=== PATIENT | female | born 1950 | race Caucasian/White ===

== ENCOUNTER → 2016-12-07 | Outpatient (CLI) | payer MEDICARE, OTHER ==
[2016-12-07 15:02] LABS: BLOOD UREA NITROGEN 14 mg/dL (7-20); CREATININE RESULT 0.87 mg/dL (0.52-1.25)
== END ==
LOC: OD 12:32
PROVIDERS: ATTEND Psychiatry & Neurology Addiction Medicine
DX: F32.9 Major depressive disorder, single episode, unspecified (principal)
CPT/HCPCS: 36415; 80178; 82565; 84443; 84520

== ENCOUNTER → 2017-11-27 | Outpatient (CLI) | payer MEDICARE, OTHER ==
[2017-11-27 13:19] LABS: LITHIUM 0.7 mEq/L (0.6-1.2)
[2017-11-30 09:21] LABS: BLOOD UREA NITROGEN 11 mg/dL (7-20)
== END ==
LOC: OD 08:12
PROVIDERS: ATTEND Psychiatry & Neurology Addiction Medicine
DX: F31.9 Bipolar disorder, unspecified (principal)
CPT/HCPCS: 36415; 80048; 80178; 82565; 84443; 84520

== ENCOUNTER 2018-01-04 09:48 | Day surgery (SDC) | payer MEDICARE, OTHER ==
[~2018-01-04 09:48] MED LIST: KETOROLAC TROMETHAMINE 0.45% 4 DROP/0.4 ML DROPERETTE OD PRN
[2018-01-04] MEDS ORDERED: LIDOCAINE 1% INJ-PF (10 MG/ML) 30 ML SDV ONE (10:05)
[2018-01-04] MEDS: TETRACAINE HCL 0.5% OPH SOLN 2 ML OD PRN ×4 (10:29→11:10)
[2018-01-04] MEDS: CYCLOPENTOLATE 0.2%/PHENYLEPHRINE 1% OPH SOLN 2 ML OD PRN ×3 (10:30→10:56)
[2018-01-04] MEDS: BESIFLOXACIN HCL 0.6% OPH SUSP 5 ML BOTTLE OD PRN ×4 (10:30→11:30)
[2018-01-04] MEDS: TROPICAMIDE 1% OPH SOLN 3 ML OD PRN ×2 (10:30→10:43)
[2018-01-04] MEDS ORDERED: MIDAZOLAM 2 MG/2 ML INJ ONE (11:06)
[2018-01-04] MEDS ORDERED: FENTANYL CITRATE INJ/PF 100 MCG/2 ML AMPUL ONE (11:06)
[2018-01-04] MEDS: EPINEPHRINE INJ/PF 1 MG/1 ML AMPULE ONE ×2 (11:18→11:20)
[2018-01-04] MEDS: CHONDR SU A NA/HYALUR INTRAOC KIT (SURGICARE) ONE ×2 (11:20)
--- NOTE | 2018-01-04 17:31 | [facility] OPERATIVE REPORT E ---
[facility] Operative Report NAME: JAYSON CARY AGE: 67Y DATE OF SURGERY: 01/04/2018 ROOM: PREOPERATIVE DIAGNOSIS: Cataract, right eye. POSTOPERATIVE DIAGNOSIS: Cataract, right eye. OPERATION: Cataract extraction with insertion of an IOL of the right eye. SURGEON: ALEXANDRA WU M.D. ANESTHESIA: Topical. PROCEDURE: After obtaining appropriate consent, the patient's right eye was prepped and draped in sterile fashion as well as the surgeon in a sterile manner and cataract surgery was started. First a paracentesis blade was used to make a side-port incision. Viscoelastic was used to inflate the anterior chamber. Next a 2.4 mm incision was made with a 2.4 mm blade, clear corneal temporally. A continuous capsulorrhexis was made using a cystotome and Utrata forceps. Following this hydrodissection was carried out to make the lens fully loose and mobile and it was rotated 90 degrees. Following this, a buifpu-giw-wqatuwv technique was used to phacoemulsify the lens with a CDE of 5.47. The remaining cortex was removed with irrigation/aspiration. Provisc was instilled into the capsular bag to inflate the bag. A SN60WF, 20.5 diopter lens was placed. The remaining viscoelastic material was removed with irrigation/aspiration. Following this, the incision was found to be watertight. Besivance was instilled into the eye and a protective shield was placed over the eye. The patient returned to the postoperative recovery in stable condition. DICTATING PHYSICIAN: ALEXANDRA WU M.D. [id number] PHY#: [id number] ID: [id number] JOB#: [id number] ACCT: [id number] cc:ALEXANDRA WU M.D. >
--- NOTE | 2018-01-04 17:32 | DISCHARGE SUMMARY E ---
Discharge Summary NAME: JAYSON CARY : 1950 AGE: 67Y ADMITTED: 01/04/2018 DISCHARGED: 01/04/2018 REASON FOR ADMISSION: This is a 67-year-old female who underwent cataract extraction of the right eye. DIAGNOSIS: Cataract, right eye. DISCHARGE INSTRUCTIONS: She underwent surgery because she has trouble driving at night. She should be on a regular diet. No bending at her waist. No heavy lifting. She should use her Besivance, Ilevro, and Durezol at 3:00 p.m. and 8:00 p.m. and sleep with a rigid shield, and I will see her for a 1-day postoperative tomorrow. DICTATING PHYSICIAN: ALEXANDRA WU M.D. [id number] PHY#: [id number] ID: [id number] JOB#: [id number] ACCT: [id number] cc:ALEXANDRA WU M.D. >
== END 2018-01-04 12:18 | disposition home or self-care (01) ==
LOC: SC 09:48
PROVIDERS: ATTEND Internal Medicine
DX: H25.811 Combined forms of age-related cataract, right eye (principal); B00.52 Herpesviral keratitis; K21.9 Gastro-esophageal reflux disease without esophagitis; E07.9 Disorder of thyroid, unspecified; Z79.899 Other long term (current) drug therapy; Z88.3 Allergy status to other anti-infective agents; Z88.5 Allergy status to narcotic agent
CPT/HCPCS: 66984; V2632; J2250; J3490 ×2; A9270; J0171; J3010; 142

== ENCOUNTER → 2018-05-16 | Outpatient (CLI) | payer MEDICARE, OTHER ==
--- NOTE | 2018-05-16 14:26 | RADIOLOGY REPORT (SQ) ---
EXAM DESCRIPTION: CT HEAD WITHOUT COMPLETED DATE/TIME: 05/16/2018 1:09 pm REASON FOR STUDY: G45.9 TRANSIENT CEREBRAL ISCHEMIC ATTACK, UNSPECIFIED G45.9 TRANSIENT CEREBRAL IS CHEMIC ATTACK, UNSPECIFIED COMPARISON: None. TECHNIQUE: Axial images acquired through the brain without intravenous contrast. Images reviewed wi th bone, brain and subdural windows. Additional sagittal and coronal reconstructions were generated. Images stored on PACS. All CT scanners at this facility use dose modulation, iterative reconstruction, and/or weight based d osing when appropriate to reduce radiation dose to as low as reasonably achievable (ALARA). [facility]: Dose Right [facility]: CareDose [facility]: Dose Right [facility]: Teradose 4D [facility]: [employer] RADIATION DOSE: CT Rad equipment meets quality standard of care and radiation dose reduction techniq ues were employed. CTDIvol: 48.5 mGy. DLP: 854 mGy-cm. mGy. LIMITATIONS: None. FINDINGS: VENTRICLES: Normal size and contour. CEREBRUM: No masses. No hemorrhage. No midline shift. No evidence for acute infarction. Normal gra y/white matter differentiation. No areas of low density in the white matter. CEREBELLUM: No masses. No hemorrhage. No alteration of density. No evidence for acute infarction. EXTRAAXIAL SPACES: No fluid collections. No masses. ORBITS AND GLOBE: No intra- or extraconal masses. Normal contour of globe without masses. CALVARIUM: No fracture. PARANASAL SINUSES: Large mucosal nodule/mucous retention cyst in the right maxillary sinus. No fluid or mucosal thickening. SOFT TISSUES: No mass or hematoma. OTHER: No other significant finding. IMPRESSION: NORMAL BRAIN CT WITHOUT CONTRAST. LARGE MUCOSAL NODULE/MUCOUS RETENTION CYST IN THE RIGHT MAXILLARY SINUS. EVIDENCE OF ACUTE STROKE: NO. COMMENT: Quality ID # [id number]: Final reports with documentation of one or more dose reduction techniques (e.g., Automated exposure control, adjustment of the mA and/or kV according to patient size, use of iterative reconstruction technique) TECHNICAL DOCUMENTATION: JOB ID: [id number] [employer]- All Rights Reserved Reading location - IP/workstation name: [email or web address]
== END ==
LOC: RAD 14:12
PROVIDERS: ATTEND Physician Assistant
DX: G45.9 Transient cerebral ischemic attack, unspecified (principal)
CPT/HCPCS: 70450

== ENCOUNTER 2018-06-02 19:18 | Inpatient (IN) | payer MEDICARE, OTHER ==
[2018-06-02] MEDS ORDERED: NORMAL SALINE 500 ML IV ONE (19:35)
--- NOTE | 2018-06-02 19:40 | ER Document Report ---
ED General - General Chief Complaint: Altered Mental Status Stated Complaint: ALTERED MENTAL STATUS Time Seen by Provider: 06/02/18 19:23 Notes: Patient is a 67 year old female that comes to the Emergency Department by EMS for chief complaint of weakness, being unstable on her feet and unable to walk, and the sensation of sluggishness and dizziness. Brother states they were eating when she suddenly started staring off in space and then started having trouble with movement since sitting up. She also seemed like she was slurring some of her words. Patient states she felt initially like she was seeing double but this has improved. She did not have a facial droop, weakness on one side of her body, she denies any headache, chest pain, shortness of breath, fever. She states she feels slightly better, brother states she is already slightly improved, however patient still has the same feeling of sluggishness, dizziness, weakness, unsteadiness. Past medical history of hypertension, bipolar disorder, on lithium, Geodon, Neurontin, amlodipine, and liothyronine (for hypothyroid assumed to be from the lithium). She denies alcohol or recreational drugs. Only new medication is the lithium. TRAVEL OUTSIDE OF THE [place] IN LAST 30 DAYS: No - Related Data Allergies/Adverse Reactions: latex [Latex] Allergy (Severe, Verified 03/05/14 10:19) SWELLING codeine [Codeine] Adverse Reaction (Intermediate, Verified 03/05/14 10:17) FEELING OF GOING FAST diphenhydramine HCl [From Benadryl] Adverse Reaction (Intermediate, Verified 03/05/14 10:19) "CANNOT SLEEP" metronidazole [Metronidazole] Adverse Reaction (Intermediate, Verified 03/05/14 10:17) SEVERE JOINT PAIN milk Adverse Reaction (Verified 01/02/18 13:23) Diarrhea pseudoephedrine HCl [From Sudafed] Adverse Reaction (Verified 03/05/14 10:19) "TROUBLE SLEEPING" STEROIDS Adverse Reaction (Uncoded 03/05/14 10:19) MANIC EPISODES Past Medical History - General Information source: Patient, Relative - brother - Social History Smoking Status: Never Smoker Chew tobacco use (# tins/day): No Frequency of alcohol use: Occasional Drug Abuse: None Lives with: Family Family History: Reviewed & Not Pertinent Patient has suicidal ideation: No Patient has homicidal ideation: No - Past Medical History Cardiac Medical History: Reports: Hx Hypertension Denies: Hx Coronary Artery Disease, Hx Heart Attack - DENIES Pulmonary Medical History: Reports: Hx Pneumonia Denies: Hx Asthma, Hx Bronchitis Neurological Medical History: Reports: 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 Denies: Hx Cerebrovascular Accident Renal/ Medical History: Denies: Hx Peritoneal Dialysis GI Medical History: Denies: Hx Hepatitis, Hx Hiatal Hernia, Hx Ulcer Musculoskeletal Medical History: Reports Hx Arthritis Infectious Medical History: Denies: Hx Hepatitis Past Surgical History: Reports: Hx Hysterectomy. Denies: Hx Mastectomy, Hx Open Heart Surgery, Hx Pacemaker - Immunizations Hx Diphtheria, Pertussis, Tetanus Vaccination: Yes Hx Pneumococcal Vaccination: 05/08/03 Review of Systems - Review of Systems Constitutional: See HPI EENT: No symptoms reported Cardiovascular: No symptoms reported Respiratory: No symptoms reported Gastrointestinal: No symptoms reported Genitourinary: No symptoms reported Female Genitourinary: No symptoms reported Musculoskeletal: See HPI Skin: No symptoms reported Hematologic/Lymphatic: No symptoms reported Neurological/Psychological: See HPI Physical Exam - Vital signs Vitals: Resp Pulse Ox 19 100 06/02/18 19:23 06/02/18 19:23 - Notes Notes: GENERAL: Alert, interacts well. No acute distress. HEAD: Normocephalic, atraumatic. EYES: Pupils equal, round, and reactive to light. Extraocular movements intact. ENT: Oral mucosa moist, tongue midline. Oropharynx unremarkable. Airway patent. Nares patent, no nasal septal hematoma, TM's intact. NECK: Full range of motion. Supple. Trachea midline. LUNGS: Clear to auscultation bilaterally, no wheezes, rales, or rhonchi. No respiratory distress. HEART: Regular rate and rhythm. No murmur ABDOMEN: Soft, non-tender. Non-distended. Bowel sounds present in all 4 quadrants. GENITOURINARY: Deferred EXTREMITIES: Moves all 4 extremities spontaneously. No edema, normal radial and dorsalis pedis pulses bilaterally. No cyanosis. BACK: no cervical, thoracic, lumbar midline tenderness. No saddle anesthesia, normal distal neurovascular exam. NEUROLOGICAL: Alert and oriented x3. Normal speech. Patient is sluggish and has some coordination and difficulty with finger-nose testing bilaterally. She also can perform heel down opposite pulido but is very shaking and sluggish in doing so [cranial nerves II through XII grossly intact]. PSYCH: Normal affect, normal mood. SKIN: Warm, dry, normal turgor. No rashes or lesions noted. Course - Re-evaluation Re-evalutation: On evaluation patient has difficulty with limb coordination, mild nystagmus, and she is unable to ambulate. Visual changes have resolved per patient. No focal deficits on neurological evaluation. Patient is alert, oriented, conv ersational, cooperative, calm. CT of the head unremarkable, chest x-ray unremarkable. CBC, chemistry generally unremarkable. [place] is normal. Alcohol and drug screen are negative. Urinalysis unremarkable. Thyroid functions pending. On reevaluation patient still has the ataxia and is unable to stand. I did discuss because patient is within the timeframe for management of acute CVA with TPA use, however this was initially declined, after additional discussion this was definitely declined by patient and by brother at bedside. This was declined both because the clinical picture is not certain if the patient is having a stroke and because of discussed short and long-term risks and benefits. Discussed with patient and brother recommendation of admission and further evaluation of ataxia initial labs and with MRI. Discussed with Dr. Clark. Discussed with Dr. Duckworth, hospitalist, patient will be admitted to [facility] full admission. - Vital Signs Vital signs: Temp Pulse Resp BP Pulse Ox 97.7 F 80 14 183/84 H 99 06/02/18 19:24 06/02/18 19:28 06/03/18 01:01 06/03/18 01:01 06/03/18 01:01 - Laboratory Result Diagrams: 06/02/18 20:05 06/02/18 20:05 Laboratory results interpreted by me: 06/02/18 06/02/18 06/02/18 20:05 20:05 20:05 RBC 3.47 L Hct 35.8 L MCV 103 H MCH 35.2 H Sodium 134.4 L Glucose 142 H Calcium 10.3 H TSH 0.08 L Free T4 0.25 L Discharge - Discharge Clinical Impression: Ataxia Condition: Stable Disposition: ADMITTED INPATIENT Admitting Provider: Hospitalist Unit Admitted: [facility]
--- NOTE | 2018-06-02 20:00 | RADIOLOGY REPORT (SQ) ---
EXAM DESCRIPTION: CT HEAD WITHOUT COMPLETED DATE/TIME: 06/02/2018 7:48 pm REASON FOR STUDY: gait disturbance COMPARISON: CT brain 05/16/2018. TECHNIQUE: Axial images acquired through the brain without intravenous contrast. Images reviewed wi th bone, brain and subdural windows. Images stored on PACS. All CT scanners at this facility use dose modulation, iterative reconstruction, and/or weight based d osing when appropriate to reduce radiation dose to as low as reasonably achievable (ALARA). [facility]: Dose Right [facility]: CareDose [facility]: Dose Right [facility]: Teradose 4D [facility]: [employer] RADIATION DOSE: CT Rad equipment meets quality standard of care and radiation dose reduction techniq ues were employed. CTDIvol: 53.2 mGy. DLP: 937 mGy-cm. mGy. LIMITATIONS: None. FINDINGS: VENTRICLES: Normal size and contour. CEREBRUM: No mass effect. No hemorrhage. No midline shift. Normal guerra/white matter differentiatio n. No evidence for acute territorial infarction. CEREBELLUM: No mass effect. No hemorrhage. No alteration of density. No evidence for acute infarct ion. EXTRAAXIAL SPACES: No fluid collections. ORBITS AND GLOBE: Symmetrical contour of the globes. CALVARIUM: No depressed skull fracture. PARANASAL SINUSES: No air-fluid level. Large mucous retention cyst/polyp at the right maxillary sinu s. SOFT TISSUES: No hematoma. IMPRESSION: 1. No acute intracranial hemorrhage or acute territorial infarct. 2. Large mucous retention cyst/ polyp at the right maxillary sinus. EVIDENCE OF ACUTE STROKE: NO. COMMENT: Quality ID # [id number]: Final reports with documentation of one or more dose reduction techniques (e.g., Automated exposure control, adjustment of the mA and/or kV according to patient size, use of iterative reconstruction technique) TECHNICAL DOCUMENTATION: JOB ID: [id number] [employer]- All Rights Reserved Reading location - IP/workstation name: [email or web address]
--- NOTE | 2018-06-02 20:07 | RADIOLOGY REPORT (SQ) ---
EXAM DESCRIPTION: XR CHEST 1 VIEW COMPLETED DATE/TME: 06/02/2018 19:34 CLINICAL HISTORY: 67 years, Female, AMS Findings: Heart is not enlarged. Lungs are clear. No consolidation or pleural effusion. No pulmonary edema or pneumothorax. IMPRESSION: No acute disease.
[2018-06-02 20:32] LABS: ABSOLUTE BASOPHILS # (AUTO) 0.1 10^3/uL (0.0-0.2); ABSOLUTE EOSINOPHILS # (AUTO) 0.2 10^3/uL (0.0-0.6); ABSOLUTE LYMPHOCYTES (AUTO) 1.6 10^3/uL (0.5-4.7); ABSOLUTE MONOCYTES (AUTO) 0.4 10^3/uL (0.1-1.4); ABSOLUTE NEUT (AUTO) 3.7 10^3/uL (1.7-8.2); BASOPHILS % (AUTO) 0.9 % (0-2); EOSINOPHILS % (AUTO) 3.1 % (0-6); HEMATOCRIT 35.8 % (36.0-47.0); HEMOGLOBIN 12.2 g/dL (12.0-15.5); LYMPHOCYTES % (AUTO) 27.4 % (13-45); MEAN CORPUSCULAR HEMOGLOBIN 35.2 pg (27.0-33.4); MEAN CORPUSCULAR HGB CONC 34.2 g/dL (32.0-36.0); MEAN CORPUSCULAR VOLUME 103 fl (80-97); MONOCYTES % (AUTO) 6.7 % (3-13); PLATELET COUNT 206 10^3/uL (150-450); RED BLOOD COUNT 3.47 10^6/uL (3.72-5.28); RED CELL DISTRIBUTION WIDTH 12.4 % (11.5-14.0); SEGMENTED NEUTROPHILS % (AUTO) 61.9 % (42-78); TOTAL CELLS COUNTED % (AUTO) 100 %; WHITE BLOOD COUNT 5.9 10^3/uL (4.0-10.5)
[2018-06-02] MEDS ORDERED: ONDANSETRON HCL INJ/PF 4 MG/2 ML SDV IV ONE (20:45)
[2018-06-02 20:53] LABS: ALANINE AMINOTRANSFERASE 29 U/L (9-52); ALBUMIN 4.5 g/dL (3.5-5.0); ALCOHOL < 10 mg/dL (NONE DETECTED); ALKALINE PHOSPHATASE 69 U/L (38-126); ANION GAP 7 (5-19); ASPARTATE AMINO TRANSFERASE 32 U/L (14-36); BILIRUBIN,DIRECT 0.1 mg/dL (0.0-0.4); BILIRUBIN,TOTAL 0.2 mg/dL (0.2-1.3); BLOOD UREA NITROGEN 13 mg/dL (7-20); CALCIUM 10.3 mg/dL (8.4-10.2); CARBON DIOXIDE 29 mmol/L (22-30); CHLORIDE 98 mmol/L (98-107); GLUCOSE 142 mg/dL (75-110); POTASSIUM 3.7 mmol/L (3.6-5.0); SODIUM 134.4 mmol/L (137-145); TOTAL PROTEIN 7.2 g/dL (6.3-8.2)
--- NOTE | 2018-06-02 21:41 | EKG REPORT ---
SEVERITY:- ABNORMAL ECG - SINUS RHYTHM FIRST DEGREE AV BLOCK NONSPECIFIC INTRAVENTRICULAR CONDUCTION DELAY MINIMAL ST DEPRESSION, INFERIOR LEADS : Confirmed by: Cydney Dickens MD 02-Jun-2018 21:39:50
[2018-06-02 22:08] LABS: APPEARANCE,URINE CLEAR; BILIRUBIN,URINE NEGATIVE (NEGATIVE); COLOR,URINE YELLOW; GLUCOSE, URINE NEGATIVE (NEGATIVE); KETONES,URINE NEGATIVE (NEGATIVE); LEUKOCYTE ESTERASE,URINE NEGATIVE (NEGATIVE); NITRITE,URINE NEGATIVE (NEGATIVE); PROTEIN,URINE NEGATIVE (NEGATIVE); URINE SPECIFIC GRAVITY 1.005; UROBILINOGEN,URINE NEGATIVE mg/dL (<2.0)
[2018-06-02 22:27] LABS: URINE AMPHETAMINES SCREEN NEGATIVE; URINE BARBITURATES SCREEN NEGATIVE; URINE BENZODIAZEPINES SCREEN NEGATIVE; URINE COCAINE SCREEN NEGATIVE; URINE MARIJUANA (THC) SCREEN NEGATIVE; URINE METHADONE SCREEN NEGATIVE; URINE PHENCYCLIDINE SCREEN NEGATIVE
[2018-06-02 22:28] LABS: FREE T4 (FREE THYROXINE) 0.25 ng/dL (0.78-2.19)
[2018-06-02 23:30] LABS: THYROID STIMULATING HORMONE 0.08 uIU/mL (0.47-4.68)
[2018-06-02] MEDS ORDERED: ONDANSETRON HCL INJ/PF 4 MG/2 ML SDV IV PRN (23:31)
[2018-06-02] MEDS ORDERED: ACETAMINOPHEN 325 MG TABLET PO PRN (23:31)
[2018-06-02] MEDS ORDERED: MAGNESIUM HYDROXIDE SUSP 30 ML UDCUP PO PRN (23:31)
[2018-06-02] MEDS ORDERED: DOCUSATE SODIUM 100 MG CAPSULE PO PRN (23:31)
[2018-06-02] MEDS ORDERED: ONDANSETRON 4 MG TAB.RAPDIS PO PRN (23:31)
[2018-06-02] MEDS ORDERED: ACETAMINOPHEN 650 MG SUPP.RECT PR PRN (23:31)
[2018-06-02] MEDS ORDERED: HYDRALAZINE HCL INJ/PF 20 MG/1 ML SDV IV PRN (23:48)
[2018-06-02] MEDS ORDERED: LABETALOL HCL INJ 20 MG/4 ML DISP.SYRIN IV PRN (23:48)
--- NOTE | 2018-06-03 02:39 | PDOC H&P ---
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 She admits that she developed a sudden onset of ataxia at approximately 6 PM while eating supper with her brother on the evening of admission. She describes the episode as a feeling of generalized weakness accompanied by double vision, mild difficulty with her vocal articulation and slowness of her thinking as well as a sensation of vertigo and dizziness with severe ataxia on efforts at trying to stand up or even remain seated without support on both sides. Her symptoms have remained present but have improved to some degree since the time of onset. The symptoms have been noted to wax and wane in intensity with no obvious cause for the change in level of intensity being identified. She admits a similar episode on Monday of this week in which she had a sudden onset of visual changes with a left eye visual field defect that was present 1-2 days but resolved spontaneously in the entirety. She also had some dizziness, weakness and slowness of her thinking with that episode, however those symptoms were quite transient and had resolved within a few minutes to a few hours of the initial event. She had a CT scan of her head and a Doppler study of her carotid arteries performed along with an echocardiogram in the evaluation of that event. All studies were negative by her report. In the emergency room she was found to have a negative CT scan of her head and an essentially unremarkable workup otherwise. Because of her neurologic changes she is admitted to the [facility] stroke protocol. 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 Hematology: Reports: Anemia - BORDERLINE,GOOD FOR NOW Denies: Bleeding Tendencies Infectious Medical History: Reports: None Past Surgical History Past Surgical History: Reports: Hysterectomy Social History Lives with: Family Smoking Status: Never Smoker - Advance Directive Resuscitation Status: Full Code Surrogate healthcare decision maker:: Brother Family History Family History: CAD, Malignancy Parental Family History Reviewed: Yes Children Family History Reviewed: No Sibling(s) Family History Reviewed.: Yes Medication/Allergy Home Medications: Aspirin 81 mg PO QHS 03/05/14 Calcium Carbonate [Caltrate 600] 1 tab PO BID 03/05/14 Multivit,Iron,Minerals/Lutein [Theratrum Complete Tablet] 1 each PO BID 03/05/14 Acyclovir [Acyclovir 400 mg Tablet] 400 mg PO BID 01/02/18 Besifloxacin HCl [Besivance 0.6% Oph Susp 5 ml] 1 drop OP .3PM AND 8PM TODAY 01/02/18 Carboxymethylcellulos/Glycerin [Refresh Optive Eye Drops] 1 ml OP ASDIR PRN 01/02/18 Difluprednate [Durezol] 1 drop OP .3PM AND 8PM TODAY 01/02/18 Gabapentin [Neurontin 300 mg Capsule] 300 mg PO Q12 01/02/18 Liothyronine Sodium 37.5 mcg PO DAILY 01/02/18 [place] Carbonate 300 mg PO .QOD 01/02/18 [place] Carbonate 600 mg PO .QOD 01/02/18 Nepafenac [Ilevro] 1 drop OP .3PM AND 8PM TODAY 01/02/18 Oxcarbazepine [Trileptal] 300 mg PO TID 01/02/18 Quetiapine Fumarate [Seroquel] 50 mg PO QHS 01/02/18 Ziprasidone HCl [Geodon] 10 mg PO QID 01/02/18 Allergies/Adverse Reactions: latex [Latex] Allergy (Severe, Verified 03/05/14 10:19) SWELLING codeine [Codeine] Adverse Reaction (Intermediate, Verified 03/05/14 10:17) FEELING OF GOING FAST diphenhydramine HCl [From Benadryl] Adverse Reaction (Intermediate, Verified 03/05/14 10:19) "CANNOT SLEEP" metronidazole [Metronidazole] Adverse Reaction (Intermediate, Verified 03/05/14 10:17) SEVERE JOINT PAIN milk Adverse Reaction (Verified 01/02/18 13:23) Diarrhea pseudoephedrine HCl [From Sudafed] Adverse Reaction (Verified 03/05/14 10:19) "TROUBLE SLEEPING" STEROIDS Adverse Reaction (Uncoded 03/05/14 10:19) MANIC EPISODES Review of Systems Constitutional: PRESENT: as per HPI, weakness. ABSENT: chills, fever(s) Eyes: PRESENT: as per HPI, visual disturbances - Double vision. ABSENT: other - Ocular pain Ears: ABSENT: hearing changes, other - Ear pain Nose, Mouth, and Throat: ABSENT: mouth pain, sore throat Cardiovascular: ABSENT: chest pain, dyspnea on exertion, edema, orthropnea, palpitations Respiratory: ABSENT: cough, dyspnea Gastrointestinal: ABSENT: abdominal pain, constipation, diarrhea, dysphagia, nausea, vomiting Genitourinary: ABSENT: dysuria, hematuria - [id number] Musculoskeletal: ABSENT: deformity, joint swelling Integumentary: ABSENT: pruritus, rash Neurological: PRESENT: dizziness, lack of coordination, tremor(s) - Increased tremors since onset of current illness, vertigo, weakness - Generalized weakness greatest in the lower extremities. ABSENT: confusion, convulsions Psychiatric: ABSENT: anxiety, depression Endocrine: ABSENT: cold intolerance, heat intolerance Hematologic/Lymphatic: ABSENT: easy bleeding, easy bruising Physical Exam Vital Signs: Temp Pulse Resp BP Pulse Ox 97.7 F 80 17 174/87 H 100 06/02/18 19:24 06/02/18 19:28 06/02/18 19:28 06/02/18 19:28 06/02/18 19:28 Intake & Output 05/31/18 06/01/18 06/02/18 23:59 23:59 23:59 Weight 52.163 kg General appearance: PRESENT: no acute distress, cooperative, well-developed Head exam: PRESENT: atraumatic, normocephalic Eye exam: PRESENT: conjunctiva pink, nystagmus - Horizontal and vertical nystagmus components noted, PERRLA. ABSENT: periorbital swelling, scleral icterus Ear exam: PRESENT: normal external ear exam. ABSENT: bleeding, drainage Mouth exam: PRESENT: dry mucosa, neck supple Neck exam: ABSENT: JVD, thyromegaly, tracheal deviation Respiratory exam: PRESENT: clear to auscultation manuela, symmetrical, unlabored Cardiovascular exam: PRESENT: RRR. ABSENT: clicks, diastolic murmur, gallop, rubs, systolic murmur Pulses: PRESENT: normal radial pulses, normal dorsalis pedis pul Vascular exam: PRESENT: normal capillary refill. ABSENT: pallor GI/Abdominal exam: PRESENT: normal bowel sounds, soft Rectal exam: PRESENT: deferred Extremities exam: ABSENT: joint swelling, pedal edema Musculoskeletal exam: PRESENT: other - Marked ataxia and tremor present in the bilateral upper and lower extremities more pronounced in the lower extremities however.. ABSENT: deformity, dislocation Neurological exam: PRESENT: alert, oriented to person, oriented to place, oriented to time, oriented to situation, abnormal gait - Unable to stand due to weakness and severe ataxia, ataxia. ABSENT: CN II-XII grossly intact - Severe nystagmus with fast component to the left, motor sensory deficit Psychiatric exam: PRESENT: appropriate affect, normal mood Skin exam: PRESENT: dry, intact, warm. ABSENT: jaundice, rash, urticaria Results Laboratory Results: 06/02/18 20:05 06/02/18 20:05 06/02/18 06/02/18 06/02/18 20:05 20:05 20:05 WBC 5.9 RBC 3.47 L Hgb 12.2 Hct 35.8 L MCV 103 H MCH 35.2 H MCHC 34.2 RDW 12.4 Plt Count 206 Seg Neutrophils % 61.9 Lymphocytes % 27.4 Monocytes % 6.7 Eosinophils % 3.1 Basophils % 0.9 Absolute Neutrophils 3.7 Absolute Lymphocytes 1.6 Absolute Monocytes 0.4 Absolute Eosinophils 0.2 Absolute Basophils 0.1 Sodium 134.4 L Potassium 3.7 Chloride 98 Carbon Dioxide 29 Anion Gap 7 BUN 13 Creatinine 0.85 Est GFR ( Amer) > 60 Est GFR (Non-Af Amer) > 60 Glucose 142 H Calcium 10.3 H Total Bilirubin 0.2 AST 32 ALT 29 Alkaline Phosphatase 69 Total Protein 7.2 Albumin 4.5 TSH 0.08 L Free T4 0.25 L Urine Color Urine Appearance Urine pH Ur Specific [place] Urine Protein Urine Glucose (UA) Urine Ketones Urine Blood Urine Nitrite Ur Leukocyte Esterase Urine WBC (Auto) 06/02/18 21:53 WBC RBC Hgb Hct MCV MCH MCHC RDW Plt Count Seg Neutrophils % Lymphocytes % Monocytes % Eosinophils % Basophils % Absolute Neutrophils Absolute Lymphocytes Absolute Monocytes Absolute Eosinophils Absolute Basophils Sodium Potassium Chloride Carbon Dioxide Anion Gap BUN Creatinine Est GFR ( Amer) Est GFR (Non-Af Amer) Glucose Calcium Total Bilirubin AST ALT Alkaline Phosphatase Total Protein Albumin TSH Free T4 Urine Color YELLOW Urine Appearance CLEAR Urine pH 7.0 Ur Specific [place] 1.005 Urine Protein NEGATIVE Urine Glucose (UA) NEGATIVE Urine Ketones NEGATIVE Urine Blood NEGATIVE Urine Nitrite NEGATIVE Ur Leukocyte Esterase NEGATIVE Urine WBC (Auto) 1 06/02/18 20:05 Troponin I < 0.012 Impressions: Chest X-Ray 06/02/18 19:34 IMPRESSION: No acute disease. Head CT 06/02/18 19:34 IMPRESSION: 1. No acute intracranial hemorrhage or acute territorial infarct. 2. Large mucous retention cyst/ polyp at the right maxillary sinus. EVIDENCE OF ACUTE STROKE: NO. Assessment & Plan - Diagnosis (1) Ataxia Is this a current diagnosis for this admission?: Yes Plan: The most likely cause the patient's sudden onset ataxia would be a brainstem or cerebellar ischemic cerebrovascular accident. This will be investigated with a MRI of the brain as soon as possible. Patient has already undergone carotid Doppler studies and an echocardiogram as well as 2 CT scans of the head without contrast all of which have been negative for significant disease. She will be treated per the stroke protocol and as such has been started on aspirin 81 mg p.o. daily pending the results of further testing which will dictate additional therapies. Her estrogen replacement therapy will be discontinued immediately. (2) Generalized weakness Is this a current diagnosis for this admission?: Yes Plan: The most likely cause the patient's sudden onset generalized weakness would be an ischemic cerebrovascular accident. This will be investigated with a MRI of the brain as soon as possible. Patient has already undergone carotid Doppler studies and an echocardiogram as well as 2 CT scans of the head without contrast all of which have been negative for significant disease. She will be treated per the stroke protocol and as such has been started on aspirin 81 mg p.o. daily pending the results of further testing which will dictate additional therapies. Her estrogen replacement therapy will be discontinued immediately. (3) Hypothyroidism Qualifiers: Hypothyroidism type: unspecified Qualified Code(s): E03.9 - Hypothyroidism, unspecified Is this a current diagnosis for this admission?: Yes Plan: Patient will be continued on her current thyroid replacement therapy a thyroid profile will be obtained to evaluate efficacy of her current treatment. (4) Bipolar disorder in full remission Qualifiers: Most recent bipolar episode type: most recent episode unspecified type Qualified Code(s): F31.70 - Bipolar disorder, currently in remission, most recent episode unspecified Is this a current diagnosis for this admission?: Yes Plan: Patient will be continued on her current medications at prescribed dosages. Drug levels will be a gained were appropriate. - Time Time Spent: 50 to 70 Minutes Critical Time spent with patient: Less than 15 minutes Medications reviewed and adjusted accordingly: Yes Anticipated discharge: Home with Homehealth, Acute Rehab - Inpatient Certification Based on my medical assessment, after consideration of the patient's comorbidities, presenting symptoms, or acuity I expect that the services needed warrant INPATIENT care.: Yes I certify that my determination is in accordance with my understanding of Medicare's requirements for reasonable and necessary INPATIENT services [42 CFR 412.3e].: Yes Medical Necessity: Need Close Monitoring Due to Risk of Patient Decompensation, Need For Continuous Telemetry Monitoring, Need for Neurological Checks, Risk of Complication if Not Cared For in Hospital
[2018-06-03 03:04] LABS: CREATINE KINASE MB 0.74 ng/mL (<4.55)
[2018-06-03 03:20] LABS: TROPONIN I < 0.012 ng/mL
[2018-06-03 07:48] LABS: CHOLESTEROL 180.84 mg/dL (0-200); TRIGLYCERIDES 34 mg/dL (<150)
--- NOTE | 2018-06-03 07:53 | EKG REPORT ---
SEVERITY:- ABNORMAL ECG - ATRIAL FIBRILLATION NONSPECIFIC REPOL ABNORMALITY, DIFFUSE LEADS : Confirmed by: Cydney Dickens MD 03-Jun-2018 07:52:59
[2018-06-03 07:55] LABS: ABSOLUTE LYMPHOCYTES (AUTO) 1.2 10^3/uL (0.5-4.7); ABSOLUTE MONOCYTES (AUTO) 0.6 10^3/uL (0.1-1.4); ABSOLUTE NEUT (AUTO) 4.5 10^3/uL (1.7-8.2); BASOPHILS % (AUTO) 0.6 % (0-2); EOSINOPHILS % (AUTO) 0.2 % (0-6); HEMATOCRIT 30.3 % (36.0-47.0); HEMOGLOBIN 10.6 g/dL (12.0-15.5); LYMPHOCYTES % (AUTO) 18.9 % (13-45); MEAN CORPUSCULAR HEMOGLOBIN 35.7 pg (27.0-33.4); MEAN CORPUSCULAR VOLUME 102 fl (80-97); MONOCYTES % (AUTO) 9.4 % (3-13); PLATELET COUNT 194 10^3/uL (150-450); RED BLOOD COUNT 2.97 10^6/uL (3.72-5.28); RED CELL DISTRIBUTION WIDTH 12.6 % (11.5-14.0); SEGMENTED NEUTROPHILS % (AUTO) 70.9 % (42-78); TOTAL CELLS COUNTED % (AUTO) 100 %; WHITE BLOOD COUNT 6.3 10^3/uL (4.0-10.5)
[2018-06-03 08:00] LABS: DIRECT LDL < 30 mg/dL (<100)
[2018-06-03 08:14] LABS: BLOOD UREA NITROGEN 12 mg/dL (7-20); CALCIUM 9.6 mg/dL (8.4-10.2); GLUCOSE 95 mg/dL (75-110); POTASSIUM 4.6 mmol/L (3.6-5.0); SODIUM 136.3 mmol/L (137-145)
[2018-06-03 08:19] LABS: ANION GAP 1 (5-19); CARBON DIOXIDE 30 mmol/L (22-30); CHLORIDE 105 mmol/L (98-107)
[2018-06-03 08:25] LABS: CREATINE KINASE MB 0.34 ng/mL (<4.55)
[2018-06-03 08:30] LABS: TROPONIN I < 0.012 ng/mL
[2018-06-03] MEDS ORDERED: NORMAL SALINE 1000 ML 1,000 ML IV ONE (09:00)
[2018-06-03] MEDS ORDERED: LITHIUM CARBONATE 300 MG CAPSULE PO SCH (10:00)
[2018-06-03] MEDS ORDERED: ZIPRASIDONE HCL 20 MG CAPSULE PO SCH (10:00)
[2018-06-03] MEDS ORDERED: LIOTHYRONINE SODIUM 25 MCG TABLET PO SCH (10:00)
--- NOTE | 2018-06-03 11:08 | PDOC CONSULTATION ---
Consultation Consult Date: 06/03/18 Consult reason:: Acute CVA with cardiac arrhythmia History of Present Illness Admission Date/PCP: 06/02/18 23:33 SAYRA WALLIS MD Patient complains of: inability to walk due to imbalance and h/o slurred speech History of Present Illness: JAYSON CARY is a 67 year old female with PMH of bipolar disorder, new diagnosis of HTN, h/o hypothyrodism comes in with c/o slurred speech and dizziness with gait imbalance while she was eating dinner with her brother last night and then suddenly became symptomatic. According to her brother she kept looking at him in a weird way and did not appear very alert. She says she feels better but still feels dizzy when she tries to stand up but her speech is back to normal now. According to the patient she had an episode of black spots in her left eye vision 3 weeks ago for which she was seen by her PCP and had an echo w hich was normal per pt and carotid doppler that showed mild left and moderate right carotid disease. She was also recently diagnosed with HTN and started on amlodipine 2.5 gm daily and dose increased to 10 mg over the last 10 days- she was taking it as 2.5 4 times a day per her choice. She denies cigarette smoking and drinks alcohol occasionally. She denies h/o CAD in her family. She denies any chest pain/ shortness of breath/ palpitations/diarrhoea/pain abdomen but had chest pain 1 year ago for which she was seen by Dr Vasquez and had a negative stress test per pt. Last night in the hospital she had nausea and one episode of vomiting. She was also noted to have arrhythmias on her telemetry last night. her BP was high in the Er and she got hydralazine but she was hypotensive earlier today and received IV fluid bolus. 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, Other - Recent TIA as described in history of present illness Denies: Hemorrhagic CVA, Ischemic CVA Endocrine Medical History: Reports: Hypothyroidism, Other - On chronic estrogen therapy with Premarin 0.625 mg daily Denies: Diabetes Mellitus Type 1, Diabetes Mellitus Type 2, Hyperthyroidism, Obesity Renal/ Medical History: Denies: Chronic Kidney Disease, Nephrolithiasis Malignancy Medical History: Reports: None GI Medical History: Denies: Cirrhosis, Hepatitis, Hiatal Hernia Musculoskeltal Medical History: Reports: Arthritis Denies: Fibromyalgia, Gout Skin Medical History: Denies: Eczema, Psoriasis Psychiatric Medical History: Reports: Bipolar Disorder, Depression Denies: Alcohol Dependency, Substance Abuse, Tobacco Dependency Traumatic Medical History: Reports: 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 Hematology: Reports: Anemia - BORDERLINE,GOOD FOR NOW Denies: Sickle Cell Disease, Bleeding Tendencies Infectious Medical History: Reports: None Past Surgical History Past Surgical History: Reports: Hysterectomy Denies: Amputation, Mastectomy, Pacemaker Social History Lives with: Family Smoking Status: Never Smoker Frequency of Alcohol Use: Occasional - Advance Directive Resuscitation Status: Full Code Family History Family History: CAD, Malignancy Parental Family History Reviewed: Yes Children Family History Reviewed: No Sibling(s) Family History Reviewed.: Unknown Medication/Allergy Home Medications: Aspirin 81 mg PO QHS 03/05/14 Acyclovir [Acyclovir 400 mg Tablet] 400 mg PO Q12 01/02/18 Liothyronine Sodium 25 mcg PO Q48H 01/02/18 [place] Carbonate 300 mg PO Q48H 01/02/18 [place] Carbonate 600 mg PO Q48H 01/02/18 Oxcarbazepine [Trileptal] 150 mg PO Q8 01/02/18 Quetiapine Fumarate [Seroquel] 100 mg PO QHS 01/02/18 Amlodipine Besylate [Norvasc 2.5 mg Tablet] 10 mg PO DAILY MDD started 05/3006/03/18 Biotin 5,000 mcg SL DAILY 06/03/18 Calcium Carbonate/Vitamin D3 [Calcium 600 + Vit D3 Caplet] 1 each PO Q12 06/03/18 Cyanocobalamin (Vitamin B-12) [Vitamin B-12] 2,000 mcg PO DAILY 06/03/18 Estrogens,Conjugated [Premarin 0.625 Mg Tablet] 0.625 mg PO DAILY 06/03/18 Gabapentin [Neurontin 300 mg Capsule] 300 mg PO Q8HP PRN 06/03/18 Liothyronine Sodium [Cytomel 25 Mcg Tablet] 50 mcg PO Q48H 06/03/18 Lysine [L-Lysine] 500 mg PO DAILY 06/03/18 Multivit/Folic Acid/Vit K1 [One-A-Day Women's 50 Plus Tab] 1 each PO Q12A 06/03/18 Ziprasidone HCl [Geodon 40 Mg Capsule] 40 mg PO Q6 06/03/18 Allergies/Adverse Reactions: latex [Latex] Allergy (Severe, Verified 03/05/14 10:19) SWELLING codeine [Codeine] Adverse Reaction (Intermediate, Verified 03/05/14 10:17) FEELING OF GOING FAST diphenhydramine HCl [From Benadryl] Adverse Reaction (Intermediate, Verified 03/05/14 10:19) "CANNOT SLEEP" metronidazole [Metronidazole] Adverse Reaction (Intermediate, Verified 03/05/14 10:17) SEVERE JOINT PAIN milk Adverse Reaction (Verified 01/02/18 13:23) Diarrhea pseudoephedrine HCl [From Sudafed] Adverse Reaction (Verified 03/05/14 10:19) "TROUBLE SLEEPING" STEROIDS Adverse Reaction (Uncoded 03/05/14 10:19) MANIC EPISODES Review of Systems Eyes: PRESENT: visual disturbances Neurological: PRESENT: abnormal gait, abnormal speech, weakness Physical Exam Vital Signs: Temp Pulse Resp BP Pulse Ox 98.7 F 70 16 84/35 L 99 06/03/18 07:42 06/03/18 07:42 06/03/18 07:42 06/03/18 07:42 06/03/18 07:42 Intake & Output 06/02/18 06/03/18 06/04/18 06:59 06:59 06:59 Intake Total 500 Balance 500 Weight 46.8 kg General appearance: PRESENT: no acute distress, thin Head exam: PRESENT: atraumatic, normocephalic Mouth exam: PRESENT: moist, tongue midline Neck exam: PRESENT: full ROM Respiratory exam: PRESENT: clear to auscultation manuela, symmetrical Pulses: PRESENT: normal radial pulses, normal femoral pulses, +2 pedal pulses bilateral Musculoskeletal exam: PRESENT: full ROM Neurological exam: PRESENT: alert, awake, oriented to person, oriented to place, oriented to time, oriented to situation, CN II-XII grossly intact Results Laboratory Results: 06/03/18 07:30 06/03/18 07:30 06/02/18 06/02/18 06/02/18 20:05 20:05 20:05 WBC 5.9 RBC 3.47 L Hgb 12.2 Hct 35.8 L MCV 103 H MCH 35.2 H MCHC 34.2 RDW 12.4 Plt Count 206 Seg Neutrophils % 61.9 Lymphocytes % 27.4 Monocytes % 6.7 Eosinophils % 3.1 Basophils % 0.9 Absolute Neutrophils 3.7 Absolute Lymphocytes 1.6 Absolute Monocytes 0.4 Absolute Eosinophils 0.2 Absolute Basophils 0.1 Sodium 134.4 L Potassium 3.7 Chloride 98 Carbon Dioxide 29 Anion Gap 7 BUN 13 Creatinine 0.85 Est GFR ( Amer) > 60 Est GFR (Non-Af Amer) > 60 Glucose 142 H Calcium 10.3 H Total Bilirubin 0.2 AST 32 ALT 29 Alkaline Phosphatase 69 Total Protein 7.2 Albumin 4.5 Triglycerides Cholesterol LDL Cholesterol Direct VLDL Cholesterol HDL Cholesterol TSH 0.08 L Free T4 0.25 L Free T3 pg/mL Urine Color Urine Appearance Urine pH Ur Specific [place] Urine Protein Urine Glucose (UA) Urine Ketones Urine Blood Urine Nitrite Ur Leukocyte Esterase Urine WBC (Auto) 06/02/18 06/02/18 06/03/18 20:05 21:53 02:00 WBC RBC Hgb Hct MCV MCH MCHC RDW Plt Count Seg Neutrophils % Lymphocytes % Monocytes % Eosinophils % Basophils % Absolute Neutrophils Absolute Lymphocytes Absolute Monocytes Absolute Eosinophils Absolute Basophils Sodium Potassium Chloride Carbon Dioxide Anion Gap BUN Creatinine Est GFR ( Amer) Est GFR (Non-Af Amer) Glucose Calcium Total Bilirubin AST ALT Alkaline Phosphatase Total Protein Albumin Triglycerides 34 Cholesterol 180.84 LDL Cholesterol Direct < 30 VLDL Cholesterol 7.0 L HDL Cholesterol 160 TSH Free T4 Free T3 pg/mL 4.62 Urine Color YELLOW Urine Appearance CLEAR Urine pH 7.0 Ur Specific [place] 1.005 Urine Protein NEGATIVE Urine Glucose (UA) NEGATIVE Urine Ketones NEGATIVE Urine Blood NEGATIVE Urine Nitrite NEGATIVE Ur Leukocyte Esterase NEGATIVE Urine WBC (Auto) 1 06/03/18 06/03/18 07:30 07:30 WBC 6.3 RBC 2.97 L Hgb 10.6 L Hct 30.3 L MCV 102 H MCH 35.7 H MCHC 35.0 RDW 12.6 Plt Count 194 Seg Neutrophils % 70.9 Lymphocytes % 18.9 Monocytes % 9.4 Eosinophils % 0.2 Basophils % 0.6 Absolute Neutrophils 4.5 Absolute Lymphocytes 1.2 Absolute Monocytes 0.6 Absolute Eosinophils 0.0 Absolute Basophils 0.0 Sodium 136.3 L Potassium 4.6 Chloride 105 Carbon Dioxide 30 Anion Gap 1 L BUN 12 Creatinine 1.30 H Est GFR ( Amer) 50 L Est GFR (Non-Af Amer) 41 L Glucose 95 Calcium 9.6 Total Bilirubin AST ALT Alkaline Phosphatase Total Protein Albumin Triglycerides Cholesterol LDL Cholesterol Direct VLDL Cholesterol HDL Cholesterol TSH Free T4 Free T3 pg/mL Urine Color Urine Appearance Urine pH Ur Specific [place] Urine Protein Urine Glucose (UA) Urine Ketones Urine Blood Urine Nitrite Ur Leukocyte Esterase Urine WBC (Auto) 06/02/18 06/03/18 06/03/18 20:05 02:00 02:00 Creatine Kinase 32 CK-MB (CK-2) 0.74 Troponin I < 0.012 < 0.012 06/03/18 06/03/18 07:30 07:30 Creatine Kinase 22 L CK-MB (CK-2) 0.34 Troponin I < 0.012 Impressions: Chest X-Ray 06/02/18 19:34 IMPRESSION: No acute disease. Head CT 06/02/18 19:34 IMPRESSION: 1. No acute intracranial hemorrhage or acute territorial infarct. 2. Large mucous retention cyst/ polyp at the right maxillary sinus. EVIDENCE OF ACUTE STROKE: NO. Status: Image reviewed by me Assessment & Plan - Diagnosis (1) Possible TIA/CVA Is this a current diagnosis for this admission?: Yes (2) Ataxia Is this a current diagnosis for this admission?: Yes (3) Paroxysmal atrial fibrillation Is this a current diagnosis for this admission?: Yes (4) Bipolar disorder in full remission Qualifiers: Most recent bipolar episode type: most recent episode unspecified type Qualified Code(s): F31.70 - Bipolar disorder, currently in remission, most recent episode unspecified Is this a current diagnosis for this admission?: Yes (5) Hypothyroidism Qualifiers: Hypothyroidism type: unspecified Qualified Code(s): E03.9 - Hypothyroidism, unspecified Is this a current diagnosis for this admission?: Yes - Notes Notes: 67 yr old female with h/o Bipolar disorder admitted with acute neurological symptoms with initial CT head negative for CVA with telemetry showing paroxysmal atrial fibrillation and one run of SVT this morning. Her CHADS2 VASC score at this time is at least 3 (if we count HTN), pending echo assessment of EF and Brain MRI, which puts her annual stroke risk at 3.2% and 2.2% without and in both cases guidelines recommend systemic anticoagulation for prophylaxis of embolic events. WE agree with Brain MRI for which she is going now. Recommend to avoid antihypertensive therapy at this time. Recommend to consider statin therapy for risk factor reduction and trasnthoracic echo. Also recommend to check orthostatic Bps to rule out orthostatic hypotension. TSH is abnormal which could be related to her lithium therapy. We also need to keep in mind drug interactions and adverse effects that could amount to some of her symptoms. Further recommendations after reviewing echo and brain MRI results. Dr Vasquez will assume cardiology care for pt tomorrow morning. - Time Time Spent: 50 to 70 Minutes
[2018-06-03] MEDS: NORMAL SALINE 1000 ML 1,000 ML IV PRN ×2 (11:39→21:34)
--- NOTE | 2018-06-03 12:06 | RADIOLOGY REPORT (SQ) ---
EXAM DESCRIPTION: MRI HEAD WITHOUT; MRA HEAD WITHOUT COMPLETED DATE/TIME: 06/03/2018 11:23 am REASON FOR STUDY: Acute ataxia COMPARISON: CT brain 06/02/2018, CT brain 05/16/2018 TECHNIQUE: Multiplanar imaging includes non-contrasted T1, T2, FLAIR, and diffusion with ADC map seq uences. Images stored on PACS. [place] MRA exam was performed with 3D [id number] acquisition. Multiplanar maximum inte nsity re- projected reconstructed images through the [place]. Source data and multiplanar m aximum intensity re- projected images saved to PACS LIMITATIONS: None. FINDINGS: ANATOMY: No anomalies. Normal vascular flow voids. Pituitary fossa normal. CSF SPACES: Normal in size and contour. No hemorrhage. CEREBRUM: Sulci and gyri normal in size and contour. Normal white matter signal on FLAIR imaging. No evidence of hemorrhage, mass, or extraaxial fluid collection. POSTERIOR FOSSA: No signal alteration. No hemorrhage. No edema, masses or mass effect. Internal sami tory canals, cerebello-pontine angles, mastoids normal. DIFFUSION IMAGING: Negative for acute or sub-acute infarction. ORBITS: No masses. Globes normal. PARANASAL SINUSES: Right maxillary sinus mucus or serous retention cyst. [place] MRA: No [place] stenosis, vascular malformation, or aneurysm. Mild bilater al parasellar carotid artery atherosclerotic irregularity IMPRESSION: NORMAL MRI OF THE BRAIN WITHOUT INTRAVENOUS GADOLINIUM CONTRAST. UNREMARKABLE [place] MRA EXAM EVIDENCE OF ACUTE STROKE: NO. TECHNICAL DOCUMENTATION: JOB ID: [id number] [employer]- All Rights Reserved Reading location - IP/workstation name: [email or web address]
--- NOTE | 2018-06-03 12:06 | RADIOLOGY REPORT (SQ) ---
EXAM DESCRIPTION: MRI HEAD WITHOUT; MRA HEAD WITHOUT COMPLETED DATE/TIME: 06/03/2018 11:23 am REASON FOR STUDY: Acute ataxia COMPARISON: CT brain 06/02/2018, CT brain 05/16/2018 TECHNIQUE: Multiplanar imaging includes non-contrasted T1, T2, FLAIR, and diffusion with ADC map seq uences. Images stored on PACS. [place] MRA exam was performed with 3D [id number] acquisition. Multiplanar maximum inte nsity re- projected reconstructed images through the [place]. Source data and multiplanar m aximum intensity re- projected images saved to PACS LIMITATIONS: None. FINDINGS: ANATOMY: No anomalies. Normal vascular flow voids. Pituitary fossa normal. CSF SPACES: Normal in size and contour. No hemorrhage. CEREBRUM: Sulci and gyri normal in size and contour. Normal white matter signal on FLAIR imaging. No evidence of hemorrhage, mass, or extraaxial fluid collection. POSTERIOR FOSSA: No signal alteration. No hemorrhage. No edema, masses or mass effect. Internal sami tory canals, cerebello-pontine angles, mastoids normal. DIFFUSION IMAGING: Negative for acute or sub-acute infarction. ORBITS: No masses. Globes normal. PARANASAL SINUSES: Right maxillary sinus mucus or serous retention cyst. [place] MRA: No [place] stenosis, vascular malformation, or aneurysm. Mild bilater al parasellar carotid artery atherosclerotic irregularity IMPRESSION: NORMAL MRI OF THE BRAIN WITHOUT INTRAVENOUS GADOLINIUM CONTRAST. UNREMARKABLE [place] MRA EXAM EVIDENCE OF ACUTE STROKE: NO. TECHNICAL DOCUMENTATION: JOB ID: [id number] [employer]- All Rights Reserved Reading location - IP/workstation name: [email or web address]
--- NOTE | 2018-06-03 12:07 | RADIOLOGY REPORT (SQ) ---
EXAM DESCRIPTION: MRA NECK WITHOUT COMPLETED DATE/TIME: 06/03/2018 11:23 am REASON FOR STUDY: Acute ataxia COMPARISON: MRI brain, MRA exam [place] same date CT brain 06/02/2018 TECHNIQUE: Axial 2-D volume acquisition imaging through the extracranial carotid and vertebral arter ies with reformatting using 3-D MIPS. LIMITATIONS: None. FINDINGS: RIGHT CAROTID ARTERY: No stenosis or occlusive changes. Limited visualization of the orig in. LEFT CAROTID ARTERY: No stenosis or occlusive changes. Limited visualization of the origin. VERTEBRAL ARTERY: The extracranial portions of the vertebral basilar system are preserved without tracy nosis. No aneurysmal dilatation or dissection is seen. OTHER: No other significant finding. IMPRESSION: NO SIGNIFICANT STENOSIS. COMMENT: Quality ID #[id number]: Measurements of distal internal carotid diameter were used as the denomin ator for stenosis measurement. TECHNICAL DOCUMENTATION: JOB ID: [id number] [email or web address]- All Rights Reserved Reading location - IP/workstation name: [email or web address]
[2018-06-03] MEDS: FAMOTIDINE 20 MG TABLET PO SCH ×2 (12:13→21:35)
[2018-06-03] MEDS: OXCARBAZEPINE 150 MG TABLET PO SCH ×2 (12:13→21:35)
[2018-06-03] MEDS: ASPIRIN 81 MG TABLET, ENT COATED PO SCH (12:13)
[2018-06-03] MEDS: GABAPENTIN 300 MG CAPSULE PO SCH (12:13)
[2018-06-03] MEDS: FONDAPARINUX SODIUM INJ 2.5 MG/0.5 ML DISP.SYRIN SUBCUT SCH (12:14)
[2018-06-03] MEDS ORDERED: (PENDING PHARMACY ID) (Lithium Carbonate [Lithium Carbonate] 600 MG) PO SCH (12:15)
[2018-06-03] MEDS ORDERED: (PENDING PHARMACY ID) (Lithium Carbonate [Lithium Carbonate] 300 MG) PO SCH (12:15)
[2018-06-03 14:13] LABS: CREATINE KINASE MB 0.29 ng/mL (<4.55)
[2018-06-03 14:15] LABS: TROPONIN I < 0.012 ng/mL
[2018-06-03] MEDS: LIOTHYRONINE SODIUM 25 MCG TABLET PO SCH (14:16)
[2018-06-03] MEDS: LITHIUM CARBONATE 300 MG CAPSULE PO SCH (14:16)
--- NOTE | 2018-06-03 15:08 | PDOC PROGRESS REPORT ---
Subjective Progress Note for:: 06/03/18 Subjective:: No adverse events overnight. Her blood pressure was a little bit low this morning but she was asymptomatic and her pressure responded to IV fluids. At some point overnight her rhythm converted to atrial fibrillation, but her rate has been in the 60s and 70s. She does not describe any palpitations or shortness of breath. Apparently she been taken double her prescribed dose, accidentally, for the past 9 days. Reason For Visit: ACUTE CVA Physical Exam Vital Signs: Temp Pulse Resp BP Pulse Ox 100.0 F 53 L 16 113/58 L 100 06/03/18 11:34 06/03/18 11:34 06/03/18 11:34 06/03/18 11:34 06/03/18 11:34 Intake & Output 06/02/18 06/03/18 06/04/18 06:59 06:59 06:59 Intake Total 500 999 Balance 500 999 Weight 46.8 kg General appearance: PRESENT: no acute distress, cooperative, thin Eye exam: PRESENT: EOMI, PERRLA Neck exam: PRESENT: full ROM. ABSENT: carotid bruit, JVD, lymphadenopathy, meningismus, tenderness, thyromegaly Respiratory exam: PRESENT: clear to auscultation manuela, symmetrical, unlabored. ABSENT: accessory muscle use, crackles, prolonged expiratory phas, rhonchi, tachypnea, wheezes Cardiovascular exam: PRESENT: irregular rhythm. ABSENT: tachycardia Pulses: PRESENT: normal carotid pulses Vascular exam: PRESENT: normal capillary refill GI/Abdominal exam: PRESENT: normal bowel sounds, soft. ABSENT: distended, guarding, rebound, tenderness Extremities exam: ABSENT: clubbing, pedal edema Musculoskeletal exam: PRESENT: normal inspection. ABSENT: deformity Neurological exam: PRESENT: alert, awake, oriented to person, oriented to place, oriented to time, oriented to situation Psychiatric exam: PRESENT: normal mood, unusual affect Focused psych exam: ABSENT: delusional, paranoid, pressured speech, psychomotor agitation, restlessness Skin exam: PRESENT: dry, warm Results Laboratory Results: 06/03/18 07:30 06/03/18 07:30 06/02/18 06/02/18 06/02/18 20:05 20:05 20:05 WBC 5.9 RBC 3.47 L Hgb 12.2 Hct 35.8 L MCV 103 H MCH 35.2 H MCHC 34.2 RDW 12.4 Plt Count 206 Seg Neutrophils % 61.9 Lymphocytes % 27.4 Monocytes % 6.7 Eosinophils % 3.1 Basophils % 0.9 Absolute Neutrophils 3.7 Absolute Lymphocytes 1.6 Absolute Monocytes 0.4 Absolute Eosinophils 0.2 Absolute Basophils 0.1 Sodium 134.4 L Potassium 3.7 Chloride 98 Carbon Dioxide 29 Anion Gap 7 BUN 13 Creatinine 0.85 Est GFR ( Amer) > 60 Est GFR (Non-Af Amer) > 60 Glucose 142 H Calcium 10.3 H Total Bilirubin 0.2 AST 32 ALT 29 Alkaline Phosphatase 69 Total Protein 7.2 Albumin 4.5 Triglycerides Cholesterol LDL Cholesterol Direct VLDL Cholesterol HDL Cholesterol TSH 0.08 L Free T4 0.25 L Free T3 pg/mL Urine Color Urine Appearance Urine pH Ur Specific [place] Urine Protein Urine Glucose (UA) Urine Ketones Urine Blood Urine Nitrite Ur Leukocyte Esterase Urine WBC (Auto) 06/02/18 06/02/18 06/03/18 20:05 21:53 02:00 WBC RBC Hgb Hct MCV MCH MCHC RDW Plt Count Seg Neutrophils % Lymphocytes % Monocytes % Eosinophils % Basophils % Absolute Neutrophils Absolute Lymphocytes Absolute Monocytes Absolute Eosinophils Absolute Basophils Sodium Potassium Chloride Carbon Dioxide Anion Gap BUN Creatinine Est GFR ( Amer) Est GFR (Non-Af Amer) Glucose Calcium Total Bilirubin AST ALT Alkaline Phosphatase Total Protein Albumin Triglycerides 34 Cholesterol 180.84 LDL Cholesterol Direct < 30 VLDL Cholesterol 7.0 L HDL Cholesterol 160 TSH Free T4 Free T3 pg/mL 4.62 Urine Color YELLOW Urine Appearance CLEAR Urine pH 7.0 Ur Specific [place] 1.005 Urine Protein NEGATIVE Urine Glucose (UA) NEGATIVE Urine Ketones NEGATIVE Urine Blood NEGATIVE Urine Nitrite NEGATIVE Ur Leukocyte Esterase NEGATIVE Urine WBC (Auto) 1 06/03/18 06/03/18 07:30 07:30 WBC 6.3 RBC 2.97 L Hgb 10.6 L Hct 30.3 L MCV 102 H MCH 35.7 H MCHC 35.0 RDW 12.6 Plt Count 194 Seg Neutrophils % 70.9 Lymphocytes % 18.9 Monocytes % 9.4 Eosinophils % 0.2 Basophils % 0.6 Absolute Neutrophils 4.5 Absolute Lymphocytes 1.2 Absolute Monocytes 0.6 Absolute Eosinophils 0.0 Absolute Basophils 0.0 Sodium 136.3 L Potassium 4.6 Chloride 105 Carbon Dioxide 30 Anion Gap 1 L BUN 12 Creatinine 1.30 H Est GFR ( Amer) 50 L Est GFR (Non-Af Amer) 41 L Glucose 95 Calcium 9.6 Total Bilirubin AST ALT Alkaline Phosphatase Total Protein Albumin Triglycerides Cholesterol LDL Cholesterol Direct VLDL Cholesterol HDL Cholesterol TSH Free T4 Free T3 pg/mL Urine Color Urine Appearance Urine pH Ur Specific [place] Urine Protein Urine Glucose (UA) Urine Ketones Urine Blood Urine Nitrite Ur Leukocyte Esterase Urine WBC (Auto) 06/02/18 06/03/18 06/03/18 20:05 02:00 02:00 Creatine Kinase 32 CK-MB (CK-2) 0.74 Troponin I < 0.012 < 0.012 06/03/18 06/03/18 06/03/18 07:30 07:30 13:35 Creatine Kinase 22 L 24 L CK-MB (CK-2) 0.34 Troponin I < 0.012 06/03/18 13:35 Creatine Kinase CK-MB (CK-2) 0.29 Troponin I < 0.012 Impressions: Chest X-Ray 06/02/18 19:34 IMPRESSION: No acute disease. Head CT 06/02/18 19:34 IMPRESSION: 1. No acute intracranial hemorrhage or acute territorial infarct. 2. Large mucous retention cyst/ polyp at the right maxillary sinus. EVIDENCE OF ACUTE STROKE: NO. Brain MRI with MRA 06/03/18 00:00 IMPRESSION: NORMAL MRI OF THE BRAIN WITHOUT INTRAVENOUS GADOLINIUM CONTRAST. UNREMARKABLE [place] MRA EXAM EVIDENCE OF ACUTE STROKE: NO. Head MRI 06/03/18 00:00 IMPRESSION: NORMAL MRI OF THE BRAIN WITHOUT INTRAVENOUS GADOLINIUM CONTRAST. UNREMARKABLE [place] MRA EXAM EVIDENCE OF ACUTE STROKE: NO. Neck MRA 06/03/18 00:00 IMPRESSION: NO SIGNIFICANT STENOSIS. Assessment & Plan - Diagnosis (1) Ataxia Is this a current diagnosis for this admission?: Yes Plan: All of her symptoms can be explained by the high dose of Trileptal that she was taking the past 9 days. She did so unintentionally; apparently she was supposed to take half a tablet and she took a full tablet instead, 3 times a day. We held her Trileptal for a day and we are starting her back in half of the dose she is supposed to be on, and she should be able to resume her usual dose whenever she goes home. (2) Paroxysmal atrial fibrillation Is this a current diagnosis for this admission?: Yes Plan: Rate control and anticoagulation, Cardiology consulting. MRI negative for stroke. Echo pending. - Time Time Spent with patient: 25-34 minutes
[2018-06-03] MEDS ORDERED: OXCARBAZEPINE 150 MG TABLET ONE ×2 (18:13→18:14)
[2018-06-03] MEDS ORDERED: ZIPRASIDONE HCL 20 MG CAPSULE PO ONE (18:13)
[2018-06-03] MEDS: ZIPRASIDONE HCL 20 MG CAPSULE PO SCH (18:36)
[2018-06-04] MEDS: ZIPRASIDONE HCL 20 MG CAPSULE PO SCH ×5 (00:37→23:25)
[2018-06-04 04:42] LABS: ABSOLUTE BASOPHILS # (AUTO) 0.1 10^3/uL (0.0-0.2); ABSOLUTE EOSINOPHILS # (AUTO) 0.1 10^3/uL (0.0-0.6); ABSOLUTE LYMPHOCYTES (AUTO) 1.8 10^3/uL (0.5-4.7); ABSOLUTE MONOCYTES (AUTO) 0.5 10^3/uL (0.1-1.4); ABSOLUTE NEUT (AUTO) 2.9 10^3/uL (1.7-8.2); BASOPHILS % (AUTO) 1.1 % (0-2); EOSINOPHILS % (AUTO) 1.9 % (0-6); HEMATOCRIT 29.5 % (36.0-47.0); LYMPHOCYTES % (AUTO) 33.2 % (13-45); MEAN CORPUSCULAR HEMOGLOBIN 35.1 pg (27.0-33.4); MEAN CORPUSCULAR VOLUME 103 fl (80-97); MONOCYTES % (AUTO) 10.3 % (3-13); PLATELET COUNT 137 10^3/uL (150-450); RED BLOOD COUNT 2.85 10^6/uL (3.72-5.28); RED CELL DISTRIBUTION WIDTH 12.8 % (11.5-14.0); SEGMENTED NEUTROPHILS % (AUTO) 53.5 % (42-78); TOTAL CELLS COUNTED % (AUTO) 100 %; WHITE BLOOD COUNT 5.3 10^3/uL (4.0-10.5)
[2018-06-04 05:12] LABS: BLOOD UREA NITROGEN 19 mg/dL (7-20); CALCIUM 9.1 mg/dL (8.4-10.2); GLUCOSE 97 mg/dL (75-110)
[2018-06-04 05:18] LABS: CARBON DIOXIDE 25 mmol/L (22-30); CHLORIDE 113 mmol/L (98-107); SODIUM 138.6 mmol/L (137-145)
[2018-06-04 05:24] LABS: POTASSIUM 4.4 mmol/L (3.6-5.0)
[2018-06-04 05:25] LABS: ANION GAP 1 (5-19)
[2018-06-04] MEDS: OXCARBAZEPINE 150 MG TABLET PO SCH ×2 (09:37→21:13)
[2018-06-04] MEDS: ASPIRIN 81 MG TABLET, ENT COATED PO SCH (09:37)
[2018-06-04] MEDS: NORMAL SALINE 1000 ML 1,000 ML IV PRN ×2 (09:37→20:38)
[2018-06-04] MEDS: GABAPENTIN 300 MG CAPSULE PO SCH (09:37)
[2018-06-04] MEDS: FONDAPARINUX SODIUM INJ 2.5 MG/0.5 ML DISP.SYRIN SUBCUT SCH (09:37)
[2018-06-04] MEDS: FAMOTIDINE 20 MG TABLET PO SCH ×2 (09:37→21:13)
--- NOTE | 2018-06-04 09:49 | PDOC PROGRESS REPORT ---
Subjective Progress Note for:: 06/04/18 Subjective:: No adverse events overnight. No new complaints. At some point overnight she converted to a sinus rhythm. She said she still feels like she is having a hard time using her hands that her gait is still awkward, and that she still has a little bit of blurred vision. She says it has improved overall, however. Reason For Visit: ACUTE CVA Physical Exam Vital Signs: Temp Pulse Resp BP Pulse Ox 97.8 F 75 12 153/62 H 98 06/04/18 07:17 06/04/18 07:17 06/04/18 07:17 06/04/18 07:17 06/04/18 07:17 Intake & Output 06/03/18 06/04/18 06/05/18 06:59 06:59 06:59 Intake Total 500 3052 1000 Balance 500 3052 1000 Weight 46.8 kg 55 kg General appearance: PRESENT: no acute distress, cooperative, thin Eye exam: PRESENT: EOMI, PERRLA Neck exam: PRESENT: full ROM. ABSENT: carotid bruit, JVD, lymphadenopathy, meningismus, tenderness, thyromegaly Respiratory exam: PRESENT: clear to auscultation manuela, symmetrical, unlabored. ABSENT: accessory muscle use, crackles, prolonged expiratory phas, rhonchi, tachypnea, wheezes Cardiovascular exam: PRESENT: Regular rate and rhythm. ABSENT: tachycardia Pulses: PRESENT: normal carotid pulses Vascular exam: PRESENT: normal capillary refill GI/Abdominal exam: PRESENT: normal bowel sounds, soft. ABSENT: distended, guarding, rebound, tenderness Extremities exam: ABSENT: clubbing, pedal edema Musculoskeletal exam: PRESENT: normal inspection. ABSENT: deformity Neurological exam: PRESENT: alert, awake, oriented to person, oriented to place, oriented to time, oriented to situation Psychiatric exam: PRESENT: normal mood, unusual affect Focused psych exam: ABSENT: delusional, paranoid, pressured speech, psychomotor agitation, restlessness Skin exam: PRESENT: dry, warm Results Laboratory Results: 06/04/18 04:33 06/04/18 04:33 06/04/18 06/04/18 04:33 04:33 WBC 5.3 RBC 2.85 L Hgb 10.0 L Hct 29.5 L MCV 103 H MCH 35.1 H MCHC 34.0 RDW 12.8 Plt Count 137 L Seg Neutrophils % 53.5 Lymphocytes % 33.2 Monocytes % 10.3 Eosinophils % 1.9 Basophils % 1.1 Absolute Neutrophils 2.9 Absolute Lymphocytes 1.8 Absolute Monocytes 0.5 Absolute Eosinophils 0.1 Absolute Basophils 0.1 Sodium 138.6 Potassium 4.4 Chloride 113 H Carbon Dioxide 25 Anion Gap 1 L BUN 19 Creatinine 1.27 H Est GFR ( Amer) 51 L Est GFR (Non-Af Amer) 42 L Glucose 97 Calcium 9.1 06/02/18 06/03/18 06/03/18 20:05 02:00 02:00 Creatine Kinase 32 CK-MB (CK-2) 0.74 Troponin I < 0.012 < 0.012 06/03/18 06/03/18 06/03/18 07:30 07:30 13:35 Creatine Kinase 22 L 24 L CK-MB (CK-2) 0.34 Troponin I < 0.012 06/03/18 13:35 Creatine Kinase CK-MB (CK-2) 0.29 Troponin I < 0.012 Impressions: Chest X-Ray 06/02/18 19:34 IMPRESSION: No acute disease. Head CT 06/02/18 19:34 IMPRESSION: 1. No acute intracranial hemorrhage or acute territorial infarct. 2. Large mucous retention cyst/ polyp at the right maxillary sinus. EVIDENCE OF ACUTE STROKE: NO. Brain MRI with MRA 06/03/18 00:00 IMPRESSION: NORMAL MRI OF THE BRAIN WITHOUT INTRAVENOUS GADOLINIUM CONTRAST. UNREMARKABLE [place] MRA EXAM EVIDENCE OF ACUTE STROKE: NO. Head MRI 06/03/18 00:00 IMPRESSION: NORMAL MRI OF THE BRAIN WITHOUT INTRAVENOUS GADOLINIUM CONTRAST. UNREMARKABLE [place] MRA EXAM EVIDENCE OF ACUTE STROKE: NO. Neck MRA 06/03/18 00:00 IMPRESSION: NO SIGNIFICANT STENOSIS. Assessment & Plan - Diagnosis (1) Ataxia Is this a current diagnosis for this admission?: Yes Plan: All of her symptoms can be explained by the high dose of Trileptal that she was taking the past 9 days prior to admission. She did so unintentionally; apparently she was supposed to take half a tablet and she took a full tablet instead, 3 times a day. Her Trileptal was held for a day and we currently have her on half of the dose she is supposed to be on, and she should be able to resume her usual dose whenever she goes home. Her symptoms are improving as the high doses of the drug clear her system. Her MRI and MRA were negative for evidence of stroke or obstruction. (2) Paroxysmal atrial fibrillation Is this a current diagnosis for this admission?: Yes Plan: She is back in a sinus rhythm now, there is no healing in the manufactures drug insert to suggest that the Trileptal would have been a cause of this, but there could be some interplay between her numerous psychoactive medications. Echocardiogram is pending. Not currently anticoagulated, waiting for cardiology recommendations before initiating anticoagulation, but her CHADS-VASC score is 3. - Time Time Spent with patient: 25-34 minutes
[2018-06-04] MEDS: LITHIUM CARBONATE 300 MG CAPSULE PO SCH (10:48)
[2018-06-04] MEDS: LIOTHYRONINE SODIUM 25 MCG TABLET PO SCH (10:48)
--- NOTE | 2018-06-04 13:23 | EKG REPORT ---
SEVERITY:- BORDERLINE ECG - SINUS RHYTHM ATRIAL PREMATURE COMPLEX BORDERLINE T ABNORMALITIES, INFERIOR LEADS : Confirmed by: Fran Concepcion MD 04-Jun-2018 13:22:26
[2018-06-04] MEDS: QUETIAPINE FUMARATE 25 MG TABLET PO SCH (21:13)
--- NOTE | 2018-06-04 22:37 | Progress Note ---
Provider Note Provider Note: CARDIOLOGY PROGRESS NOTE by Dr. Cydney Dickens on 06/04/2018. SUBJECTIVE: The patient still has tremors and still complains of ataxia. Note that the patient's hemoglobin is 10.1, with a high MCV. The patient's thyroid function tests suggest sick euthyroid state most likely secondary to the patient's Trileptal. There is high suspicion that the patient's symptoms are secondary to Trileptal overdose, and the CT scan and other workup and MRI do not show any evidence of a CVA. There is no recurrence of atrial fibrillation, the patient remains in sinus rhythm. She denies any chest pain or discomfort. There is no shortness of breath. There is no PND orthopnea or leg edema. The patient has bipolar disorder is in remission PHYSICAL EXAMINATION: Patient appears to be of frail build, she is well-groomed. She is in no acute distress. Selected Entries 06/04/18 07:17 Temperature 97.8 F Temperature Oral Source Pulse Rate 75 Respiratory 12 Rate Blood Pressure 153/62 H Blood Pressure 92 Mean BP Location Left Arm BP Position Supine O2 Sat by Pulse 98 Oximetry Oxygen Delivery Room Air Method HEAD: Is atraumatic normocephalic. EYES:.: Pupils are equal round regular reactive to light accommodation. Extraocular movements are normal. There is no conjunctival pallor. ENT is negative. NECK: Supple. There is no JVD. Carotids are equal there is no bruit. There is no lymphadenopathy. There is no goiter. There is no accessory muscles of respiration in use. Trachea central. LUNGS: Lungs are clear to auscultation percussion, without any rhonchi rales or wheezing. There is no chest wall tenderness on palpation. HEART: S1-S2 is heard. S1 is of normal intensity. There is no S3 gallop. There is no S4 gallop. There is systolic murmur left sternal border and the apex there is no rub. ABDOMEN: Is soft. Nontender. Bowel sounds are well heard. There is no hepatosplenomegaly. EXTREMITIES: Femorals are well felt. There is no femoral bruits. Leg pulses are well felt. There is no pedal edema. There is no DVT or cellulitis. REHEATER: The patient has tremors in both extremities. Gait is unsteady. There is no focal neurological deficit. PSYCHIATRIC: The patient judgment and insight are intact her affect is normal. She is not agitated or pa ranoid or anxious. 06/02/18 06/02/18 06/03/18 20:05 20:05 13:35 WBC RBC Hgb Hct MCV MCH MCHC RDW Plt Count Sodium Potassium Chloride Carbon Dioxide BUN Creatinine Est GFR (Non-Af Amer) Glucose Calcium CK-MB (CK-2) 0.29 Troponin I < 0.012 TSH 0.08 L Free T4 0.25 L Free T3 pg/mL 4.62 06/04/18 06/04/18 04:33 04:33 WBC 5.3 RBC 2.85 L Hgb 10.0 L Hct 29.5 L MCV 103 H MCH 35.1 H MCHC 34.0 RDW 12.8 Plt Count 137 L Sodium 138.6 Potassium 4.4 Chloride 113 H Carbon Dioxide 25 BUN 19 Creatinine 1.27 H Est GFR (Non-Af Amer) 42 L Glucose 97 Calcium 9.1 CK-MB (CK-2) Troponin I TSH Free T4 Free T3 pg/mL IMPRESSION/RECOMMENDATION: 1. Slurred speech, with the ataxia, and tremors: No definite evidence of CVA. Most likely effects of Trileptal. The dose has been decreased. 2. Paroxysmal atrial fibrillation: The patient's corrected Mario vas 2 score is 3. Hence patient will benefit from chronic anti-coagulation therapy. I discussed starting Eliquis with the patient, since she does not want Coumadin. The patient wants to think about it. We will re-discuss this tomorrow morning. 3. Hypertension: Would recommend starting the patient on another antihypertensive, if her blood pressure remains being not optimally controlled. 4. Hypothyroidism: Continue replacement. 5. Bipolar disorder: Seems to be in remission. 6. Anemia with high MCV: Although this may be a manifestation of hypothyroidism, need to rule out B12 deficiency. We will get an anemia workup. Medications reviewed. Management plan discussed with attending physician on the case. 40 minutes spent on this patient with more than 50% of time spent in direct patient care. Medical decision making is of high complexity. The patient is a full code. Mr. Justin Moore, is her surrogate healthcare de cision maker.
[2018-06-05] MEDS: ZIPRASIDONE HCL 20 MG CAPSULE PO SCH ×4 (05:05→23:08)
[2018-06-05 06:30] LABS: ABSOLUTE BASOPHILS # (AUTO) 0.1 10^3/uL (0.0-0.2); ABSOLUTE EOSINOPHILS # (AUTO) 0.3 10^3/uL (0.0-0.6); ABSOLUTE LYMPHOCYTES (AUTO) 1.4 10^3/uL (0.5-4.7); ABSOLUTE MONOCYTES (AUTO) 0.4 10^3/uL (0.1-1.4); ABSOLUTE NEUT (AUTO) 3.2 10^3/uL (1.7-8.2); ABSOLUTE RETICS # 0.031 10^6/uL (0.028-0.122); BASOPHILS % (AUTO) 1.1 % (0-2); EOSINOPHILS % (AUTO) 6.1 % (0-6); HEMATOCRIT 29.6 % (36.0-47.0); HEMOGLOBIN 10.1 g/dL (12.0-15.5); MEAN CORPUSCULAR HEMOGLOBIN 35.4 pg (27.0-33.4); MEAN CORPUSCULAR HGB CONC 34.2 g/dL (32.0-36.0); MEAN CORPUSCULAR VOLUME 104 fl (80-97); MONOCYTES % (AUTO) 7.9 % (3-13); PLATELET COUNT 147 10^3/uL (150-450); RED BLOOD COUNT 2.85 10^6/uL (3.72-5.28); RED CELL DISTRIBUTION WIDTH 12.5 % (11.5-14.0); RETICULOCYTE COUNT (AUTO) 1.08 % (0.66-2.85); SEGMENTED NEUTROPHILS % (AUTO) 58.9 % (42-78); TOTAL CELLS COUNTED % (AUTO) 100 %; WHITE BLOOD COUNT 5.5 10^3/uL (4.0-10.5)
[2018-06-05] MEDS: NORMAL SALINE 1000 ML 1,000 ML IV PRN (06:40)
[2018-06-05 06:46] LABS: BLOOD UREA NITROGEN 9 mg/dL (7-20); GLUCOSE 89 mg/dL (75-110)
[2018-06-05 06:52] LABS: CARBON DIOXIDE 25 mmol/L (22-30); CHLORIDE 117 mmol/L (98-107); SODIUM 143.9 mmol/L (137-145)
[2018-06-05 07:57] LABS: ANION GAP 2 (5-19); FOLATE > 20.00 ng/mL (>2.76)
[2018-06-05] MEDS: FONDAPARINUX SODIUM INJ 2.5 MG/0.5 ML DISP.SYRIN SUBCUT SCH (09:42)
[2018-06-05] MEDS: ASPIRIN 81 MG TABLET, ENT COATED PO SCH (09:42)
[2018-06-05] MEDS: OXCARBAZEPINE 150 MG TABLET PO SCH ×2 (09:42→21:49)
[2018-06-05] MEDS: FAMOTIDINE 20 MG TABLET PO SCH ×2 (09:43→21:49)
[2018-06-05] MEDS: LITHIUM CARBONATE 300 MG CAPSULE PO SCH (09:43)
[2018-06-05] MEDS: GABAPENTIN 300 MG CAPSULE PO SCH (09:43)
[2018-06-05] MEDS: LIOTHYRONINE SODIUM 25 MCG TABLET PO SCH (09:43)
[2018-06-05] MEDS: APIXABAN 5 MG TABLET PO SCH ×2 (12:56→17:18)
--- NOTE | 2018-06-05 13:25 | PDOC PROGRESS REPORT ---
Subjective Progress Note for:: 06/05/18 Subjective:: This is a 67 yr old female with a PMH of HTN, seizure disorder, bipolar disorder and history of TBI who presented with ataxia and dizziness. She was initially admitted for a possible acute CVA. She had multiple work-up including MRI and MRAs of the head and neck and they were negative for CVA. Her symptoms were deemed to be likely from her Trileptal as she was taking double the dose she was suppoed to be on. This was adjusted and she did have improvement of her symptoms. She did have a run of SVT and Afib on 06/02. No acute event overnight. She denies dizziness at the moment. Denies chest pain or SOB. Discussed the benefits and risks of anticoagulation for her paroxysmal Afib. Patient verbalized understanding and prefers a NOAC over coumadin. Reason For Visit: ACUTE CVA Physical Exam Vital Signs: Temp Pulse Resp BP Pulse Ox 97.9 F 81 14 158/74 H 100 06/05/18 13:05 06/05/18 13:05 06/05/18 13:05 06/05/18 13:05 06/05/18 13:05 Intake & Output 06/04/18 06/05/18 06/06/18 06:59 06:59 06:59 Intake Total 3052 4192 1118 Balance 3052 4192 1118 Weight 121 lb 4.068 oz 116 lb 2.938 oz General appearance: PRESENT: no acute distress, well-developed, well-nourished Head exam: PRESENT: atraumatic, normocephalic Eye exam: PRESENT: conjunctiva pink, EOMI, PERRLA. ABSENT: scleral icterus Ear exam: PRESENT: normal external ear exam Mouth exam: PRESENT: moist, tongue midline Neck exam: ABSENT: carotid bruit, JVD, lymphadenopathy, thyromegaly Respiratory exam: PRESENT: clear to auscultation manuela. ABSENT: rales, rhonchi, wheezes Cardiovascular exam: PRESENT: RRR. ABSENT: diastolic murmur, rubs, systolic murmur Pulses: PRESENT: normal dorsalis pedis pul GI/Abdominal exam: PRESENT: normal bowel sounds, soft. ABSENT: distended, guarding, mass, organolmegaly, rebound, tenderness Rectal exam: PRESENT: deferred Extremities exam: PRESENT: full ROM. ABSENT: calf tenderness, clubbing, pedal edema Neurological exam: PRESENT: alert, awake, oriented to person, oriented to place, oriented to time, oriented to situation, CN II-XII grossly intact. ABSENT: motor sensory deficit Results Laboratory Results: 06/05/18 06:06 06/05/18 06:06 06/05/18 06/05/18 06:06 06:06 WBC 5.5 RBC 2.85 L Hgb 10.1 L Hct 29.6 L MCV 104 H MCH 35.4 H MCHC 34.2 RDW 12.5 Plt Count 147 L Seg Neutrophils % 58.9 Lymphocytes % 26.0 Monocytes % 7.9 Eosinophils % 6.1 H Basophils % 1.1 Absolute Neutrophils 3.2 Absolute Lymphocytes 1.4 Absolute Monocytes 0.4 Absolute Eosinophils 0.3 Absolute Basophils 0.1 Retic Count (auto) 1.08 Absolute Retic 0.031 Sodium 143.9 Potassium 4.0 Chloride 117 H Carbon Dioxide 25 Anion Gap 2 L BUN 9 Creatinine 0.78 Est GFR ( Amer) > 60 Est GFR (Non-Af Amer) > 60 Glucose 89 Calcium 9.0 Iron 59.0 TIBC 246 L % Saturation 24 Ferritin 48.80 Vitamin B12 > 1000.0 H Folate > 20.00 06/02/18 06/03/18 06/03/18 20:05 02:00 02:00 Creatine Kinase 32 CK-MB (CK-2) 0.74 Troponin I < 0.012 < 0.012 06/03/18 06/03/18 06/03/18 07:30 07:30 13:35 Creatine Kinase 22 L 24 L CK-MB (CK-2) 0.34 Troponin I < 0.012 06/03/18 13:35 Creatine Kinase CK-MB (CK-2) 0.29 Troponin I < 0.012 Impressions: Chest X-Ray 06/02/18 19:34 IMPRESSION: No acute disease. Head CT 06/02/18 19:34 IMPRESSION: 1. No acute intracranial hemorrhage or acute territorial infarct. 2. Large mucous retention cyst/ polyp at the right maxillary sinus. EVIDENCE OF ACUTE STROKE: NO. Brain MRI with MRA 06/03/18 00:00 IMPRESSION: NORMAL MRI OF THE BRAIN WITHOUT INTRAVENOUS GADOLINIUM CONTRAST. UNREMARKABLE [place] MRA EXAM EVIDENCE OF ACUTE STROKE: NO. Head MRI 06/03/18 00:00 IMPRESSION: NORMAL MRI OF THE BRAIN WITHOUT INTRAVENOUS GADOLINIUM CONTRAST. UNREMARKABLE [place] MRA EXAM EVIDENCE OF ACUTE STROKE: NO. Neck MRA 06/03/18 00:00 IMPRESSION: NO SIGNIFICANT STENOSIS. Assessment & Plan - Diagnosis (1) Ataxia Is this a current diagnosis for this admission?: Yes Plan: Likely secondary to Trileptal as patient was taking twice the dose she was supposed to be on. Work-up for CVA was negative. (2) Paroxysmal atrial fibrillation Is this a current diagnosis for this admission?: Yes Plan: Currently in sinus rhythm. As mentioned, patient will be started on Eliquis. - Time Time Spent with patient: 25-34 minutes
[2018-06-05] MEDS: QUETIAPINE FUMARATE 25 MG TABLET PO SCH (21:49)
--- NOTE | 2018-06-05 23:04 | Progress Note ---
Provider Note Provider Note: CARDIOLOGY PROGRESS NOTE by Dr. Cydney Dickens on 06/05/2017. SUBJECTIVE:. The patient remains in sinus rhythm. Her slurred speech is resolved. Has tremors of resolved. The patient is back to her usual self. She denies any chest pain or discomfort. There is no PND orthopnea. There is no shortness of breath. There is no atrial or ventricular arrhythmia seen on the monitor. There is no symptoms suggestive of TIA or CVA at present. There is no leg edema. The patient denies any palpitations. There is no dizziness, near- syncope or syncope. Note that the patient's blood pressure has been been elevated. She is off amlodipine. PHYSICAL EXAMINATION: The patient is a frail build. She is well groomed. She is in no acute distress. Selected Entries 06/05/18 19:32 Temperature 98.9 F Temperature Oral Source Pulse Rate 82 Respiratory 20 Rate Blood Pressure 176/67 H Blood Pressure 103 Mean BP Location Left Arm BP Position Sitting HEAD: Is atraumatic normocephalic. EYES:.: Pupils are equal round regular reactive to light accommodation. Extraocular movements are normal. There is no conjunctival pallor. ENT is negative. NECK: Supple. There is no JVD. Carotids are equal there is no bruit. There is no lymphadenopathy. There is no goiter. There is no accessory muscles of respiration in use. Trachea central. LUNGS: Lungs are clear to auscultation percussion, without any rhonchi rales or wheezing. There is no chest wall tenderness on palpation. HEART: S1-S2 is heard. S1 is of normal intensity. There is no S3 gallop. There is no S4 gallop. There is systolic murmur left sternal border and the apex there is no rub. ABDOMEN: Is soft. Nontender. Bowel sounds are well heard. There is no hepatosplenomegaly. EXTREMITIES: Femorals are well felt. There is no femoral bruits. Leg pulses are well felt. There is no pedal edema. There is no DVT or cellulitis. 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 Gait is unsteady. There is no focal neurological deficit. PSYCHIATRIC: The patient judgment and insight are intact her affect is normal. She is not agitated or paranoid or anxious. 06/03/18 06/05/18 06/05/18 13:35 06:06 06:06 WBC 5.5 RBC 2.85 L Hgb 10.1 L Hct 29.6 L MCV 104 H MCH 35.4 H MCHC 34.2 RDW 12.5 Plt Count 147 L Seg Neutrophils % 58.9 Lymphocytes % 26.0 Monocytes % 7.9 Eosinophils % 6.1 H Basophils % 1.1 Absolute Neutrophils 3.2 Absolute Lymphocytes 1.4 Absolute Monocytes 0.4 Absolute Eosinophils 0.3 Absolute Basophils 0.1 Retic Count (auto) 1.08 Absolute Retic 0.031 Sodium 143.9 Potassium 4.0 Chloride 117 H Carbon Dioxide 25 Anion Gap 2 L BUN 9 Creatinine 0.78 Est GFR (Non-Af Amer) > 60 Glucose 89 Calcium 9.0 Iron 59.0 TIBC 246 L % Saturation 24 Ferritin 48.80 CK-MB (CK-2) 0.29 Troponin I < 0.012 Vitamin B12 > 1000.0 H Folate > 20.00 IMPRESSION/RECOMMENDATION: 1. Slurred speech, with the ataxia, and tremors: No definite evidence of CVA. Most likely effects of Trileptal. The dose has been decreased. 2. Paroxysmal atrial fibrillation: The patient's corrected Mario vasc 2 score is 3. Hence patient will benefit from chronic anti-coagulation therapy. I discussed starting Eliquis with the patient, since she does not want Coumadin. With the consent of the patient, she is on Eliquis. We will stop the patient's aspirin. 3. Hypertension: Would recommend starting the patient on another antihypertensive, if her blood pressure remains being not optimally controlled. We will start the patient on a beta-truong, and also amlodipine in the morning. 4. Hypothyroidism: Continue replacement. 5. Bipolar disorder: Seems to be in remission. 6. Anemia with high MCV: The patient is iron, and B12 and folate levels are within normal limits. Most likely this is secondary to the patient's hypothyroidism Medications reviewed. Management plan discussed with attending physician on the case. 40 minutes spent on this patient with more than 50% of time spent in direct patient care. Medical decision making is of moderate complexity. The patient is a full code. Mr. Justin Moore, is her surrogate healthcare decision maker.
[2018-06-05] MEDS ORDERED: AMLODIPINE BESYLATE 2.5 MG TABLET PO ONE (23:15)
[2018-06-06] MEDS: ZIPRASIDONE HCL 20 MG CAPSULE PO SCH (05:49)
[2018-06-06] MEDS: LIOTHYRONINE SODIUM 25 MCG TABLET PO SCH (09:17)
[2018-06-06] MEDS: APIXABAN 5 MG TABLET PO SCH (09:18)
[2018-06-06] MEDS: FAMOTIDINE 20 MG TABLET PO SCH (09:21)
[2018-06-06] MEDS: GABAPENTIN 300 MG CAPSULE PO SCH (09:21)
[2018-06-06] MEDS: OXCARBAZEPINE 150 MG TABLET PO SCH (09:21)
[2018-06-06] MEDS: LITHIUM CARBONATE 300 MG CAPSULE PO SCH (09:23)
[2018-06-06] MEDS ORDERED: METOPROLOL SUCCINATE 25 MG TAB.SR.24H PO SCH (10:00)
[2018-06-06] MEDS ORDERED: AMLODIPINE BESYLATE 2.5 MG TABLET PO SCH (10:00)
[2018-06-06 10:46] VITALS: BP 153/63
--- NOTE | 2018-06-06 17:28 | PDOC DISCHARGE SUMMARY ---
General - Admit/Disc Date/PCP Admission Date/Primary Care Provider: 06/02/18 23:33 SAYRA WALLIS MD Discharge Date: 06/06/18 - Discharge Diagnosis (1) Ataxia Is this a current diagnosis for this admission?: Yes (2) Paroxysmal atrial fibrillation Is this a current diagnosis for this admission?: Yes - Additional Information Resuscitation Status: Full Code Discharge Diet: Cardiac Discharge Activity: Activity As Tolerated Prescriptions: Amlodipine Besylate [Norvasc 2.5 mg Tablet] 2.5 mg PO Q12 #60 tablet Apixaban [Eliquis 5 mg Tablet] 5 mg PO BID #60 tablet Metoprolol Succinate [Toprol Xl 25 mg Tab.sr] 25 mg PO DAILY #30 tab.sr.24h Oxcarbazepine [Trileptal 150 mg Tablet] 150 mg PO Q12 #60 tablet Home Medications: Aspirin 81 mg PO QHS 03/05/14 Acyclovir [Acyclovir 400 mg Tablet] 400 mg PO Q12 01/02/18 Liothyronine Sodium 25 mcg PO Q48H 01/02/18 Truchas Carbonate 300 mg PO Q48H 01/02/18 Truchas Carbonate 600 mg PO Q48H 01/02/18 Quetiapine Fumarate [Seroquel] 50 mg PO QHS 01/02/18 Biotin 5,000 mcg SL DAILY 06/03/18 Calcium Carbonate/Vitamin D3 [Calcium 600-Vit D3 800 Caplet] 1 each PO Q12 06/03/18 Cyanocobalamin (Vitamin B-12) [Vitamin B-12] 2,000 mcg PO DAILY 06/03/18 Estrogens,Conjugated [Premarin 0.625 mg Tablet] 0.625 mg PO DAILY 06/03/18 Gabapentin [Neurontin 300 mg Capsule] 300 mg PO DAILY 06/03/18 Liothyronine Sodium [Cytomel 25 Mcg Tablet] 50 mcg PO Q48H 06/03/18 Lysine [l-Lysine] 500 mg PO DAILY 06/03/18 Multivit/Folic Acid/Vit K1 [One-A-Day Women's 50 Plus Tab] 1 each PO Q12A 06/03/18 Ziprasidone HCl [Geodon 40 mg Capsule] 40 mg PO Q6 06/03/18 Amlodipine Besylate [Norvasc 2.5 mg Tablet] 2.5 mg PO Q12 #60 tablet 06/06/18 Apixaban [Eliquis 5 mg Tablet] 5 mg PO BID #60 tablet 06/06/18 Gabapentin [Neurontin 300 mg Capsule] 300 mg PO DAILY capsule 06/06/18 Metoprolol Succinate [Toprol Xl 25 mg Tab.sr] 25 mg PO DAILY #30 tab.sr.24h 06/06/18 Oxcarbazepine [Trileptal 150 mg Tablet] 150 mg PO Q12 #60 tablet 06/06/18 History of Present Illness History of Present Illness: Admitting hospitalist's H&P: 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 She admits that she developed a sudden onset of ataxia at approximately 6 PM while eating supper with her brother on the evening of admission. She describes the episode as a feeling of generalized weakness accompanied by double vision, mild difficulty with her vocal articulation and slowness of her thinking as well as a sensation of vertigo and dizziness with severe ataxia on efforts at trying to stand up or even remain seated without support on both sides. Her symptoms have remained present but have improved to some degree since the time of onset. The symptoms have been noted to wax and wane in intensity with no obvious cause for the change in level of intensity being identified. She admits a similar episode on Monday of this week in which she had a sudden onset of visual changes with a l eft eye visual field defect that was present 1-2 days but resolved spontaneously in the entirety. She also had some dizziness, weakness and slowness of her thinking with that episode, however those symptoms were quite transient and had resolved within a few minutes to a few hours of the initial event. She had a CT scan of her head and a Doppler study of her carotid arteries performed along with an echocardiogram in the evaluation of that event. All studies were negative by her report. In the emergency room she was found to have a negative CT scan of her head and an essentially unremarkable workup otherwise. Because of her neurologic changes she is admitted to the [facility] stroke protocol. Hospital Course Hospital Course: This is a 67 yr old female with a PMH of HTN, seizure disorder, bipolar disorder and history of TBI who presented with ataxia and dizziness. She was initially admitted for a possible acute CVA. She had multiple work-up including MRI and MRAs of the head and neck and they were negative for CVA. Her symptoms were deemed to be likely from her Trileptal as she was taking double the dose she was supposed to be on. This was adjusted and she did have improvement of her symptoms. Her symptoms did resolve. She was seen by Pt and was able to ambulate well. She did have a short run of SVT and Afib on 06/02 and she was evaluated by cardiology. Discussed the benefits and risks of anticoagulation for her paroxysmal Afib. Patient verbalized understanding and prefers a NOAC over coumadin. She was stared on Eliquis. Physical Exam Vital Signs: Temp Pulse Resp BP Pulse Ox 98.2 F 69 16 153/63 H 99 06/06/18 10:40 06/06/18 10:40 06/06/18 10:40 06/06/18 10:40 06/06/18 10:40 Intake & Output 06/05/18 06/06/18 06/07/18 06:59 06:59 06:59 Intake Total 4192 2435 Balance 4192 2435 Weight 116 lb 2.938 oz 119 lb 14.903 oz General appearance: PRESENT: no acute distress, well-developed, well-nourished Head exam: PRESENT: atraumatic, normocephalic Eye exam: PRESENT: conjunctiva pink, EOMI, PERRLA. ABSENT: scleral icterus Ear exam: PRESENT: normal external ear exam Mouth exam: PRESENT: moist, tongue midline Neck exam: ABSENT: carotid bruit, JVD, lymphadenopathy, thyromegaly Respiratory exam: PRESENT: clear to auscultation manuela. ABSENT: rales, rhonchi, wheezes Cardiovascular exam: PRESENT: RRR. ABSENT: diastolic murmur, rubs, systolic murmur Pulses: PRESENT: normal dorsalis pedis pul GI/Abdominal exam: PRESENT: normal bowel sounds, soft. ABSENT: distended, guarding, mass, organolmegaly, rebound, tenderness Rectal exam: PRESENT: deferred Neurological exam: PRESENT: alert, awake, oriented to person, oriented to place, oriented to time, oriented to situation, CN II-XII grossly intact. ABSENT: motor sensory deficit Results Laboratory Results: 06/05/18 06:06 06/05/18 06:06 06/02/18 06/03/18 06/03/18 20:05 02:00 02:00 Creatine Kinase 32 CK-MB (CK-2) 0.74 Troponin I < 0.012 < 0.012 06/03/18 06/03/18 06/03/18 07:30 07:30 13:35 Creatine Kinase 22 L 24 L CK-MB (CK-2) 0.34 Troponin I < 0.012 06/03/18 13:35 Creatine Kinase CK-MB (CK-2) 0.29 Troponin I < 0.012 Impressions: Chest X-Ray 06/02/18 19:34 IMPRESSION: No acute disease. Head CT 06/02/18 19:34 IMPRESSION: 1. No acute intracranial hemorrhage or acute territorial infarct. 2. Large mucous retention cyst/ polyp at the right maxillary sinus. EVIDENCE OF ACUTE STROKE: NO. Brain MRI with MRA 06/03/18 00:00 IMPRESSION: NORMAL MRI OF THE BRAIN WITHOUT INTRAVENOUS GADOLINIUM CONTRAST. UNREMARKABLE [place] MRA EXAM EVIDENCE OF ACUTE STROKE: NO. Head MRI 06/03/18 00:00 IMPRESSION: NORMAL MRI OF THE BRAIN WITHOUT INTRAVENOUS GADOLINIUM CONTRAST. UNREMARKABLE [place] MRA EXAM EVIDENCE OF ACUTE STROKE: NO. Neck MRA 06/03/18 00:00 IMPRESSION: NO SIGNIFICANT STENOSIS. Qualifiers - * PATIENT BEING DISCHARGED WITH ANY OF THE FOLLOWING DIAGNOSIS: No
== END 2018-06-06 11:10 | disposition home health service (06) | DRG 918 ==
LOC: ER 19:18 → EH 23:33 → 3W 06-03 03:04
PROVIDERS: ADMIT Emergency Medicine; ATTEND Emergency Medicine
DX: T42.1X1A Poisoning by iminostilbenes, accidental (unintentional), initial encounter (principal); I48.0 Paroxysmal atrial fibrillation; R26.0 Ataxic gait; R53.1 Weakness; D64.9 Anemia, unspecified; I10 Essential (primary) hypertension; E03.9 Hypothyroidism, unspecified; R41.82 Altered mental status, unspecified; F31.9 Bipolar disorder, unspecified; Y92.098 Other place in other non-institutional residence as the place of occurrence of the external cause; Z87.820 Personal history of traumatic brain injury; Z79.82 Long term (current) use of aspirin; Z79.891 Long term (current) use of opiate analgesic; Z79.899 Other long term (current) drug therapy
CPT/HCPCS: 36415; 70450; 70544; 70547; 70551; 71045; 80048; 80053; 80061; 80178; 80307; 81001; 82550; 82553; 82607; 82728; 82746; 83036; 83540; 83550; 84425; 84439; 84443; 84481; 84484; 85025; 85045; 93005; 93010; 99285; J0360; J1652; J2405; J3490; J7030; J7040

== ENCOUNTER → 2018-07-25 | Outpatient (CLI) | payer MEDICARE, OTHER | LOC: OD 08:24 | PROVIDERS: ATTEND Psychiatry & Neurology Addiction Medicine | DX: F31.9 Bipolar disorder, unspecified (principal) | CPT/HCPCS: 36415; 80183 ==

== ENCOUNTER 2018-09-23 18:13 | Inpatient (IN) | payer MEDICARE, OTHER ==
[2018-09-23 18:45] LABS: ABSOLUTE EOSINOPHILS # (AUTO) 0.2 10^3/uL (0.0-0.6); ABSOLUTE MONOCYTES (AUTO) 0.3 10^3/uL (0.1-1.4); BASOPHILS % (AUTO) 0.7 % (0-2); HEMATOCRIT 36.1 % (36.0-47.0); HEMOGLOBIN 12.2 g/dL (12.0-15.5); LYMPHOCYTES % (AUTO) 22.2 % (13-45); MEAN CORPUSCULAR HEMOGLOBIN 33.8 pg (27.0-33.4); MEAN CORPUSCULAR HGB CONC 33.7 g/dL (32.0-36.0); MEAN CORPUSCULAR VOLUME 100 fl (80-97); MONOCYTES % (AUTO) 6.9 % (3-13); PLATELET COUNT 184 10^3/uL (150-450); RED BLOOD COUNT 3.61 10^6/uL (3.72-5.28); RED CELL DISTRIBUTION WIDTH 12.1 % (11.5-14.0); SEGMENTED NEUTROPHILS % (AUTO) 65.2 % (42-78); TOTAL CELLS COUNTED % (AUTO) 100 %; WHITE BLOOD COUNT 4.6 10^3/uL (4.0-10.5)
[2018-09-23 19:06] LABS: ALANINE AMINOTRANSFERASE 30 U/L (9-52); ALBUMIN 3.9 g/dL (3.5-5.0); ALKALINE PHOSPHATASE 74 U/L (38-126); ANION GAP 8 (5-19); ASPARTATE AMINO TRANSFERASE 29 U/L (14-36); BILIRUBIN,DIRECT 0.2 mg/dL (0.0-0.4); BILIRUBIN,TOTAL 0.3 mg/dL (0.2-1.3); BLOOD UREA NITROGEN 8 mg/dL (7-20); CALCIUM 9.8 mg/dL (8.4-10.2); CARBON DIOXIDE 27 mmol/L (22-30); CHLORIDE 94 mmol/L (98-107); GLUCOSE 103 mg/dL (75-110); POTASSIUM 4.5 mmol/L (3.6-5.0); SODIUM 128.5 mmol/L (137-145); TOTAL PROTEIN 6.7 g/dL (6.3-8.2)
[2018-09-23 19:07] LABS: ALCOHOL < 10 mg/dL (NONE DETECTED)
[2018-09-23 19:20] LABS: APPEARANCE,URINE CLEAR; BILIRUBIN,URINE NEGATIVE (NEGATIVE); COLOR,URINE COLORLESS; GLUCOSE, URINE NEGATIVE (NEGATIVE); KETONES,URINE NEGATIVE (NEGATIVE); LEUKOCYTE ESTERASE,URINE LARGE (NEGATIVE); NITRITE,URINE NEGATIVE (NEGATIVE); PROTEIN,URINE NEGATIVE (NEGATIVE); URINE SPECIFIC GRAVITY 1.004; UROBILINOGEN,URINE NEGATIVE mg/dL (<2.0)
[2018-09-23 19:38] LABS: URINE AMPHETAMINES SCREEN NEGATIVE; URINE BARBITURATES SCREEN NEGATIVE; URINE BENZODIAZEPINES SCREEN NEGATIVE; URINE COCAINE SCREEN NEGATIVE; URINE MARIJUANA (THC) SCREEN NEGATIVE; URINE METHADONE SCREEN NEGATIVE; URINE PHENCYCLIDINE SCREEN NEGATIVE
[2018-09-23] MEDS ORDERED: CEFTRIAXONE 1 GM/D5W RTU 1 GM/50 ML RTUPB IV ONE (20:45)
--- NOTE | 2018-09-23 21:03 | ER Document Report ---
Entered by JERONIMO ARELLANO SCRIBE 09/23/182019 Acting as scribe for:LIZY SALAS DO ED General - General Stated Complaint: POSSIBLE OVERDOSE Time Seen by Provider: 09/23/18 18:56 Information source: Patient, Relative Notes: 68-year-old female who presents today with complaints of "having the shakes" all day. Patient states she has had symptoms like this in the past and it was associated at that time with "taking too much Trileptal/Geodon". Patient states she is supposed to take 300 mg of Trileptal 3 times a day but her Trileptal pills are 600 mg and she has to break them in half. Patient states she believes that yesterday she took a full pill x3 times yesterday. Patient states that this afternoon at around 1500 she was going to the door to let her brother in and she fell because of the severe shaking and jerking in her legs. Patient states she did not hit her head during that fall but she did hit her head when going to stand back up. Patient states she has some double vision today which she describes as vertical double vision, she has had this before but she states her double vision today is worse than previous double vision and her difficulty with ambulation is worse today than it has been when she has had episodes like this in the past. Patient mentions some urinary frequency. Patient denies any numbness, tingling, shortness of breath, chest pain, syncope, headache, dizziness, or focal neurological weakness. TRAVEL OUTSIDE OF THE [place] IN LAST 30 DAYS: No - Related Data Allergies/Adverse Reactions: latex [Latex] Allergy (Severe, Verified 03/05/14 10:19) SWELLING codeine [Codeine] Adverse Reaction (Intermediate, Verified 03/05/14 10:17) FEELING OF GOING FAST diphenhydramine HCl [From Benadryl] Adverse Reaction (Intermediate, Verified 03/05/14 10:19) "CANNOT SLEEP" metronidazole [Metronidazole] Adverse Reaction (Intermediate, Verified 03/05/14 10:17) SEVERE JOINT PAIN milk Adverse Reaction (Verified 01/02/18 13:23) Diarrhea pseudoephedrine HCl [From Sudafed] Adverse Reaction (Verified 03/05/14 10:19) "TROUBLE SLEEPING" STEROIDS Adverse Reaction (Uncoded 10/29/14 10:19) MANIC EPISODES Past Medical History - General Information source: Patient - Social History Smoking Status: Never Smoker Cigarette use (# per day): No Chew tobacco use (# tins/day): No Frequency of alcohol use: Social - daily, up to 2 glasses of wine Drug Abuse: None 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 Family History: Reviewed & Not Pertinent, CAD, Malignancy - Past Medical History Cardiac Medical History: Reports: Hx Hypertension Pulmonary Medical History: Reports: Hx Pneumonia Neurological Medical History: Reports: Hx Seizures - 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4,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 Endocrine Medical History: Reports: Hx Hypothyroidism Musculoskeletal Medical History: Reports Hx Arthritis Psychiatric Medical History: Reports: Hx Bipolar Disorder, Hx Depression Traumatic Medical History: Reports: Hx 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 denies: Short of breath Gastrointestinal: No symptoms reported Genitourinary: See HPI, Frequency Female Genitourinary: No symptoms reported Musculoskeletal: See HPI - Shaking and muscle spasms. Skin: No symptoms reported Hematologic/Lymphatic: No symptoms reported Neurological/Psychological: Confusion, Tremor. denies: Weakness - Denies focal weakness, admits generalized weakness, Headaches, Numbness, Tingling -: Yes All other systems reviewed and negative Physical Exam - Vital signs Vitals: Resp Pulse Ox 15 100 09/23/18 18:17 09/23/18 18:17 - Notes Notes: PHYSICAL EXAM GENERAL: Alert, interacts well. No acute distress. Speech is slow and deliberate without any slurring, family notes it is slower than usual. HEAD: Normocephalic, atraumatic. EYES: Pupils equal, round, and reactive to light. Extraocular movements intact. ENT: Oral mucosa moist, tongue midline. NECK: Full range of motion. Supple. Trachea midline. LUNGS: Clear to auscultation bilaterally, no wheezes, rales, or rhonchi. No respiratory distress. HEART: Regular rate and rhythm. No murmurs, gallops, or rubs. EXTREMITIES: Moves all 4 extremities spontaneously. No edema, radial and dorsalis pedis pulses 2/4 bilaterally. No cyanosis. NEUROLOGICAL: Alert and oriented x3. Speech is not slurred. Cranial nerves II through XII grossly intact. Biceps and patellar DTRs 2+ bilaterally. Slight tremor at baseline. [id number] test intact bilaterally, tremor becomes worse with RUE [id number] test. No ataxia with heel-pulido test, there is jerking of the legs with heel-pulido. PSYCH: Normal affect, normal mood. SKIN: Warm, dry, normal turgor. Ecchymosis over bilateral knees, left > right without effusion. No ligamentous laxity in the knees. Course - Re-evaluation Re-evalutation: 09/23/18 21:01 CBC grossly unremarkable, CMP shows new hyponatremia with sodium 128.5, normal renal function, calcium and magnesium are normal, albumin is normal, urinalysis shows large leukocyte esterase, 52 WBCs, no blood, no dehydration. Urine drug screen is negative, alcohol level is undetectable. No evidence of stroke at this standpoint. CT scan of the head has been ordered although without any focal neurologic deficits expected to be negative. I did discuss with Dr. Keyur ayala that I am concerned by this patient's hyponatremia as well as the jerking and tremoring movements that are preventing her from being able to walk, he agrees to admit the patient to his service, will continue to work her up for neurologic changes caused by hyponatremia versus extraparametal side effects being caused by her psych medications. I will call him the results of the CT scan of the head when it is done. 09/23/18 23:24 CT scan of the head is negative for bleed. - Vital Signs Vital signs: Temp Pulse Resp BP Pulse Ox 98.1 F 11 L 180/86 H 99 09/23/18 21:28 09/23/18 21:28 09/23/18 21:28 09/23/18 21:28 - Laboratory Result Diagrams: 09/23/18 18:23 09/23/18 18:23 Laboratory results interpreted by me: 09/23/18 09/23/18 09/23/18 18:23 18:23 19:00 RBC 3.61 L MCV 100 H MCH 33.8 H Sodium 128.5 L Chloride 94 L Ur Leukocyte Esterase LARGE H - EKG Interpretation by Me Additional EKG results interpreted by me: 09/23/18 21:02 EKG shows sinus rhythm at a rate of 75, first-degree AV block, normal axis, normal R wave progression, no ST segment elevations or depressions per my interpretation. Discharge - Discharge Clinical Impression: Hyponatremia, Extrapyramidal symptom, Unable to ambulate Condition: Fair Disposition: ADMITTED INPATIENT Admitting Provider: Donita (Hospitalist) Unit Admitted: Telemetry I personally performed the services described in the documentation, reviewed and edited the documentation which was dictated to the scribe in my presence, and it accurately records my words and actions.
[2018-09-23] MEDS ORDERED: CEFTRIAXONE INJ 1000 MG VIAL ONE (21:22)
[2018-09-23] MEDS ORDERED: ONDANSETRON HCL INJ/PF 4 MG/2 ML SDV IV PRN (21:55)
[2018-09-23] MEDS ORDERED: TEMAZEPAM 15 MG CAPSULE PO PRN (21:55)
[2018-09-23] MEDS ORDERED: MAGNESIUM HYDROXIDE SUSP 30 ML UDCUP PO PRN (21:55)
[2018-09-23] MEDS ORDERED: MAG HYDROX/AL HYDROX/SIMETH SUSP 30 ML UDCUP PO PRN (21:55)
--- NOTE | 2018-09-23 21:55 | RADIOLOGY REPORT (SQ) ---
CT HEAD WITHOUT IV CONTRAST HISTORY: Ataxia. COMPARISON: 06/03/2018 TECHNIQUE: CT scan of the brain without IV contrast. This exam was performed according to our departmental dose-optimization program, which includes automated exposure control, adjustment of the mA and/or kV according to patient size and/or use of iterative reconstruction technique. FINDINGS: Diffuse involutional changes are present. No evidence of acute infarction, intracranial hemorrhage, extra-axial fluid collection, or midline shift. There is a large right maxillary sinus mucous cyst/polyp. No air-fluid levels are seen. The mastoid air cells are clear. No depressed skull fracture. IMPRESSION: No acute intracranial findings.
[2018-09-23] MEDS ORDERED: ACETAMINOPHEN 325 MG TABLET PO PRN (22:00)
[2018-09-23] MEDS ORDERED: NALBUPHINE HCL INJ 10 MG/1 ML AMPULE IV PRN (22:00)
[2018-09-23] MEDS ORDERED: ASPIRIN 81 MG TABLET, CHEWABLE PO ONE (22:30)
[2018-09-23] MEDS ORDERED: FAMOTIDINE 20 MG TABLET PO ONE (22:30)
[2018-09-23] MEDS ORDERED: BENZTROPINE MESYLATE 1 MG TABLET PO ONE (22:30)
[2018-09-23] MEDS ORDERED: AMLODIPINE BESYLATE 2.5 MG TABLET PO ONE (22:30)
[2018-09-23] MEDS ORDERED: LIOTHYRONINE SODIUM 25 MCG TABLET PO ONE ×2 (23:00)
--- NOTE | 2018-09-23 23:48 | EKG REPORT ---
SEVERITY:- ABNORMAL ECG - SINUS RHYTHM FIRST DEGREE AV BLOCK NONSPECIFIC INTRAVENTRICULAR CONDUCTION DELAY : Confirmed by: Fran Concepcion MD 23-Sep-2018 23:48:03
[2018-09-23] MEDS ORDERED: AMLODIPINE BESYLATE 2.5 MG TABLET ONE (23:55)
[2018-09-23] MEDS ORDERED: LIOTHYRONINE SODIUM 25 MCG TABLET ONE (23:55)
[2018-09-23] MEDS: RINGERS SOLUTION,LACTATED 1,000 ML IV PRN (23:59)
--- NOTE | 2018-09-24 02:15 | PDOC H&P ---
History of Present Illness Admission Date/PCP: 09/23/18 21:19 RHONDA ABARCA MD Patient complains of: Muscle spasms History of Present Illness: JAYSON MOORE is a 68 year old female who presents to the emergency room with an acute history of uncontrollable muscle spasms. She admits "having the shakes" since waking today. She acknowledges that she has been having uncontrollable shaking and muscle spasms in her extremities all day. Her "shakes" have been accompanied by double vision and severe difficulty (weakness/unsteadiness) with ambulation. She admits prior similar episodes when she has inadvertently taken too much of her Trileptal along with her Geodon. She further acknowledges that she did take 600 mg of Trileptal for each of 3 doses yesterday instead of the prescribed 300 mg dosage because she sometimes has difficulty breaking her pills in half. She has not identified any other aggravating or ameliorating factors for her "shakes". In the emergency room she was found to have significant muscle weakness and uncontrollable muscle movements of her extremities. Her CT scan was negative and the remainder of her evaluation was unremarkable with the exception of pyuria. Patient was subsequently admitted to the hospital for further evaluation and treatment. Past Medical History Cardiac Medical History: Reports: Atrial Fibrillation - Chronic paroxysmal atrial fibrillation, Hypertension Denies: Coronary Artery Disease, Myocardial Infarction Pulmonary Medical History: Reports: Pneumonia Denies: Asthma, Bronchitis, Chronic Obstructive Pulmonary Disease (COPD) EENT Medical History: Reports: Eyes - History of diplopia secondary to medications Denies: Cataracts, Ears - Hearing aids Neurological Medical History: Reports: Seizures - Since head injury at age 4, Other - Chronic tardive dyskinesia with a baseline chronic tremor Denies: Hemorrhagic CVA, Ischemic CVA Endocrine Medical History: Reports: Hypothyroidism Denies: Diabetes Mellitus Type 1, Diabetes Mellitus Type 2, Hyperthyroidism Renal/ Medical History: Denies: Chronic Kidney Disease, Nephrolithiasis Malignancy Medical History: Reports: None GI Medical History: Denies: Cirrhosis, Hepatitis, Hiatal Hernia Musculoskeltal Medical History: Reports: Arthritis, Other - 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 Denies: Fibromyalgia, Gout Skin Medical History: Denies: Eczema, Psoriasis Psychiatric Medical History: Reports: Bipolar Disorder - With extremely severe depression and extremely severe floyd, Depression Denies: Alcohol Dependency, Substance Abuse, Tobacco Dependency Traumatic Medical History: Reports: 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 Hematology: Reports: Anemia - History of borderline anemia, Other - Chronic anticoagulation Denies: Bleeding Tendencies Infectious Medical History: Reports: None Past Surgical History Past Surgical History: Reports: Hysterectomy Social History Information Source: Patient Lives with: Alone Smoking Status: Never Smoker Frequency of Alcohol Use: Occasional Hx Recreational Drug Use: No Drugs: None Hx Prescription Drug Abuse: No - Advance Directive Resuscitation Status: Full Code Surrogate healthcare decision maker:: Justin Moore Family History Family History: CAD, Malignancy Parental Family History Reviewed: Yes Children Family History Reviewed: No Sibling(s) Family History Reviewed.: Yes Medication/Allergy Home Medications: Aspirin 81 mg PO QHS 03/05/14 Acyclovir [Acyclovir 400 mg Tablet] 400 mg PO Q12 01/02/18 Liothyronine Sodium 25 mcg PO Q48H 01/02/18 [place] Carbonate 300 mg PO Q48H 01/02/18 [place] Carbonate 600 mg PO Q48H 01/02/18 Quetiapine Fumarate [Seroquel] 50 mg PO QHS 01/02/18 Biotin 5,000 mcg SL DAILY 06/03/18 Calcium Carbonate/Vitamin D3 [Calcium 600-Vit D3 800 Caplet] 1 each PO Q12 06/03/18 Cyanocobalamin (Vitamin B-12) [Vitamin B-12] 2,000 mcg PO DAILY 06/03/18 Estrogens,Conjugated [Premarin 0.625 mg Tablet] 0.625 mg PO DAILY 06/03/18 Gabapentin [Neurontin 300 mg Capsule] 300 mg PO DAILY 06/03/18 Liothyronine Sodium [Cytomel 25 Mcg Tablet] 50 mcg PO Q48H 06/03/18 Lysine [l-Lysine] 500 mg PO DAILY 06/03/18 Multivit/Folic Acid/Vit K1 [One-A-Day Women's 50 Plus Tab] 1 each PO Q12A 06/03/18 Ziprasidone HCl [Geodon 40 mg Capsule] 40 mg PO Q6 06/03/18 Amlodipine Besylate [Norvasc 2.5 mg Tablet] 2.5 mg PO Q12 #60 tablet 06/06/18 Apixaban [Eliquis 5 mg Tablet] 5 mg PO BID #60 tablet 06/06/18 Gabapentin [Neurontin 300 mg Capsule] 300 mg PO DAILY capsule 06/06/18 Metoprolol Succinate [Toprol Xl 25 mg Tab.sr] 25 mg PO DAILY #30 tab.sr.24h 06/06/18 Oxcarbazepine [Trileptal 150 mg Tablet] 150 mg PO Q12 #60 tablet 06/06/18 Allergies/Adverse Reactions: latex [Latex] Allergy (Severe, Verified 03/05/14 10:19) SWELLING codeine [Codeine] Adverse Reaction (Intermediate, Verified 03/05/14 10:17) FEELING OF GOING FAST diphenhydramine HCl [From Benadryl] Adverse Reaction (Intermediate, Verified 03/05/14 10:19) "CANNOT SLEEP" metronidazole [Metronidazole] Adverse Reaction (Intermediate, Verified 03/05/14 10:17) SEVERE JOINT PAIN milk Adverse Reaction (Verified 01/02/18 13:23) Diarrhea pseudoephedrine HCl [From Sudafed] Adverse Reaction (Verified 03/05/14 10:19) "TROUBLE SLEEPING" STEROIDS Adverse Reaction (Uncoded 03/05/14 10:19) MANIC EPISODES Review of Systems Constitutional: PRESENT: as per HPI, other - "Shakes" (weakness and unsteadiness with uncontrolled muscle spasm). ABSENT: chills, fever(s) Eyes: PRESENT: visual disturbances - Diplopia. ABSENT: other - Ocular pain Ears: ABSENT: hearing changes, other - Ear pain Nose, Mouth, and Throat: ABSENT: mouth pain, sore throat Cardiovascular: ABSENT: chest pain, palpitations Respiratory: ABSENT: cough, dyspnea Gastrointestinal: ABSENT: abdominal pain, constipation, diarrhea, nausea, vomiting Genitourinary: PRESENT: other - Urinary frequency. ABSENT: dysuria, hematuria Musculoskeletal: ABSENT: back pain, joint swelling, muscle weakness Integumentary: ABSENT: pruritus, rash Neurological: PRESENT: as per HPI, abnormal gait - Difficulty walking (off balance/weak), abnormal movements - Uncontrollable muscle spasms in all extremities, lack of coordination - Difficulty walking (off-balance/weak), tremor(s) - Chronic tremors at baseline, weakness, other - Chronic tardive dyskinesia at baseline. ABSENT: confusion, convulsions, focal weakness, memory loss, syncope Psychiatric: ABSENT: anxiety, depression, hallucinations Endocrine: ABSENT: cold intolerance, heat intolerance Hematologic/Lymphatic: ABSENT: easy bleeding, easy bruising Physical Exam Vital Signs: Temp Pulse Resp BP Pulse Ox 97.4 F 9 L 182/68 H 98 09/23/18 18:26 09/23/18 21:00 09/23/18 20:00 09/23/18 21:00 Intake & Output 09/21/18 09/22/18 09/23/18 23:59 23:59 23:59 Weight 59.1 kg General appearance: PRESENT: no acute distress, cooperative Head exam: PRESENT: atraumatic, normocephalic Eye exam: ABSENT: conjunctival injection, scleral icterus Ear exam: PRESENT: normal external ear exam. ABSENT: bleeding, drainage Mouth exam: PRESENT: dry mucosa, neck supple Neck exam: ABSENT: JVD, thyromegaly, tracheal deviation Respiratory exam: PRESENT: clear to auscultation manuela, symmetrical, unlabored Cardiovascular exam: PRESENT: RRR. ABSENT: clicks, gallop, rubs Pulses: PRESENT: normal radial pulses, normal dorsalis pedis pul Vascular exam: PRESENT: normal capillary refill. ABSENT: pallor GI/Abdominal exam: PRESENT: normal bowel sounds, soft Rectal exam: PRESENT: deferred Extremities exam: ABSENT: joint swelling, pedal edema Musculoskeletal exam: PRESENT: other - Mild to moderate involuntary muscle contractions noted in all extremities. ABSENT: deformity, dislocation Neurological exam: PRESENT: alert, oriented to person, oriented to place, oriented to time, oriented to situation, CN II-XII grossly intact, motor sensory deficit - Baseline tremor involving facial musculature and fine motor function of the hands is noted in addition to the more gross dystonic muscular movements of the extremities which is uncharacteristic for her usual state., other - Dystonic contractions noted in all extremities Psychiatric exam: PRESENT: anxious, normal mood Focused psych exam: PRESENT: restlessness. ABSENT: catatonic, delusional, euphoric, flight of ideas, paranoid, pressured speech, psychomotor agitation Skin exam: PRESENT: dry, intact, warm. ABSENT: jaundice, rash, urticaria Results Laboratory Results: 09/23/18 18:23 09/23/18 18:23 09/23/18 09/23/18 09/23/18 18:23 18:23 19:00 WBC 4.6 RBC 3.61 L Hgb 12.2 Hct 36.1 MCV 100 H MCH 33.8 H MCHC 33.7 RDW 12.1 Plt Count 184 Seg Neutrophils % 65.2 Lymphocytes % 22.2 Monocytes % 6.9 Eosinophils % 5.0 Basophils % 0.7 Absolute Neutrophils 3.0 Absolute Lymphocytes 1.0 Absolute Monocytes 0.3 Absolute Eosinophils 0.2 Absolute Basophils 0.0 Sodium 128.5 L Potassium 4.5 Chloride 94 L Carbon Dioxide 27 Anion Gap 8 BUN 8 Creatinine 0.67 Est GFR ( Amer) > 60 Est GFR (Non-Af Amer) > 60 Glucose 103 Calcium 9.8 Magnesium 2.0 Total Bilirubin 0.3 AST 29 ALT 30 Alkaline Phosphatase 74 Total Protein 6.7 Albumin 3.9 Urine Color COLORLESS Urine Appearance CLEAR Urine pH 8.0 Ur Specific [place] 1.004 Urine Protein NEGATIVE Urine Glucose (UA) NEGATIVE Urine Ketones NEGATIVE Urine Blood NEGATIVE Urine Nitrite NEGATIVE Ur Leukocyte Esterase LARGE H Urine WBC (Auto) 52 Urine RBC (Auto) 1 Assessment and Plan - Diagnosis (1) Dystonic drug reaction Is this a current diagnosis for this admission?: Yes Plan: Patient be treated with Cogentin 2 mg p.o. x1 immediately and we will hold her psychotropic medications until she can be reevaluated in the morning. She will use Nubain 10 mg IV every 3 hours as needed for pain associated with her dystonic movements. (2) Hyponatremia Is this a current diagnosis for this admission?: Yes Plan: Patient's metabolic profile will be followed on a regular basis during her hospital course to observe her hyponatremia. (3) Bipolar disorder in full remission Qualifiers: Most recent bipolar episode type: most recent episode unspecified type Qualified Code(s): F31.70 - Bipolar disorder, currently in remission, most recent episode unspecified Is this a current diagnosis for this admission?: Yes Plan: Patient's usual bipolar medications will be restarted once her dystonic reaction has resolved. (4) Hypothyroidism Qualifiers: Hypothyroidism type: unspecified Qualified Code(s): E03.9 - Hypothyroidism, unspecified Is this a current diagnosis for this admission?: Yes Plan: Patient will be continued on her usual thyroid replacement therapy and a thyroid profile will be obtained to assess the efficacy of that therapy. (5) Paroxysmal atrial fibrillation Is this a current diagnosis for this admission?: Yes Plan: Patient will be continued on her usual anticoagulation and rate control agents for her paroxysmal atrial fibrillation. She will be monitored on the telemetry floor during her hospital course. - Time Time Spent with patient: 25-34 minutes Medications reviewed and adjusted accordingly: Yes Anticipated discharge: Home - Inpatient Certification Based on my medical assessment, after consideration of the patient's comorbidities, presenting symptoms, or acuity I expect that the services needed warrant INPATIENT care.: Yes I certify that my determination is in accordance with my understanding of Medicare's requirements for reasonable and necessary INPATIENT services [42 CFR 412.3e].: Yes Medical Necessity: Significant Comorbidiites Make Outpatient Treatment Too Risky, Need Close Monitoring Due to Risk of Patient Decompensation, Need For Con tinuous Telemetry Monitoring, Need for Neurological Checks, Risk of Complication if Not Cared For in Hospital
[2018-09-24 06:47] LABS: HEMATOCRIT 34.6 % (36.0-47.0); HEMOGLOBIN 11.7 g/dL (12.0-15.5); MEAN CORPUSCULAR HEMOGLOBIN 33.9 pg (27.0-33.4); MEAN CORPUSCULAR HGB CONC 33.9 g/dL (32.0-36.0); MEAN CORPUSCULAR VOLUME 100 fl (80-97); PLATELET COUNT 180 10^3/uL (150-450); RED BLOOD COUNT 3.46 10^6/uL (3.72-5.28); RED CELL DISTRIBUTION WIDTH 12.4 % (11.5-14.0); WHITE BLOOD COUNT 4.9 10^3/uL (4.0-10.5)
[2018-09-24 07:19] LABS: ANION GAP 6 (5-19); BLOOD UREA NITROGEN 6 mg/dL (7-20); CALCIUM 10.2 mg/dL (8.4-10.2); CARBON DIOXIDE 27 mmol/L (22-30); CHLORIDE 102 mmol/L (98-107); GLUCOSE 85 mg/dL (75-110); POTASSIUM 4.6 mmol/L (3.6-5.0); SODIUM 134.5 mmol/L (137-145)
[2018-09-24 08:27] LABS: FREE T3 5.05 pg/mL (2.77-5.27); FREE T4 (FREE THYROXINE) 0.11 ng/dL (0.78-2.19)
[2018-09-24] MEDS: RINGERS SOLUTION,LACTATED 1,000 ML IV PRN ×3 (08:47→21:14)
[2018-09-24] MEDS: APIXABAN 5 MG TABLET PO SCH ×2 (09:43→17:27)
[2018-09-24] MEDS: ACYCLOVIR 200 MG CAPSULE PO SCH ×2 (09:43→17:27)
[2018-09-24] MEDS: DOCUSATE SODIUM 100 MG CAPSULE PO SCH ×2 (09:44→17:27)
[2018-09-24] MEDS: CYANOCOBALAMIN (VITAMIN B-12) 1,000 MCG TABLET PO SCH (09:44)
[2018-09-24] MEDS: AMLODIPINE BESYLATE 2.5 MG TABLET PO SCH ×2 (09:44→21:15)
[2018-09-24] MEDS: FAMOTIDINE 20 MG TABLET PO SCH ×2 (09:44→21:15)
[2018-09-24] MEDS: CHOLECALCIFEROL (D3) 1,000 UNIT TABLET PO SCH (09:45)
[2018-09-24] MEDS: PRENATAL VITAMIN W DHA CAPSULE PO SCH (09:45)
[2018-09-24] MEDS: METOPROLOL SUCCINATE 25 MG TAB.SR.24H PO SCH (09:54)
[2018-09-24] MEDS ORDERED: LITHIUM CARBONATE 300 MG CAPSULE PO SCH ×2 (10:00→22:00)
[2018-09-24] MEDS: LIOTHYRONINE SODIUM 25 MCG TABLET PO SCH (12:27)
[2018-09-24] MEDS: LITHIUM CARBONATE 300 MG CAPSULE PO SCH (12:27)
[2018-09-24] MEDS: GABAPENTIN 300 MG CAPSULE PO SCH ×2 (14:21→21:16)
--- NOTE | 2018-09-24 16:32 | PDOC PROGRESS REPORT ---
Subjective Progress Note for:: 09/24/18 Subjective:: No adverse events overnight. No new complaints. Vital signs been stable. He said this is the same thing that happened to her not too long ago, where she got confused about her Trileptal where she was supposed to break the tablet in half that she accidentally took a whole tablet and she is very sensitive to the effect of the medication. She still little bit tremulous today. Reason For Visit: GENERALIZED WEAKNESS Physical Exam Vital Signs: Temp Pulse Resp BP Pulse Ox 97.7 F 65 19 120/72 99 09/24/18 12:26 09/24/18 12:26 09/24/18 12:26 09/24/18 12:26 09/24/18 12:26 Intake & Output 09/23/18 09/24/18 09/25/18 06:59 06:59 06:59 Intake Total 50 2272 Balance 50 2272 Weight 59.1 kg General appearance: PRESENT: no acute distress, cooperative, disheveled Respiratory exam: PRESENT: clear to auscultation manuela, symmetrical, unlabored. ABSENT: accessory muscle use, crackles, prolonged expiratory phas, rhonchi, tachypnea, wheezes Cardiovascular exam: PRESENT: RRR, +S1, +S2 Pulses: PRESENT: normal carotid pulses Vascular exam: PRESENT: normal capillary refill GI/Abdominal exam: PRESENT: normal bowel sounds, soft. ABSENT: distended, guarding, rebound, tenderness Extremities exam: ABSENT: clubbing, pedal edema Musculoskeletal exam: PRESENT: normal inspection. ABSENT: deformity Neurological exam: PRESENT: alert, awake, oriented to person, oriented to place, oriented to situation Psychiatric exam: PRESENT: unusual affect Skin exam: PRESENT: dry, warm Results Laboratory Results: 09/24/18 06:00 09/24/18 06:00 09/23/18 09/23/18 09/23/18 18:23 18:23 19:00 WBC 4.6 RBC 3.61 L Hgb 12.2 Hct 36.1 MCV 100 H MCH 33.8 H MCHC 33.7 RDW 12.1 Plt Count 184 Seg Neutrophils % 65.2 Lymphocytes % 22.2 Monocytes % 6.9 Eosinophils % 5.0 Basophils % 0.7 Absolute Neutrophils 3.0 Absolute Lymphocytes 1.0 Absolute Monocytes 0.3 Absolute Eosinophils 0.2 Absolute Basophils 0.0 Sodium 128.5 L Potassium 4.5 Chloride 94 L Carbon Dioxide 27 Anion Gap 8 BUN 8 Creatinine 0.67 Est GFR ( Amer) > 60 Est GFR (Non-Af Amer) > 60 Glucose 103 Calcium 9.8 Magnesium 2.0 Total Bilirubin 0.3 AST 29 ALT 30 Alkaline Phosphatase 74 Total Protein 6.7 Albumin 3.9 TSH Free T4 Free T3 pg/mL Urine Color COLORLESS Urine Appearance CLEAR Urine pH 8.0 Ur Specific [place] 1.004 Urine Protein NEGATIVE Urine Glucose (UA) NEGATIVE Urine Ketones NEGATIVE Urine Blood NEGATIVE Urine Nitrite NEGATIVE Ur Leukocyte Esterase LARGE H Urine WBC (Auto) 52 Urine RBC (Auto) 1 09/24/18 09/24/18 09/24/18 06:00 06:00 06:00 WBC 4.9 RBC 3.46 L Hgb 11.7 L Hct 34.6 L MCV 100 H MCH 33.9 H MCHC 33.9 RDW 12.4 Plt Count 180 Seg Neutrophils % Lymphocytes % Monocytes % Eosinophils % Basophils % Absolute Neutrophils Absolute Lymphocytes Absolute Monocytes Absolute Eosinophils Absolute Basophils Sodium 134.5 L Potassium 4.6 Chloride 102 Carbon Dioxide 27 Anion Gap 6 BUN 6 L Creatinine 0.80 Est GFR ( Amer) > 60 Est GFR (Non-Af Amer) > 60 Glucose 85 Calcium 10.2 Magnesium 2.0 Total Bilirubin AST ALT Alkaline Phosphatase Total Protein Albumin TSH 1.00 Free T4 0.11 L Free T3 pg/mL 5.05 Urine Color Urine Appearance Urine pH Ur Specific [place] Urine Protein Urine Glucose (UA) Urine Ketones Urine Blood Urine Nitrite Ur Leukocyte Esterase Urine WBC (Auto) Urine RBC (Auto) Impressions: Head CT 09/23/18 20:51 IMPRESSION: No acute intracranial findings. Assessment and Plan - Diagnosis (1) Dystonic drug reaction Is this a current diagnosis for this admission?: Yes Plan: We are letting the Trileptal wash out of her system. She seems to be doing well. Still tremulous but not as bad as it was. (2) Bipolar disorder in full remission Qualifiers: Most recent bipolar episode type: most recent episode unspecified type Qualified Code(s): F31.70 - Bipolar disorder, currently in remission, most recent episode unspecified Is this a current diagnosis for this admission?: Yes Plan: We will resume her usual dose of Trileptal once is appropriate to do so. - Time Time Spent with patient: 15-24 minutes
[2018-09-24] MEDS ORDERED: ASPIRIN 81 MG TABLET, CHEWABLE PO SCH (22:00)
[2018-09-24] MEDS ORDERED: LIOTHYRONINE SODIUM 25 MCG TABLET PO SCH ×2 (22:00)
[2018-09-25] MEDS: GABAPENTIN 300 MG CAPSULE PO SCH ×2 (05:31→15:00)
[2018-09-25 06:04] LABS: HEMATOCRIT 33.2 % (36.0-47.0); HEMOGLOBIN 11.3 g/dL (12.0-15.5); MEAN CORPUSCULAR HEMOGLOBIN 34.3 pg (27.0-33.4); MEAN CORPUSCULAR VOLUME 101 fl (80-97); PLATELET COUNT 175 10^3/uL (150-450); RED BLOOD COUNT 3.29 10^6/uL (3.72-5.28); RED CELL DISTRIBUTION WIDTH 12.6 % (11.5-14.0); WHITE BLOOD COUNT 5.1 10^3/uL (4.0-10.5)
[2018-09-25 06:22] LABS: BLOOD UREA NITROGEN 8 mg/dL (7-20); GLUCOSE 94 mg/dL (75-110); POTASSIUM 4.7 mmol/L (3.6-5.0)
[2018-09-25 06:28] LABS: ANION GAP 6 (5-19); CARBON DIOXIDE 27 mmol/L (22-30); CHLORIDE 106 mmol/L (98-107); SODIUM 138.8 mmol/L (137-145)
[2018-09-25] MEDS ORDERED: LITHIUM CARBONATE 300 MG CAPSULE PO SCH (10:00)
[2018-09-25] MEDS: PRENATAL VITAMIN W DHA CAPSULE PO SCH (10:30)
[2018-09-25] MEDS: DOCUSATE SODIUM 100 MG CAPSULE PO SCH ×2 (10:30→18:29)
[2018-09-25] MEDS: METOPROLOL SUCCINATE 25 MG TAB.SR.24H PO SCH (10:31)
[2018-09-25] MEDS: LIOTHYRONINE SODIUM 25 MCG TABLET PO SCH (10:32)
[2018-09-25] MEDS: CHOLECALCIFEROL (D3) 1,000 UNIT TABLET PO SCH (10:32)
[2018-09-25] MEDS: CYANOCOBALAMIN (VITAMIN B-12) 1,000 MCG TABLET PO SCH (10:32)
[2018-09-25] MEDS: FAMOTIDINE 20 MG TABLET PO SCH (10:32)
[2018-09-25] MEDS: APIXABAN 5 MG TABLET PO SCH ×2 (10:32→18:34)
[2018-09-25] MEDS: LITHIUM CARBONATE 300 MG CAPSULE PO SCH (10:32)
[2018-09-25] MEDS: ACYCLOVIR 200 MG CAPSULE PO SCH ×2 (10:33→18:34)
[2018-09-25] MEDS: AMLODIPINE BESYLATE 2.5 MG TABLET PO SCH (10:33)
[2018-09-25] MEDS: RINGERS SOLUTION,LACTATED 1,000 ML IV PRN (10:37)
[2018-09-25 16:24] VITALS: BP 126/56
[2018-09-25] MEDS ORDERED: LIOTHYRONINE SODIUM 25 MCG TABLET PO SCH (22:00)
--- NOTE | 2018-09-26 18:39 | PDOC DISCHARGE SUMMARY ---
General - Admit/Disc Date/PCP Admission Date/Primary Care Provider: 09/23/18 21:19 RHONDA ABARCA MD Discharge Date: 09/25/18 - Discharge Diagnosis (1) Dystonic drug reaction Is this a current diagnosis for this admission?: Yes (2) Extrapyramidal symptom Is this a current diagnosis for this admission?: Yes (3) Hyponatremia Is this a current diagnosis for this admission?: Yes (4) Paroxysmal atrial fibrillation Is this a current diagnosis for this admission?: Yes - Additional Information Resuscitation Status: Full Code Discharge Diet: As Tolerated, Regular Discharge Activity: Activity As Tolerated, Balance Activity w/Rest Prescriptions: Oxcarbazepine [Trileptal] 300 mg PO MEALS #90 tablet Home Medications: Acyclovir [Acyclovir 400 mg Tablet] 400 mg PO Q12 01/02/18 Liothyronine Sodium 25 mcg PO Q48H 01/02/18 [place] Carbonate 300 mg PO Q12 MDD Q48H 01/02/18 [place] Carbonate 300 mg PO Q48H 01/02/18 Quetiapine Fumarate [Seroquel] 100 mg PO QHS 01/02/18 Biotin 5,000 mcg SL DAILY 06/03/18 Calcium Carbonate/Vitamin D3 [Calcium 600-Vit D3 800 Caplet] 1 each PO Q12 06/03/18 Gabapentin [Neurontin 300 mg Capsule] 300 mg PO Q8 06/03/18 Liothyronine Sodium [Cytomel 25 Mcg Tablet] 25 mcg PO Q12 MDD Q48H 06/03/18 Multivit/Folic Acid/Vit K1 [One-A-Day Women's 50 Plus Tab] 1 each PO Q12A 06/03/18 Amlodipine Besylate [Norvasc 2.5 mg Tablet] 2.5 mg PO Q12 #60 tablet 06/06/18 Apixaban [Eliquis 5 mg Tablet] 5 mg PO BID #60 tablet 06/06/18 Metoprolol Succinate [Toprol Xl 25 mg Tab.sr] 25 mg PO DAILY #30 tab.sr.24h 06/06/18 Oxcarbazepine [Trileptal] 300 mg PO MEALS #90 tablet 09/25/18 History of Present Illness History of Present Illness: Admitting hospitalist's H&P: JAYSON CARY is a 68 year old female who presents to the emergency room with an acute history of uncontrollable muscle spasms. She admits "having the shakes" since waking today. She acknowledges that she has been having uncontrollable shaking and muscle spasms in her extremities all day. Her "sha kes" have been accompanied by double vision and severe difficulty (weakness/unsteadiness) with ambulation. She admits prior similar episodes when she has inadvertently taken too much of her Trileptal along with her Geodon. She further acknowledges that she did take 600 mg of Trileptal for each of 3 doses yesterday instead of the prescribed 300 mg dosage because she sometimes has difficulty breaking her pills in half. She has not identified any other aggravating or ameliorating factors for her "shakes". In the emergency room she was found to have significant muscle weakness and uncontrollable muscle movements of her extremities. Her CT scan was negative and the remainder of her evaluation was unremarkable with the exception of pyuria. Patient was subsequently admitted to the hospital for further evaluation and treatment. Hospital Course Hospital Course: In summary, this is a 68-year-old female who was admitted due to being very tremulous after she inadvertently take extra pills of her Trileptal at home. This discharging provider is further this patient as she was admitted earlier this year for the same complaints. That time she also inadvertently took a number of extra pills of Trileptal and developed spasms and tremulousness from from it. She was managed supportively and she did return to her baseline and her tremors resolved. She denies any suicidal or homicidal ideations. Brother also denies the same and both admit that was more of accidental as she occasionally gets confused. Discussed in length with patient about home health so someone could check on her medications at home. She refuses home health for now and prefers that his brother will be checking on her medications. Discussed with patient's brother who said she will be with patient every day to make sure that she does not take extra pills of Trileptal again. Physical Exam Vital Signs: Temp Pulse Resp BP Pulse Ox 98.5 F 59 L 16 126/56 H 100 09/25/18 18:02 09/25/18 18:02 09/25/18 18:02 09/25/18 18:02 09/25/18 18:02 Intake & Output 09/25/18 09/26/18 09/27/18 06:59 06:59 06:59 Intake Total 4509 2780 Output Total 2200 Balance 4509 580 Weight 119 lb 14.903 oz General appearance: PRESENT: no acute distress, well-developed, well-nourished Head exam: PRESENT: atraumatic, normocephalic Eye exam: PRESENT: conjunctiva pink, EOMI, PERRLA. ABSENT: scleral icterus Ear exam: PRESENT: normal external ear exam Neck exam: ABSENT: carotid bruit, JVD, lymphadenopathy, thyromegaly Respiratory exam: PRESENT: clear to auscultation manuela. ABSENT: rales, rhonchi, wheezes Cardiovascular exam: PRESENT: RRR. ABSENT: diastolic murmur, rubs, systolic murmur Pulses: PRESENT: normal dorsalis pedis pul GI/Abdominal exam: PRESENT: normal bowel sounds, soft. ABSENT: distended, guarding, mass, organolmegaly, rebound, tenderness Rectal exam: PRESENT: deferred Extremities exam: PRESENT: full ROM. ABSENT: calf tenderness, clubbing, pedal edema Neurological exam: PRESENT: alert, awake, oriented to person, oriented to place, oriented to time, oriented to situation, CN II-XII grossly intact. ABSENT: motor sensory deficit Results Laboratory Results: 09/25/18 05:25 09/25/18 05:25 Impressions: Head CT 09/23/18 20:51 IMPRESSION: No acute intracranial findings. Qualifiers - * PATIENT BEING DISCHARGED WITH ANY OF THE FOLLOWING DIAGNOSIS: No Acute Heart Failure Is this a Heart Failure Patient?: No
== END 2018-09-25 19:15 | disposition home or self-care (01) | DRG 918 ==
LOC: ER 18:13 → EH 21:19 → 4S 23:12
PROVIDERS: ADMIT Emergency Medicine; ATTEND Emergency Medicine
DX: T42.1X1A Poisoning by iminostilbenes, accidental (unintentional), initial encounter (principal); E87.1 Hypo-osmolality and hyponatremia; I10 Essential (primary) hypertension; I48.0 Paroxysmal atrial fibrillation; E03.9 Hypothyroidism, unspecified; R25.2 Cramp and spasm; R25.1 Tremor, unspecified; F31.9 Bipolar disorder, unspecified; Y92.098 Other place in other non-institutional residence as the place of occurrence of the external cause; Z87.820 Personal history of traumatic brain injury; Z79.01 Long term (current) use of anticoagulants; Z79.82 Long term (current) use of aspirin; Z79.891 Long term (current) use of opiate analgesic; Z79.51 Long term (current) use of inhaled steroids; Z79.899 Other long term (current) drug therapy
CPT/HCPCS: 36415; 70450; 80048; 80053; 80178; 80307; 81001; 82962; 83735; 84439; 84443; 84481; 85025; 85027; 87040; 87086; 93005; 93010; 99285; J0696; J3490; J7120

== ENCOUNTER 2019-02-05 05:46 | Day surgery (SDC) | payer MEDICARE, OTHER ==
[2019-01-23 12:11] LABS: HEMATOCRIT 36.7 % (36.0-47.0); HEMOGLOBIN 12.5 g/dL (12.0-15.5); MEAN CORPUSCULAR HEMOGLOBIN 34.6 pg (27.0-33.4); MEAN CORPUSCULAR HGB CONC 34.1 g/dL (32.0-36.0); MEAN CORPUSCULAR VOLUME 102 fl (80-97); PLATELET COUNT 219 10^3/uL (150-450); RED BLOOD COUNT 3.62 10^6/uL (3.72-5.28); RED CELL DISTRIBUTION WIDTH 12.9 % (11.5-14.0); WHITE BLOOD COUNT 3.9 10^3/uL (4.0-10.5)
[2019-01-23 12:18] LABS: PROTHROMBIN TIME 16.3 SEC (11.4-15.4)
[2019-01-23 12:19] LABS: PARTIAL THROMBOPLASTIN TIME 31.6 SEC (23.5-35.8)
--- NOTE | 2019-01-23 12:22 | EKG REPORT ---
SEVERITY:- ABNORMAL ECG - SINUS RHYTHM NONSPECIFIC INTRAVENTRICULAR CONDUCTION DELAY BORDERLINE INFERIOR Q WAVES : Confirmed by: Fran Concepcion MD 23-Jan-2019 12:22:27
[2019-01-23 12:35] LABS: ANION GAP 8 (5-19); BLOOD UREA NITROGEN 21 mg/dL (7-20); CALCIUM 11.1 mg/dL (8.4-10.2); CARBON DIOXIDE 28 mmol/L (22-30); CHLORIDE 101 mmol/L (98-107); GLUCOSE 85 mg/dL (75-110)
[~2019-02-05 05:46] MED LIST changes: +CEFAZOLIN 1 GM/D5W RTU 1 GM/50 ML RTUPB IV PRN; -KETOROLAC TROMETHAMINE 0.45% 4 DROP/0.4 ML DROPERETTE OD PRN; +LACTATED RINGERS 1000 ML IV PRN; +LIDOCAINE 0.5% INJ-PF (5 MG/ML) 50 ML SDV SUBCUT PRN
[2019-02-05] MEDS ORDERED: CEFAZOLIN 1 GM/D5W RTU 1 GM/50 ML RTUPB IV ONE (05:47)
[2019-02-05 07:20] LABS: INTERNATIONAL RATION (INR) 1.06; PROTHROMBIN TIME 13.8 SEC (11.4-15.4)
[2019-02-05 07:21] LABS: PARTIAL THROMBOPLASTIN TIME 27.8 SEC (23.5-35.8)
[2019-02-05] MEDS ORDERED: SODIUM BICARBONATE 4.2% INJ (2.5 MEQ/5 ML) VIAL ONE (07:41)
[2019-02-05] MEDS ORDERED: ONDANSETRON HCL INJ/PF 4 MG/2 ML SDV ONE (07:41)
[2019-02-05] MEDS ORDERED: LIDOCAINE 1% INJ-PF (10 MG/ML) 30 ML SDV ONE (07:41)
[2019-02-05] MEDS ORDERED: MIDAZOLAM 2 MG/2 ML INJ ONE (07:41)
[2019-02-05] MEDS ORDERED: FENTANYL CITRATE INJ/PF 100 MCG/2 ML AMPUL ONE (07:41)
[2019-02-05] MEDS ORDERED: PROPOFOL INJ 200 MG/20 ML VIAL IV ONE (07:42)
[2019-02-05] MEDS ORDERED: LIDOCAINE 1%/EPINEPHRINE INJ 20 ML VIAL ONE (07:43)
[2019-02-05] MEDS ORDERED: POVIDONE-IODINE 5% OPH PREP SOLN 30 ML ONE (07:52)
[2019-02-05] MEDS ORDERED: FENTANYL CITRATE INJ/PF 100 MCG/2 ML AMPUL IV PRN ×3 (09:09)
--- NOTE | 2019-02-05 09:57 | Operative Report ---
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 Patient was brought into the operating room and placed on the operating room table in a supine position. Patient was then prepped with a Betadine scrub and Betadine solution and draped in a sterile and aseptic manner. The area was then marked. 12 O'clock was marked towards the nose 3 O'clock was marked towards the eyelid 6:00 was marked towards the ear 9:00 was marked towards the mandibular margin The area was then anesthetized with 1% lidocaine with epinephrine and bicarbonate for its anesthetic and hemostatic effects. The area was then excised and marked at 12:00. The specimen was sent for frozen section. The results came back that the deep and lateral margins were free. We had considered a primary closure but this would go against the natural relaxed skin tension lines. A primary closure would be too tight and would have increased chance of dehiscence. This will leave more of a scar so we decided to use a boomerang sliding advancement flap reconstruction which would camouflage the scar better and take tension off of the closure so that would be less chances of complications. It was felt that by using this flap this would allow us to use the facelift plane and be able to harvest skin for the reconstruction. This was a rather large defect and the skin it was very frail and thin. This mobilization of skin flaps using the facelift plane will give us the best chance of getting the best cosmesis and the least amount of healing problems. Then we went ahead and outlined the flap and anesthetized it. We then incised the flap and developed a flap maintaining the subdermal plexus. Then we undermined 360 to allow for plate like scarring and minimize trap door deformity. Throughout the case hemostasis was achieved with the bipolar. We then sutured the flap into its new position using 5-0 Vicryl for the subcutaneous and deep dermis. Skin was closed with a running subcuticular suture stitch using 4-0 PDS with knots being tied on the outside. And 4-0 PDS suture was used for support and placed in the central area of the incision. We then applied tincture benzoin and Steri-Strips followed by a light pressure dressing. Patient was then reversed from anesthesia and taken to the [facility] for recovery. The patient tolerated well. There were no complications. Lesion size was approximately 1/2 cm please see pathology for actual size. Portions of this note may be dictated using [employer] voice recognition software. Occasional variations and spelling and vocabulary could be possible and are un intentional. Additionally, there is a chance that some errors may not be caught or corrected. Please notify the author of any discrepancies noted or if any statements are unclear.
--- NOTE | 2019-02-05 09:58 | Discharge Summary ---
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 Leave the steri-strip tapes on for 5 days, then removal. Then cleaning wound with peroxide and apply Neosporin/bacitracin 3 times per day. Antibiotics for 1 day, then discontinue. Elevate operative area to decrease swelling. Do not strain, or lift heavy objects. Call for excessive bleeding, increased temperature of 101, uncontrolled pain, or excessive nausea or vomiting. You may reach Dr. Tovar through his office at [phone]. In the event of an emergency after hours, then contact Dr. Tovar through [facility]. Return to the office for a postop check on . The time will be scheduled by the nursing staff of [facility] prior to discharge. Please give the patient a copy of their labs and EKG so they can bring this to their PMD. Thank you Portions of this note may be dictated using [employer] voice recognition software. Occasional variations and spelling and vocabulary could be possible and are unintentional. Additionally, there is a chance that some errors may not be caught or corrected. Please notify the offer of any discrepancies noted or if any statements are unclear. Referrals: ASYRA WALLIS MD [Primary Care Provider] - Discharge Diet: As Tolerated Discharge Activity: No Lifting/Push/Pulling Report the Following to Your Physician Immediately: Unusual Bleeding - Keep head elevated. No excessive chewing. No bending or straining.
[2019-02-05 11:56] VITALS: BP 152/60
== END 2019-02-05 11:35 | disposition home or self-care (01) ==
LOC: OROUT 05:46
PROVIDERS: ATTEND Plastic Surgery
DX: C44.319 Basal cell carcinoma of skin of other parts of face (principal); C44.329 Squamous cell carcinoma of skin of other parts of face; I10 Essential (primary) hypertension; Z91.040 Latex allergy status; G40.909 Epilepsy, unspecified, not intractable, without status epilepticus; R01.1 Cardiac murmur, unspecified; I48.91 Unspecified atrial fibrillation; Z85.828 Personal history of other malignant neoplasm of skin; Z79.899 Other long term (current) drug therapy; Z79.01 Long term (current) use of anticoagulants; Z86.73 Personal history of transient ischemic attack (TIA), and cerebral infarction without residual deficits; Z88.2 Allergy status to sulfonamides; E07.9 Disorder of thyroid, unspecified
CPT/HCPCS: 93005; 36415 ×2; 85027; 85610 ×2; 85730 ×2; 80048; 88305 ×2; 88331 ×2; 93010; 14040; J2250; J0690; J3490 ×4; J2405; J2704; J3010

== ENCOUNTER 2019-03-14 00:54 | Emergency (ER) | payer MEDICARE, OTHER ==
[2019-03-14 01:33] LABS: ABSOLUTE BASOPHILS # (AUTO) 0.1 10^3/uL (0.0-0.2); ABSOLUTE EOSINOPHILS # (AUTO) 0.5 10^3/uL (0.0-0.6); ABSOLUTE LYMPHOCYTES (AUTO) 2.1 10^3/uL (0.5-4.7); ABSOLUTE MONOCYTES (AUTO) 0.5 10^3/uL (0.1-1.4); BASOPHILS % (AUTO) 1.4 % (0-2); EOSINOPHILS % (AUTO) 9.6 % (0-6); HEMATOCRIT 37.6 % (36.0-47.0); HEMOGLOBIN 12.7 g/dL (12.0-15.5); LYMPHOCYTES % (AUTO) 40.5 % (13-45); MEAN CORPUSCULAR HEMOGLOBIN 34.7 pg (27.0-33.4); MEAN CORPUSCULAR HGB CONC 33.8 g/dL (32.0-36.0); MEAN CORPUSCULAR VOLUME 103 fl (80-97); MONOCYTES % (AUTO) 10.3 % (3-13); PLATELET COUNT 235 10^3/uL (150-450); RED BLOOD COUNT 3.65 10^6/uL (3.72-5.28); RED CELL DISTRIBUTION WIDTH 12.8 % (11.5-14.0); SEGMENTED NEUTROPHILS % (AUTO) 38.2 % (42-78); TOTAL CELLS COUNTED % (AUTO) 100 %; WHITE BLOOD COUNT 5.1 10^3/uL (4.0-10.5)
[2019-03-14 02:01] LABS: ALKALINE PHOSPHATASE 95 U/L (38-126); ANION GAP 5 (5-19); ASPARTATE AMINO TRANSFERASE 27 U/L (14-36); BILIRUBIN,TOTAL 0.2 mg/dL (0.2-1.3); BLOOD UREA NITROGEN 19 mg/dL (7-20); CALCIUM 10.4 mg/dL (8.4-10.2); CARBON DIOXIDE 27 mmol/L (22-30); CHLORIDE 107 mmol/L (98-107); CREATINE KINASE 35 U/L (30-135); GLUCOSE 103 mg/dL (75-110); POTASSIUM 4.7 mmol/L (3.6-5.0); TOTAL PROTEIN 7.1 g/dL (6.3-8.2)
--- NOTE | 2019-03-14 02:02 | RADIOLOGY REPORT (SQ) ---
EXAM DESCRIPTION: XR CHEST 2 VIEWS COMPLETED DATE/TME: 03/14/2019 00:00 CLINICAL HISTORY: 68 years, Female, chest pain COMPARISON: None. NUMBER OF VIEWS: Two TECHNIQUE: Two views of the chest LIMITATIONS: None. FINDINGS: The lungs are clear. The heart is normal in size. There is no pneumothorax or pleural effusion. IMPRESSION: No acute cardiopulmonary abnormality copyright 2010 [employer]- All Rights Reserved
[2019-03-14 02:10] LABS: CREATINE KINASE MB 0.62 ng/mL (<4.55)
[2019-03-14 02:13] LABS: TROPONIN I < 0.012 ng/mL
[2019-03-14] MEDS ORDERED: ASPIRIN 81 MG TABLET, CHEWABLE PO ONE (02:56)
--- NOTE | 2019-03-14 06:08 | ER Document Report ---
ED General - General Chief Complaint: Chest Pain Stated Complaint: CHEST PAIN Time Seen by Provider: 03/14/19 02:33 Primary Care Provider: SAYRA WALLIS MD [Primary Care Provider] - Follow up as needed TRAVEL OUTSIDE OF THE [place] IN LAST 30 DAYS: No - Related Data Allergies/Adverse Reactions: latex [Latex] Allergy (Severe, Verified 02/05/19 05:59) SWELLING codeine [Codeine] Adverse Reaction (Intermediate, Verified 02/05/19 05:59) FEELING OF GOING FAST diphenhydramine HCl [From Benadryl] Adverse Reaction (Intermediate, Verified 02/05/19 05:59) "CANNOT SLEEP" metronidazole [Metronidazole] Adverse Reaction (Intermediate, Verified 02/05/19 05:59) SEVERE JOINT PAIN milk Adverse Reaction (Verified 02/05/19 05:59) Diarrhea pseudoephedrine HCl [From Sudafed] Adverse Reaction (Verified 02/05/19 05:59) "TROUBLE SLEEPING" Sulfa (Sulfonamide Antibiotics) Adverse Reaction (Verified 02/05/19 05:59) STEROIDS Adverse Reaction (Uncoded 02/05/19 05:59) MANIC EPISODES Past Medical History - Social History Smoking Status: Unknown if Ever Smoked Family History: CAD, Malignancy Patient has suicidal ideation: No Patient has homicidal ideation: No - Past Medical History Cardiac Medical History: Reports: Hx Atrial Fibrillation - Chronic paroxysmal atrial fibrillation, Hx Hypertension Denies: Hx Coronary Artery Disease, Hx Heart Attack Pulmonary Medical History: Reports: Hx Pneumonia Denies: Hx Asthma, Hx Bronchitis, Hx COPD Neurological Medical History: Reports: Hx Seizures - Since head injury at age 4. Denies: Hx Cerebrovascular Accident Endocrine Medical History: Reports: Hx Hypothyroidism. 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 Denies: Hx Open Heart Surgery, Hx Pacemaker - Immunizations Hx Diphtheria, Pertussis, Tetanus Vaccination: Yes Hx Pneumococcal Vaccination: 05/08/03 Physical Exam - Vital signs Vitals: Resp Pulse Ox 11 L 100 03/14/19 01:13 03/14/19 01:13 - Notes Notes: Patient was brought in by paramedics with a complaint of chest pain. Substernal and nonradiating. He was awake at the time when the pain developed. She has some nausea but no vomiting diaphoresis or shortness of breath. Describes as a pressure sensation. She says [facility] that she did move all the medics. She was given 1 nitroglycerin in route with no relief of the pain but by the time she got here she had a pain had resolved previous history of cardiac pain. She does have a history of atrial fib in the past but she was asymptomatic from this. And she denies any palpitations with this. She denies recent fevers cough trauma or falls Past medical history significant for paroxysmal atrial fibrillation previous CVA with with some decreased vision in one eye. Has history of hypertension denies any diabetes or elevated cholesterol. History she does not smoke but does drink. History is vomited at both of cardiac disease in her 60s PHYSICAL EXAMINATION: Vital signs noted GENERAL: Well-appearing, well-nourished and in no acute distress. HEAD: Atraumatic, normocephalic. EYES: Pupils equal round and reactive to light, extraocular movements intact, sclera anicteric, conjunctiva are normal. ENT: nares patent, oropharynx clear without exudates. Moist mucous membranes. NECK: Normal range of motion, supple without lymphadenopathy LUNGS: Breath sounds clear to auscultation bilaterally and equal. No wheezes ra les or rhonchi. HEART: Regular rate and rhythm without murmurs ABDOMEN: Soft, nontender, normoactive bowel sounds. No guarding, no rebound. No masses appreciated. EXTREMITIES: There is no calf or thigh tenderness, no pitting or edema. No cyanosis. NEUROLOGICAL: No focal neurological deficits. Moves all extremities spontaneously and on command. PSYCH: Normal mood, normal affect. SKIN: Warm, Dry, normal turgor, no rashes or lesions noted.\\ Back is nontender Course - Vital Signs Vital signs: Temp Pulse Resp BP Pulse Ox 12 168/83 H 96 03/14/19 05:00 03/14/19 01:16 03/14/19 05:00 - Laboratory Result Diagrams: 03/14/19 01:15 03/14/19 01:15 Laboratory results interpreted by me: 03/14/19 03/14/19 01:15 01:15 RBC 3.65 L MCV 103 H MCH 34.7 H Eos % (Auto) 9.6 H Seg Neutrophils % 38.2 L Est GFR (MDRD) Non-Af 53 L Calcium 10.4 H Discharge - Discharge Clinical Impression: Chest pain due to myocardial ischemia Disposition: ADMITTED INPATIENT Admitting Provider: Real (Hospitalist) Referrals: SAYRA WALLIS MD [Primary Care Provider] - Follow up as needed
--- NOTE | 2019-03-14 08:41 | ER Document Report ---
Doctor's Note Notes: 03/14/19 08:36 I received signout from Dr. Blanco end of shift, pending discussion for admission with the hospitalist. Patient's care discussed with Dr. Ames. He reviewed pt's records and discussed pt';s care with her linux admin engineer, Dr. langston,. He called me back and advises that Dr. Langston knows pt well and recommends discharge home with follow-up in his office at noon tomorrow since Troponins are negative x 2. Pt re-evaluated. She remains pain-free. I have discussed follow-up with her. Counseled her to return if she starts having chest pain again. Discharge - Discharge Clinical Impression: Chest pain Qualifiers: Chest pain type: precordial pain Qualified Code(s): R07.2 - Precordial pain Condition: Good Disposition: HOME, SELF-CARE Admitting Provider: Pt is being discharged per linux admin engineer recommendation Unit Admitted: Telemetry Instructions: Chest Pain of Unclear Cause ([facility]) Additional Instructions: Return if worsening chest pain or concerns. Referrals: SAYRA WALLIS MD [Primary Care Provider] - Follow up as needed MARIBEL GILL MD [ACTIVE STAFF] - 03/15/19 12:00 pm (Follow-up with Dr. Langston at noon tomorrow. He will be expecting you.)
[2019-03-14 08:58] VITALS: BP 114/65
--- NOTE | 2019-03-14 22:47 | EKG REPORT ---
SEVERITY:- BORDERLINE ECG - SINUS RHYTHM PROBABLE LEFT ATRIAL ABNORMALITY BORDERLINE INFERIOR Q WAVES : Confirmed by: Adela Bates 14-Mar-2019 22:47:29
--- NOTE | 2019-03-14 22:48 | EKG REPORT ---
SEVERITY:- BORDERLINE ECG - SINUS RHYTHM PROBABLE LEFT ATRIAL ABNORMALITY [facility] : Confirmed by: Adela Bates 14-Mar-2019 22:47:55
== END 2019-03-14 08:58 | disposition home or self-care (01) ==
LOC: ER 00:54
DX: I25.9 Chronic ischemic heart disease, unspecified (principal); R07.2 Precordial pain; I10 Essential (primary) hypertension; R11.0 Nausea; Z91.040 Latex allergy status; Z82.49 Family history of ischemic heart disease and other diseases of the circulatory system
CPT/HCPCS: 36415; 71046; 80053; 82550; 82553; 84484; 85025; 93005; 93010; 99285

== ENCOUNTER → 2019-07-03 | Outpatient (CLI) | payer MEDICARE, OTHER ==
[2019-07-03 10:58] LABS: BLOOD UREA NITROGEN 19 mg/dL (7-20); LITHIUM 0.6 mEq/L (0.6-1.2)
== END ==
LOC: OD 09:45
PROVIDERS: ATTEND Psychiatry & Neurology Addiction Medicine
DX: F31.9 Bipolar disorder, unspecified (principal)
CPT/HCPCS: 36415; 80178; 80183; 82565; 84443; 84520

== ENCOUNTER 2020-04-27 14:29 | Inpatient (IN) | payer MEDICARE, OTHER ==
[2020-04-27] MEDS ORDERED: LORAZEPAM INJ 2 MG/1 ML VIAL IV ONE (14:57)
[2020-04-27] MEDS ORDERED: CEFTRIAXONE 2 GM/D5W RTU 2 GM/50 ML RTUPB IV ONE (14:58)
--- NOTE | 2020-04-27 15:03 | ER Document Report ---
ED Medical Screen (RME) - General Chief Complaint: Weakness Stated Complaint: WEAKNESS,SHAKING Time Seen by Provider: 04/27/20 14:40 Primary Care Provider: JACKY JJ PA-C [Primary Care Provider] - Follow up as needed Mode of Arrival: Wheelchair Information source: Relative Notes: Patient is a 69-year-old female is brought in by EMS and accompanied by her brother. According to report Dr. Mondragon contacted ER informed us that she was coming. He is evidently been treating her for a urinary tract infection since last week and patient is progressively getting worse. Is also been mention the patient's O2 saturations have all been dropping as well. Patient only has a past medical history pertinent for bipolar disease. 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 He states she has stopped eating and drinking. She is currently on Macrobid for the urinary tract infection patient is never smoked. Physical examination: Patient is a very frail-appearing 69-year-old female who on exam is very difficult to control she is agitated and altered at this time. Patient is unable to answer questions. Nursing is unable to get a set of vital signs in triage. Auscultation of patient's heart sounded tachycardic. Lungs: Bilateral breath sounds were decreased throughout faint rhonchi heard on the right side. Abdomen: Bowel sounds are present all 4 quads patient has no tenderness at this time. Further evaluation after patient has gotten some fluids and will be reevaluated back by a additional provider. I have greeted and performed a rapid initial assessment of this patient. A comprehensive ED assessment and evaluation of the patient, analysis of test results and completion of the medical decision making process will be conducted by additional ED providers. Dictation of this chart was performed using voice recognition software; therefore, there may be some unintended grammatical errors. TRAVEL OUTSIDE OF THE [place] IN LAST 30 DAYS: No - Related Data Allergies/Adverse Reactions: latex [Latex] Allergy (Severe, Verified 02/05/19 05:59) SWELLING codeine [Codeine] Adverse Reaction (Intermediate, Verified 02/05/19 05:59) FEELING OF GOING FAST diphenhydramine HCl [From Benadryl] Adverse Reaction (Intermediate, Verified 02/05/19 05:59) "CANNOT SLEEP" metronidazole [Metronidazole] Adverse Reaction (Intermediate, Verified 02/05/19 05:59) SEVERE JOINT PAIN milk Adverse Reaction (Verified 02/05/19 05:59) Diarrhea pseudoephedrine HCl [From Sudafed] Adverse Reaction (Verified 02/05/19 05:59) "TROUBLE SLEEPING" Sulfa (Sulfonamide Antibiotics) Adverse Reaction (Verified 02/05/19 05:59) STEROIDS Adverse Reaction (Uncoded 02/05/19 05:59) MANIC EPISODES Past Medical History - Past Medical History Cardiac Medical History: Reports: Hx Atrial Fibrillation - Chronic paroxysmal atrial fibrillation, Hx Hypertension Denies: Hx Coronary Artery Disease, Hx Heart Attack Pulmonary Medical History: Reports: Hx Pneumonia Denies: Hx Asthma, Hx Bronchitis, Hx COPD Neurological Medical History: Reports: Hx Seizures - Since head injury at age 4. Denies: Hx Cerebrovascular Accident Endocrine Medical History: Reports: Hx Hypothyroidism. 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 Denies: Hx Open Heart Surgery, Hx Pacemaker - Immunizations Hx Diphtheria, Pertussis, Tetanus Vaccination: Yes Doctor's Discharge - Discharge Referrals: AJCKY JJ PA-C [Primary Care Provider] - Follow up as needed
[2020-04-27 15:25] LABS: HEMATOCRIT 23.5 % (36.0-47.0); MEAN CORPUSCULAR HEMOGLOBIN 31.9 pg (27.0-33.4); MEAN CORPUSCULAR HGB CONC 33.5 g/dL (32.0-36.0); MEAN CORPUSCULAR VOLUME 95 fl (80-97); PLATELET COUNT 605 10^3/uL (150-450); RED BLOOD COUNT 2.46 10^6/uL (3.72-5.28); RED CELL DISTRIBUTION WIDTH 13.5 % (11.5-14.0); WHITE BLOOD COUNT 17.8 10^3/uL (4.0-10.5)
--- NOTE | 2020-04-27 15:26 | ER Document Report ---
ED General - General Chief Complaint: Weakness Stated Complaint: WEAKNESS,SHAKING Time Seen by Provider: 04/27/20 14:40 Mode of Arrival: Wheelchair TRAVEL OUTSIDE OF THE [place] IN LAST 30 DAYS: No - HPI Notes: Patient is a 69-year-old female with a past medical history of bipolar disorder who presents with altered mental status and fever. Her brother provides the history. Patient has been treated by Dr. Jaramillo, her PCP, for a UTI since last week. She has been doing well on Macrobid. Patient's brother states that she worsened yesterday and this morning. She is confused. He also mentions that she has fallen. Patient has not been eating or drinking. She is febrile. She is unable to provide a history but does know her name and is alert. Her brother states that she has been very well controlled on her bipolar medications. He mentions recent alterations to her gabapentin but denies any other new medication changes. - Related Data Allergies/Adverse Reactions: latex [Latex] Allergy (Severe, Verified 02/05/19 05:59) SWELLING codeine [Codeine] Adverse Reaction (Intermediate, Verified 02/05/19 05:59) FEELING OF GOING FAST diphenhydramine HCl [From Benadryl] Adverse Reaction (Intermediate, Verified 02/05/19 05:59) "CANNOT SLEEP" metronidazole [Metronidazole] Adverse Reaction (Intermediate, Verified 02/05/19 05:59) SEVERE JOINT PAIN milk Adverse Reaction (Verified 02/05/19 05:59) Diarrhea pseudoephedrine HCl [From Sudafed] Adverse Reaction (Verified 02/05/19 05:59) "TROUBLE SLEEPING" Sulfa (Sulfonamide Antibiotics) Adverse Reaction (Verified 02/05/19 05:59) STEROIDS Adverse Reaction (Uncoded 02/05/19 05:59) MANIC EPISODES Past Medical History - General Information source: Relative - Social History Smoking Status: Unknown if Ever Smoked Family History: CAD, Malignancy - Past Medical History Cardiac Medical History: Reports: Hx Atrial Fibrillation - Chronic paroxysmal atrial fibrillation, Hx Hypertension Denies: Hx Coronary Artery Disease, Hx Heart Attack Pulmonary Medical History: Reports: Hx Pneumonia Denies: Hx Asthma, Hx Bronchitis, Hx COPD Neurological Medical History: Reports: Hx Seizures - Since head injury at age 4. Denies: Hx Cerebrovascular Accident Endocrine Medical History: Reports: Hx Hypothyroidism. 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 Denies: Hx Open Heart Surgery, Hx Pacemaker - Immunizations Hx Diphtheria, Pertussis, Tetanus Vaccination: Yes Hx Pneumococcal Vaccination: 05/08/03 Review of Systems - Review of Systems Notes: CONSTITUTIONAL: Positive for fever. RESPIRATORY: No cough GENITOURINARY: Being treated for UTI. NEUROLOGIC: Positive for altered mental status. -: Yes ROS unobtainable due to patient's medical condition Physical Exam - Vital signs Vitals: Pulse Ox 100 04/27/20 14:52 - General General appearance: Anxious In distress: Moderate Notes: VITAL SIGNS: Febrile. GENERAL: Acute distress. HEAD: Normal with no signs of head trauma. EYES: Conjunctiva normal, no discharge. EARS: Hearing grossly intact. NOSE: Normal. NECK: Normal range of motion, no tenderness, supple. No posterior cervical tenderness. Moving around the bed, trying to get out of bed, no signs of meningismus. CHEST: Clear breath sounds bilaterally. CARDIAC: Regular rate and rhythm. VASCULAR: No Edema. ABDOMEN: Normal and soft with no tenderness MUSCULOSKELETAL: Good range of motion of all major joints. Extremities without clubbing, cyanosis or edema. Abrasion to right pulido. NEUROLOGICAL: Alert, not oriented. AMS. Course - Re-evaluation Re-evalutation: 04/27/20 17:36 Patient was started on sepsis fluids and antibiotics immediately. Nursing staff told me that patient's brother said they recently stopped her gabapentin from 900 mg. Brother denies any other medication changes. She is on Eliquis for afib. He states he has been taking care of her medications for her. She does have an erythemic rash on her back, I am unsure of the etiology of this. It does not appear to be pruritic and she is not scratching it. She does have latex allergies according to the brother. Patient's lab work was notable for lactic acidosis, leukocytosis, and a low hemoglobin. This is a change from her previous hemoglobin. I did have nursing staff do a Hemoccult test and it was positive for occult blood. I discussed this with the hospitalist as she is on Eliquis. Patient was denying any abdominal pain on my exam. Patient will need to be admitted for sepsis, altered mental status, GI bleed. On reassessment, she is alert but continues to still be confused. Her vitals are within normal limits. Discussed with hospitalist who recommended an LP. As she is on eliquis, I am unable to do this and it will have to be done by IR in the morning. Antibiotics were broadened. Unsure if her mental status change could be from her medication changes versus urosepsis or other pathology. 04/27/20 17:38 04/27/20 21:42 On reassessment, patient appears improved, but is still altered. Vitals remain stable. 04/27/20 21:46 04/27/20 21:48 - Vital Signs Vital signs: Temp Pulse Resp BP Pulse Ox 26 H 152/85 H 100 04/27/20 21:20 04/27/20 21:20 04/27/20 21:20 - Laboratory Results Result Diagrams: 04/27/20 15:01 04/27/20 15:01 Laboratory Results Interpreted: 04/27/20 04/27/20 04/27/20 15:01 15:01 15:01 WBC 17.8 H RBC 2.46 L Hgb 7.9 L Hct 23.5 L Plt Count 605 H Seg Neuts % (Manual) 83 H Band Neutrophils % 2 L Lymphocytes % (Manual) 8 L Metamyelocytes % 2 H Abs Neuts (Manual) 15.5 H PT 28.2 H VBG pH VBG pCO2 VBG HCO3 Sodium 136.9 L Carbon Dioxide 17 L Creatinine 1.27 H Est GFR ( Amer) 51 L Est GFR (MDRD) Non-Af 42 L Lactic Acid Calcium 10.8 H AST 154 H ALT 132 H Creatine Kinase Albumin 3.0 L Free T4 Free T3 pg/mL Urine Protein Urine Blood Leukocyte Esterase Rfl 04/27/20 04/27/20 04/27/20 15:01 15:01 15:01 WBC RBC Hgb Hct Plt Count Seg Neuts % (Manual) Band Neutrophils % Lymphocytes % (Manual) Metamyelocytes % Abs Neuts (Manual) PT VBG pH VBG pCO2 VBG HCO3 Sodium Carbon Dioxide Creatinine Est GFR ( Amer) Est GFR (MDRD) Non-Af Lactic Acid 6.4 H Calcium AST ALT Creatine Kinase 155 H Albumin Free T4 Free T3 pg/mL Urine Protein 30 H Urine Blood SMALL H Leukocyte Esterase Rfl LARGE H 04/27/20 04/27/20 15:01 15:42 WBC RBC Hgb Hct Plt Count Seg Neuts % (Manual) Band Neutrophils % Lymphocytes % (Manual) Metamyelocytes % Abs Neuts (Manual) PT VBG pH 7.43 H VBG pCO2 30.3 L VBG HCO3 19.5 L Sodium Carbon Dioxide Creatinine Est GFR ( Amer) Est GFR (MDRD) Non-Af Lactic Acid Calcium AST ALT Creatine Kinase Albumin Free T4 0.23 L Free T3 pg/mL 1.71 L Urine Protein Urine Blood Leukocyte Esterase Rfl Critical Laboratory Results Reviewed: Yes Attending or Supervising Physician who Reviewed Labs: RON JAMES - Radiology Results Critical Radiology Results Reviewed: No Critical Results - EKG Interpretation by Me Additional EKG results interpreted by me: 04/27/20 17:41 Sinus rhythm at a rate of 94. QTc 491. Significant artifact present. No acute ST changes. Critical Care Note - Critical Care Note Total time excluding time spent on procedures (mins): 45 Comments: Upon my evaluation, this patient had a high probability of imminent or life- threatening deterioration due to sepsis, which required my direct attention, intervention, and personal management. I have personally provided 45 minutes of critical care time. Time includes review of laboratory data, radiology data, discussion with consultants, and monitoring for potential decompensation. Interventions were performed as documented above. Discharge - Discharge Clinical Impression: Sepsis Qualifiers: Sepsis type: sepsis due to unspecified organism Sepsis acute organ dysfunction status: without acute organ dysfunction Qualified Code(s): A41.9 - Sepsis, unspecified organism Urinary tract infection Qualifiers: Urinary tract infection type: acute cystitis Hematuria presence: with hematuria Qualified Code(s): N30.01 - Acute cystitis with hematuria Altered mental status Qualifiers: Altered mental status type: unspecified Qualified Code(s): R41.82 - Altered mental status, unspecified GI bleed Qualifiers: GI bleed type/associated pathology: unspecified gastrointestinal hemorrhage type Qualified Code(s): K92.2 - Gastrointestinal hemorrhage, unspecified Condition: Serious Disposition: ADMITTED INPATIENT Admitting Provider: Brittany (Hospitalist) Unit Admitted: [facility] ED Sepsis - Sepsis Documentation Sepsis Patient: Yes - Vital Signs Interpretation: Febrile - Cardiovascular Peripheral Pulse Strength: Normal Capillary refill: < 3 seconds Rhythm: Regular Heart Sounds: Normal auscultation - Respiratory Breath sounds: Clear Respiratory Status: No respiratory distress - Skin Skin Color: Normal
[2020-04-27] MEDS: NORMAL SALINE 1000 ML 1,000 ML IV PRN ×3 (15:27→23:30)
[2020-04-27 15:33] LABS: INTERNATIONAL RATION (INR) 2.65; PROTHROMBIN TIME 28.2 SEC (11.4-15.4)
[2020-04-27] MEDS ORDERED: ACETAMINOPHEN 650 MG SUPP.RECT PR ONE (15:35)
[2020-04-27 15:38] LABS: ALKALINE PHOSPHATASE 118 U/L (38-126); ANION GAP 15 (5-19); ASPARTATE AMINO TRANSFERASE 154 U/L (14-36); BILIRUBIN,DIRECT 0.3 mg/dL (0.0-0.4); BILIRUBIN,TOTAL 0.8 mg/dL (0.2-1.3); BLOOD UREA NITROGEN 13 mg/dL (7-20); CALCIUM 10.8 mg/dL (8.4-10.2); CARBON DIOXIDE 17 mmol/L (22-30); CHLORIDE 105 mmol/L (98-107); GLUCOSE 100 mg/dL (75-110); POTASSIUM 4.6 mmol/L (3.6-5.0); TOTAL PROTEIN 6.3 g/dL (6.3-8.2)
[2020-04-27 15:46] LABS: APPEARANCE,URINE CLOUDY; BILIRUBIN,URINE NEGATIVE (NEGATIVE); COLOR,URINE AMBER; GLUCOSE, URINE NEGATIVE (NEGATIVE); KETONES,URINE NEGATIVE (NEGATIVE); PROTEIN,URINE 30 mg/dL (NEGATIVE); URINE SPECIFIC GRAVITY 1.017; UROBILINOGEN,URINE NEGATIVE mg/dL (<2.0)
--- NOTE | 2020-04-27 15:46 | RADIOLOGY REPORT (SQ) ---
EXAM DESCRIPTION: CHEST SINGLE VIEW IMAGES COMPLETED DATE/TIME: 04/27/2020 3:34 pm REASON FOR STUDY: Altered mental COMPARISON: PA and lateral views of the chest from 03/14/2019. EXAM PARAMETERS: NUMBER OF VIEWS: One view. TECHNIQUE: An AP view of the chest was obtained. RADIATION DOSE: NA LIMITATIONS: None. FINDINGS: LUNGS AND PLEURA: No consolidation, pleural effusion or pneumothorax. MEDIASTINUM AND HILAR STRUCTURES: No mediastinal or hilar contour abnormality. HEART AND VASCULAR STRUCTURES: The cardiac silhouette and pulmonary vasculature are within normal iyer its. BONES: No acute findings. HARDWARE: None in the chest. OTHER: No other finding. IMPRESSION: No acute cardiopulmonary process. TECHNICAL DOCUMENTATION: JOB ID: [id number] 2010 [employer]- All Rights Reserved Reading location - IP/workstation name: [email or web address]
[2020-04-27 16:06] LABS: HEMOGLOBIN 7.9 g/dL (12.0-15.5)
[2020-04-27 16:07] LABS: VENOUS BLOOD BASE EXCESS -3.5 mmol/L; VENOUS BLOOD HCO3 19.5 mmol/L (20-32); VENOUS BLOOD PCO2 30.3 mmHg (35-63); VENOUS BLOOD PH 7.43 (7.30-7.42)
[2020-04-27 16:10] LABS: ABSOLUTE LYMPHOCYTES# (MANUAL) 1.4 10^3/uL (0.5-4.7); ABSOLUTE MONOCYTES # (MANUAL) 0.9 10^3/uL (0.1-1.4); BAND NEUTROPHILS % (MANUAL) 2 % (3-5); BASOPHILS % (MANUAL) 0 % (0-2); EOSINOPHILS % (MANUAL) 0 % (0-6); LYMPHOCYTES % (MANUAL) 8 % (13-45); METAMYELOCYTES % (MANUAL) 2 % (0-1); MONOCYTES % (MANUAL) 5 % (3-13); PLATELET COMMENT INCREASED; SEGMENTED NEUTROPHILS % (MAN) 83 % (42-78); TOTAL CELLS COUNTED 100
[2020-04-27 16:11] LABS: RBC MORPHOLOGY COMMENT NORMO-CYTIC/CHROMIC
--- NOTE | 2020-04-27 16:39 | RADIOLOGY REPORT (SQ) ---
EXAM DESCRIPTION: CT HEAD WITHOUT IMAGES COMPLETED DATE/TIME: 04/27/2020 4:25 pm REASON FOR STUDY: fall, AMS COMPARISON: CT of the head without contrast from 09/24/2019 TECHNIQUE: Axial images acquired through the brain without intravenous contrast. Images reviewed wi th bone, brain and subdural windows. Additional sagittal and coronal reconstructions were generated. Images stored on PACS. All CT scanners at this facility use dose modulation, iterative reconstruction, and/or weight based d osing when appropriate to reduce radiation dose to as low as reasonably achievable (ALARA). [facility]: Dose Right [facility]: CareDose [facility]: Dose Right [facility]: Teradose 4D [facility]: Smart Technologies RADIATION DOSE: CT Rad equipment meets quality standard of care and radiation dose reduction techniq ues were employed. CTDIvol: 50.1 mGy. DLP: 1033 mGy-cm. LIMITATIONS: None. FINDINGS: There is mild diffuse age-appropriate cerebral and cerebellar volume loss. The caliber of the ventricles is concordant with the degree of sulcation. There is no acute intracranial hemorrhag e, vascular territorial infarct, extra-axial fluid collection, mass effect or midline shift. The gra y-white matter differentiation is preserved. There is no effacement of the cerebral sulci or basal s ubarachnoid cisterns. The polypoid low-attenuation lesion within the right maxillary sinus likely represents a mucous reten tion cyst. The other paranasal sinuses are clear. The globes are aphakic. The orbits are intact. There is no fracture of the calvarium. IMPRESSION: No acute intracranial abnormality. EVIDENCE OF ACUTE STROKE: NO. COMMENT: Quality ID # [id number]: Final reports with documentation of one or more dose reduction techniques (e.g., Automated exposure control, adjustment of the mA and/or kV according to patient size, use of iterative reconstruction technique) TECHNICAL DOCUMENTATION: JOB ID: [id number] 2010 [employer]- All Rights Reserved Reading location - IP/workstation name: [email or web address]
[2020-04-27 16:41] LABS: A TYPE INFLUENZA AG NEGATIVE (NEGATIVE); B INFLUENZA AG NEGATIVE (NEGATIVE)
--- NOTE | 2020-04-27 17:44 | EKG REPORT ---
SEVERITY:- ABNORMAL ECG - SINUS RHYTHM BORDERLINE PROLONGED QT INTERVAL : Confirmed by: Fran Concepcion MD 27-Apr-2020 17:43:22
[2020-04-27] MEDS ORDERED: VANCOMYCIN HCL INJ 1000 MG VIAL IV ONE (18:28)
[2020-04-27] MEDS ORDERED: DEXTROSE 50%-WATER 25 GM/50 ML DISP.SYRIN IV PRN ×2 (18:36)
[2020-04-27] MEDS ORDERED: DEXTROSE 40% GEL 15 GM TUBE PO PRN ×2 (18:36)
[2020-04-27] MEDS ORDERED: GLUCAGON,HUMAN RECOMB 1 MG INJ SUBCUT PRN (18:36)
[2020-04-27] MEDS ORDERED: ONDANSETRON HCL INJ/PF 4 MG/2 ML SDV IV PRN (18:51)
[2020-04-27] MEDS ORDERED: MAG HYDROX/AL HYDROX/SIMETH SUSP 30 ML UDCUP PO PRN (18:51)
[2020-04-27] MEDS ORDERED: ACETAMINOPHEN 650 MG SUPP.RECT PR PRN (18:51)
[2020-04-27] MEDS ORDERED: ACETAMINOPHEN 325 MG TABLET PO PRN (18:51)
[2020-04-27] MEDS ORDERED: AMPICILLIN SOD INJ 1 GM VIAL IV SCH (19:00)
[2020-04-27] MEDS ORDERED: PROMETHAZINE HCL INJ 25 MG/1 ML VIAL IV PRN (19:07)
[2020-04-27] MEDS ORDERED: NORMAL SALINE 1000 ML 1,000 ML IV ONE (19:45)
--- NOTE | 2020-04-27 19:48 | PDOC H&P ---
History of Present Illness Admission Date/PCP: 04/27/20 17:47 JAKCY JJ PA-C Patient complains of: Altered mental status History of Present Illness: JAYSON CARY is a 69 year old female with history of bipolar disorder, sciatica, lumbar degenerative disease, chronic anticoagulation on Eliquis, shingles, who was brought into the hospital by her brother for evaluation of progressive worsening of mental status. 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 2 months ago, 02/25 patient's issues began. She had complained of neck pain accompanied with shoulder pain and headaches after pulling her seatbelt. Her neurologist Dr. Adams increased her gabapentin from 300 mg 3 times daily to 600 mg 3 times daily. He also ordered an MRI HHead and neck which they were told was okay. She then began to feel tired with difficulty ambulating, ataxia, slurred speech and had multiple falls. She was dentist told to stop taking her gabapentin. Her tizanidine and trazodone were also discontinued. Her gabapentin was later resumed on 03/16/2020 at 600 mg 3 times daily. Patient continued to experience significant motor issues slurred speech and dizziness. Was later stopped again. Later on he was restarted at a smaller dose of 300 mg twice a day on 03/25. Patient has continued to experience cognitive decline. She recently started spiking fever and started on treatment with nitrofurantoin for UTI as outpatient. However her condition has taken a turn for the worse and now she is completely noncommunicative and tremulous. In the ER, head CT was unremarkable, urinalysis positive, patient is febrile and hospitalist service called for admission for UTI with sepsis. Past Medical History Cardiac Medical History: Reports: Atrial Fibrillation - Chronic paroxysmal atrial fibrillation, Hypertension Denies: Coronary Artery Disease, Myocardial Infarction Pulmonary Medical History: Reports: Pneumonia Denies: Asthma, Bronchitis, Chronic Obstructive Pulmonary Disease (COPD) Neurological Medical History: Reports: Seizures - Since head injury at age 4 Endocrine Medical History: Reports: Hypothyroidism Denies: Diabetes Mellitus Type 1, Diabetes Mellitus Type 2, Hyperthyroidism GI Medical History: Denies: Cirrhosis, Hepatitis, Hiatal Hernia Musculoskeltal Medical History: Reports: Arthritis Denies: Fibromyalgia, Gout Skin Medical History: Denies: Eczema, Psoriasis Psychiatric Medical History: Reports: Bipolar Disorder - With extremely severe depression and extremely severe floyd, Depression Traumatic Medical History: Reports: 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 Hematology: Reports: Anemia - History of borderline anemia Denies: Sickle Cell Disease, Bleeding Tendencies Past Surgical History Past Surgical History: Reports: Hysterectomy Denies: Pacemaker Social History Smoking Status: Unknown if Ever Smoked Frequency of Alcohol Use: Occasional Hx Recreational Drug Use: No Drugs: None Hx Prescription Drug Abuse: No - Advance Directive Resuscitation Status: Full Code Family History Family History: CAD, Malignancy Parental Family History Reviewed: Yes Children Family History Reviewed: Yes Sibling(s) Family History Reviewed.: Yes Medication/Allergy Home Medications: Acyclovir [Acyclovir 400 mg Tablet] 400 mg PO Q12 01/02/18 [place] Carbonate 300 mg PO Q48H 01/02/18 Quetiapine Fumarate [Seroquel] 100 mg PO QHS 01/02/18 Biotin 5,000 mcg SL DAILY 06/03/18 Calcium Carbonate/Vitamin D3 [Calcium 600-Vit D3 800 Caplet] 1 each PO Q12 06/03/18 Gabapentin [Neurontin 300 mg Capsule] 300 mg PO Q8 06/03/18 Liothyronine Sodium [Cytomel 25 Mcg Tablet] 25 mcg PO Q12 MDD Q48H 06/03/18 Multivit/Folic Acid/Vit K1 [One-A-Day Women's 50 Plus Tab] 1 each PO Q12A 06/03/18 Amlodipine Besylate [Norvasc 2.5 mg Tablet] 2.5 mg PO Q12 #60 tablet 06/06/18 Apixaban [Eliquis 5 mg Tablet] 5 mg PO BID #60 tablet 06/06/18 Metoprolol Succinate [Toprol Xl 25 mg Tab.sr] 25 mg PO DAILY #30 tab.sr.24h 06/06/18 Oxcarbazepine [Trileptal] 300 mg PO MEALS #90 tablet 09/25/18 Cyanocobalamin (Vitamin B-12) [Vitamin B12] 2,500 mcg PO DAILY 01/23/19 Vitamin B Complex [B Complex] 1 each PO DAILY 01/23/19 Allergies/Adverse Reactions: latex [Latex] Allergy (Severe, Verified 02/05/19 05:59) SWELLING codeine [Codeine] Adverse Reaction (Intermediate, Verified 02/05/19 05:59) FEELING OF GOING FAST diphenhydramine HCl [From Benadryl] Adverse Reaction (Intermediate, Verified 02/05/19 05:59) "CANNOT SLEEP" metronidazole [Metronidazole] Adverse Reaction (Intermediate, Verified 02/05/19 05:59) SEVERE JOINT PAIN milk Adverse Reaction (Verified 02/05/19 05:59) Diarrhea pseudoephedrine HCl [From Sudafed] Adverse Reaction (Verified 02/05/19 05:59) "TROUBLE SLEEPING" Sulfa (Sulfonamide Antibiotics) Adverse Reaction (Verified 02/05/19 05:59) STEROIDS Adverse Reaction (Uncoded 02/05/19 05:59) MANIC EPISODES Review of Systems ROS unobtainable: Due to mental status Physical Exam Vital Signs: Temp Pulse Resp BP Pulse Ox 21 H 129/64 H 97 04/27/20 15:05 04/27/20 15:05 04/27/20 15:05 Intake & Output 04/26/20 04/27/20 04/28/20 06:59 06:59 06:59 Intake Total 1433 Balance 1433 Weight 54.5 kg General appearance: PRESENT: severe distress, thin. ABSENT: cooperative Head exam: PRESENT: normocephalic Eye exam: PRESENT: PERRLA Mouth exam: PRESENT: dry mucosa Neck exam: ABSENT: JVD Respiratory exam: PRESENT: clear to auscultation manuela, symmetrical, unlabored. A BSENT: tachypnea, wheezes Cardiovascular exam: PRESENT: RRR, +S1, +S2. ABSENT: tachycardia GI/Abdominal exam: PRESENT: firm, soft, tenderness. ABSENT: ascites, distended, guarding, rebound, rigid Extremities exam: ABSENT: calf tenderness, pedal edema Neurological exam: PRESENT: alert, awake, other - not talking. very tremulous and keeps moving all over the place but not saying anything. ABSENT: oriented to person, oriented to place, oriented to time, oriented to situation Psychiatric exam: PRESENT: agitated, anxious Focused psych exam: PRESENT: restlessness. ABSENT: pressured speech Skin exam: PRESENT: rash - reticular erythematous rash. ABSENT: jaundice Results Laboratory Results: 04/27/20 15:01 04/27/20 15:01 04/27/20 04/27/20 04/27/20 15:01 15:01 15:01 WBC 17.8 H RBC 2.46 L Hgb 7.9 L Hct 23.5 L MCV 95 MCH 31.9 MCHC 33.5 RDW 13.5 Plt Count 605 H Seg Neutrophils % Not Reportable VBG pH VBG pCO2 VBG HCO3 VBG Base Excess Sodium 136.9 L Potassium 4.6 Chloride 105 Carbon Dioxide 17 L Anion Gap 15 BUN 13 Creatinine 1.27 H Est GFR ( Amer) 51 L Glucose 100 Lactic Acid 6.4 H Calcium 10.8 H Total Bilirubin 0.8 AST 154 H Alkaline Phosphatase 118 Total Protein 6.3 Albumin 3.0 L Urine Color Urine Appearance Urine pH Ur Specific Marlin Urine Protein Urine Glucose (UA) Urine Ketones Urine Blood Urine RBC (Auto) 04/27/20 04/27/20 15:01 15:42 WBC RBC Hgb Hct MCV MCH MCHC RDW Plt Count Seg Neutrophils % VBG pH 7.43 H VBG pCO2 30.3 L VBG HCO3 19.5 L VBG Base Excess -3.5 Sodium Potassium Chloride Carbon Dioxide Anion Gap BUN Creatinine Est GFR ( Amer) Glucose Lactic Acid Calcium Total Bilirubin AST Alkaline Phosphatase Total Protein Albumin Urine Color AMAIRANI Urine Appearance CLOUDY Urine pH 5.0 Ur Specific [place] 1.017 Urine Protein 30 H Urine Glucose (UA) NEGATIVE Urine Ketones NEGATIVE Urine Blood SMALL H Urine RBC (Auto) 19 04/27/20 04/27/20 15:01 15:01 Creatine Kinase 155 H Troponin I < 0.012 Impressions: Chest X-Ray 04/27/20 14:52 IMPRESSION: No acute cardiopulmonary process. Head CT 04/27/20 15:26 IMPRESSION: No acute intracranial abnormality. EVIDENCE OF ACUTE STROKE: NO. Assessment and Plan - Diagnosis (1) Acute metabolic encephalopathy Is this a current diagnosis for this admission?: Yes Plan: Patient is extremely altered. I am not convinced that her UTI is what is causing this. Understandably she is septic. Only recent medication increase was Gabapentin. However it seems that her gabapentin has been reduced back to a lower dose than what she was previously quite sometime ago so I do not believe gabapentin toxicity is what is causing this either. Head CT is unremarkable I will admit to IMCU Her constellation of symptoms certainly warrants an LP. She is notably on Eliquis at home which I have held and INR is elevated. Repeat INR in AM. Please discuss with Radiology in the morning to see if they are ok with doing the LP. Hopefully the INR shouldn't prevent this. Vanco ceftriaxone and ampicillin. Will hold off any steroids until LP is done. QTC is borderline prolonged so we will use some Ativan as needed for restlessness/agitation. Check TSH, B12, Ammonia, viral panel (2) Severe sepsis Is this a current diagnosis for this admission?: Yes Plan: IV fluid resuscitation. Currently hemodynamically stable. (3) Normocytic anemia Is this a current diagnosis for this admission?: Yes Plan: Check iron studies. Monitor CBC. Transfuse if less than 7. (4) Lactic acidosis Is this a current diagnosis for this admission?: Yes Plan: Significantly elevated at 6.4. We will check a repeat now. She has received 2 L so far. Continue aggressive IV fluid hydration. Abdomen is tender though not rigid so I will check a stat CT abdomen/pelvis. (5) Bipolar disorder Is this a current diagnosis for this admission?: Yes Plan: According to family, her bipolar disorder has been in remission for over 15 years. I do not believe her bipolar explain her over here. At home, she is on Geodon and lithium as well as Trileptal. I will keep her Seroquel on hold. I will continue her lithium and her Geodon for now. (6) Urinary tract infection Qualifiers: Urinary tract infection type: acute cystitis Hematuria presence: with hematuria Qualified Code(s): N30.01 - Acute cystitis with hematuria Is this a current diagnosis for this admission?: Yes Plan: Started on nitrofurantoin as outpatient. On broad-spectrum antibiotics. Follow-up cultures. (7) RENETTA (acute kidney injury) Is this a current diagnosis for this admission?: Yes Plan: Mucosa appears very dry. Will place on hydration. Monitor renal function. (8) Rash Is this a current diagnosis for this admission?: Yes Plan: Has reticular rash mostly on exposed surfaces. Likely just contact dermatitis. Monitor. Avoid exposure of skin to linens. (9) Hypothyroidism Qualifiers: Hypothyroidism type: unspecified Qualified Code(s): E03.9 - Hypothyroidism, unspecified Is this a current diagnosis for this admission?: Yes Plan: On Liothyronine at home. (10) Transaminitis Is this a current diagnosis for this admission?: Yes Plan: Monitor metabolic panel. (11) Paroxysmal atrial fibrillation Is this a current diagnosis for this admission?: Yes Plan: On Lopressor and Eliquis. Eliquis currently on hold in anticipation of LP tomorrow. - Time Time Spent with patient: 35 or more minutes Anticipated Discharge Disposition: Home, Self Care Anticipated Discharge Timeframe: unknown
[2020-04-27] MEDS: LORAZEPAM INJ 2 MG/1 ML VIAL IV PRN (19:59)
[2020-04-27 20:00] LABS: FREE T3 1.71 pg/mL (2.77-5.27); FREE T4 (FREE THYROXINE) 0.23 ng/dL (0.78-2.19)
[2020-04-27 20:14] LABS: THYROID STIMULATING HORMONE 0.82 uIU/mL (0.47-4.68)
[2020-04-27] MEDS: ACYCLOVIR 200 MG CAPSULE PO SCH (21:07)
[2020-04-27] MEDS: ZIPRASIDONE HCL 40 MG CAPSULE PO SCH (21:07)
--- NOTE | 2020-04-27 21:46 | RADIOLOGY REPORT (SQ) ---
EXAM DESCRIPTION: CT ABD/PELVIS WITH IV ONLY CLINICAL HISTORY: 69 years Female; abdominal pain, lactic acidosis TECHNIQUE: CT of the abdomen and pelvis with intravenous contrast.. Oral contrastWas not used. All CT scans at this facility use dose modulation, iterative reconstruction, and/or weight based dosing when appropriate to reduce radiation dose to as low as reasonably achievable. This exam was performed according to our department optimization program which includes automated exposure control, adjustment of the mA and/or kv according to patient size and/or use of iterative reconstruction technique. COMPARISON: None. FINDINGS: Exam is difficult secondary to patient motion. Lower chest: Minimal volume loss is present in the lung bases. No pneumothorax or pleural effusion. Small sliding hiatal hernia. Heart size is within normal limits. Abdomen: Liver and biliary tree: Gallbladder is distended and contains hyperdense material as well as stones. Common bile duct is prominent. No obvious liver abnormality. There is homogeneous enhancement. Pancreas: Normal Spleen:Within normal limits Kidneys: Kidneys are normal in size, shape and position. No stones. No mass or hydronephrosis. Symmetric renal enhancement. Adrenal glands:Within normal limits Vascular structures: Scattered vascular plaque in the aorta. No aneurysm. Retroperitoneum: No mass or lymphadenopathy Abdominal wall: normal GI: The bowel is not well seen. There is motion artifact throughout the exam is predominantly in the mid and lower portion of the exam. This obscures the bowel. No obvious obstruction. Appendix: Not seen General: No free air. No free fluid Pelvis: Lymph nodes: No mass or lymphadenopathy Bladder: Not identified and there appears to be a catheter in the bladder. Pelvis: No pelvic mass or adenopathy. Bones: No acute bone findings. IMPRESSION: 1. Limited examination secondary to motion artifact. 2. Cholelithiasis. 3. Poor visualization of the GI tract especially in the mid and lower abdomen. No obvious bowel obstruction.
[2020-04-27] MEDS ORDERED: ACYCLOVIR 200 MG/5 ML SUSP 60 ML PO SCH (22:00)
[2020-04-27] MEDS: AMPICILLIN SODIUM 1 GM in NORMAL SALINE 50 ML IV SCH (22:26)
[2020-04-28] MEDS: LORAZEPAM INJ 2 MG/1 ML VIAL IV PRN ×4 (02:08→21:55)
[2020-04-28] MEDS: AMPICILLIN SODIUM 1 GM in NORMAL SALINE 50 ML IV SCH ×5 (02:08→21:40)
[2020-04-28] MEDS ORDERED: VANCOMYCIN HCL INJ 1000 MG VIAL IV SCH (06:00)
[2020-04-28 06:48] LABS: ABSOLUTE BASOPHILS # (AUTO) 0.1 10^3/uL (0.0-0.2); ABSOLUTE EOSINOPHILS # (AUTO) 0.1 10^3/uL (0.0-0.6); ABSOLUTE LYMPHOCYTES (AUTO) 1.2 10^3/uL (0.5-4.7); ABSOLUTE MONOCYTES (AUTO) 1.4 10^3/uL (0.1-1.4); ABSOLUTE NEUT (AUTO) 16.5 10^3/uL (1.7-8.2); ABSOLUTE RETICS # 0.043 10^6/uL (0.028-0.122); BASOPHILS % (AUTO) 0.4 % (0-2); EOSINOPHILS % (AUTO) 0.6 % (0-6); HEMATOCRIT 22.5 % (36.0-47.0); MEAN CORPUSCULAR HEMOGLOBIN 30.8 pg (27.0-33.4); MEAN CORPUSCULAR HGB CONC 32.1 g/dL (32.0-36.0); MEAN CORPUSCULAR VOLUME 96 fl (80-97); MONOCYTES % (AUTO) 7.3 % (3-13); PLATELET COUNT 484 10^3/uL (150-450); RED BLOOD COUNT 2.34 10^6/uL (3.72-5.28); RED CELL DISTRIBUTION WIDTH 13.5 % (11.5-14.0); RETICULOCYTE COUNT (AUTO) 1.82 % (0.66-2.85); SEGMENTED NEUTROPHILS % (AUTO) 85.7 % (42-78); TOTAL CELLS COUNTED % (AUTO) 100 %; WHITE BLOOD COUNT 19.2 10^3/uL (4.0-10.5)
[2020-04-28 06:52] LABS: HEMOGLOBIN 7.2 g/dL (12.0-15.5)
[2020-04-28 06:53] LABS: INTERNATIONAL RATION (INR) 2.27; PROTHROMBIN TIME 25.1 SEC (11.4-15.4)
[2020-04-28 06:55] LABS: PARTIAL THROMBOPLASTIN TIME 58.8 SEC (23.5-35.8)
[2020-04-28 07:10] LABS: ALBUMIN 2.6 g/dL (3.5-5.0); ALKALINE PHOSPHATASE 113 U/L (38-126); ANION GAP 11 (5-19); ASPARTATE AMINO TRANSFERASE 84 U/L (14-36); BILIRUBIN,DIRECT 0.3 mg/dL (0.0-0.4); BILIRUBIN,TOTAL 0.5 mg/dL (0.2-1.3); BLOOD UREA NITROGEN 12 mg/dL (7-20); CALCIUM 9.9 mg/dL (8.4-10.2); CARBON DIOXIDE 18 mmol/L (22-30); CHLORIDE 114 mmol/L (98-107); GLUCOSE 85 mg/dL (75-110); PHOSPHORUS 2.5 mg/dL (2.5-4.5); POTASSIUM 4.1 mmol/L (3.6-5.0); TOTAL PROTEIN 5.6 g/dL (6.3-8.2)
--- NOTE | 2020-04-28 07:27 | EKG REPORT ---
SEVERITY:- ABNORMAL ECG - SINUS TACHYCARDIA NONSPECIFIC ST-T CHANGES- INFERIOR LEADS : Confirmed by: Fran Concepcion MD 28-Apr-2020 07:26:17
[2020-04-28] MEDS ORDERED: METOPROLOL SUCCINATE 25 MG TAB.SR.24H PO SCH (10:00)
[2020-04-28] MEDS: NORMAL SALINE 1000 ML 1,000 ML IV PRN (10:42)
[2020-04-28] MEDS ORDERED: NORMAL SALINE 250 ML IV PRN ×2 (13:38)
--- NOTE | 2020-04-28 13:42 | PDOC PROGRESS REPORT ---
Subjective Date:: 04/28/20 Subjective:: Spoke with the brother at the bedside. Severe shaking of the arms especially th e right arm. Evidently she does have a baseline tremor of the side possibly a tardive dyskinesia secondary to antipsychotic medications. She recently underwent dramatic changes in her medication regimen. Still nonverbal. Reason For Visit: ACUTE ENCEPHALOPATHY, POSSIBLE ENCEPHALITIS, UTI Physical Exam Vital Signs: Temp Pulse Resp BP Pulse Ox 98.1 F 100 20 92/56 L 94 04/28/20 08:34 04/28/20 08:34 04/28/20 08:34 04/28/20 08:34 04/28/20 08:34 Intake & Output 04/27/20 04/28/20 04/29/20 06:59 06:59 06:59 Intake Total 2533 1000 Balance 2533 1000 Weight 62.5 kg General appearance: PRESENT: other - Moderate to severe distress with dysk inesia. Difficult to assess as she is constantly moving. Head exam: PRESENT: atraumatic, normocephalic Eye exam: PRESENT: conjunctiva pale Ear exam: PRESENT: normal external ear exam. ABSENT: bleeding, drainage Respiratory exam: PRESENT: clear to auscultation manuela, symmetrical, unlabored. ABSENT: rales, rhonchi, tachypnea, wheezes Cardiovascular exam: PRESENT: RRR, +S1, +S2. ABSENT: bradycardia, diastolic murmur, irregular rhythm, systolic murmur, tachycardia GI/Abdominal exam: PRESENT: diminished bowel sounds, soft. ABSENT: distended Rectal exam: PRESENT: deferred Extremities exam: ABSENT: pedal edema Musculoskeletal exam: PRESENT: normal inspection. ABSENT: deformity, dislocation Neurological exam: PRESENT: alert, altered, awake. ABSENT: oriented to person - Nonverbal. Does not respond to verbal communication., oriented to place, oriented to time, oriented to situation Psychiatric exam: PRESENT: agitated Focused psych exam: PRESENT: psychomotor agitation Results Laboratory Results: 04/28/20 05:38 04/28/20 05:38 04/27/20 04/27/20 04/27/20 15:01 15:01 15:01 WBC 17.8 H RBC 2.46 L Hgb 7.9 L Hct 23.5 L MCV 95 MCH 31.9 MCHC 33.5 RDW 13.5 Plt Count 605 H Seg Neutrophils % Not Reportable Retic Count (auto) VBG pH VBG pCO2 VBG HCO3 VBG Base Excess Sodium 136.9 L Potassium 4.6 Chloride 105 Carbon Dioxide 17 L Anion Gap 15 BUN 13 Creatinine 1.27 H Est GFR ( Amer) 51 L Glucose 100 Lactic Acid 6.4 H Calcium 10.8 H Phosphorus Magnesium Iron TIBC % Saturation Ferritin Total Bilirubin 0.8 AST 154 H Alkaline Phosphatase 118 Ammonia Total Protein 6.3 Albumin 3.0 L Vitamin B12 Folate TSH Free T4 Free T3 pg/mL Urine Color Urine Appearance Urine pH Ur Specific [place] Urine Protein Urine Glucose (UA) Urine Ketones Urine Blood Urine RBC (Auto) 04/27/20 04/27/20 04/27/20 15:01 15:01 15:42 WBC RBC Hgb Hct MCV MCH MCHC RDW Plt Count Seg Neutrophils % Retic Count (auto) VBG pH 7.43 H VBG pCO2 30.3 L VBG HCO3 19.5 L VBG Base Excess -3.5 Sodium Potassium Chloride Carbon Dioxide Anion Gap BUN Creatinine Est GFR ( Amer) Glucose Lactic Acid Calcium Phosphorus Magnesium Iron TIBC % Saturation Ferritin Total Bilirubin AST Alkaline Phosphatase Ammonia Total Protein Albumin Vitamin B12 Folate TSH 0.82 Free T4 0.23 L Free T3 pg/mL 1.71 L Urine Color AMAIRANI Urine Appearance CLOUDY Urine pH 5.0 Ur Specific [place] 1.017 Urine Protein 30 H Urine Glucose (UA) NEGATIVE Urine Ketones NEGATIVE Urine Blood SMALL H Urine RBC (Auto) 04/27/20 04/27/20 04/27/20 18:54 21:40 21:40 WBC RBC Hgb Hct MCV MCH MCHC RDW Plt Count Seg Neutrophils % Retic Count (auto) VBG pH VBG pCO2 VBG HCO3 VBG Base Excess Sodium Potassium Chloride Carbon Dioxide Anion Gap BUN Creatinine Est GFR ( Amer) Glucose Lactic Acid 1.6 1.2 Calcium Phosphorus Magnesium Iron TIBC % Saturation Ferritin Total Bilirubin AST Alkaline Phosphatase Ammonia < 8.7 L Total Protein Albumin Vitamin B12 Folate TSH Free T4 Free T3 pg/mL Urine Color Urine Appearance Urine pH Ur Specific [place] Urine Protein Urine Glucose (UA) Urine Ketones Urine Blood Urine RBC (Auto) 04/28/20 04/28/20 05:38 05:38 WBC 19.2 H RBC 2.34 L Hgb 7.2 L Hct 22.5 L MCV 96 MCH 30.8 MCHC 32.1 RDW 13.5 Plt Count 484 H Seg Neutrophils % 85.7 H Retic Count (auto) 1.82 VBG pH VBG pCO2 VBG HCO3 VBG Base Excess Sodium 142.5 Potassium 4.1 Chloride 114 H Carbon Dioxide 18 L Anion Gap 11 BUN 12 Creatinine 0.94 Est GFR ( Amer) > 60 Glucose 85 Lactic Acid Calcium 9.9 Phosphorus 2.5 Magnesium 1.9 Iron 29.0 L TIBC 153 L % Saturation 19 Ferritin 303.00 H Total Bilirubin 0.5 AST 84 H Alkaline Phosphatase 113 Ammonia Total Protein 5.6 L Albumin 2.6 L Vitamin B12 > 1000.0 H Folate 13.10 TSH Free T4 Free T3 pg/mL Urine Color Urine Appearance Urine pH Ur Specific [place] Urine Protein Urine Glucose (UA) Urine Ketones Urine Blood Urine RBC (Auto) 04/27/20 04/27/20 15:01 15:01 Creatine Kinase 155 H Troponin I < 0.012 Impressions: Abdomen/Pelvis CT 04/27/20 00:00 IMPRESSION: 1. Limited examination secondary to motion artifact. 2. Cholelithiasis. 3. Poor visualization of the GI tract especially in the mid and lower abdomen. No obvious bowel obstruction. Chest X-Ray 04/27/20 14:52 IMPRESSION: No acute cardiopulmonary process. Head CT 04/27/20 15:26 IMPRESSION: No acute intracranial abnormality. EVIDENCE OF ACUTE STROKE: NO. Assessment and Plan - Diagnosis (1) Acute metabolic encephalopathy Is this a current diagnosis for this admission?: Yes (2) Severe sepsis Is this a current diagnosis for this admission?: Yes (3) Lactic acidosis Is this a current diagnosis for this admission?: Yes (4) Normocytic anemia Is this a current diagnosis for this admission?: Yes (5) Bipolar disorder Is this a current diagnosis for this admission?: Yes (6) Urinary tract infection Qualifiers: Urinary tract infection type: acute cystitis Hematuria presence: with hematuria Qualified Code(s): N30.01 - Acute cystitis with hematuria Is this a current diagnosis for this admission?: Yes (7) RENETTA (acute kidney injury) Is this a current diagnosis for this admission?: Yes (8) Rash Is this a current diagnosis for this admission?: Yes (9) Hypothyroidism Qualifiers: Hypothyroidism type: unspecified Qualified Code(s): E03.9 - Hypothyroidism, unspecified Is this a current diagnosis for this admission?: Yes (10) Transaminitis Is this a current diagnosis for this admission?: Yes (11) Paroxysmal atrial fibrillation Is this a current diagnosis for this admission?: Yes (12) GI bleed Qualifiers: GI bleed type/associated pathology: unspecified gastrointestinal hemorrhage type Qualified Code(s): K92.2 - Gastrointestinal hemorrhage, unspecified Is this a current diagnosis for this admission?: Yes - Plan Summary Summary: (1) Acute metabolic encephalopathy Is this a current diagnosis for this admission?: Yes Plan: Patient is extremely altered. I am not convinced that her UTI is what is causing this. Understandably she is septic. Only recent medication increase was Gabapentin. However it seems that her gabapentin has been reduced back to a lower dose than what she was previously quite sometime ago so I do not believe gabapentin toxicity is what is causing this either. Head CT is unremarkable I will admit to IMCU Her constellation of symptoms certainly warrants an LP. She is notably on Eliqu is at home which I have held and INR is elevated. Repeat INR in AM. Please discuss with Radiology in the morning to see if they are ok with doing the LP. Hopefully the INR shouldn't prevent this. Vanco ceftriaxone and ampicillin. Will hold off any steroids until LP is done. QTC is borderline prolonged so we will use some Ativan as needed for restlessness/agitation. Check TSH, B12, Ammonia, viral panel (2) Severe sepsis Is this a current diagnosis for this admission?: Yes Plan: IV fluid resuscitation. Currently hemodynamically stable. (3) Normocytic anemia Is this a current diagnosis for this admission?: Yes Plan: Check iron studies. Monitor CBC. Transfuse if less than 7. (4) Lactic acidosis Is this a current diagnosis for this admission?: Yes Plan: Significantly elevated at 6.4. We will check a repeat now. She has received 2 L so far. Continue aggressive IV fluid hydration. Abdomen is tender though not rigid so I will check a stat CT abdomen/pelvis. (5) Bipolar disorder Is this a current diagnosis for this admission?: Yes Plan: According to family, her bipolar disorder has been in remission for over 15 years. I do not believe her bipolar explain her over here. At home, she is on Geodon and lithium as well as Trileptal. I will keep her Seroquel on hold. I will continue her lithium and her Geodon for now. (6) Urinary tract infection Qualifiers: Urinary tract infection type: acute cystitis Hematuria presence: with hematuria Qualified Code(s): N30.01 - Acute cystitis with hematuria Is this a current diagnosis for this admission?: Yes Plan: Started on nitrofurantoin as outpatient. On broad-spectrum antibiotics. Follow-up cultures. (7) RENETTA (acute kidney injury) Is this a current diagnosis for this admission?: Yes Plan: Mucosa appears very dry. Will place on hydration. Monitor renal function. (8) Rash Is this a current diagnosis for this admission?: Yes Plan: Has reticular rash mostly on exposed surfaces. Likely just contact dermatitis. Monitor. Avoid exposure of skin to linens. (9) Hypothyroidism Qualifiers: Hypothyroidism type: unspecified Qualified Code(s): E03.9 - Hypothyroidism, unspecified Is this a current diagnosis for this admission?: Yes Plan: On Liothyronine at home. (10) Transaminitis Is this a current diagnosis for this admission?: Yes Plan: Monitor metabolic panel. (11) Paroxysmal atrial fibrillation Is this a current diagnosis for this admission?: Yes Plan: On Lopressor and Eliquis. Eliquis currently on hold in anticipation of LP tomorrow. (12) GI Bleed (13) Anemia 04/28/2020 Still with altered mental status. Marked tremor especially right arm. Almost seizure-like in appearance. There was abrupt cessation of gabapentin as well as other medications as she is unable to take oral meds at this time. The altered mental status is a combination of metabolic issues, infection and medication. Unable to take p.o. meds today. If does not improve we will utilize scheduled IV metoprolol for heart rate control. Continue holding anticoagulation for possible lumbar puncture. Continue current antibiotic regimen. I will change the acyclovir to IV dosing as the patient is not able to take p.o. meds at this time. Gram-negative bacilli growing in the urine. Await final results. On multiple antibiotics that should adequately cover her urine. Hypothyroidism-when the patient is more awake and alert and able to take oral medications will resume Cytomel. She may also need levothyroxine. Bipolar disorder-has been stable on lithium and Geodon. I have ordered a lithium level. As she does not seem to be able to take oral medications I will use Risperdal oral disintegrating tablets for the time being. We will need to hold her lithium. Can supplement with IV or IM medications as well. Sepsis resolved Transaminases improving. Initial elevation possibly due to her infection. GI bleed-fecal occult blood is positive. She also has low iron. B12 and folic acid are normal. We will start pantoprazole 40 mg IV daily. Anemia-combination of of possible GI bleeding. Currently holding a nticoagulation. Also likely iron deficient. We will transfuse 2 units of packed red blood cells and monitor closely. No plans for endoscopy at this time. - Time Time Spent with patient: 15-24 minutes Medications reviewed and adjusted accordingly: Yes Anticipated Discharge Disposition: Unknown Anticipated Discharge Timeframe: Unknown
[2020-04-28] MEDS: CEFTRIAXONE 2 GM/D5W RTU 2 GM/50 ML RTUPB IV SCH (14:22)
[2020-04-28] MEDS: LITHIUM CARBONATE 300 MG CAPSULE PO SCH ×2 (14:22→14:31)
[2020-04-28] MEDS: LIOTHYRONINE SODIUM 25 MCG TABLET PO SCH (14:30)
[2020-04-28] MEDS: ZIPRASIDONE HCL 40 MG CAPSULE PO SCH ×2 (14:30→21:35)
[2020-04-28] MEDS: ACYCLOVIR 200 MG CAPSULE PO SCH ×2 (14:31→21:35)
[2020-04-28] MEDS ORDERED: VANCOMYCIN HCL 750 MG in DEXTROSE 5%-WATER 250 ML IV SCH (18:00)
[2020-04-28] MEDS: VANCOMYCIN HCL 750 MG in DEXTROSE 5%-WATER 250 ML IV SCH (21:38)
[2020-04-29] MEDS: AMPICILLIN SODIUM 1 GM in NORMAL SALINE 50 ML IV SCH ×4 (02:32→21:34)
[2020-04-29] MEDS: LORAZEPAM INJ 2 MG/1 ML VIAL IV PRN (04:19)
[2020-04-29] MEDS ORDERED: ACYCLOVIR SODIUM 500 MG in NORMAL SALINE 100 ML IV SCH (06:00)
[2020-04-29] MEDS: METOPROLOL TARTRATE PF/INJ 5 MG/5 ML SDV IV SCH ×3 (06:36→17:05)
[2020-04-29 08:59] LABS: ALBUMIN 2.7 g/dL (3.5-5.0); ALKALINE PHOSPHATASE 132 U/L (38-126); ANION GAP 13 (5-19); ASPARTATE AMINO TRANSFERASE 53 U/L (14-36); BILIRUBIN,DIRECT 0.3 mg/dL (0.0-0.4); BILIRUBIN,TOTAL 0.6 mg/dL (0.2-1.3); BLOOD UREA NITROGEN 6 mg/dL (7-20); CALCIUM 10.4 mg/dL (8.4-10.2); CARBON DIOXIDE 14 mmol/L (22-30); CHLORIDE 121 mmol/L (98-107); GLUCOSE 163 mg/dL (75-110); TOTAL PROTEIN 6.1 g/dL (6.3-8.2)
[2020-04-29 09:11] LABS: HEMATOCRIT 33.6 % (36.0-47.0); MEAN CORPUSCULAR HEMOGLOBIN 29.5 pg (27.0-33.4); MEAN CORPUSCULAR HGB CONC 32.7 g/dL (32.0-36.0); PLATELET COUNT 532 10^3/uL (150-450); RED BLOOD COUNT 3.73 10^6/uL (3.72-5.28); WHITE BLOOD COUNT 22.4 10^3/uL (4.0-10.5)
[2020-04-29 09:16] LABS: MEAN CORPUSCULAR VOLUME 90 fl (80-97)
[2020-04-29 09:32] LABS: ABSOLUTE LYMPHOCYTES# (MANUAL) 1.8 10^3/uL (0.5-4.7); ABSOLUTE MONOCYTES # (MANUAL) 0.7 10^3/uL (0.1-1.4); BASOPHILS % (MANUAL) 0 % (0-2); EOSINOPHILS % (MANUAL) 0 % (0-6); LYMPHOCYTES % (MANUAL) 7 % (13-45); MONOCYTES % (MANUAL) 3 % (3-13); SEGMENTED NEUTROPHILS % (MAN) 89 % (42-78); TOTAL CELLS COUNTED 100
[2020-04-29 09:33] LABS: ANISOCYTOSIS 2+; PLATELET COMMENT INCREASED
[2020-04-29 09:35] LABS: PLATELET CLUMPS PRESENT; POLYCHROMASIA SLIGHT
[2020-04-29 09:36] LABS: OVALOCYTES 1+; POIKILOCYTOSIS 1+
[2020-04-29] MEDS ORDERED: DEXTROSE 5%-WATER 1000 ML 1,000 ML with SODIUM BICARBONATE 100 MEQ IV PRN ×2 (09:48)
[2020-04-29] MEDS ORDERED: FUROSEMIDE INJ/PF 20 MG/2 ML SDV IV ONE (09:51)
--- NOTE | 2020-04-29 09:58 | PDOC PROGRESS REPORT ---
Subjective Date:: 04/29/20 Subjective:: Patient is tachypneic and looks quite ill. Gurgling breath sounds. Has had a net positive fluid balance of 2 L. Reason For Visit: ACUTE ENCEPHALOPATHY, POSSIBLE ENCEPHALITIS, UTI Physical Exam Vital Signs: Temp Pulse Resp BP Pulse Ox 98.4 F 117 H 32 H 158/86 H 80 L 04/29/20 08:23 04/29/20 08:23 04/29/20 08:23 04/29/20 08:23 04/29/20 08:23 Intake & Output 04/28/20 04/29/20 04/30/20 06:59 06:59 06:59 Intake Total 2533 2050 Output Total 1125 Balance 2533 925 Weight 62.5 kg 60.1 kg General appearance: PRESENT: other - Moderate to severe distress Head exam: PRESENT: atraumatic, normocephalic Eye exam: PRESENT: conjunctiva pale. ABSENT: scleral icterus Ear exam: PRESENT: normal external ear exam. ABSENT: bleeding, drainage Mouth exam: PRESENT: dry mucosa, tongue midline Respiratory exam: PRESENT: symmetrical, tachypnea, unlabored, other - Gurgly breath sounds. ABSENT: prolonged expiratory phas, rales, rhonchi, wheezes Cardiovascular exam: PRESENT: +S1, +S2, tachycardia GI/Abdominal exam: PRESENT: diminished bowel sounds, soft. ABSENT: tenderness Rectal exam: PRESENT: deferred Extremities exam: ABSENT: pedal edema Neurological exam: PRESENT: other - Lethargic. ABSENT: awake Psychiatric exam: ABSENT: agitated, anxious Focused psych exam: PRESENT: other - Lethargic Skin exam: PRESENT: dry, pallor, warm Results Laboratory Results: 04/29/20 08:24 04/29/20 08:24 04/28/20 04/28/20 04/29/20 05:38 14:52 08:24 WBC 22.4 H RBC 3.73 Hgb 11.0 L D Hct 33.6 L MCV 90 D MCH 29.5 MCHC 32.7 RDW 18.0 H Plt Count 532 H Seg Neutrophils % Not Reportable Sodium Potassium Chloride Carbon Dioxide Anion Gap BUN Creatinine Est GFR ( Amer) Glucose Calcium Total Bilirubin AST Alkaline Phosphatase Total Protein Albumin Folate 13.10 Blood Type O POSITIVE Antibody Screen NEGATIVE 04/29/20 08:24 WBC RBC Hgb Hct MCV MCH MCHC RDW Plt Count Seg Neutrophils % Sodium 148.0 H Potassium 4.0 Chloride 121 H Carbon Dioxide 14 L Anion Gap 13 BUN 6 L Creatinine 0.75 Est GFR ( Amer) > 60 Glucose 163 H Calcium 10.4 H Total Bilirubin 0.6 AST 53 H Alkaline Phosphatase 132 H Total Protein 6.1 L Albumin 2.7 L Folate Blood Type Antibody Screen 04/27/20 15:01 Catheterized Urine Urine Culture - Final Escherichia Coli 04/27/20 04/27/20 15:01 15:01 Creatine Kinase 155 H Troponin I < 0.012 Impressions: Abdomen/Pelvis CT 04/27/20 00:00 IMPRESSION: 1. Limited examination secondary to motion artifact. 2. Cholelithiasis. 3. Poor visualization of the GI tract especially in the mid and lower abdomen. No obvious bowel obstruction. Chest X-Ray 04/27/20 14:52 IMPRESSION: No acute cardiopulmonary process. Head CT 04/27/20 15:26 IMPRESSION: No acute intracranial abnormality. EVIDENCE OF ACUTE STROKE: NO. Assessment and Plan - Diagnosis (1) Acute metabolic encephalopathy Is this a current diagnosis for this admission?: Yes (2) Severe sepsis Is this a current diagnosis for this admission?: Yes (3) Lactic acidosis Is this a current diagnosis for this admission?: Yes (4) Normocytic anemia Is this a current diagnosis for this admission?: Yes (5) Bipolar disorder Is this a current diagnosis for this admission?: Yes (6) Urinary tract infection Qualifiers: Urinary tract infection type: acute cystitis Hematuria presence: with hematuria Qualified Code(s): N30.01 - Acute cystitis with hematuria Is this a current diagnosis for this admission?: Yes (7) RENETTA (acute kidney injury) Is this a current diagnosis for this admission?: Yes (8) Rash Is this a current diagnosis for this admission?: Yes (9) Hypothyroidism Qualifiers: Hypothyroidism type: unspecified Qualified Code(s): E03.9 - Hypothyroidism, unspecified Is this a current diagnosis for this admission?: Yes (10) Transaminitis Is this a current diagnosis for this admission?: Yes (11) Paroxysmal atrial fibrillation Is this a current diagnosis for this admission?: Yes (12) GI bleed Qualifiers: GI bleed type/associated pathology: unspecified gastrointestinal hemorrhage type Qualified Code(s): K92.2 - Gastrointestinal hemorrhage, unspecified Is this a current diagnosis for this admission?: Yes - Plan Summary Summary: (1) Acute metabolic encephalopathy Is this a current diagnosis for this admission?: Yes Plan: Patient is extremely altered. I am not convinced that her UTI is what is causing this. Understandably she is septic. Only recent medication increase was Gabapentin. However it seems that her gabapentin has been reduced back to a lower dose than what she was previously quite sometime ago so I do not believe gabapentin toxicity is what is causing this either. Head CT is unremarkable I will admit to IM Her constellation of symptoms certainly warrants an LP. She is notably on Eliquis at home which I have held and INR is elevated. Repeat INR in AM. Please discuss with Radiology in the morning to see if they are ok with doing the LP. Hopefully the INR shouldn't prevent this. Vanco ceftriaxone and ampicillin. Will hold off any steroids until LP is done. QTC is borderline prolonged so we will use some Ativan as needed for restlessness/agitation. Check TSH, B12, Ammonia, viral panel (2) Severe sepsis Is this a current diagnosis for this admission?: Yes Plan: IV fluid resuscitation. Currently hemodynamically stable. (3) Normocytic anemia Is this a current diagnosis for this admission?: Yes Plan: Check iron studies. Monitor CBC. Transfuse if less than 7. (4) Lactic acidosis Is this a current diagnosis for this admission?: Yes Plan: Significantly elevated at 6.4. We will check a repeat now. She has received 2 L so far. Continue aggressive IV fluid hydration. Abdomen is tender though not rigid so I will check a stat CT abdomen/pelvis. (5) Bipolar disorder Is this a current diagnosis for this admission?: Yes Plan: According to family, her bipolar disorder has been in remission for over 15 years. I do not believe her bipolar explain her over here. At home, she is on Geodon and lithium as well as Trileptal. I will keep her Seroquel on hold. I will continue her lithium and her Geodon for now. (6) Urinary tract infection Qualifiers: Urinary tract infection type: acute cystitis Hematuria presence: with hematuria Qualified Code(s): N30.01 - Acute cystitis with hematuria Is this a current diagnosis for this admission?: Yes Plan: Started on nitrofurantoin as outpatient. On broad-spectrum antibiotics. Follow-up cultures. (7) RENETTA (acute kidney injury) Is this a current diagnosis for this admission?: Yes Plan: Mucosa appears very dry. Will place on hydration. Monitor renal function. (8) Rash Is this a current diagnosis for this admission?: Yes Plan: Has reticular rash mostly on exposed surfaces. Likely just contact dermatitis. Monitor. Avoid exposure of skin to linens. (9) Hypothyroidism Qualifiers: Hypothyroidism type: unspecified Qualified Code(s): E03.9 - Hypothyroidism, unspecified Is this a current diagnosis for this admission?: Yes Plan: On Liothyronine at home. (10) Transaminitis Is this a current diagnosis for this admission?: Yes Plan: Monitor metabolic panel. (11) Paroxysmal atrial fibrillation Is this a current diagnosis for this admission?: Yes Plan: On Lopressor and Eliquis. Eliquis currently on hold in anticipation of LP tomorrow. (12) GI Bleed (13) Anemia 04/28/2020 Still with altered mental status. Marked tremor especially right arm. Almost seizure-like in appearance. There was abrupt cessation of gabapentin as well as other medications as she is unable to take oral meds at this time. The altered mental status is a combination of metabolic issues, infection and medication. Unable to take p.o. meds today. If does not improve we will utilize scheduled IV metoprolol for heart rate control. Continue holding anticoagulation for possible lumbar puncture. Continue current antibiotic regimen. I will change the acyclovir to IV dosing as the patient is not able to take p.o. meds at this time. Gram-negative bacilli growing in the urine. Await final results. On multiple antibiotics that should adequately cover her urine. Hypothyroidism-when the patient is more awake and alert and able to take oral m edications will resume Cytomel. She may also need levothyroxine. Bipolar disorder-has been stable on lithium and Geodon. I have ordered a lithium level. As she does not seem to be able to take oral medications I will use Risperdal oral disintegrating tablets for the time being. We will need to h old her lithium. Can supplement with IV or IM medications as well. Sepsis resolved Transaminases improving. Initial elevation possibly due to her infection. GI bleed-fecal occult blood is positive. She also has low iron. B12 and folic acid are normal. We will start pantoprazole 40 mg IV daily. Anemia-combination of of possible GI bleeding. Currently holding anticoagulation. Also likely iron deficient. We will transfuse 2 units of packed red blood cells and monitor closely. No plans for endoscopy at this time. 04/29/2020 Doing very poorly today. We will add Lasix for possible pulmonary edema Serum bicarb was only 14 and serum sodium was 148. Will change fluids to D5 W and with the first liter I have added 100 mEq of sodium bicarb. Will reassess after that. I have ordered a blood gas to check her acid-base status. I have also ordered a stat chest x-ray. She is supposed to be on Trileptal and I will utilize Keppra IV temporarily. We will see how she does with the oral disintegrating Risperdal. Awaiting final urine culture results. Patient on multiple antibiotics not only to cover urine but also potentially pulmonary and [employer] infection. We will need to monitor closely. Patient's sister was at the bedside. We did have a chance to review care up to this point. - Time Time Spent with patient: 15-24 minutes Medications reviewed and adjusted accordingly: Yes Anticipated Discharge Disposition: Unknown Anticipated Discharge Timeframe: Unknown
[2020-04-29 10:20] LABS: ARTERIAL BLOOD BASE EXCESS -13.6 mmol/L; ARTERIAL BLOOD H2CO3 1.23 mmol/L (1.05-1.35); ARTERIAL BLOOD HCO3 14.4 mmol/L (20-24); ARTERIAL BLOOD O2 SATURATION 69.1 % (94-98); ARTERIAL BLOOD PCO2 40.9 mmHg (35-45); ARTERIAL BLOOD PO2 44.9 mmHg (80-100); ARTERIAL BLOOD TOTAL CO2 15.7 mmol/L (21-25)
[2020-04-29 10:21] LABS: ARTERIAL BLOOD FIO2 3L
[2020-04-29 10:22] LABS: ARTERIAL BLOOD PH 7.17 (7.35-7.45)
--- NOTE | 2020-04-29 10:41 | RADIOLOGY REPORT (SQ) ---
EXAM DESCRIPTION: CHEST SINGLE VIEW IMAGES COMPLETED DATE/TIME: 04/29/2020 10:25 am REASON FOR STUDY: Worsening respiratory failure COMPARISON: 04/27/2020 EXAM PARAMETERS: NUMBER OF VIEWS: One view. TECHNIQUE: Single frontal radiographic view of the chest acquired. RADIATION DOSE: NA LIMITATIONS: None. FINDINGS: LUNGS AND PLEURA: Extensive bilateral airspace disease most marked on the right. Most lik britney pulmonary edema less likely a combination of edema and pneumonia. MEDIASTINUM AND HILAR STRUCTURES: No masses. Contour normal. HEART AND VASCULAR STRUCTURES: Heart normal in size. Normal vasculature. BONES: No acute findings. HARDWARE: None in the chest. OTHER: No other significant finding. IMPRESSION: Extensive bilateral airspace disease right greater than left. This is new from 04/27/20 20. Most likely pulmonary edema. TECHNICAL DOCUMENTATION: JOB ID: [id number] 2010 [employer]- All Rights Reserved Reading location - IP/workstation name: [email or web address]
--- NOTE | 2020-04-29 11:01 | PDOC PROGRESS REPORT ---
Subjective Date:: 04/29/20 Subjective:: Called urgently to the bedside for acute deterioration in patient's condition. Rapid response was called but we change that to a CODE BLUE as the patient lost a pulse. Reason For Visit: ACUTE ENCEPHALOPATHY, POSSIBLE ENCEPHALITIS, UTI Physical Exam Vital Signs: Temp Pulse Resp BP Pulse Ox 98.4 F 117 H 32 H 158/86 H 80 L 04/29/20 08:23 04/29/20 08:23 04/29/20 08:23 04/29/20 08:23 04/29/20 08:23 Intake & Output 04/28/20 04/29/20 04/30/20 06:59 06:59 06:59 Intake Total 2533 2050 Output Total 1125 Balance 2533 925 Weight 62.5 kg 60.1 kg Respiratory exam: PRESENT: other - No spontaneous respirations. The driver/sales workers proceeded to intubate the patient. Cardiovascular exam: PRESENT: other - Initially pulseless electrical activity. CPR was instituted. Neurological exam: ABSENT: awake - Unresponsive Results Laboratory Results: 04/29/20 08:24 04/29/20 08:24 04/28/20 04/29/20 04/29/20 14:52 08:24 08:24 WBC 22.4 H RBC 3.73 Hgb 11.0 L D Hct 33.6 L MCV 90 D MCH 29.5 MCHC 32.7 RDW 18.0 H Plt Count 532 H Seg Neutrophils % Not Reportable Carbonic Acid HCO3/H2CO3 Ratio ABG pH ABG pCO2 ABG pO2 ABG HCO3 ABG O2 Saturation ABG Base Excess FiO2 Sodium 148.0 H Potassium 4.0 Chloride 121 H Carbon Dioxide 14 L Anion Gap 13 BUN 6 L Creatinine 0.75 Est GFR ( Amer) > 60 Glucose 163 H Calcium 10.4 H Total Bilirubin 0.6 AST 53 H Alkaline Phosphatase 132 H Total Protein 6.1 L Albumin 2.7 L Blood Type O POSITIVE Antibody Screen NEGATIVE 04/29/20 09:55 WBC RBC Hgb Hct MCV MCH MCHC RDW Plt Count Seg Neutrophils % Carbonic Acid 1.23 HCO3/H2CO3 Ratio 11:1 ABG pH 7.17 L* ABG pCO2 40.9 ABG pO2 44.9 L ABG HCO3 14.4 L ABG O2 Saturation 69.1 L ABG Base Excess -13.6 FiO2 3L Sodium Potassium Chloride Carbon Dioxide Anion Gap BUN Creatinine Est GFR ( Amer) Glucose Calcium Total Bilirubin AST Alkaline Phosphatase Total Protein Albumin Blood Type Antibody Screen 04/27/20 15:01 Catheterized Urine Urine Culture - Final Escherichia Coli 04/27/20 04/27/20 15:01 15:01 Creatine Kinase 155 H Troponin I < 0.012 Impressions: Abdomen/Pelvis CT 04/27/20 00:00 IMPRESSION: 1. Limited examination secondary to motion artifact. 2. Cholelithiasis. 3. Poor visualization of the GI tract especially in the mid and lower abdomen. No obvious bowel obstruction. Head CT 04/27/20 15:26 IMPRESSION: No acute intracranial abnormality. EVIDENCE OF ACUTE STROKE: NO. Chest X-Ray 04/29/20 00:00 IMPRESSION: Extensive bilateral airspace disease right greater than left. This is new from 04/27/2020. Most likely pulmonary edema. Assessment and Plan - Diagnosis (1) Acute metabolic encephalopathy Is this a current diagnosis for this admission?: Yes (2) Severe sepsis Is this a current diagnosis for this admission?: Yes (3) Lactic acidosis Is this a current diagnosis for this admission?: Yes (4) Normocytic anemia Is this a current diagnosis for this admission?: Yes (5) Bipolar disorder Is this a current diagnosis for this admission?: Yes (6) Urinary tract infection Qualifiers: Urinary tract infection type: acute cystitis Hematuria presence: with hematuria Qualified Code(s): N30.01 - Acute cystitis with hematuria Is this a current diagnosis for this admission?: Yes (7) RENETTA (acute kidney injury) Is this a current diagnosis for this admission?: Yes (8) Rash Is this a current diagnosis for this admission?: Yes (9) Hypothyroidism Qualifiers: Hypothyroidism type: unspecified Qualified Code(s): E03.9 - Hypothyroidism, unspecified Is this a current diagnosis for this admission?: Yes (10) Transaminitis Is this a current diagnosis for this admission?: Yes (11) Paroxysmal atrial fibrillation Is this a current diagnosis for this admission?: Yes (12) GI bleed Qualifiers: GI bleed type/associated pathology: unspecified gastrointestinal hemorrhage type Qualified Code(s): K92.2 - Gastrointestinal hemorrhage, unspecified Is this a current diagnosis for this admission?: Yes - Plan Summary Summary: (1) Acute metabolic encephalopathy Is this a current diagnosis for this admission?: Yes Plan: Patient is extremely altered. I am not convinced that her UTI is what is causing this. Understandably she is septic. Only recent medication increase was Gabapentin. However it seems that her gabapentin has been reduced back to a lower dose than what she was previously quite sometime ago so I do not believe gabapentin toxicity is what is causing this either. Head CT is unremarkable I will admit to IMCU Her constellation of symptoms certainly warrants an LP. She is notably on Eliquis at home which I have held and INR is elevated. Repeat INR in AM. Please discuss with Radiology in the morning to see if they are ok with doing the LP. Hopefully the INR shouldn't prevent this. Vanco ceftriaxone and ampicillin. Will hold off any steroids until LP is done. QTC is borderline prolonged so we will use some Ativan as needed for restlessness/agitation. Check TSH, B12, Ammonia, viral panel (2) Severe sepsis Is this a current diagnosis for this admission?: Yes Plan: IV fluid resuscitation. Currently hemodynamically stable. (3) Normocytic anemia Is this a current diagnosis for this admission?: Yes Plan: Check iron studies. Monitor CBC. Transfuse if less than 7. (4) Lactic acidosis Is this a current diagnosis for this admission?: Yes Plan: Significantly elevated at 6.4. We will check a repeat now. She has received 2 L so far. Continue aggressive IV fluid hydration. Abdomen is tender though not rigid so I will check a stat CT abdomen/pelvis. (5) Bipolar disorder Is this a current diagnosis for this admission?: Yes Plan: According to family, her bipolar disorder has been in remission for over 15 years. I do not believe her bipolar explain her over here. At home, she is on Geodon and lithium as well as Trileptal. I will keep her Seroquel on hold. I will continue her lithium and her Geodon for now. (6) Urinary tract infection Qualifiers: Urinary tract infection type: acute cystitis Hematuria presence: with hematuria Qualified Code(s): N30.01 - Acute cystitis with hematuria Is this a current diagnosis for this admission?: Yes Plan: Started on nitrofurantoin as outpatient. On broad-spectrum antibiotics. Follow-up cultures. (7) RENETTA (acute kidney injury) Is this a current diagnosis for this admission?: Yes Plan: Mucosa appears very dry. Will place on hydration. Monitor renal function. (8) Rash Is this a current diagnosis for this admission?: Yes Plan: Has reticular rash mostly on exposed surfaces. Likely just contact dermatitis. Monitor. Avoid exposure of skin to linens. (9) Hypothyroidism Qualifiers: Hypothyroidism type: unspecified Qualified Code(s): E03.9 - Hypothyroidism, unspecified Is this a current diagnosis for this admission?: Yes Plan: On Liothyronine at home. (10) Transaminitis Is this a current diagnosis for this admission?: Yes Plan: Monitor metabolic panel. (11) Paroxysmal atrial fibrillation Is this a current diagnosis for this admission?: Yes Plan: On Lopressor and Eliquis. Eliquis currently on hold in anticipation of LP tomorrow. (12) GI Bleed (13) Anemia 04/28/2020 Still with altered mental status. Marked tremor especially right arm. Almost seizure-like in appearance. There was abrupt cessation of gabapentin as well as other medications as she is unable to take oral meds at this time. The altered mental status is a combination of metabolic issues, infection and medication. Unable to take p.o. meds today. If does not improve we will utilize scheduled IV metoprolol for heart rate control. Continue holding anticoagulation for possible lumbar puncture. Continue current antibiotic regimen. I will change the acyclovir to IV dosing as the patient is not able to take p.o. meds at this time. Gram-negative bacilli growing in the urine. Await final results. On multiple antibiotics that should adequately cover her urine. Hypothyroidism-when the patient is more awake and alert and able to take oral me dications will resume Cytomel. She may also need levothyroxine. Bipolar disorder-has been stable on lithium and Geodon. I have ordered a lithium level. As she does not seem to be able to take oral medications I will use Risperdal oral disintegrating tablets for the time being. We will need to hold her lithium. Can supplement with IV or IM medications as well. Sepsis resolved Transaminases improving. Initial elevation possibly due to her infection. GI bleed-fecal occult blood is positive. She also has low iron. B12 and folic acid are normal. We will start pantoprazole 40 mg IV daily. Anemia-combination of of possible GI bleeding. Currently holding anticoagulation. Also likely iron deficient. We will transfuse 2 units of packed red blood cells and monitor closely. No plans for endoscopy at this time. 04/29/2020 Doing very poorly today. We will add Lasix for possible pulmonary edema Serum bicarb was only 14 and serum sodium was 148. Will change fluids to D5 W and with the first liter I have added 100 mEq of sodium bicarb. Will reassess after that. I have ordered a blood gas to check her acid-base status. I have also ordered a stat chest x-ray. She is supposed to be on Trileptal and I will utilize Keppra IV temporarily. We will see how she does with the oral disintegrating Risperdal. Awaiting final urine culture results. 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 We will need to monitor closely. Patient's sister was at the bedside. We did have a chance to review care up to this point. 04/29/2020 Critical care note The initial rapid response abruptly turned into a code. The backboard was placed and CPR was initiated immediately. The patient was given 1 amp of epinephrine and CPR continued for several minutes. An amp of bicarb was then administered followed by a second amp of epinephrine. A third amp of epinephrine was going to be given but return of spontaneous circulation was obtained. Intubation was successful and the patient continued support with [id number]. She had sinus tachycardia. She will be transferred to the intensive care unit at this time. I spoke to the family with the ICU nurse practitioner and explained the situation. Prognosis is guarded. We will monitor her closely. - Time Total Critical Time (Minutes): 45 Medications reviewed and adjusted accordingly: Yes Anticipated Discharge Disposition: ICU Anticipated Discharge Timeframe: Unknown
[2020-04-29] MEDS: RISPERIDONE 1 MG TAB.RAPDIS PO SCH ×2 (11:08→17:13)
--- NOTE | 2020-04-29 11:31 | RADIOLOGY REPORT (SQ) ---
EXAM DESCRIPTION: CHEST SINGLE VIEW IMAGES COMPLETED DATE/TIME: 04/29/2020 11:14 am REASON FOR STUDY: ET and NG Tube Placement COMPARISON: Earlier the same day. EXAM PARAMETERS: NUMBER OF VIEWS: One view. TECHNIQUE: Single frontal radiographic view of the chest acquired. RADIATION DOSE: NA LIMITATIONS: None. FINDINGS: LUNGS AND PLEURA: Endotracheal tube and NG tube have been placed. Both are in satisfactor y position. Endotracheal tube lies 1.6 cm above the herminio. Persistent diffuse bilateral airspace d isease. MEDIASTINUM AND HILAR STRUCTURES: No masses. Contour normal. HEART AND VASCULAR STRUCTURES: Stable. BONES: No acute findings. HARDWARE: None in the chest. OTHER: No other significant finding. IMPRESSION: Interval placement of endotracheal tube and NG tube as described. Both are in satisfact ory position. No other interval change. TECHNICAL DOCUMENTATION: JOB ID: [id number] 2010 [employer]- All Rights Reserved Reading location - IP/workstation name: [email or web address]
[2020-04-29] MEDS: PANTOPRAZOLE SODIUM 40 MG VIAL IV SCH (11:47)
[2020-04-29] MEDS: CEFTRIAXONE 2 GM/D5W RTU 2 GM/50 ML RTUPB IV SCH (11:48)
[2020-04-29] MEDS: LIOTHYRONINE SODIUM 25 MCG TABLET PO SCH (12:08)
[2020-04-29] MEDS ORDERED: AMIODARONE HCL INJ 150 MG/3 ML VIAL IV ONE ×2 (13:10→13:18)
[2020-04-29] MEDS ORDERED: PHENYLEPHRINE HCL INJ/PF 10 MG/1 ML SDV ONE (13:10)
[2020-04-29] MEDS ORDERED: PROPOFOL 1,000 MG/100 ML INFUS..BTL IV ONE (13:18)
[2020-04-29] MEDS ORDERED: MIDAZOLAM 2 MG/2 ML INJ ONE (13:25)
[2020-04-29] MEDS: PROPOFOL 1,000 MG/100 ML INFUS..BTL IV PRN (13:25)
[2020-04-29] MEDS: DEXTROSE 5%-WATER 250 ML with PHENYLEPHRINE HCL 40 MG IV PRN ×6 (13:35→22:20)
[2020-04-29] MEDS ORDERED: DEXTROSE 5%-WATER 500 ML with AMIODARONE HCL 900 MG IV PRN ×2 (13:57)
[2020-04-29] MEDS ORDERED: AMIODARONE HCL 150 MG in DEXTROSE 5%-WATER 100 ML IV ONE (14:00)
[2020-04-29] MEDS ORDERED: NOREPINEPHRINE BITARTRATE INJ/PF 4 MG/4 ML SDV IV ONE (14:18)
[2020-04-29] MEDS ORDERED: DEXTROSE 5%-WATER 250 ML with NOREPINEPHRINE BITARTRATE 4 MG IV PRN ×2 (14:25)
[2020-04-29] MEDS: ACYCLOVIR SODIUM 500 MG in NORMAL SALINE 100 ML IV SCH ×2 (14:32→17:13)
[2020-04-29] MEDS ORDERED: SODIUM BICARBONATE 8.4% INJ 50 MEQ/50 ML DISP.SYRIN ONE (14:38)
[2020-04-29] MEDS ORDERED: EPINEPHRINE INJ 1 MG/10 ML DISP.SYRIN ONE (14:38)
--- NOTE | 2020-04-29 14:46 | RADIOLOGY REPORT (SQ) ---
EXAM DESCRIPTION: CHEST SINGLE VIEW IMAGES COMPLETED DATE/TIME: 04/29/2020 2:36 pm REASON FOR STUDY: Central Line Placement COMPARISON: Earlier the same day. EXAM PARAMETERS: NUMBER OF VIEWS: One view. TECHNIQUE: Single frontal radiographic view of the chest acquired. RADIATION DOSE: NA LIMITATIONS: None. FINDINGS: LUNGS AND PLEURA: Increasing right basilar opacification possibly effusion or elevated hem idiaphragm. Central line overlies the SVC. Endotracheal tube lies just above the herminio. NG tube t ip is not imaged. Is well below the GE junction. Bilateral edema is less apparent on the current st udy. MEDIASTINUM AND HILAR STRUCTURES: No masses. Contour normal. HEART AND VASCULAR STRUCTURES: Heart normal in size. Normal vasculature. BONES: No acute findings. HARDWARE: None in the chest. OTHER: No other significant finding. IMPRESSION: Support lines and tubes have been placed as discussed. Increasing opacification in the right lung base. Overall pulmonary edema pattern appears improved. TECHNICAL DOCUMENTATION: JOB ID: [id number] 2010 [email or web address]- All Rights Reserved Reading location - IP/workstation name: [email or web address]
--- NOTE | 2020-04-29 15:25 | EKG REPORT ---
SEVERITY:- ABNORMAL ECG - SINUS RHYTHM LOW VOLTAGE IN FRONTAL LEADS NONSPECIFIC T ABNORMALITIES, DIFFUSE LEADS PROLONGED QT INTERVAL : Confirmed by: Fran Concepcion MD 29-Apr-2020 15:24:33
--- NOTE | 2020-04-29 18:14 | XCELERA REPORT ---
[address] [address] Transthoracic Echocardiogram Report Name: JAMIL CARYINE Julio C Age: 69 yrs Gender: Female : 1950 Patient Status: Inpatient Patient Location: ICU^611^A Study Date: 04/29/2020 03:24 PM Height: 61 in Weight: 132 lb BSA: 1.6 m2 Procedure: A two-dimensional transthoracic echocardiogram with color flow and Doppler was performed. Study Quality: Fair. Reason For Study: a-fib, MVP, and shock History: a-fib, MVP, and shock. Ordering Physician: CYDNEY GILL Performed By: Ayidn Hedrick Interpretation Summary The left ventricle is normal in size. There is normal left ventricular wall thickness. LV EF is 25% Left ventricular systolic function is severely reduced. Doppler measurements suggest impaired left ventricular relaxation, which is associated with grade I/IV or mild diastolic dysfunction All the Basal LV segments contract normally.All the mid and apical LV segments are severely hypokinetic to Akinetic.The picture is consistent with '[place] Cardiomyopathy'. There is no thrombus. Hiv Prevention Specialist ASD VSD or PFO seen. The right ventricle is mildly dilated. The right ventricle is not well visualized secondary to technical limitations The right atrium is normal in size The left atrial size is normal. There is no evidence of mitral valve prolapse. There is no mitral valve stenosis. There is a mild amount of mitral regurgitation There is no aortic valvular vegetation. There is no aortic valve stenosis There is no LVOT obstruction. There is a trace amount of aortic regurgitation There is no tricuspid stenosis. There is a moderate to severe amount of tricuspid regurgitation RVSP is at least 61 mm of Hg , with RA mean of at least 20. There is no pulmonic valvular stenosis. There is a trace amount of pulmonic regurgitation The aortic root is normal size. The inferior vena cava appeared dilated and did not change with respiration (RAP > 20 mmHg) Trace posterior pericardial effusion. MMode/2D Measurements & Calculations RVDd: 2.3 cm LVIDd: 4.5 cm FS: 13.0 % Ao root diam: 2.6 cm IVSd: 1.1 cm LVIDs: 3.9 cm EDV(Teich): 93.3 ml Ao root area: 5.4 cm2 LVPWd: 1.1 cm ESV(Teich): 67.2 ml LA dimension: 3.2 cm EF(Teich): 28.0 % Doppler Measurements & Calculations MV E max janeth: MV P1/2t max janeth: Ao V2 max: LV V1 max P.7 cm/sec 54.0 cm/sec 79.6 cm/sec 2.4 mmHg MV A max janeth: MV P1/2t: 59.4 msec Ao max PG: LV V1 max: 64.4 cm/sec MVA(P1/2t): 3.7 cm2 2.5 mmHg 76.8 cm/sec MV E/A: 0.71 MV dec slope: 266.0 cm/sec2 MV dec time: 0.16 sec PA V2 max: PI end-d janeth: TR max janeth: MV P1/2t-pr_phl: 68.4 cm/sec 129.0 cm/sec 317.6 cm/sec 59.4 msec PA max PG: TR max P.9 mmHg 40.4 mmHg Left Ventricle The left ventricle is normal in size. There is normal left ventricular wall thickness. LV EF is 25%. Left ventricular systolic function is severely reduced. Doppler measurements suggest impaired left ventricular relaxation, which is associated with grade I/IV or mild diastolic dysfunction. All the Basal LV segments contract normally.All the mid and apical LV segments are severely hypokinetic to Akinetic.The picture is consistent with '[place] Cardiomyopathy'. There is no thrombus. Hiv Prevention Specialist ASD VSD or PFO seen. Right Ventricle The right ventricle is mildly dilated. The right ventricle is not well visualized secondary to technical limitations. Atria The right atrium is normal in size. The left atrial size is normal. Mitral Valve There is no evidence of mitral valve prolapse. There is no vegetation seen on the mitral valve. There is no mitral valve stenosis. There is a mild amount of mitral regurgitation. Aortic Valve There is no aortic valvular vegetation. There is no aortic valve stenosis. There is no LVOT obstruction. There is a trace amount of aortic regurgitation. Tricuspid Valve There is no tricuspid stenosis. There is a moderate to severe amount of tricuspid regurgitation. RVSP is at least 61 mm of Hg , with RA mean of at least 20. There is servere pulmonary hypertension by echo. Pulmonic Valve There is no pulmonic valvular stenosis. There is a trace amount of pulmonic regurgitation. Great Vessels The aortic root is normal size. The inferior vena cava appeared dilated and did not change with respiration (RAP > 20 mmHg). Effusions Trace posterior pericardial effusion. : CYDNEY GILL Lakshmi
[2020-04-29] MEDS ORDERED: DEXTROSE 50%-WATER SYRINGE 12.5 GM/25 ML DOSE IV PRN (19:00)
[2020-04-29] MEDS ORDERED: DEXTROSE 40% GEL 15 GM TUBE X 2 PO PRN (19:00)
[2020-04-29] MEDS ORDERED: DEXTROSE 40% GEL 15 GM TUBE PO PRN (19:00)
[2020-04-29] MEDS ORDERED: GLUCAGON,HUMAN RECOMB 1 MG INJ IM PRN (19:00)
[2020-04-29] MEDS ORDERED: DEXTROSE 50%-WATER SYRINGE 25 GM/50 ML DOSE IV PRN (19:00)
--- NOTE | 2020-04-29 21:33 | PDOC CONSULTATION ---
Consultation-Blank Consultation: CARDIOLOGY CRITICAL CARE CONSULTATION by Dr. Cydney Dickens on 04/29/2020. Patient seen at 12:50 PM. 75 minutes of critical care time spent with patient due to atrial fibrillation with hypotension with rapid ventricular response, requiring emergency DC cardioversion, and starting and adjusting/titrating the patient's pressors for the patient's hypotension/shock.. CONSULT REQUESTING PHYSICIAN: Mr. Bakari Penaloza, medical support specialist. REASON FOR CONSULTATION: Patient with atrial fibrillation with rapid ventricular response and shock. HISTORY OF PRESENT ILLNESS: Patient well-known to me who follows up with me in the office. Patient has a history of bipolar disorder who was very stable on current medication, paroxysmal atrial fibrillation with no recurrence on Eliquis and history of hypertension who recently had neck pain and headache. Her gabapentin was increased by her neurologist. She subsequently started having slurred speech and ataxia and was mentally getting worse with confusion and stupor. She was seen by Dr. Francisco alvarez on the a.m. of 04/29/2020 in the room to have rib respiratory depression leading to respiratory arrest requiring intubation. The patient now is in the ICU. She developed atrial fibrillation with rapid ventricular response with hypotension and I cardioverted to sinus rhythm successfully. She was also hypotensive even after the cardioversion although the systolic blood pressure post cardioversion was 80 compared to 60 systolic prior to the cardioversion. She has also been started on Luis- Synephrine at 180 mcg/min. An echocardiogram was also obtained and this showed severely reduced LV ejection fraction which is new compared to a prior echocardiogram and there is evidence of apical and mid LV segment severe hypokinesis to akinesis depicting a picture of Takotsubo cardiomyopathy. She also had severe pulmonary hypertension with right ventricle systolic pressure of at least 61 mmHg with a right atrial mean of at least 20. This admission records have been reviewed. She has no history of TIA CVA. Her last stress test done in 2018 was negative for ischemia or ME. The patient has not had any anginal symptoms and clinically there is no evidence of coronary artery disease. Past Medical History Cardiac Medical History: Reports: Atrial Fibrillation - Chronic paroxysmal atrial fibrillation, Hypertension Denies: Coronary Artery Disease, Myocardial Infarction Pulmonary Medical History: Reports: Pneumonia Denies: Asthma, Bronchitis, Chronic Obstructive Pulmonary Disease (COPD) Neurological Medical History: Reports: Seizures - Since head injury at age 4 Endocrine Medical History: Reports: Hypothyroidism Denies: Diabetes Mellitus Type 1, Diabetes Mellitus Type 2, Hyperthyroidism GI Medical History: Denies: Cirrhosis, Hepatitis, Hiatal Hernia Musculoskeltal Medical History: Reports: Arthritis Denies: Fibromyalgia, Gout Skin Medical History: Denies: Eczema, Psoriasis Psychiatric Medical History: Reports: Bipolar Disorder - With extremely severe depression and extremely severe floyd, Depression. But recently the patient has been stable with respect to bipolar disorder without any major depression manic or agitated episodes. 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 The patient's sister is her surrogate healthcare decision maker. Social History Smoking Status: Unknown if Ever Smoked Frequency of Alcohol Use: Occasional Hx Recreational Drug Use: No Drugs: None Hx Prescription Drug Abuse: No - Advance Directive Resuscitation Status: Full Code Family History Family History: CAD, Malignancy Parental Family History Reviewed: Yes Children Family History Reviewed: Yes Sibling(s) Family History Reviewed.: Yes Medication/Allergy Home Medications: Acyclovir [Acyclovir 400 mg Tablet] 400 mg PO Q12 01/02/18 Wishram Carbonate 300 mg PO Q48H 01/02/18 Quetiapine Fumarate [Seroquel] 100 mg PO QHS 01/02/18 Biotin 5,000 mcg SL DAILY 06/03/18 Calcium Carbonate/Vitamin D3 [Calcium 600-Vit D3 800 Caplet] 1 each PO Q12 06/03/18 Gabapentin [Neurontin 300 mg Capsule] 300 mg PO Q8 06/03/18 Liothyronine Sodium [Cytomel 25 Mcg Tablet] 25 mcg PO Q12 MDD Q48H 06/03/18 Multivit/Folic Acid/Vit K1 [One-A-Day Women's 50 Plus Tab] 1 each PO Q12A 06/03/18 Amlodipine Besylate [Norvasc 2.5 mg Tablet] 2.5 mg PO Q12 #60 tablet 06/06/18 Apixaban [Eliquis 5 mg Tablet] 5 mg PO BID #60 tablet 06/06/18 Metoprolol Succinate [Toprol Xl 25 mg Tab.sr] 25 mg PO DAILY #30 tab.sr.24h 06/06/18 Oxcarbazepine [Trileptal] 300 mg PO MEALS #90 tablet 09/25/18 Cyanocobalamin (Vitamin B-12) [Vitamin B12] 2,500 mcg PO DAILY 01/23/19 Vitamin B Complex [B Complex] 1 each PO DAILY 01/23/19 Allergies/Adverse Reactions: latex [Latex] Allergy (Severe, Verified 02/05/19 05:59) SWELLING codeine [Codeine] Adverse Reaction (Intermediate, Verified 02/05/19 05:59) FEELING OF GOING FAST diphenhydramine HCl [From Benadryl] Adverse Reaction (Intermediate, Verified 02/05/19 05:59) "CANNOT SLEEP" metronidazole [Metronidazole] Adverse Reaction (Intermediate, Verified 02/05/19 05:59) SEVERE JOINT PAIN milk Adverse Reaction (Verified 02/05/19 05:59) Diarrhea pseudoephedrine HCl [From Sudafed] Adverse Reaction (Verified 02/05/19 05:59) "TROUBLE SLEEPING" Sulfa (Sulfonamide Antibiotics) Adverse Reaction (Verified 02/05/19 05:59) STEROIDS Adverse Reaction (Uncoded 02/05/19 05:59) MANIC EPISODES Current Medications Acetaminophen (Acetaminophen 325 Mg Tablet) 650 mg PO Q4HP PRN PRN Reason: FOR PAIN OR TEMP Stop: 05/27/20 18:50 Acetaminophen (Acetaminophen 650 Mg Supp.Rect) 650 mg [place] Q4HP PRN PRN Reason: FOR PAIN OR TEMP Stop: 05/27/20 18:50 Last Admin: 04/28/20 20:15 Dose: 650 mg Documented by: Al Hydrox/Mg Hydrox/Simethicone (Mag Hydrox/Al Hydrox/Simeth Susp 30 Ml Udcup) 15 ml PO Q6HP PRN PRN Reason: HEARTBURN Stop: 05/27/20 18:50 Apixaban (Apixaban 2.5 Mg Tablet) 2.5 mg PO Q12 SHAHEED Stop: 05/30/20 21:59 Last Admin: 04/30/20 22:05 Dose: 2.5 mg Documented by: Dextrose (Dextrose 50%-Water 25 Gm/50 Ml Disp.Syrin) 12.5 gm IV PRN PRN; Protocol PRN Reason: FOR BG 50-69 IN ALERT PATIENT Stop: 05/27/20 18:35 Dextrose (Dextrose 50%-Water 25 Gm/50 Ml Disp.Syrin) 25 gm IV PRN PRN; Protocol PRN Reason: See Label Comments Stop: 05/27/20 18:35 Glucagon (Glucagon,Human Recomb 1 Mg Inj) 1 mg SUBCUT PRN PRN; Protocol PRN Reason: Evaluate for BG < 70 Stop: 05/27/20 18:35 Glucose (Dextrose 40% Gel 15 Gm Tube) 15 gm PO PRN PRN; Protocol PRN Reason: For BG 50-69 in Alert Patient Stop: 05/27/20 18:35 Glucose (Dextrose 40% Gel 15 Gm Tube) 30 gm PO PRN PRN; Protocol PRN Reason: FOR BG < 50 IN ALERT PATIENT Stop: 05/27/20 18:35 Sodium Chloride (Nacl 0.9% 1000 Ml Iv Soln) 1,000 mls @ 120 mls/hr IV CONT INUOUS PRN PRN Reason: THIS MED IS NOT "PRN" Stop: 05/27/20 18:50 Last Admin: 04/30/20 06:15 Dose: 120 mls/hr Documented by: Vancomycin HCl 750 mg/ (Dextrose) 250 mls @ 166.667 mls/hr IV QHS [facility] Stop: 05/05/20 21:59 Last Infusion: 04/30/20 23:35 Dose: Infused Documented by: Acyclovir Sodium 500 mg/ (Sodium Chloride) 110 mls @ 110 mls/hr IV Q8A [facility] Stop: 05/06/20 09:59 Last Admin: 04/30/20 17:29 Dose: 110 mls/hr Documented by: Hard Fat/Phenylephrine 40 mg/ (Dextrose) 250 mls @ 0 mls/hr IV CONTINUOUS PRN; Protocol PRN Reason: THIS MED IS NOT "PRN" Stop: 05/29/20 13:56 Last Admin: 04/30/20 22:20 Dose: 120 mcg/min, 45 mls/hr Documented by: Norepinephrine Bitartrate 4 mg (/ Dextrose) 250 mls @ 0 mls/hr IV CONTINUOUS PRN; Protocol PRN Reason: THIS MED IS NOT "PRN" Stop: 05/29/20 14:24 Propofol (Diprivan Rtu 1000 Mg/100 Ml Inf.Bottle) 1,000 mg in 100 mls @ 1.803 mls/hr IV CONTINUOUS PRN; Protocol PRN Reason: THIS MED IS NOT "PRN" Stop: 05/29/20 15:44 Last Titration: 04/30/20 07:30 Dose: 10 mcg/kg/min, 3.61 mls/hr Documented by: Dopamine HCl/Dextrose (Dopamine Rtu 800 Mg-D5w 250 Ml (Adult) Premix) 800 mg in 250 mls @ 2.817 mls/hr IV CONTINUOUS PRN; Protocol PRN Reason: THIS MED IS NOT "PRN" Stop: 05/30/20 06:00 Last Admin: 04/30/20 06:10 Dose: 2.5 mcg/kg/min, 2.82 mls/hr Documented by: Imipenem/Cilastatin Sodium 500 (mg/ Sodium Chloride) 100 mls @ 100 mls/hr IV Q12@1100,2300 [facility] Stop: 05/07/20 10:59 Last Admin: 04/30/20 22:41 Dose: 100 mls/hr Documented by: Insulin Human Lispro (Insulin Lispro 100 Unit/Ml 3 Ml Vial) 0 - [address] [facility]; Protocol Stop: 05/30/20 00:00 Last Admin: 05/01/20 00:17 Dose: Not Given Documented by: Liothyronine Sodium (Liothyronine Sodium 25 Mcg Tablet) [address] [facility] Stop: 05/28/20 09:59 Last Admin: 04/30/20 09:42 Dose: 25 mcg Documented by: Lorazepam (Lorazepam Inj 2 Mg/1 Ml Vial) 1.5 mg IV Q6HP PRN PRN Reason: RESTLESSNESS/AGITATION Stop: 05/04/20 19:07 Last Admin: 04/29/20 04:19 Dose: 1.5 mg Documented by: Metoprolol Succinate (Metoprolol Succinate 25 Mg Tab.Sr.24h) [address] [facility] Stop: 05/28/20 09:59 Last Admin: 04/28/20 14:31 Dose: Not Given Documented by: Pantoprazole Sodium (Pantoprazole Sodium 40 Mg Vial) [address] [facility] Stop: 05/06/20 09:59 Last Admin: 04/30/20 09:41 Dose: 40 mg Documented by: Promethazine HCl (Promethazine Hcl Inj 25 Mg/1 Ml Vial) 12.5 mg IV Q6HP PRN PRN Reason: UNRESOLVED NAUSEA/VOMITING Stop: 05/27/20 19:06 Review of Systems ROS unobtainable since the patient is intubated and sedated. PHYSICAL EXAMINATION: The patient is a frail build she is intubated and sedated. Selected Entries 04/29/20 04/29/20 04/29/20 13:24 13:34 14:00 Heart Rate ( 80 145 Post cardioversion heart rate 82 bpm Monitors) Respiratory 15 17 24 H Rate Positive End 5 Expiratory Pressure Blood Pressure 78/55 L 60/31 L Post cardioversion 80/60 Blood Pressure 62 40 Mean O2 Sat by Pulse 100 100 Oximetry Fraction of 100 Inspired Oxygen On mechanical ventilation. (FIO2) HEENT is negative. Neck is supple. There is no JVD. Carotids are equal there is no bruit. Skin: There is no skin rashes. Skin is cool to touch. There is no petechia or ecchymosis. LUNGS: Few scattered rhonchi, there is some diminished breath sounds in the right base. There is a few bibasilar rales of CHF. There is no rhonchi rales or wheezing. HEART: S1-S2 is heard. S1 is of normal intensity. There is no S3 gallop. There is no S4 gallop. There is systolic murmur in the left sternal border and the apex . There is no rub. ABDOMEN: Soft. There is no hepatosplenomegaly. Bowel sounds well heard. EXTREMITIES: Femorals are diminished. There is no femoral bruits. Leg pulses are well felt. There is no pedal edema. There is no DVT or cellulitis. SCIENCE JOB TITLES and psychiatric not examined due to patient being intubated and sedated. Echo findings as above shows severe pulmonary hypertension and there is evidence of Takotsubo cardiomyopathy with severely reduced LV ejection fraction. There is also mitral regurgitation and tricuspid regurgitation. EKG:SINUS RHYTHM [LVOLF] . LOW VOLTAGE IN FRONTAL LEADS [T1DI] . NONSPECIFIC T ABNORMALITIES, prolonged QT interval. Labs- Entire Visit 04/27/20 04/27/20 04/27/20 15:01 15:01 15:01 WBC 17.8 H RBC 2.46 L Hgb 7.9 L Hct 23.5 L MCV 95 MCH 31.9 MCHC 33.5 RDW 13.5 Plt Count 605 H Lymph % (Auto) Not Reportable [facility] % (Auto) Not Reportable Eos % (Auto) Not Reportable Baso % (Auto) Not Reportable Reticulocyte # Absolute Neuts (auto) Not Reportable Absolute Lymphs (auto) Not Reportable Absolute Monos (auto) Not Reportable Absolute Eos (auto) Not Reportable Absolute Basos (auto) Not Reportable Total Counted 100 Seg Neutrophils % Not Reportable Seg Neuts % (Manual) 83 H Band Neutrophils % 2 L Lymphocytes % (Manual) 8 L Atypical Lymphs % Monocytes % (Manual) 5 Eosinophils % (Manual) 0 Basophils % (Manual) 0 Metamyelocytes % 2 H Abs Neuts (Manual) 15.5 H Abs Lymphs (Manual) 1.4 Abs Monocytes (Manual) 0.9 Absolute Eos (Manual) 0.0 Abs Basophils (Manual) 0.0 Toxic Granulation Clumped Platelets Platelet Comment INCREASED Polychromasia Poikilocytosis Anisocytosis Ovalocytes Shailesh Cells Schistocytes RBC Morph Comment NORMO-CYTIC/CHROMIC Retic Count (auto) PT 28.2 H INR 2.65 APTT Carbonic Acid HCO3/H2CO3 Ratio ABG pH ABG pCO2 ABG pO2 ABG HCO3 ABG Total CO2 ABG O2 Saturation ABG Base Excess VBG pH VBG pCO2 VBG HCO3 VBG Base Excess FiO2 Sodium 136.9 L Potassium 4.6 Chloride 105 Carbon Dioxide 17 L Anion Gap 15 BUN 13 Creatinine 1.27 H Est GFR ( Amer) 51 L Est GFR (MDRD) Non-Af 42 L Glucose 100 POC Glucose Lactic Acid Calcium 10.8 H Phosphorus Magnesium Iron TIBC % Saturation Ferritin Total Bilirubin 0.8 Direct Bilirubin 0.3 Neonat Total Bilirubin Not Reportable Neonat Direct Bilirubin Not Reportable Neonat Indirect Bili Not Reportable AST 154 H ALT 132 H Alkaline Phosphatase 118 Ammonia Creatine Kinase Troponin I Total Protein 6.3 Albumin 3.0 L Triglycerides Vitamin B12 Folate TSH Free T4 Free T3 pg/mL Urine Color Urine Appearance Urine pH Ur Specific [place] Urine Protein Urine Glucose (UA) Urine Ketones Urine Blood Urine Nitrite (Reflex) Urine Bilirubin Urine Urobilinogen Leukocyte Esterase Rfl Urine RBC (Auto) U Hyaline Cast (Auto) Urine Bacteria (Auto) Urine WBC (Reflex) Squamous Epi Cells Auto U Non-Squamous Epis Auto Urine Mucus (Auto) Urine Ascorbic Acid Jasen Human Metapneumo PCR POC Stool Occult Blood Serum Alcohol Adenovirus (PCR) B. pertussis DNA (PCR) B.parapertussis DNA PCR C. pneumoniae DNA (PCR) Coronavirus OC43 (PCR) Coronavirus HKU1 (PCR) Coronavirus 229E (PCR) COVID-19 Source COVID-19 ([place]) Coronavirus NL63 (PCR) Influenza A (Rapid) Influenza A (RT-PCR) Influenza A (H1) PCR Influ A (H1N1/09) PCR Influenza A (H3) PCR Influenza Type A (PCR) Influenza B (Rapid) Influenza B (RT-PCR) Influenza Type B (PCR) M. pneumoniae (PCR) Parainfluenza 1 (PCR) Parainfluenza 2 (PCR) Parainfluenza 3 (PCR) Parainfluenza 4 (PCR) RSV (RT-PCR) RSV (PCR) Entero/Rhino (PCR) SARS-CoV-2 (PCR) SARS-CoV-2 Rap RNA(RT-PCR) Blood Type Antibody Screen Crossmatch 04/27/20 04/27/20 04/27/20 15:01 15:01 15:01 WBC RBC Hgb Hct MCV MCH MCHC RDW Plt Count Lymph % (Auto) [facility] % (Auto) Eos % (Auto) Baso % (Auto) Reticulocyte # Absolute Neuts (auto) Absolute Lymphs (auto) Absolute Monos (auto) Absolute Eos (auto) Absolute Basos (auto) Total Counted Seg Neutrophils % Seg Neuts % (Manual) Band Neutrophils % Lymphocytes % (Manual) Atypical Lymphs % Monocytes % (Manual) Eosinophils % (Manual) Basophils % (Manual) Metamyelocytes % Abs Neuts (Manual) Abs Lymphs (Manual) Abs Monocytes (Manual) Absolute Eos (Manual) Abs Basophils (Manual) Toxic Granulation Clumped Platelets Platelet Comment Polychromasia Poikilocytosis Anisocytosis Ovalocytes Shailesh Cells Schistocytes RBC Morph Comment Retic Count (auto) PT INR APTT Carbonic Acid HCO3/H2CO3 Ratio ABG pH ABG pCO2 ABG pO2 ABG HCO3 ABG Total CO2 ABG O2 Saturation ABG Base Excess VBG pH VBG pCO2 VBG HCO3 VBG Base Excess FiO2 Sodium Potassium Chloride Carbon Dioxide Anion Gap BUN Creatinine Est GFR ( Amer) Est GFR (MDRD) Non-Af Glucose POC Glucose Lactic Acid 6.4 H Calcium Phosphorus Magnesium Iron TIBC % Saturation Ferritin Total Bilirubin Direct Bilirubin Neonat Total Bilirubin Neonat Direct Bilirubin Neonat Indirect Bili AST ALT Alkaline Phosphatase Ammonia Creatine Kinase 155 H Troponin I < 0.012 Total Protein Albumin Triglycerides Vitamin B12 Folate TSH Free T4 Free T3 pg/mL Urine Color Urine Appearance Urine pH Ur Specific [place] Urine Protein Urine Glucose (UA) Urine Ketones Urine Blood Urine Nitrite (Reflex) Urine Bilirubin Urine Urobilinogen Leukocyte Esterase Rfl Urine RBC (Auto) U Hyaline Cast (Auto) Urine Bacteria (Auto) Urine WBC (Reflex) Squamous Epi Cells Auto U Non-Squamous Epis Auto Urine Mucus (Auto) Urine Ascorbic Acid Jasen Human Metapneumo PCR POC Stool Occult Blood Serum Alcohol Adenovirus (PCR) B. pertussis DNA (PCR) B.parapertussis DNA PCR C. pneumoniae DNA (PCR) Coronavirus OC43 (PCR) Coronavirus HKU1 (PCR) Coronavirus 229E (PCR) COVID-19 Source COVID-19 ([place]) Coronavirus NL63 (PCR) Influenza A (Rapid) Influenza A (RT-PCR) Influenza A (H1) PCR Influ A (H1N1/) PCR Influenza A (H3) PCR Influenza Type A (PCR) Influenza B (Rapid) Influenza B (RT-PCR) Influenza Type B (PCR) M. pneumoniae (PCR) Parainfluenza 1 (PCR) Parainfluenza 2 (PCR) Parainfluenza 3 (PCR) Parainfluenza 4 (PCR) RSV (RT-PCR) RSV (PCR) Entero/Rhino (PCR) SARS-CoV-2 (PCR) SARS-CoV-2 Rap RNA(RT-PCR) Blood Type Antibody Screen Crossmatch 04/27/20 04/27/20 04/27/20 15:01 15:01 15:01 WBC RBC Hgb Hct MCV MCH MCHC RDW Plt Count Lymph % (Auto) [facility] % (Auto) Eos % (Auto) Baso % (Auto) Reticulocyte # Absolute Neuts (auto) Absolute Lymphs (auto) Absolute Monos (auto) Absolute Eos (auto) Absolute Basos (auto) Total Counted Seg Neutrophils % Seg Neuts % (Manual) Band Neutrophils % Lymphocytes % (Manual) Atypical Lymphs % Monocytes % (Manual) Eosinophils % (Manual) Basophils % (Manual) Metamyelocytes % Abs Neuts (Manual) Abs Lymphs (Manual) Abs Monocytes (Manual) Absolute Eos (Manual) Abs Basophils (Manual) Toxic Granulation Clumped Platelets Platelet Comment Polychromasia Poikilocytosis Anisocytosis Ovalocytes [place] Cells Schistocytes RBC Morph Comment Retic Count (auto) PT INR APTT Carbonic Acid HCO3/H2CO3 Ratio ABG pH ABG pCO2 ABG pO2 ABG HCO3 ABG Total CO2 ABG O2 Saturation ABG Base Excess VBG pH VBG pCO2 VBG HCO3 VBG Base Excess FiO2 Sodium Potassium Chloride Carbon Dioxide Anion Gap BUN Creatinine Est GFR ( Amer) Est GFR (MDRD) Non-Af Glucose POC Glucose Lactic Acid Calcium Phosphorus Magnesium Iron TIBC % Saturation Ferritin Total Bilirubin Direct Bilirubin Neonat Total Bilirubin Neonat Direct Bilirubin Neonat Indirect Bili AST ALT Alkaline Phosphatase Ammonia Creatine Kinase Troponin I Total Protein Albumin Triglycerides Vitamin B12 Folate TSH 0.82 Free T4 0.23 L Free T3 pg/mL 1.71 L Urine Color AMAIRANI Urine Appearance CLOUDY Urine pH 5.0 Ur Specific [place] 1.017 Urine Protein 30 H Urine Glucose (UA) NEGATIVE Urine Ketones NEGATIVE Urine Blood SMALL H Urine Nitrite (Reflex) NEGATIVE Urine Bilirubin NEGATIVE Urine Urobilinogen NEGATIVE Leukocyte Esterase Rfl LARGE H Urine RBC (Auto) 19 U Hyaline Cast (Auto) 5 Urine Bacteria (Auto) TRACE Urine WBC (Reflex) 63 Squamous Epi Cells Auto 2 U Non-Squamous Epis Auto 4 Urine Mucus (Auto) FEW Urine Ascorbic Acid NEGATIVE Jasen Human Metapneumo PCR POC Stool Occult Blood Serum Alcohol < 10 Adenovirus (PCR) B. pertussis DNA (PCR) B.parapertussis DNA PCR C. pneumoniae DNA (PCR) Coronavirus OC43 (PCR) Coronavirus HKU1 (PCR) Coronavirus 229E (PCR) COVID-19 Source COVID-19 ([place]) Coronavirus NL63 (PCR) Influenza A (Rapid) Influenza A (RT-PCR) Influenza A (H1) PCR Influ A (H1N1/09) PCR Influenza A (H3) PCR Influenza Type A (PCR) Influenza B (Rapid) Influenza B (RT-PCR) Influenza Type B (PCR) M. pneumoniae (PCR) Parainfluenza 1 (PCR) Parainfluenza 2 (PCR) Parainfluenza 3 (PCR) Parainfluenza 4 (PCR) RSV (RT-PCR) RSV (PCR) Entero/Rhino (PCR) SARS-CoV-2 (PCR) SARS-CoV-2 Rap RNA(RT-PCR) Blood Type Antibody Screen Crossmatch 04/27/20 04/27/20 04/27/20 15:42 15:42 15:42 WBC RBC Hgb Hct MCV MCH MCHC RDW Plt Count Lymph % (Auto) [facility] % (Auto) Eos % (Auto) Baso % (Auto) Reticulocyte # Absolute Neuts (auto) Absolute Lymphs (auto) Absolute Monos (auto) Absolute Eos (auto) Absolute Basos (auto) Total Counted Seg Neutrophils % Seg Neuts % (Manual) Band Neutrophils % Lymphocytes % (Manual) Atypical Lymphs % Monocytes % (Manual) Eosinophils % (Manual) Basophils % (Manual) Metamyelocytes % Abs Neuts (Manual) Abs Lymphs (Manual) Abs Monocytes (Manual) Absolute Eos (Manual) Abs Basophils (Manual) Toxic Granulation Clumped Platelets Platelet Comment Polychromasia Poikilocytosis Anisocytosis Ovalocytes [place] Cells Schistocytes RBC Morph Comment Retic Count (auto) PT INR APTT Carbonic Acid HCO3/H2CO3 Ratio ABG pH ABG pCO2 ABG pO2 ABG HCO3 ABG Total CO2 ABG O2 Saturation ABG Base Excess VBG pH 7.43 H VBG pCO2 30.3 L VBG HCO3 19.5 L VBG Base Excess -3.5 FiO2 Sodium Potassium Chloride Carbon Dioxide Anion Gap BUN Creatinine Est GFR ( Amer) Est GFR (MDRD) Non-Af Glucose POC Glucose Lactic Acid Calcium Phosphorus Magnesium Iron TIBC % Saturation Ferritin Total Bilirubin Direct Bilirubin Neonat Total Bilirubin Neonat Direct Bilirubin Neonat Indirect Bili AST ALT Alkaline Phosphatase Ammonia Creatine Kinase Troponin I Total Protein Albumin Triglycerides Vitamin B12 Folate TSH Free T4 Free T3 pg/mL Urine Color Urine Appearance Urine pH Ur Specific [place] Urine Protein Urine Glucose (UA) Urine Ketones Urine Blood Urine Nitrite (Reflex) Urine Bilirubin Urine Urobilinogen Leukocyte Esterase Rfl Urine RBC (Auto) U Hyaline Cast (Auto) Urine Bacteria (Auto) Urine WBC (Reflex) Squamous Epi Cells Auto U Non-Squamous Epis Auto Urine Mucus (Auto) Urine Ascorbic Acid Jasen Human Metapneumo PCR POC Stool Occult Blood Serum Alcohol Adenovirus (PCR) B. pertussis DNA (PCR) B.parapertussis DNA PCR C. pneumoniae DNA (PCR) Coronavirus OC43 (PCR) Coronavirus HKU1 (PCR) Coronavirus 229E (PCR) COVID-19 Source Cancelled COVID-19 ([place]) Cancelled Coronavirus NL63 (PCR) Influenza A (Rapid) NEGATIVE Influenza A (RT-PCR) Influenza A (H1) PCR Influ A (H1N1/09) PCR Influenza A (H3) PCR Influenza Type A (PCR) Influenza B (Rapid) NEGATIVE Influenza B (RT-PCR) Influenza Type B (PCR) M. pneumoniae (PCR) Parainfluenza 1 (PCR) Parainfluenza 2 (PCR) Parainfluenza 3 (PCR) Parainfluenza 4 (PCR) RSV (RT-PCR) RSV (PCR) Entero/Rhino (PCR) SARS-CoV-2 (PCR) SARS-CoV-2 Rap RNA(RT-PCR) Blood Type Antibody Screen Crossmatch 04/27/20 04/27/20 04/27/20 15:42 15:42 15:47 WBC RBC Hgb Hct MCV MCH MCHC RDW Plt Count Lymph % (Auto) [facility] % (Auto) Eos % (Auto) Baso % (Auto) Reticulocyte # Absolute Neuts (auto) Absolute Lymphs (auto) Absolute Monos (auto) Absolute Eos (auto) Absolute Basos (auto) Total Counted Seg Neutrophils % Seg Neuts % (Manual) Band Neutrophils % Lymphocytes % (Manual) Atypical Lymphs % Monocytes % (Manual) Eosinophils % (Manual) Basophils % (Manual) Metamyelocytes % Abs Neuts (Manual) Abs Lymphs (Manual) Abs Monocytes (Manual) Absolute Eos (Manual) Abs Basophils (Manual) Toxic Granulation Clumped Platelets Platelet Comment Polychromasia Poikilocytosis Anisocytosis Ovalocytes Shailesh Cells Schistocytes RBC Morph Comment Retic Count (auto) PT INR APTT Carbonic Acid HCO3/H2CO3 Ratio ABG pH ABG pCO2 ABG pO2 ABG HCO3 ABG Total CO2 ABG O2 Saturation ABG Base Excess VBG pH VBG pCO2 VBG HCO3 VBG Base Excess FiO2 Sodium Potassium Chloride Carbon Dioxide Anion Gap BUN Creatinine Est GFR ( Amer) Est GFR (MDRD) Non-Af Glucose POC Glucose 95 Lactic Acid Calcium Phosphorus Magnesium Iron TIBC % Saturation Ferritin Total Bilirubin Direct Bilirubin Neonat Total Bilirubin Neonat Direct Bilirubin Neonat Indirect Bili AST ALT Alkaline Phosphatase Ammonia Creatine Kinase Troponin I Total Protein Albumin Triglycerides Vitamin B12 Folate TSH Free T4 Free T3 pg/mL Urine Color Urine Appearance Urine pH Ur Specific [place] Urine Protein Urine Glucose (UA) Urine Ketones Urine Blood Urine Nitrite (Reflex) Urine Bilirubin Urine Urobilinogen Leukocyte Esterase Rfl Urine RBC (Auto) U Hyaline Cast (Auto) Urine Bacteria (Auto) Urine WBC (Reflex) Squamous Epi Cells Auto U Non-Squamous Epis Auto Urine Mucus (Auto) Urine Ascorbic Acid Jasen Human Metapneumo PCR NOT DETECTED POC Stool Occult Blood Serum Alcohol Adenovirus (PCR) NOT DETECTED B. pertussis DNA (PCR) NOT DETECTED B.parapertussis DNA PCR NOT DETECTED C. pneumoniae DNA (PCR) NOT DETECTED Coronavirus OC43 (PCR) NOT DETECTED Coronavirus HKU1 (PCR) NOT DETECTED Coronavirus 229E (PCR) NOT DETECTED COVID-19 Source COVID-19 ([place]) Coronavirus NL63 (PCR) NOT DETECTED Influenza A (Rapid) Influenza A (RT-PCR) NEGATIVE Influenza A (H1) PCR NOT DETECTED Influ A (H1N1/09) PCR NOT DETECTED Influenza A (H3) PCR NOT DETECTED Influenza Type A (PCR) NOT DETECTED Influenza B (Rapid) Influenza B (RT-PCR) NEGATIVE Influenza Type B (PCR) NOT DETECTED M. pneumoniae (PCR) NOT DETECTED Parainfluenza 1 (PCR) NOT DETECTED Parainfluenza 2 (PCR) NOT DETECTED Parainfluenza 3 (PCR) NOT DETECTED Parainfluenza 4 (PCR) NOT DETECTED RSV (RT-PCR) NEGATIVE RSV (PCR) NOT DETECTED Entero/Rhino (PCR) NOT DETECTED SARS-CoV-2 (PCR) NOT DETECTED SARS-CoV-2 Rap RNA(RT-PCR) NEGATIVE Blood Type Antibody Screen Crossmatch 04/27/20 04/27/20 04/27/20 17:04 18:54 21:40 WBC RBC Hgb Hct MCV MCH MCHC RDW Plt Count Lymph % (Auto) [facility] % (Auto) Eos % (Auto) Baso % (Auto) Reticulocyte # Absolute Neuts (auto) Absolute Lymphs (auto) Absolute Monos (auto) Absolute Eos (auto) Absolute Basos (auto) Total Counted Seg Neutrophils % Seg Neuts % (Manual) Band Neutrophils % Lymphocytes % (Manual) Atypical Lymphs % Monocytes % (Manual) Eosinophils % (Manual) Basophils % (Manual) Metamyelocytes % Abs Neuts (Manual) Abs Lymphs (Manual) Abs Monocytes (Manual) Absolute Eos (Manual) Abs Basophils (Manual) Toxic Granulation Clumped Platelets Platelet Comment Polychromasia Poikilocytosis Anisocytosis Ovalocytes [place] Cells Schistocytes RBC Morph Comment Retic Count (auto) PT INR APTT Carbonic Acid HCO3/H2CO3 Ratio ABG pH ABG pCO2 ABG pO2 ABG HCO3 ABG Total CO2 ABG O2 Saturation ABG Base Excess VBG pH VBG pCO2 VBG HCO3 VBG Base Excess FiO2 Sodium Potassium Chloride Carbon Dioxide Anion Gap BUN Creatinine Est GFR ( Amer) Est GFR (MDRD) Non-Af Glucose POC Glucose Lactic Acid 1.6 1.2 Calcium Phosphorus Magnesium Iron TIBC % Saturation Ferritin Total Bilirubin Direct Bilirubin Neonat Total Bilirubin Neonat Direct Bilirubin Neonat Indirect Bili AST ALT Alkaline Phosphatase Ammonia Creatine Kinase Troponin I Total Protein Albumin Triglycerides Vitamin B12 Folate TSH Free T4 Free T3 pg/mL Urine Color Urine Appearance Urine pH Ur Specific [place] Urine Protein Urine Glucose (UA) Urine Ketones Urine Blood Urine Nitrite (Reflex) Urine Bilirubin Urine Urobilinogen Leukocyte Esterase Rfl Urine RBC (Auto) U Hyaline Cast (Auto) Urine Bacteria (Auto) Urine WBC (Reflex) Squamous Epi Cells Auto U Non-Squamous Epis Auto Urine Mucus (Auto) Urine Ascorbic Acid Jasen Human Metapneumo PCR POC Stool Occult Blood POSITIVE Serum Alcohol Adenovirus (PCR) B. pertussis DNA (PCR) B.parapertussis DNA PCR C. pneumoniae DNA (PCR) Coronavirus OC43 (PCR) Coronavirus HKU1 (PCR) Coronavirus 229E (PCR) COVID-19 Source COVID-19 ([place]) Coronavirus NL63 (PCR) Influenza A (Rapid) Influenza A (RT-PCR) Influenza A (H1) PCR Influ A (H1N1/09) PCR Influenza A (H3) PCR Influenza Type A (PCR) Influenza B (Rapid) Influenza B (RT-PCR) Influenza Type B (PCR) M. pneumoniae (PCR) Parainfluenza 1 (PCR) Parainfluenza 2 (PCR) Parainfluenza 3 (PCR) Parainfluenza 4 (PCR) RSV (RT-PCR) RSV (PCR) Entero/Rhino (PCR) SARS-CoV-2 (PCR) SARS-CoV-2 Rap RNA(RT-PCR) Blood Type Antibody Screen Crossmatch 04/27/20 04/28/20 04/28/20 21:40 00:30 05:38 WBC 19.2 H RBC 2.34 L Hgb 7.2 L Hct 22.5 L MCV 96 MCH 30.8 MCHC 32.1 RDW 13.5 Plt Count 484 H Lymph % (Auto) 6.[address] [facility] % (Auto) 7.3 Eos % (Auto) 0.6 Baso % (Auto) 0.4 Reticulocyte # 0.043 Absolute Neuts (auto) 16.5 H Absolute Lymphs (auto) 1.2 Absolute Monos (auto) 1.4 Absolute Eos (auto) 0.1 Absolute Basos (auto) 0.1 Total Counted Seg Neutrophils % 85.7 H Seg Neuts % (Manual) Band Neutrophils % Lymphocytes % (Manual) Atypical Lymphs % Monocytes % (Manual) Eosinophils % (Manual) Basophils % (Manual) Metamyelocytes % Abs Neuts (Manual) Abs Lymphs (Manual) Abs Monocytes (Manual) Absolute Eos (Manual) Abs Basophils (Manual) Toxic Granulation Clumped Platelets Platelet Comment Polychromasia Poikilocytosis Anisocytosis Ovalocytes Sh[place] Cells Schistocytes RBC Morph Comment Retic Count (auto) 1.82 PT INR APTT Carbonic Acid HCO3/H2CO3 Ratio ABG pH ABG pCO2 ABG pO2 ABG HCO3 ABG Total CO2 ABG O2 Saturation ABG Base Excess VBG pH VBG pCO2 VBG HCO3 VBG Base Excess FiO2 Sodium Potassium Chloride Carbon Dioxide Anion Gap BUN Creatinine Est GFR ( Amer) Est GFR (MDRD) Non-Af Glucose POC Glucose 103 Lactic Acid Calcium Phosphorus Magnesium Iron TIBC % Saturation Ferritin Total Bilirubin Direct Bilirubin Neonat Total Bilirubin Neonat Direct Bilirubin Neonat Indirect Bili AST ALT Alkaline Phosphatase Ammonia < 8.7 L Creatine Kinase Troponin I Total Protein Albumin Triglycerides Vitamin B12 Folate TSH Free T4 Free T3 pg/mL Urine Color Urine Appearance Urine pH Ur Specific [place] Urine Protein Urine Glucose (UA) Urine Ketones Urine Blood Urine Nitrite (Reflex) Urine Bilirubin Urine Urobilinogen Leukocyte Esterase Rfl Urine RBC (Auto) U Hyaline Cast (Auto) Urine Bacteria (Auto) Urine WBC (Reflex) Squamous Epi Cells Auto U Non-Squamous Epis Auto Urine Mucus (Auto) Urine Ascorbic Acid Jasen Human Metapneumo PCR POC Stool Occult Blood Serum Alcohol Adenovirus (PCR) B. pertussis DNA (PCR) B.parapertussis DNA PCR C. pneumoniae DNA (PCR) Coronavirus OC43 (PCR) Coronavirus HKU1 (PCR) Coronavirus 229E (PCR) COVID-19 Source COVID-19 ([place]) Coronavirus NL63 (PCR) Influenza A (Rapid) Influenza A (RT-PCR) Influenza A (H1) PCR Influ A (H1N1/09) PCR Influenza A (H3) PCR Influenza Type A (PCR) Influenza B (Rapid) Influenza B (RT-PCR) Influenza Type B (PCR) M. pneumoniae (PCR) Parainfluenza 1 (PCR) Parainfluenza 2 (PCR) Parainfluenza 3 (PCR) Parainfluenza 4 (PCR) RSV (RT-PCR) RSV (PCR) Entero/Rhino (PCR) SARS-CoV-2 (PCR) SARS-CoV-2 Rap RNA(RT-PCR) Blood Type Antibody Screen Crossmatch 04/28/20 04/28/20 04/28/20 05:38 05:38 06:07 WBC RBC Hgb Hct MCV MCH MCHC RDW Plt Count Lymph % (Auto) [facility] % (Auto) Eos % (Auto) Baso % (Auto) Reticulocyte # Absolute Neuts (auto) Absolute Lymphs (auto) Absolute Monos (auto) Absolute Eos (auto) Absolute Basos (auto) Total Counted Seg Neutrophils % Seg Neuts % (Manual) Band Neutrophils % Lymphocytes % (Manual) Atypical Lymphs % Monocytes % (Manual) Eosinophils % (Manual) Basophils % (Manual) Metamyelocytes % Abs Neuts (Manual) Abs Lymphs (Manual) Abs Monocytes (Manual) Absolute Eos (Manual) Abs Basophils (Manual) Toxic Granulation Clumped Platelets Platelet Comment Polychromasia Poikilocytosis Anisocytosis Ovalocytes [place] Cells Schistocytes RBC Morph Comment Retic Count (auto) PT 25.1 H INR 2.27 APTT 58.8 H Carbonic Acid HCO3/H2CO3 Ratio ABG pH ABG pCO2 ABG pO2 ABG HCO3 ABG Total CO2 ABG O2 Saturation ABG Base Excess VBG pH VBG pCO2 VBG HCO3 VBG Base Excess FiO2 Sodium 142.5 Potassium 4.1 Chloride 114 H Carbon Dioxide 18 L Anion Gap 11 BUN 12 Creatinine 0.94 Est GFR ( Amer) > 60 Est GFR (MDRD) Non-Af 59 L Glucose 85 POC Glucose 98 Lactic Acid Calcium 9.9 Phosphorus 2.5 Magnesium 1.9 Iron 29.0 L TIBC 153 L % Saturation 19 Ferritin 303.00 H Total Bilirubin 0.5 Direct Bilirubin 0.3 Neonat Total Bilirubin Not Reportable Neonat Direct Bilirubin Not Reportable Neonat Indirect Bili Not Reportable AST 84 H ALT 108 H Alkaline Phosphatase 113 Ammonia Creatine Kinase Troponin I Total Protein 5.6 L Albumin 2.6 L Triglycerides Vitamin B12 > 1000.0 H Folate 13.10 TSH Free T4 Free T3 pg/mL Urine Color Urine Appearance Urine pH Ur Specific [place] Urine Protein Urine Glucose (UA) Urine Ketones Urine Blood Urine Nitrite (Reflex) Urine Bilirubin Urine Urobilinogen Leukocyte Esterase Rfl Urine RBC (Auto) U Hyaline Cast (Auto) Urine Bacteria (Auto) Urine WBC (Reflex) Squamous Epi Cells Auto U Non-Squamous Epis Auto Urine Mucus (Auto) Urine Ascorbic Acid Jasen Human Metapneumo PCR POC Stool Occult Blood Serum Alcohol Adenovirus (PCR) B. pertussis DNA (PCR) B.parapertussis DNA PCR C. pneumoniae DNA (PCR) Coronavirus OC43 (PCR) Coronavirus HKU1 (PCR) Coronavirus 229E (PCR) COVID-19 Source COVID-19 ([place]) Coronavirus NL63 (PCR) Influenza A (Rapid) Influenza A (RT-PCR) Influenza A (H1) PCR Influ A (H1N1/) PCR Influenza A (H3) PCR Influenza Type A (PCR) Influenza B (Rapid) Influenza B (RT-PCR) Influenza Type B (PCR) M. pneumoniae (PCR) Parainfluenza 1 (PCR) Parainfluenza 2 (PCR) Parainfluenza 3 (PCR) Parainfluenza 4 (PCR) RSV (RT-PCR) RSV (PCR) Entero/Rhino (PCR) SARS-CoV-2 (PCR) SARS-CoV-2 Rap RNA(RT-PCR) Blood Type Antibody Screen Crossmatch 04/28/20 04/28/20 04/28/20 13:12 14:52 18:18 WBC RBC Hgb Hct MCV MCH MCHC RDW Plt Count Lymph % (Auto) [facility] % (Auto) Eos % (Auto) Baso % (Auto) Reticulocyte # Absolute Neuts (auto) Absolute Lymphs (auto) Absolute Monos (auto) Absolute Eos (auto) Absolute Basos (auto) Total Counted Seg Neutrophils % Seg Neuts % (Manual) Band Neutrophils % Lymphocytes % (Manual) Atypical Lymphs % Monocytes % (Manual) Eosinophils % (Manual) Basophils % (Manual) Metamyelocytes % Abs Neuts (Manual) Abs Lymphs (Manual) Abs Monocytes (Manual) Absolute Eos (Manual) Abs Basophils (Manual) Toxic Granulation Clumped Platelets Platelet Comment Polychromasia Poikilocytosis Anisocytosis Ovalocytes [place] Cells Schistocytes RBC Morph Comment Retic Count (auto) PT INR APTT Carbonic Acid HCO3/H2CO3 Ratio ABG pH ABG pCO2 ABG pO2 ABG HCO3 ABG Total CO2 ABG O2 Saturation ABG Base Excess VBG pH VBG pCO2 VBG HCO3 VBG Base Excess FiO2 Sodium Potassium Chloride Carbon Dioxide Anion Gap BUN Creatinine Est GFR ( Amer) Est GFR (MDRD) Non-Af Glucose POC Glucose 114 H 116 H Lactic Acid Calcium Phosphorus Magnesium Iron TIBC % Saturation Ferritin Total Bilirubin Direct Bilirubin Neonat Total Bilirubin Neonat Direct Bilirubin Neonat Indirect Bili AST ALT Alkaline Phosphatase Ammonia Creatine Kinase Troponin I Total Protein Albumin Triglycerides Vitamin B12 Folate TSH Free T4 Free T3 pg/mL Urine Color Urine Appearance Urine pH Ur Specific [place] Urine Protein Urine Glucose (UA) Urine Ketones Urine Blood Urine Nitrite (Reflex) Urine Bilirubin Urine Urobilinogen Leukocyte Esterase Rfl Urine RBC (Auto) U Hyaline Cast (Auto) Urine Bacteria (Auto) Urine WBC (Reflex) Squamous Epi Cells Auto U Non-Squamous Epis Auto Urine Mucus (Auto) Urine Ascorbic Acid Jasen Human Metapneumo PCR POC Stool Occult Blood Serum Alcohol Adenovirus (PCR) B. pertussis DNA (PCR) B.parapertussis DNA PCR C. pneumoniae DNA (PCR) Coronavirus OC43 (PCR) Coronavirus HKU1 (PCR) Coronavirus 229E (PCR) COVID-19 Source COVID-19 ([place]) Coronavirus NL63 (PCR) Influenza A (Rapid) Influenza A (RT-PCR) Influenza A (H1) PCR Influ A (H1N1/09) PCR Influenza A (H3) PCR Influenza Type A (PCR) Influenza B (Rapid) Influenza B (RT-PCR) Influenza Type B (PCR) M. pneumoniae (PCR) Parainfluenza 1 (PCR) Parainfluenza 2 (PCR) Parainfluenza 3 (PCR) Parainfluenza 4 (PCR) RSV (RT-PCR) RSV (PCR) Entero/Rhino (PCR) SARS-CoV-2 (PCR) SARS-CoV-2 Rap RNA(RT-PCR) Blood Type O POSITIVE Antibody Screen NEGATIVE Crossmatch See Detail 04/28/20 04/29/20 04/29/20 23:50 05:51 08:24 WBC 22.4 H RBC 3.73 Hgb 11.0 L D Hct 33.6 L MCV 90 D MCH 29.5 MCHC 32.7 RDW 18.0 H Plt Count 532 H Lymph % (Auto) Not Reportable [facility] % (Auto) Not Reportable Eos % (Auto) Not Reportable Baso % (Auto) Not Reportable Reticulocyte # Absolute Neuts (auto) Not Reportable Absolute Lymphs (auto) Not Reportable Absolute Monos (auto) Not Reportable Absolute Eos (auto) Not Reportable Absolute Basos (auto) Not Reportable Total Counted 100 Seg Neutrophils % Not Reportable Seg Neuts % (Manual) 89 H Band Neutrophils % Lymphocytes % (Manual) 7 L Atypical Lymphs % 1 Monocytes % (Manual) 3 Eosinophils % (Manual) 0 Basophils % (Manual) 0 Metamyelocytes % Abs Neuts (Manual) 19.9 H Abs Lymphs (Manual) 1.8 Abs Monocytes (Manual) 0.7 Absolute Eos (Manual) 0.0 Abs Basophils (Manual) 0.0 Toxic Granulation Clumped Platelets PRESENT Platelet Comment INCREASED Polychromasia SLIGHT Poikilocytosis 1+ Anisocytosis 2+ Ovalocytes 1+ [place] Cells Schistocytes RBC Morph Comment Retic Count (auto) PT INR APTT Carbonic Acid HCO3/H2CO3 Ratio ABG pH ABG pCO2 ABG pO2 ABG HCO3 ABG Total CO2 ABG O2 Saturation ABG Base Excess VBG pH VBG pCO2 VBG HCO3 VBG Base Excess FiO2 Sodium Potassium Chloride Carbon Dioxide Anion Gap BUN Creatinine Est GFR ( Amer) Est GFR (MDRD) Non-Af Glucose POC Glucose 166 H 132 H Lactic Acid Calcium Phosphorus Magnesium Iron TIBC % Saturation Ferritin Total Bilirubin Direct Bilirubin Neonat Total Bilirubin Neonat Direct Bilirubin Neonat Indirect Bili AST ALT Alkaline Phosphatase Ammonia Creatine Kinase Troponin I Total Protein Albumin Triglycerides Vitamin B12 Folate TSH Free T4 Free T3 pg/mL Urine Color Urine Appearance Urine pH Ur Specific [place] Urine Protein Urine Glucose (UA) Urine Ketones Urine Blood Urine Nitrite (Reflex) Urine Bilirubin Urine Urobilinogen Leukocyte Esterase Rfl Urine RBC (Auto) U Hyaline Cast (Auto) Urine Bacteria (Auto) Urine WBC (Reflex) Squamous Epi Cells Auto U Non-Squamous Epis Auto Urine Mucus (Auto) Urine Ascorbic Acid Jasen Human Metapneumo PCR POC Stool Occult Blood Serum Alcohol Adenovirus (PCR) B. pertussis DNA (PCR) B.parapertussis DNA PCR C. pneumoniae DNA (PCR) Coronavirus OC43 (PCR) Coronavirus HKU1 (PCR) Coronavirus 229E (PCR) COVID-19 Source COVID-19 ([place]) Coronavirus NL63 (PCR) Influenza A (Rapid) Influenza A (RT-PCR) Influenza A (H1) PCR Influ A (H1N1/09) PCR Influenza A (H3) PCR Influenza Type A (PCR) Influenza B (Rapid) Influenza B (RT-PCR) Influenza Type B (PCR) M. pneumoniae (PCR) Parainfluenza 1 (PCR) Parainfluenza 2 (PCR) Parainfluenza 3 (PCR) Parainfluenza 4 (PCR) RSV (RT-PCR) RSV (PCR) Entero/Rhino (PCR) SARS-CoV-2 (PCR) SARS-CoV-2 Rap RNA(RT-PCR) Blood Type Antibody Screen Crossmatch 04/29/20 04/29/20 04/29/20 08:24 08:24 09:55 WBC RBC Hgb Hct MCV MCH MCHC RDW Plt Count Lymph % (Auto) [facility] % (Auto) Eos % (Auto) Baso % (Auto) Reticulocyte # Absolute Neuts (auto) Absolute Lymphs (auto) Absolute Monos (auto) Absolute Eos (auto) Absolute Basos (auto) Total Counted Seg Neutrophils % Seg Neuts % (Manual) Band Neutrophils % Lymphocytes % (Manual) Atypical Lymphs % Monocytes % (Manual) Eosinophils % (Manual) Basophils % (Manual) Metamyelocytes % Abs Neuts (Manual) Abs Lymphs (Manual) Abs Monocytes (Manual) Absolute Eos (Manual) Abs Basophils (Manual) Toxic Granulation Clumped Platelets Platelet Comment Polychromasia Poikilocytosis Anisocytosis Ovalocytes [place] Cells Schistocytes RBC Morph Comment Retic Count (auto) PT INR APTT Carbonic Acid 1.23 HCO3/H2CO3 Ratio 11:1 ABG pH 7.17 L* ABG pCO2 40.9 ABG pO2 44.9 L ABG HCO3 14.4 L ABG Total CO2 15.7 L ABG O2 Saturation 69.1 L ABG Base Excess -13.6 VBG pH VBG pCO2 VBG HCO3 VBG Base Excess FiO2 3L Sodium 148.0 H Potassium 4.0 Chloride 121 H Carbon Dioxide 14 L Anion Gap 13 BUN 6 L Creatinine 0.75 Est GFR ( Amer) > 60 Est GFR (MDRD) Non-Af > 60 Glucose 163 H POC Glucose Lactic Acid Calcium 10.4 H Phosphorus Magnesium Iron TIBC % Saturation Ferritin Total Bilirubin 0.6 Direct Bilirubin 0.3 Neonat Total Bilirubin Not Reportable Neonat Direct Bilirubin Not Reportable Neonat Indirect Bili Not Reportable AST 53 H ALT 89 H Alkaline Phosphatase 132 H Ammonia Creatine Kinase Troponin I Total Protein 6.1 L Albumin 2.7 L Triglycerides 159 H Vitamin B12 Folate TSH Free T4 Free T3 pg/mL Urine Color Urine Appearance Urine pH Ur Specific [place] Urine Protein Urine Glucose (UA) Urine Ketones Urine Blood Urine Nitrite (Reflex) Urine Bilirubin Urine Urobilinogen Leukocyte Esterase Rfl Urine RBC (Auto) U Hyaline Cast (Auto) Urine Bacteria (Auto) Urine WBC (Reflex) Squamous Epi Cells Auto U Non-Squamous Epis Auto Urine Mucus (Auto) Urine Ascorbic Acid Jasen Human Metapneumo PCR POC Stool Occult Blood Serum Alcohol Adenovirus (PCR) B. pertussis DNA (PCR) B.parapertussis DNA PCR C. pneumoniae DNA (PCR) Coronavirus OC43 (PCR) Coronavirus HKU1 (PCR) Coronavirus 229E (PCR) COVID-19 Source COVID-19 ([place]) Coronavirus NL63 (PCR) Influenza A (Rapid) Influenza A (RT-PCR) Influenza A (H1) PCR Influ A (H1N1/09) PCR Influenza A (H3) PCR Influenza Type A (PCR) Influenza B (Rapid) Influenza B (RT-PCR) Influenza Type B (PCR) M. pneumoniae (PCR) Parainfluenza 1 (PCR) Parainfluenza 2 (PCR) Parainfluenza 3 (PCR) Parainfluenza 4 (PCR) RSV (RT-PCR) RSV (PCR) Entero/Rhino (PCR) SARS-CoV-2 (PCR) SARS-CoV-2 Rap RNA(RT-PCR) Blood Type Antibody Screen Crossmatch Abdomen/Pelvis CT 04/27/20 00:00 IMPRESSION: 1. Limited examination secondary to motion artifact. 2. Cholelithiasis. 3. Poor visualization of the GI tract especially in the mid and lower abdomen. No obvious bowel obstruction. Chest X-Ray 04/27/20 14:52 IMPRESSION: No acute cardiopulmonary process. Head CT 04/27/20 15:26 IMPRESSION: No acute intracranial abnormality. EVIDENCE OF ACUTE STROKE: NO. Chest X-Ray 04/29/20 00:00 IMPRESSION: Extensive bilateral airspace disease right greater than left. This is new from 04/27/2020. Most likely pulmonary edema. Chest X-Ray 12/23/20 10:58 IMPRESSION: Interval placement of endotracheal tube and NG tube as described. Both are in satisfactory position. No other interval change. Chest X-Ray 04/29/20 14:07 IMPRESSION: Support lines and tubes have been placed as discussed. Increasing opacification in the right lung base. Overall pulmonary edema pattern appears improved. Chest X-Ray 04/30/20 00:00 IMPRESSION: 1. Somewhat improved pulmonary exam. 2. Endotracheal tube tip broaches the right mainstem bronchus. Recommend retracting 3 to 4 cm. Otherwise stable lines and tubes. IMPRESSION/RECOMMENDATION: 1. Respiratory arrest: This is due to a combination of severe metabolic acidosis and encephalopathy. Continue ventilator support. 2. Severe metabolic acidosis: This is most likely secondary to combination of untoward effects of psychiatric medication, encephalopathy, and sepsis. Continue antibiotics. Patient on a bicarb drip 3. Paroxysmal atrial fibrillation today needing emergency DC cardioversion due to hypotension and atrial fibrillation with rapid ventricular response. No recurrence. Will start the patient on amiodarone drip at 1 mg/min for 6 hours and then 0.5 mg/min. We will not bolus the patient with amiodarone. This is to prevent recurrence of atrial fibrillation. Since LP is not being planned would recommend starting the patient back on Eliquis at 2.5 mg p.o. twice daily. We will increase the Eliquis dose as the patient's renal function improves. 4. Shock: This is secondary to a combination of septic [viral meningitis and UTI] and cardiogenic etiology. Continue inotrope support and wean off if possible. 5. Severe encephalopathy secondary to most likely viral meningitis and acidosis, and sepsis. 6. Severe pulmonary hypertension: This is most likely elevated pulmonary arterial pressures due to severe acidosis. Right ventricle systolic pressure is at least 61 mmHg with a RA mean of at least 20 [IVC is dilated and does not vary with respiration, and hence the right atrial mean pressure is at least greater than 20.] 7. Takotsubo cardiomyopathy: This is most likely event. Patient with a picture by echo of Takotsubo cardiomyopathy. This should improve if this is indeed the case in the matter of days. Continue supportive treatment. 8. Elevated troponin secondary combination of hypertension, and cardiomyopathy. This is a type II supply demand mismatch no evidence of non-STEMI. Hence we will treat the underlying cause, and not treat this as a non-ST ovation ME. 10. Bipolar disorder: Most likely has untoward effects from her psych medication. Doubt that this is neuroleptic syndrome, although the patient has been febrile due to lack of sustained hyperpyrexia, although there is some evidence of tardive dyskinesia. 11. Acute renal failure with oliguria:: Avoid nephrotoxic drugs. Expect this to improve with the stabilization of the patient's overall condition Medications reviewed. Medications adjusted. Medical regimen management plan discussed with the attending provider on the case which is the medical support specialist. Medical decision making is of high complexity with more than 75 minutes spent on critical care time attending to the patient and titrating the patient's inotropes and the adjusting the patient's IV fluids. Later discussed with the patient's sister. Will follow
[2020-04-29] MEDS: VANCOMYCIN HCL 750 MG in DEXTROSE 5%-WATER 250 ML IV SCH (21:34)
--- NOTE | 2020-04-29 21:34 | Operative Report ---
Bedside Procedure - History of Present Illness History of Present Illness: Patient admitted with severe metabolic encephalopathy and respiratory arrest requiring intubation. Patient developed rapid atrial fibrillation with rapid ventricular response and hypotension requiring emergency DC cardioversion. Please see my consult for full details. Indication for Procedure: Atrial relation with rapid ventricular response and hypotension. Date: 04/29/20 - See procedural details. Provider: MARIBEL GILL - Additional Procedures Cardioversion/Defib Time performed: 13:00 Notes: PROCEDURE: Emergency cardiac DC synchronized cardioversion of Atral Fibrillation with rapid ventricular response and hypotension. Indications: Hypotension in patient with Atral Fibrillation with rapid ventricular response. PROCEDURE: The patient already ventilated and sedated.. Hence is applied supply to the front and back of the chest wall and 200 J of synchronized DC cardio version done. Patient converted to sinus rhythm. Blood pressure went up to 80 systolic. We will start the patient on Luis-Synephrine to get the patient's blood pressure up. We will also check the patient's echocardiogram. IMPRESSION: Successful cardioversion of atrial fibrillation with rapid ventricular response and hypotension, To sinus rhythm. No complications. Later The above was discussed with the patient's sister.
--- NOTE | 2020-04-29 21:49 | CRITICAL CARE ADMISSION REPORT ---
HPI Date:: 04/29/20 Time:: 21:00 Reason for ICU Reason:: Status post cardiac arrest, respiratory failure Admission Date/Time & PCP: Admission Date/Time: 04/27/20 17:47 Primary Care Provider: JACKY JJ PA-C HPI: 69-year-old female with history of bipolar disorder. Patient presented to the ED on 04/27/2020 with worsening mental status. At baseline, she has normal cognitive function. 2 months ago, patient began complaining of neck pain accompanied with shoulder pain and headaches. Gabapentin was increased from 300 to 600 mg 3 times daily. Patient symptoms progressed to include difficulty ambulating, ataxia and slurred speech. She was then instructed to stop her gabapentin as well as her chronic tizanidine and trazodone. Her gabapentin was later resumed at 600 mg 3 times per day and stopped once again after significant motor issues. Patient has continued to experience cognitive decline and pre sented noncommunicative and tremulous. Patient was also found to have a UTI with sepsis. Earlier today, I responded to a cardiac arrest code. CPR was started prior to my arrival. I immediately established an airway and patient had return of spontaneous circulation quickly thereafter. She was transferred to the intensive care unit where a central line was placed to facilitate vasoactive medications. Patient was also found to be in acute A. 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 History obtained from:: Medical record, patient's family. - Diagnosis/Plan (1) Acute metabolic encephalopathy Is this a current diagnosis for this admission?: Yes Plan: Patient to be sedated with propofol for comfort and prophylaxis against seizures. We can reintroduce antipsychotic meds gradually after propofol is weaned. (2) Urinary tract infection Qualifiers: Urinary tract infection type: acute cystitis Hematuria presence: with hematuria Qualified Code(s): N30.01 - Acute cystitis with hematuria Is this a current diagnosis for this admission?: Yes Plan: Continue ceftriaxone. Follow-up CBC in a.m. Follow fever curve. Plan Summary: Etiology for cardiac arrest remains grossly unknown. Patient did have evidence of Takotsubo cardiomyopathy. I believe it also possible that she may have had a neuroleptic malignant syndrome secondary to her medications. Symptoms including fever, irregular and accelerated heart rate as well as muscle rigidity and altered mental status. All of which were described by family or clinicians over the past several days. We will start dantrolene for empiric treatment. Past Medical History Cardiac Medical History: Reports: Atrial Fibrillation - Chronic paroxysmal atrial fibrillation, Hypertension Denies: Coronary Artery Disease, Myocardial Infarction Pulmonary Medical History: Reports: Pneumonia Denies: Asthma, Bronchitis, Chronic Obstructive Pulmonary Disease (COPD) Neurological Medical History: Reports: Seizures - Since head injury at age 4 Endocrine Medical History: Reports: Hypothyroidism Denies: Diabetes Mellitus Type 1, Diabetes Mellitus Type 2, Hyperthyroidism GI Medical History: Denies: Cirrhosis, Hepatitis, Hiatal Hernia Musculoskeltal Medical History: Reports: Arthritis Denies: Fibromyalgia, Gout Skin Medical History: Denies: Eczema, Psoriasis Psychiatric Medical History: Reports: Bipolar Disorder - With extremely severe depression and extremely severe floyd, Depression Traumatic Medical History: Reports: 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 Hematology: Reports: Anemia - History of borderline anemia Denies: Sickle Cell Disease, Bleeding Tendencies Past Surgical History Past Surgical History: Reports: Hysterectomy Denies: Pacemaker Social/Family History - Social History Smoking Status: Never Smoker Frequency of Alcohol Use: Occasional Hx Recreational Drug Use: No Drugs: None Hx Prescription Drug Abuse: No - Medication/Allergies Home Medications: Acyclovir [Acyclovir 400 mg Tablet] 400 mg PO BID 04/27/20 Amlodipine Besylate [Norvasc 2.5 mg Tablet] 2.5 mg PO Q12 04/27/20 Apixaban [Eliquis 5 mg Tablet] 5 mg PO BID 04/27/20 Gabapentin [Neurontin 300 mg Capsule] 300 mg PO Q8 04/27/20 Lidocaine [Lidoderm 5% (700 mg) Transdermal Patch] 1 patch TP DAILY 04/27/20 Liothyronine Sodium [Cytomel 25 Mcg Tablet] 25 mcg PO DAILY 04/27/20 Rivanna Carbonate [Rivanna Carbonate ER 450 mg Tablet] 450 mg PO DAILY 04/27/20 Metoprolol Succinate [Toprol Xl 25 mg Tab.sr] 25 mg PO DAILY 04/27/20 Allergies/Adverse Reactions: latex [Latex] Allergy (Severe, Verified 02/05/19 05:59) SWELLING codeine [Codeine] Adverse Reaction (Intermediate, Verified 02/05/19 05:59) FEELING OF GOING FAST diphenhydramine HCl [From Benadryl] Adverse Reaction (Intermediate, Verified 02/05/19 05:59) "CANNOT SLEEP" metronidazole [Metronidazole] Adverse Reaction (Intermediate, Verified 02/05/19 05:59) SEVERE JOINT PAIN milk Adverse Reaction (Verified 02/05/19 05:59) Diarrhea [facility] Adverse Reaction (Verified 02/05/19 05:59) "TROUBLE SLEEPING" Sulfa (Sulfonamide Antibiotics) Adverse Reaction (Verified 02/05/19 05:59) STEROIDS Adverse Reaction (Uncoded 02/05/19 05:59) MANIC EPISODES Review of Systems ROS unobtainable: Due to endotracheal tube, Due to mental status Physical Exam Vital Signs: Temp Pulse Resp BP Pulse Ox 101.1 F H 151 H 24 H 103/91 H 97 04/29/20 20:00 04/29/20 12:00 04/29/20 15:52 04/29/20 15:52 04/29/20 17:24 Intake & Output 04/28/20 04/29/20 04/30/20 06:59 06:59 06:59 Intake Total 2533 2050 2657 Output Total 1125 85 Balance 2533 925 2572 Weight 62.5 kg 60.1 kg Weight/Height Weight 60.1 kg Height 5 ft 1 in General appearance: PRESENT: disheveled Head exam: PRESENT: atraumatic Eye exam: PRESENT: EOMI, PERRLA Ear exam: PRESENT: normal external ear exam Mouth exam: PRESENT: neck supple Neck exam: PRESENT: full ROM. ABSENT: lymphadenopathy, thyromegaly Respiratory exam: PRESENT: clear to auscultation manuela, symmetrical. ABSENT: rhonchi, wheezes Cardiovascular exam: PRESENT: RRR, +S1, +S2 Pulses: PRESENT: normal carotid pulses Vascular exam: PRESENT: normal capillary refill Extremities exam: ABSENT: calf tenderness, pedal edema Musculoskeletal exam: ABSENT: full ROM Neurological exam: PRESENT: CN II-XII grossly intact Skin exam: PRESENT: normal color Tubes/Lines: PRESENT: Endotracheal Tube, Central Line, Nasogastic Tube Laboratory/Radiographs Laboratory Results: 04/29/20 08:24 04/29/20 08:24 04/28/20 04/29/20 04/29/20 14:52 08:24 08:24 WBC 22.4 H RBC 3.73 Hgb 11.0 L D Hct 33.6 L MCV 90 D MCH 29.5 MCHC 32.7 RDW 18.0 H Plt Count 532 H Seg Neutrophils % Not Reportable Carbonic Acid HCO3/H2CO3 Ratio ABG pH ABG pCO2 ABG pO2 ABG HCO3 ABG O2 Saturation ABG Base Excess FiO2 Sodium 148.0 H Potassium 4.0 Chloride 121 H Carbon Dioxide 14 L Anion Gap 13 BUN 6 L Creatinine 0.75 Est GFR ( Amer) > 60 Glucose 163 H Calcium 10.4 H Total Bilirubin 0.6 AST 53 H Alkaline Phosphatase 132 H Total Protein 6.1 L Albumin 2.7 L Triglycerides Blood Type O POSITIVE Antibody Screen NEGATIVE 04/29/20 04/29/20 08:24 09:55 WBC RBC Hgb Hct MCV MCH MCHC RDW Plt Count Seg Neutrophils % Carbonic Acid 1.23 HCO3/H2CO3 Ratio 11:1 ABG pH 7.17 L* ABG pCO2 40.9 ABG pO2 44.9 L ABG HCO3 14.4 L ABG O2 Saturation 69.1 L ABG Base Excess -13.6 FiO2 3L Sodium Potassium Chloride Carbon Dioxide Anion Gap BUN Creatinine Est GFR ( Amer) Glucose Calcium Total Bilirubin AST Alkaline Phosphatase Total Protein Albumin Triglycerides 159 H Blood Type Antibody Screen 04/27/20 15:01 Catheterized Urine Urine Culture - Final Escherichia Coli 04/27/20 04/27/20 15:01 15:01 Creatine Kinase 155 H Troponin I < 0.012 Impressions: Abdomen/Pelvis CT 04/27/20 00:00 IMPRESSION: 1. Limited examination secondary to motion artifact. 2. Cholelithiasis. 3. Poor visualization of the GI tract especially in the mid and lower abdomen. No obvious bowel obstruction. Head CT 04/27/20 15:26 IMPRESSION: No acute intracranial abnormality. EVIDENCE OF ACUTE STROKE: NO. Chest X-Ray 04/29/20 14:07 IMPRESSION: Support lines and tubes have been placed as discussed. Increasing opacification in the right lung base. Overall pulmonary edema pattern appears improved. All labs, radiographs, diagnostic studies and EKGs were personally reviewed: Yes In addition, reports of radiographic and diagnostic studies were read: Yes Critical Time Critical Time (minutes): 75 -: The care of a critically ill patient is dynamic. This note represents a static moment in the admission process. Orders and treatments may be given sim ultaneously and urgently, and time is not community relations representative of the treatment process. This patient requires Critical Care secondary to life threatening organ or limb dysfunction. Without Critical Care services, the patient is at risk for increased mortality and morbidity.
[2020-04-29] MEDS ORDERED: DANTROLENE SODIUM INJ 20 MG VIAL IV ONE (22:59)
[2020-04-30] MEDS: METOPROLOL TARTRATE PF/INJ 5 MG/5 ML SDV IV SCH ×2 (00:12→05:42)
[2020-04-30] MEDS: DANTROLENE SODIUM INJ 20 MG VIAL IV SCH ×2 (00:12→06:01)
[2020-04-30] MEDS: INSULIN LISPRO 100 UNIT/ML 3 ML VIAL SUBCUT SCH ×4 (00:18→17:28)
[2020-04-30 01:39] LABS: FREE T3 1.59 pg/mL (2.77-5.27); FREE T4 (FREE THYROXINE) 0.56 ng/dL (0.78-2.19)
[2020-04-30 01:53] LABS: THYROID STIMULATING HORMONE 5.4 uIU/mL (0.47-4.68)
[2020-04-30] MEDS: ACYCLOVIR SODIUM 500 MG in NORMAL SALINE 100 ML IV SCH ×3 (01:59→17:29)
[2020-04-30] MEDS: AMPICILLIN SODIUM 1 GM in NORMAL SALINE 50 ML IV SCH (02:00)
[2020-04-30] MEDS: DEXTROSE 5%-WATER 250 ML with PHENYLEPHRINE HCL 40 MG IV PRN ×10 (02:01→22:20)
[2020-04-30 04:19] LABS: HEMOGLOBIN 10.4 g/dL (12.0-15.5); MEAN CORPUSCULAR HEMOGLOBIN 28.7 pg (27.0-33.4); MEAN CORPUSCULAR HGB CONC 32.7 g/dL (32.0-36.0); MEAN CORPUSCULAR VOLUME 88 fl (80-97); PLATELET COUNT 464 10^3/uL (150-450); RED BLOOD COUNT 3.63 10^6/uL (3.72-5.28); RED CELL DISTRIBUTION WIDTH 18.5 % (11.5-14.0); WHITE BLOOD COUNT 25.8 10^3/uL (4.0-10.5)
[2020-04-30 04:23] LABS: ARTERIAL BLOOD BASE EXCESS -7.5 mmol/L; ARTERIAL BLOOD H2CO3 0.67 mmol/L (1.05-1.35); ARTERIAL BLOOD HCO3 14.8 mmol/L (20-24); ARTERIAL BLOOD O2 SATURATION 96.9 % (94-98); ARTERIAL BLOOD PCO2 22.2 mmHg (35-45); ARTERIAL BLOOD PH 7.44 (7.35-7.45); ARTERIAL BLOOD PO2 83.6 mmHg (80-100); ARTERIAL BLOOD TOTAL CO2 15.5 mmol/L (21-25)
[2020-04-30 04:29] LABS: ARTERIAL BLOOD FIO2 40%
[2020-04-30] MEDS ORDERED: DANTROLENE SODIUM INJ 20 MG VIAL IV ONE (04:33)
[2020-04-30 04:36] LABS: ALBUMIN 2.2 g/dL (3.5-5.0); ALKALINE PHOSPHATASE 114 U/L (38-126); ANION GAP 8 (5-19); BILIRUBIN,DIRECT 0.3 mg/dL (0.0-0.4); BILIRUBIN,TOTAL 0.4 mg/dL (0.2-1.3); BLOOD UREA NITROGEN 13 mg/dL (7-20); CALCIUM 8.4 mg/dL (8.4-10.2); CARBON DIOXIDE 18 mmol/L (22-30); CHLORIDE 113 mmol/L (98-107); GLUCOSE 230 mg/dL (75-110); PHOSPHORUS 2.5 mg/dL (2.5-4.5); POTASSIUM 3.5 mmol/L (3.6-5.0); TOTAL PROTEIN 5.1 g/dL (6.3-8.2)
[2020-04-30 04:46] LABS: ASPARTATE AMINO TRANSFERASE 980 U/L (14-36)
[2020-04-30 04:53] LABS: ABSOLUTE LYMPHOCYTES# (MANUAL) 1.3 10^3/uL (0.5-4.7); ABSOLUTE MONOCYTES # (MANUAL) 0.5 10^3/uL (0.1-1.4); BAND NEUTROPHILS % (MANUAL) 1 % (3-5); BASOPHILS % (MANUAL) 0 % (0-2); EOSINOPHILS % (MANUAL) 0 % (0-6); LYMPHOCYTES % (MANUAL) 5 % (13-45); MONOCYTES % (MANUAL) 2 % (3-13); SEGMENTED NEUTROPHILS % (MAN) 92 % (42-78); TOTAL CELLS COUNTED 100
[2020-04-30 04:54] LABS: ANISOCYTOSIS 2+; BURR CELLS SLIGHT; POIKILOCYTOSIS SLIGHT; TOXIC GRANULATION SLIGHT
[2020-04-30 04:55] LABS: OVALOCYTES SLIGHT; PLATELET COMMENT INCREASED; POLYCHROMASIA SLIGHT; SCHISTOCYTES SLIGHT
[2020-04-30] MEDS: PROPOFOL 1,000 MG/100 ML INFUS..BTL IV PRN (06:01)
[2020-04-30] MEDS ORDERED: DOPAMINE HCL/DEXTROSE 5%-WATER 800 MG/250 ML RTUINJ IV PRN (06:01)
[2020-04-30] MEDS ORDERED: DOPAMINE HCL/DEXTROSE 5%-WATER 800 MG/250 ML RTUINJ IV ONE (06:05)
[2020-04-30] MEDS: NORMAL SALINE 1000 ML 1,000 ML IV PRN (06:15)
--- NOTE | 2020-04-30 08:13 | EKG REPORT ---
SEVERITY:- ABNORMAL ECG - SINUS OR ECTOPIC ATRIAL RHYTHM SUPRAVENTRICULAR BIGEMINY PROBABLE LVH WITH SECONDARY REPOL ABNRM : Confirmed by: Fran Concepcion MD 30-Apr-2020 08:12:50
[2020-04-30] MEDS ORDERED: IMIPENEM/CILASTATIN SODIUM 1,000 MG in NORMAL SALINE 250 ML IV SCH (09:00)
--- NOTE | 2020-04-30 09:18 | RADIOLOGY REPORT (SQ) ---
EXAM DESCRIPTION: CHEST SINGLE VIEW IMAGES COMPLETED DATE/TIME: 04/30/2020 8:48 am REASON FOR STUDY: Respiratory Failure COMPARISON: 04/29/2020 EXAM PARAMETERS: NUMBER OF VIEWS: One view. TECHNIQUE: Single frontal radiographic view of the chest acquired. RADIATION DOSE: NA LIMITATIONS: None. FINDINGS: LUNGS AND PLEURA: Layering right-sided pleural effusion. Somewhat improved pulmonary exam demonstrating diminished perihilar interstitial markings. No pneumothorax. MEDIASTINUM AND HILAR STRUCTURES: No masses. Contour normal. HEART AND VASCULAR STRUCTURES: Heart normal in size. Normal vasculature. BONES: No acute findings. HARDWARE: Endotracheal tube tip in the right mainstem bronchus. Enteric tube terminates subdiaphragm atically out of the imaged field of view. Right internal jugular vascular access catheter terminates in the region of the superior vena cava. OTHER: No other significant finding. IMPRESSION: 1. Somewhat improved pulmonary exam. 2. Endotracheal tube tip broaches the right mainstem bronchus. Recommend retracting 3 to 4 cm. Ot erwise stable lines and tubes. TECHNICAL DOCUMENTATION: JOB ID: [id number] 2010 [employer]- All Rights Reserved Reading location - IP/workstation name: [email or web address]
[2020-04-30] MEDS: PANTOPRAZOLE SODIUM 40 MG VIAL IV SCH (09:41)
[2020-04-30] MEDS: LIOTHYRONINE SODIUM 25 MCG TABLET PO SCH (09:42)
[2020-04-30] MEDS: IMIPENEM/CILASTATIN SODIUM 500 MG in NORMAL SALINE 100 ML IV SCH ×2 (11:31→22:41)
--- NOTE | 2020-04-30 13:51 | PDOC CRITICAL CARE PROG REPORT ---
General Date:: 04/30/20 ICU Day:: 2 Ventilator Day:: 2 Hospital Day:: 4 Resuscitation Status: Full Code Events in the past 12 to 24 Hours:: 04/30/2020: Patient was admitted to the intensive care unit yesterday status post cardiac arrest intubated. Please see ICU admission note for details regarding yesterday's events. Overnight, she had a decrease in her blood pressure and heart rate. The amiodarone drip was discontinued and patient was placed on dopamine drip along with her standing Luis-Synephrine. Her blood pr essure has since improved and she is being weaned off of Luis-Synephrine. Review of systems relevant to events:: Neuro: Patient has been sedated on propofol. She is seem to remain comfortable overnight. This morning, she experienced a bit of intermittent rigidity. Not clear if this was seizure activity. Pulmonary: Patient breathing comfortably on PRVC. Tidal volume 400, respiratory rate 15, PEEP 5, FiO2 40%. Minute ventilation is 14. ET tube was seen at the herminio this morning and was withdrawn 2 cm. It is now at 25 cm at the lip. Continue current vent settings. We will wean as tolerated as her neurologic status improves. Chest x-ray does show some improvement this morning however there are bilateral infiltrates seen. Sputum culture is pending. Patient remains on vancomycin and imipenem. Cardiovascular: As above, patient was hypotensive and bradycardic overnight. Amiodarone was discontinued and she was started on dopamine drip. She also remains on Luis-Synephrine. We are decreasing the Luis-Synephrine as tolerated to maintain a mean pressure of 70 mmHg. Indwelling catheters: Right IJ TLC placed on 04/29/2020. Heme: H/H is 10.4/32. No evidence of bleeding. Platelets are elevated at 464. We are restarting Eliquis today since there is no immediate plan for a lumbar puncture. Renal: Slightly elevated BUN and creatinine. We will continue with IV fluids normal saline at 120 mL an hour. Gastrointestinal: Tube feeds started this morning. Patient remains on GI prophylaxis with Protonix. : Aparicio catheter in place. Possible UTI prior to placement. Patient remains on vancomycin and imipenem. ID: As above, patient is on Vanco and imipenem. She was changed to imipenem for better penetration of her blood-brain barrier in the event that her neurologic symptoms are related to a bacterial meningitis. Barriers to discharge from ICU: Patient remains on multiple inotropic and chronotropic agents. She also remains with rigidity and neurologic symptoms. Reason for ICU Addmission:: Status post cardiac arrest, respiratory failure - Medications: Medications reviewed and adjusted accordingly: Yes Physical Exam Vital Signs: Temp Pulse Resp BP Pulse Ox 96.8 F L 65 17 119/73 98 04/30/20 12:00 04/30/20 12:00 04/30/20 12:00 04/30/20 12:00 04/30/20 12:00 Intake & Output 04/29/20 04/30/20 05/01/20 06:59 06:59 06:59 Intake Total 2050 3936 405 Output Total 1125 177 200 Balance 925 3759 205 Weight 60.1 kg 61.7 kg Weight/Height Weight 61.7 kg Height 5 ft 1 in General appearance: PRESENT: no acute distress, well-developed Head exam: PRESENT: atraumatic, normocephalic Eye exam: PRESENT: EOMI, PERRLA Ear exam: PRESENT: normal external ear exam Mouth exam: PRESENT: neck supple Neck exam: PRESENT: full ROM. ABSENT: JVD, lymphadenopathy, tracheal deviation Respiratory exam: PRESENT: rhonchi. ABSENT: accessory muscle use Cardiovascular exam: PRESENT: RRR, +S1, +S2 Pulses: PRESENT: normal carotid pulses, normal radial pulses, +2 pedal pulses bilateral GI/Abdominal exam: PRESENT: normal bowel sounds, soft Extremities exam: ABSENT: joint swelling, pedal edema Musculoskeletal exam: PRESENT: other - Intermittent rigidity. Musculoskeletal exam otherwise normal. Neurological exam: PRESENT: CN II-XII grossly intact, other - Intermittent rigidity. Possible seizure-like activity. Sedated. Tubes/Lines: PRESENT: Endotracheal Tube, Central Line, Nasogastic Tube Laboratory/Radiographs Laboratory Results: 04/30/20 03:55 04/30/20 03:55 04/29/20 04/30/20 04/30/20 08:24 00:12 03:55 WBC RBC Hgb Hct MCV MCH MCHC RDW Plt Count Seg Neutrophils % Carbonic Acid 0.67 L HCO3/H2CO3 Ratio 22:1 ABG pH 7.44 ABG pCO2 22.2 L ABG pO2 83.6 ABG HCO3 14.8 L ABG O2 Saturation 96.9 ABG Base Excess -7.5 FiO2 40% Sodium Potassium Chloride Carbon Dioxide Anion Gap BUN Creatinine Est GFR ( Amer) Glucose Lactic Acid Calcium Phosphorus Magnesium Total Bilirubin AST Alkaline Phosphatase Total Protein Albumin Triglycerides 159 H TSH 5.40 H Free T4 0.56 L Free T3 pg/mL 1.59 L 04/30/20 04/30/20 04/30/20 03:55 03:55 03:55 WBC 25.8 H RBC 3.63 L Hgb 10.4 L Hct 32.0 L MCV 88 MCH 28.7 MCHC 32.7 RDW 18.5 H Plt Count 464 H Seg Neutrophils % Not Reportable Carbonic Acid HCO3/H2CO3 Ratio ABG pH ABG pCO2 ABG pO2 ABG HCO3 ABG O2 Saturation ABG Base Excess FiO2 Sodium 139.3 Potassium 3.5 L Chloride 113 H Carbon Dioxide 18 L Anion Gap 8 BUN 13 Creatinine 1.76 H Est GFR ( Amer) 35 L Glucose 230 H Lactic Acid 3.0 H Calcium 8.4 Phosphorus 2.5 Magnesium 1.9 Total Bilirubin 0.4 AST 980 H Alkaline Phosphatase 114 Total Protein 5.1 L Albumin 2.2 L Triglycerides TSH Free T4 Free T3 pg/mL 04/27/20 04/27/20 04/30/20 15:01 15:01 03:55 Creatine Kinase 155 H Troponin I < 0.012 1.560 04/30/20 09:35 Creatine Kinase Troponin I 0.806 Impressions: Abdomen/Pelvis CT 04/27/20 00:00 IMPRESSION: 1. Limited examination secondary to motion artifact. 2. Cholelithiasis. 3. Poor visualization of the GI tract especially in the mid and lower abdomen. No obvious bowel obstruction. Head CT 04/27/20 15:26 IMPRESSION: No acute intracranial abnormality. EVIDENCE OF ACUTE STROKE: NO. Chest X-Ray 04/30/20 00:00 IMPRESSION: 1. Somewhat improved pulmonary exam. 2. Endotracheal tube tip broaches the right mainstem bronchus. Recommend retracting 3 to 4 cm. Otherwise stable lines and tubes. All labs, radiographs, diagnostic studies and EKGs were personally reviewed: Yes In addition, reports of radiographic and diagnostic studies were read: Yes Assessment and Plan - Diagnosis (1) Acute metabolic encephalopathy Is this a current diagnosis for this admission?: Yes Plan: Etiologies may include the following: Viral meningitis: Continue patient on acyclovir. Bacterial meningitis: Antibiotics changed to imipenem for neurologic coverage. Risk of lumbar puncture currently outweighs benefits and will be held at this time as week continue with empiric treatment. Neuroleptic malignant syndrome: Patient unable to tolerate dantrolene due to a drop in blood pressure. She continues on propofol and risperidone was discontinued. (2) Urinary tract infection Qualifiers: Urinary tract infection type: acute cystitis Hematuria presence: with hematuria Qualified Code(s): N30.01 - Acute cystitis with hematuria Is this a current diagnosis for this admission?: Yes Plan: Patient on vancomycin and imipenem. We will follow WBC and fever curve closely. (3) Sepsis Qualifiers: Sepsis type: sepsis due to unspecified organism Sepsis acute organ dysfunction status: with acute organ dysfunction Severe sepsis acute organ dysfunction type: acute respiratory failure Acute respiratory failure type: with hypercapnia Severe sepsis shock status: with septic shock Qualified Code(s): A41.9 - Sepsis, unspecified organism; R65.21 - Severe sepsis with septic shock; J96.02 - Acute respiratory failure with hypercapnia Is this a current diagnosis for this admission?: Yes Plan: Continue current antibiotics. Continue fluid resuscitation Wean off of Luis-Synephrine and dopamine as tolerated. Critical Time Critical Time (minutes): 70 Level of Care: ICU Anticipated discharge: Home with Homehealth Anticipated DC Timeframe: within 72 hours -: 1. The care of a critical patient is a dynamic process. This note is a r epresentative synopsis but static in nature. The timeframe for treatments given in order is not necessarily the actual time these treatments may have been done. 2. This patient requires critical care secondary to ongoing requirements for therapy not offered or safe outside the critical care environment. Transfer to a lower level of care will result in altered life or limb morbidity and mortali ty. 3. Multidisciplinary rounds completed. 4. ABCDE bundle addressed.
[2020-04-30] MEDS ORDERED: APIXABAN 2.5 MG TABLET PO SCH (14:00)
[2020-04-30 14:57] LABS: ANION GAP 9 (5-19); BLOOD UREA NITROGEN 13 mg/dL (7-20); CALCIUM 8.6 mg/dL (8.4-10.2); CARBON DIOXIDE 18 mmol/L (22-30); CHLORIDE 114 mmol/L (98-107); GLUCOSE 133 mg/dL (75-110); POTASSIUM 3.1 mmol/L (3.6-5.0)
[2020-04-30] MEDS: MAGNESIUM SULFATE/D5W 1 GM/100 ML RTUPB IV SCH ×2 (17:30→18:38)
[2020-04-30] MEDS: POTASSI CL 20 MEQ/50 ML RIDER 20 MEQ/50 ML RTUPB IV SCH ×2 (17:30→18:57)
--- NOTE | 2020-04-30 18:34 | Progress Note ---
Provider Note Provider Note: [facility] Telephone Advice Consultation Chart reviewed. Patient not seen or examined. This is a 69-year-old woman with atrial fibrillation on Eliquis, history of Shingles, hypertension, hypothyroidism, seizure disorder, bipolar disorder who started having neurological deterioration 2 months ago per notes. 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 She was evaluated by neurology as outpatient and gabapentin was increased, she also had an MRI of the head and neck but it was unremarkable. She continues with ataxia, slurred speech, and falls. Her psych medications were put on hold. She was diagnosed with UTI for which she received nitrofurantoin. Patient apparently had some signs of tardive dyskinesia from her meds. She was brought to the hospital as she presented fever. She was septic on admission with WBC 17k, reactive thrombocytosis of 605k, lactic acidosis/metabolic acidosis, elevated liver enzymes. Initial CXR was normal and CT scan of head, abdomen and pelvis were non revealing. She was started on broad spectrum antibiotics, vancomycin, ampicillin and ceftriaxone. She suffered cardiac arrest, requiring resuscitation and cardioversion. Eliquis was on hold in preparation for lumbar puncture. Viral panel negative, COVID test negative. Dantrolene was started empirically for NMS. Leukocytosis continue to worsen, there are signs of organ failure / liver injury, kidney injury. She continues on pressors. Antibiotic therapy now is Imipenem + vancomycin and acyclovir. ID consulted for recommendations. Allergies: latex [Latex] Allergy (Severe, Verified 02/05/19 05:59) SWELLING codeine [Codeine] Adverse Reaction (Intermediate, Verified 02/05/19 05:59) FEELING OF GOING FAST diphenhydramine HCl [From Benadryl] Adverse Reaction (Intermediate, Verified 02/05/19 05:59) "CANNOT SLEEP" metronidazole [Metronidazole] Adverse Reaction (Intermediate, Verified 02/05/19 05:59) SEVERE JOINT PAIN diclofenac [From Voltaren] Adverse Reaction (Verified 04/30/20 16:55) Skin Redness milk Adverse Reaction (Verified 02/05/19 05:59) Diarrhea pseudoephedrine HCl [From Sudafed] Adverse Reaction (Verified 02/05/19 05:59) "TROUBLE SLEEPING" Sulfa (Sulfonamide Antibiotics) Adverse Reaction (Verified 02/05/19 05:59) STEROIDS Adverse Reaction (Uncoded 02/05/19 05:59) MANIC EPISODES Medications: Acyclovir [Acyclovir 400 mg Tablet] 400 mg PO BID 04/27/20 Amlodipine Besylate [Norvasc 2.5 mg Tablet] 2.5 mg PO Q12 04/27/20 Apixaban [Eliquis 5 mg Tablet] 5 mg PO BID 04/27/20 Gabapentin [Neurontin 300 mg Capsule] 300 mg PO Q8 04/27/20 Lidocaine [Lidoderm 5% (700 mg) Transdermal Patch] 1 patch TP DAILY 04/27/20 Liothyronine Sodium [Cytomel 25 Mcg Tablet] 25 mcg PO DAILY 04/27/20 Calais Carbonate [Calais Carbonate ER 450 mg Tablet] 450 mg PO DAILY 04/27/20 Metoprolol Succinate [Toprol Xl 25 mg Tab.sr] 25 mg PO DAILY 04/27/20 Vital Signs: Temp Pulse Resp BP Pulse Ox 98.4 F 80 15 102/68 100 04/30/20 16:00 04/30/20 16:00 04/30/20 16:00 04/30/20 16:00 04/30/20 16:53 Intake & Output 04/29/20 04/30/20 05/01/20 06:59 06:59 06:59 Intake Total 2050 3936 502 Output Total 1125 177 300 Balance 925 3759 202 Weight 60.1 kg 61.7 kg Weight/Height Weight 61.7 kg Height 5 ft 1 in Laboratories: 04/30/20 03:55 04/30/20 14:22 MCV 88 fl (80-97) 04/30/20 03:55 MCH 28.7 pg (27.0-33.4) 04/30/20 03:55 MCHC 32.7 g/dL (32.0-36.0) 04/30/20 03:55 RDW 18.5 % (11.5-14.0) H 04/30/20 03:55 Seg Neutrophils % Not Reportable 04/30/20 03:55 Retic Count (auto) 1.82 % (0.66-2.85) 04/28/20 05:38 Carbonic Acid 0.67 mmol/L (1.05-1.35) L 04/30/20 03:55 HCO3/H2CO3 Ratio 22:1 04/30/20 03:55 ABG pH 7.44 (7.35-7.45) 04/30/20 03:55 ABG pCO2 22.2 mmHg (35-45) L 04/30/20 03:55 ABG pO2 83.6 mmHg (80-100) 04/30/20 03:55 ABG HCO3 14.8 mmol/L (20-24) L 04/30/20 03:55 ABG O2 Saturation 96.9 % (94-98) 04/30/20 03:55 ABG Base Excess -7.5 mmol/L 04/30/20 03:55 VBG pH 7.43 (7.30-7.42) H 04/27/20 15:42 VBG pCO2 30.3 mmHg (35-63) L 04/27/20 15:42 VBG HCO3 19.5 mmol/L (20-32) L 04/27/20 15:42 VBG Base Excess -3.5 mmol/L 04/27/20 15:42 FiO2 40% 04/30/20 03:55 Chloride 114 mmol/L (98-107) H 04/30/20 14:22 Carbon Dioxide 18 mmol/L (22-30) L 04/30/20 14:22 Anion Gap 9 (5-19) 04/30/20 14:22 Est GFR ( Amer) 40 (>60) L 04/30/20 14:22 Glucose 133 mg/dL (75-110) H 04/30/20 14:22 Lactic Acid 3.0 mmol/L (0.7-2.1) H 04/30/20 03:55 Calcium 8.6 mg/dL (8.4-10.2) 04/30/20 14:22 Phosphorus 2.5 mg/dL (2.5-4.5) 04/30/20 03:55 Magnesium 1.7 mg/dL (1.6-2.3) 04/30/20 14:22 Iron 29.0 ug/dL (37-170) L 04/28/20 05:38 TIBC 153 ug/dL (250-450) L 04/28/20 05:38 % Saturation 19 % 04/28/20 05:38 Ferritin 303.00 ng/mL (11.1-264.0) H 04/28/20 05:38 Total Bilirubin 0.4 mg/dL (0.2-1.3) 04/30/20 03:55 AST 980 U/L (14-36) H 04/30/20 03:55 Alkaline Phosphatase 114 U/L (38-126) 04/30/20 03:55 Ammonia < 8.7 umol/L (9-33) L 04/27/20 21:40 Total Protein 5.1 g/dL (6.3-8.2) L 04/30/20 03:55 Albumin 2.2 g/dL (3.5-5.0) L 04/30/20 03:55 Triglycerides 159 mg/dL (<150) H 04/29/20 08:24 Vitamin B12 > 1000.0 pg/mL (239-931) H 04/28/20 05:38 Folate 13.10 ng/mL (>2.76) 04/28/20 05:38 TSH 5.40 uIU/mL (0.47-4.68) H 04/30/20 00:12 Free T4 0.56 ng/dL (0.78-2.19) L 04/30/20 00:12 Free T3 pg/mL 1.59 pg/mL (2.77-5.27) L 04/30/20 00:12 Urine Color AMAIRANI 04/27/20 15:01 Urine Appearance CLOUDY 04/27/20 15:01 Urine pH 5.0 (5.0-9.0) 04/27/20 15:01 Ur Specific [place] 1.017 04/27/20 15:01 Urine Protein 30 mg/dL (NEGATIVE) H 04/27/20 15:01 Urine Glucose (UA) NEGATIVE mg/dL (NEGATIVE) 04/27/20 15:01 Urine Ketones NEGATIVE mg/dL (NEGATIVE) 04/27/20 15:01 Urine Blood SMALL (NEGATIVE) H 04/27/20 15:01 Urine RBC (Auto) 19 /HPF 04/27/20 15:01 Blood Type O POSITIVE 04/28/20 14:52 Antibody Screen NEGATIVE 04/28/20 14:52 04/27/20 04/27/20 04/30/20 15:01 15:01 03:55 Creatine Kinase 155 H Troponin I < 0.012 1.560 04/30/20 09:35 Creatine Kinase Troponin I 0.806 Microbiology: Blood cultures 04/27 NGTD Urine Culture 04/27 E coli Tracheal Aspirate 04/30 In process Radiology: Abdomen/Pelvis CT 04/27/20 00:00 IMPRESSION: 1. Limited examination secondary to motion artifact. 2. Cholelithiasis. 3. Poor visualization of the GI tract especially in the mid and lower abdomen. No obvious bowel obstruction. Head CT 04/27/20 15:26 IMPRESSION: No acute intracranial abnormality. EVIDENCE OF ACUTE STROKE: NO. Chest X-Ray 04/30/20 00:00 IMPRESSION: 1. Somewhat improved pulmonary exam. 2. Endotracheal tube tip broaches the right mainstem bronchus. Recommend retracting 3 to 4 cm. Otherwise stable lines and tubes. Assessment and Recommendations: Patient evaluated for shock, presumed septic, without an identified source. 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 Most common causes of encephalitis include viral due to HSV and VZV. She has a history of shingles, she is at risk of VZV encephalitis. She is already on acyclovir, continue for now. Other possible causes would be bacterial due to Streptococcus, Staphylococcus, Listeria monocytogens. She is on primaxin which doesn't cover listeria well, will recommend meropenem (renally adjusted) instead, it has better coverage and less risk of seizures than imipenem. Rickettsial diseases can present with leukocytosis, RENETTA and transaminitis. It would be rare at this time of the year, but will recommend doxycycline 100 mg IV BID. Fungal etiology less likely to cause shock. Continue vancomycin for now, but if cultures don't isolate MRSA, will recommend to discontinue. E coli from urine cultures less likely to cause septic shock like this. There could be other differential diagnosis, non infectious like drug reaction with fever and systemic symptoms including rash. Neurologic conditions as well as NMS. Please call back if questions or updates during the Holiday weekend if needed. Dionna Valadez MD [facility] ID [phone]
--- NOTE | 2020-04-30 21:15 | Progress Note ---
Provider Note Provider Note: CARDIOLOGY PROGRESS NOTE by Dr. Cydney Dickens on 04/30/2020. SUBJECTIVE: The patient is intubated and sedated. Last night she became quite bradycardic and hence her amiodarone drip was discontinued she also was hypotensive and she was started on dopamine drip at present she is on dopamine and Luis-Synephrine. There is no recurrence of atrial fibrillation. There is no ventricle arrhythmia seen on the monitor. Their antibiotic recommendations are also noted. ID consult and the recommendation for antibiotics noted. ID consult has been reviewed and has been appreciated. PHYSICAL EXAMINATION: The patient is a frail build. She is intubated and sedated. Selected Entries 04/30/20 04/30/20 12:00 12:28 Core 97.0 F Temperature Heart Rate ( 77 Monitors) Respiratory 17 16 Rate Blood Pressure 113/70 Blood Pressure 119/73 [Left Upper Arm ] Blood Pressure 84 Mean Blood Pressure 88 Mean [Left Upper Arm] Blood Pressure Supine Position [Left Upper Arm] O2 Sat by Pulse 98 99 Oximetry Oxygen Delivery Mechanical Method ( Ventilator includes room air) Percent of 40 Oxygen HEENT is negative. Neck is supple. There is no JVD. Carotids are equal there is no bruit. Skin: There is no skin rashes. Skin is cool to touch. There is no petechia or ecchymosis. LUNGS: Few scattered rhonchi, there is some diminished breath sounds in the right base. There is a few bibasilar rales of CHF. There is no rhonchi rales or wheezing. HEART: S1-S2 is heard. S1 is of normal intensity. There is no S3 gallop. There is no S4 gallop. There is systolic murmur in the left sternal border and the apex . There is no rub. ABDOMEN: Soft. There is no hepatosplenomegaly. Bowel sounds well heard. EXTREMITIES: Femorals are diminished. There is no femoral bruits. Leg pulses are well felt. There is no pedal edema. There is no DVT or cellulitis. 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 The patient's 24-hour intake is 3936 mL. Output is only 177 mL. EKG:. SINUS OR ECTOPIC ATRIAL RHYTHM [SVBIG] . SUPRAVENTRICULAR BIGEMINY [LVHPRE] . PROBABLE LVH WITH SECONDARY REPOL ABNRM Monitor shows some increased QT intervals. Will check potassium. Labs- All tests 24 hr 04/30/20 04/30/20 04/30/20 00:07 00:12 03:55 WBC RBC Hgb Hct MCV MCH MCHC RDW Plt Count Lymph % (Auto) [place] % (Auto) Eos % (Auto) Baso % (Auto) Absolute Neuts (auto) Absolute Lymphs (auto) Absolute Monos (auto) Absolute Eos (auto) Absolute Basos (auto) Total Counted Seg Neutrophils % Seg Neuts % (Manual) Band Neutrophils % Lymphocytes % (Manual) Monocytes % (Manual) Eosinophils % (Manual) Basophils % (Manual) Abs Neuts (Manual) Abs Lymphs (Manual) Abs Monocytes (Manual) Absolute Eos (Manual) Abs Basophils (Manual) Toxic Granulation Platelet Comment Polychromasia Poikilocytosis Anisocytosis Ovalocytes Shailesh Cells Schistocytes Carbonic Acid 0.67 L HCO3/H2CO3 Ratio 22:1 ABG pH 7.44 ABG pCO2 22.2 L ABG pO2 83.6 ABG HCO3 14.8 L ABG Total CO2 15.5 L ABG O2 Saturation 96.9 ABG Base Excess -7.5 FiO2 40% Sodium Potassium Chloride Carbon Dioxide Anion Gap BUN Creatinine Est GFR ( Amer) Est GFR (MDRD) Non-Af Glucose POC Glucose 294 H Lactic Acid Calcium Phosphorus Magnesium Total Bilirubin Direct Bilirubin Neonat Total Bilirubin Neonat Direct Bilirubin Neonat Indirect Bili AST ALT Alkaline Phosphatase Troponin I Total Protein Albumin TSH 5.40 H Free T4 0.56 L Free T3 pg/mL 1.59 L 04/30/20 04/30/20 04/30/20 03:55 03:55 03:55 WBC 25.8 H RBC 3.63 L Hgb 10.4 L Hct 32.0 L MCV 88 MCH 28.7 MCHC 32.7 RDW 18.5 H Plt Count 464 H Lymph % (Auto) Not Reportable [place] % (Auto) Not Reportable Eos % (Auto) Not Reportable Baso % (Auto) Not Reportable Absolute Neuts (auto) Not Reportable Absolute Lymphs (auto) Not Reportable Absolute Monos (auto) Not Reportable Absolute Eos (auto) Not Reportable Absolute Basos (auto) Not Reportable Total Counted 100 Seg Neutrophils % Not Reportable Seg Neuts % (Manual) 92 H Band Neutrophils % 1 L Lymphocytes % (Manual) 5 L Monocytes % (Manual) 2 L Eosinophils % (Manual) 0 Basophils % (Manual) 0 Abs Neuts (Manual) 24.0 H Abs Lymphs (Manual) 1.3 Abs Monocytes (Manual) 0.5 Absolute Eos (Manual) 0.0 Abs Basophils (Manual) 0.0 Toxic Granulation SLIGHT Platelet Comment INCREASED Polychromasia SLIGHT Poikilocytosis SLIGHT Anisocytosis 2+ Ovalocytes SLIGHT [place] Cells SLIGHT Schistocytes SLIGHT Carbonic Acid HCO3/H2CO3 Ratio ABG pH ABG pCO2 ABG pO2 ABG HCO3 ABG Total CO2 ABG O2 Saturation ABG Base Excess FiO2 Sodium 139.3 Potassium 3.5 L Chloride 113 H Carbon Dioxide 18 L Anion Gap 8 BUN 13 Creatinine 1.76 H Est GFR ( Amer) 35 L Est GFR (MDRD) Non-Af 29 L Glucose 230 H POC Glucose Lactic Acid 3.0 H Calcium 8.4 Phosphorus 2.5 Magnesium 1.9 Total Bilirubin 0.4 Direct Bilirubin 0.3 Neonat Total Bilirubin Not Reportable Neonat Direct Bilirubin Not Reportable Neonat Indirect Bili Not Reportable AST 980 H ALT 506 H Alkaline Phosphatase 114 Troponin I Total Protein 5.1 L Albumin 2.2 L TSH Free T4 Free T3 pg/mL 04/30/20 04/30/20 04/30/20 03:55 09:35 12:15 WBC RBC Hgb Hct MCV MCH MCHC RDW Plt Count Lymph % (Auto) [place] % (Auto) Eos % (Auto) Baso % (Auto) Absolute Neuts (auto) Absolute Lymphs (auto) Absolute Monos (auto) Absolute Eos (auto) Absolute Basos (auto) Total Counted Seg Neutrophils % Seg Neuts % (Manual) Band Neutrophils % Lymphocytes % (Manual) Monocytes % (Manual) Eosinophils % (Manual) Basophils % (Manual) Abs Neuts (Manual) Abs Lymphs (Manual) Abs Monocytes (Manual) Absolute Eos (Manual) Abs Basophils (Manual) Toxic Granulation Platelet Comment Polychromasia Poikilocytosis Anisocytosis Ovalocytes [place] Cells Schistocytes Carbonic Acid HCO3/H2CO3 Ratio ABG pH ABG pCO2 ABG pO2 ABG HCO3 ABG Total CO2 ABG O2 Saturation ABG Base Excess FiO2 Sodium Potassium Chloride Carbon Dioxide Anion Gap BUN Creatinine Est GFR ( Amer) Est GFR (MDRD) Non-Af Glucose POC Glucose 167 H Lactic Acid Calcium Phosphorus Magnesium Total Bilirubin Direct Bilirubin Neonat Total Bilirubin Neonat Direct Bilirubin Neonat Indirect Bili AST ALT Alkaline Phosphatase Troponin I 1.560 0.806 Total Protein Albumin TSH Free T4 Free T3 pg/mL 04/30/20 04/30/20 14:22 17:11 WBC RBC Hgb Hct MCV MCH MCHC RDW Plt Count Lymph % (Auto) [place] % (Auto) Eos % (Auto) Baso % (Auto) Absolute Neuts (auto) Absolute Lymphs (auto) Absolute Monos (auto) Absolute Eos (auto) Absolute Basos (auto) Total Counted Seg Neutrophils % Seg Neuts % (Manual) Band Neutrophils % Lymphocytes % (Manual) Monocytes % (Manual) Eosinophils % (Manual) Basophils % (Manual) Abs Neuts (Manual) Abs Lymphs (Manual) Abs Monocytes (Manual) Absolute Eos (Manual) Abs Basophils (Manual) Toxic Granulation Platelet Comment Polychromasia Poikilocytosis Anisocytosis Ovalocytes Shailesh Cells Schistocytes Carbonic Acid HCO3/H2CO3 Ratio ABG pH ABG pCO2 ABG pO2 ABG HCO3 ABG Total CO2 ABG O2 Saturation ABG Base Excess FiO2 Sodium 140.9 Potassium 3.1 L Chloride 114 H Carbon Dioxide 18 L Anion Gap 9 BUN 13 Creatinine 1.56 H Est GFR ( Amer) 40 L Est GFR (MDRD) Non-Af 33 L Glucose 133 H POC Glucose 107 Lactic Acid Calcium 8.6 Phosphorus Magnesium 1.7 Total Bilirubin Direct Bilirubin Neonat Total Bilirubin Neonat Direct Bilirubin Neonat Indirect Bili AST ALT Alkaline Phosphatase Troponin I Total Protein Albumin TSH Free T4 Free T3 pg/mL Abdomen/Pelvis CT 04/27/20 00:00 IMPRESSION: 1. Limited examination secondary to motion artifact. 2. Cholelithiasis. 3. Poor visualization of the GI tract especially in the mid and lower abdomen. No obvious bowel obstruction. Chest X-Ray 04/27/20 14:52 IMPRESSION: No acute cardiopulmonary process. Head CT 04/27/20 15:26 IMPRESSION: No acute intracranial abnormality. EVIDENCE OF ACUTE STROKE: NO. Chest X-Ray 04/29/20 00:00 IMPRESSION: Extensive bilateral airspace disease right greater than left. This is new from 04/27/2020. Most likely pulmonary edema. Chest X-Ray 04/29/20 10:58 IMPRESSION: Interval placement of endotracheal tube and NG tube as described. Both are in satisfactory position. No other interval change. Chest X-Ray 04/29/20 14:07 IMPRESSION: Support lines and tubes have been placed as discussed. Increasing opacification in the right lung base. Overall pulmonary edema pattern appears improved. Chest X-Ray 04/30/20 00:00 IMPRESSION: 1. Somewhat improved pulmonary exam. 2. Endotracheal tube tip broaches the right mainstem bronchus. Recommend retracting 3 to 4 cm. Otherwise stable lines and tubes. IMPRESSION/RECOMMENDATION: 1. Respiratory arrest: This is due to a combination of severe metabolic acidosis and encephalopathy. Continue ventilator support. 2. Severe metabolic acidosis: This is most likely secondary to combination of u ntoward effects of psychiatric medication, encephalopathy, and sepsis. Continue antibiotics. Note ID consult and the recommendations for antibiotics have been noted. Patient on a bicarb drip 3. Paroxysmal atrial fibrillation yesterday needing emergency DC cardioversion due to hypotension and atrial fibrillation with rapid ventricular response. No recurrence. Amiodarone drip discontinued due to bradycardia. Since LP is not being planned would recommend starting the patient back on Eliquis at 2.5 mg p.o. twice daily. We will increase the Eliquis dose as the patient's renal function improves. 4. Shock: This is secondary to a combination of septic [viral meningitis and UTI] and cardiogenic etiology. Continue inotrope support and wean off if possible. 5. Severe encephalopathy secondary to most likely viral meningitis and acidosis, and sepsis. 6. Severe pulmonary hypertension: This is most likely elevated pulmonary arterial pressures due to severe acidosis. Right ventricle systolic pressure is at least 61 mmHg with a RA mean of at least 20 [IVC is dilated and does not vary with respiration, and hence the right atrial mean pressure is at least greater than 20.] 7. Takotsubo cardiomyopathy: This is most likely event. Patient with a picture by echo of Takotsubo cardiomyopathy. This should improve if this is indeed the case in the matter of days. Continue supportive treatment. 8. Elevated troponin secondary combination of hypertension, and cardiomyopathy. This is a type II supply demand mismatch no evidence of non-STEMI. Hence we will treat the underlying cause, and not treat this as a non-ST ovation ND. 10. Bipolar disorder: Most likely has untoward effects from her psych medication. Doubt that this is neuroleptic syndrome, due to lack of hyperpyre eleonora, although there is some evidence of tardive dyskinesia. 11. Acute renal failure with oliguria:: Avoid nephrotoxic drugs. Expect this to improve with the stabilization of the patient's overall condition 12. Hypokalemia: Continue replacement. Medications reviewed. Inotropes adjusted. Medical regimen management plan discussed with freight representative. Medical decision making is of high complexity. Discussed the patient's condition with the patient's sister. Will follow
[2020-04-30] MEDS: VANCOMYCIN HCL 750 MG in DEXTROSE 5%-WATER 250 ML IV SCH (22:05)
[2020-04-30] MEDS: APIXABAN 2.5 MG TABLET PO SCH (22:05)
[2020-04-30] MEDS ORDERED: PHENYLEPHRINE HCL INJ/PF 10 MG/1 ML SDV ONE (22:18)
[2020-05-01] MEDS: INSULIN LISPRO 100 UNIT/ML 3 ML VIAL SUBCUT SCH ×5 (00:17→23:00)
[2020-05-01 02:02] LABS: ANION GAP 8 (5-19); BLOOD UREA NITROGEN 11 mg/dL (7-20); CALCIUM 8.4 mg/dL (8.4-10.2); CARBON DIOXIDE 17 mmol/L (22-30); CHLORIDE 115 mmol/L (98-107); GLUCOSE 116 mg/dL (75-110); POTASSIUM 3.5 mmol/L (3.6-5.0)
[2020-05-01] MEDS: ACYCLOVIR SODIUM 500 MG in NORMAL SALINE 100 ML IV SCH ×3 (02:29→17:26)
[2020-05-01] MEDS: DEXTROSE 5%-WATER 250 ML with PHENYLEPHRINE HCL 40 MG IV PRN ×6 (03:54→20:15)
[2020-05-01] MEDS: LEVOTHYROXINE SODIUM 0.025 MG TABLET PO SCH (05:28)
[2020-05-01] MEDS: PROPOFOL 1,000 MG/100 ML INFUS..BTL IV PRN (05:29)
[2020-05-01 05:57] LABS: HEMATOCRIT 33.2 % (36.0-47.0); MEAN CORPUSCULAR HEMOGLOBIN 28.9 pg (27.0-33.4); MEAN CORPUSCULAR HGB CONC 33.2 g/dL (32.0-36.0); MEAN CORPUSCULAR VOLUME 87 fl (80-97); PLATELET COUNT 412 10^3/uL (150-450); RED BLOOD COUNT 3.82 10^6/uL (3.72-5.28); RED CELL DISTRIBUTION WIDTH 17.7 % (11.5-14.0); WHITE BLOOD COUNT 21.7 10^3/uL (4.0-10.5)
[2020-05-01 06:11] LABS: PHOSPHORUS 2.2 mg/dL (2.5-4.5)
[2020-05-01 06:14] LABS: VANCOMYCIN,TROUGH 15.9 ug/mL (5.0-20.0)
[2020-05-01 06:23] LABS: ABSOLUTE LYMPHOCYTES# (MANUAL) 0.9 10^3/uL (0.5-4.7); ABSOLUTE MONOCYTES # (MANUAL) 0.2 10^3/uL (0.1-1.4); BASOPHILS % (MANUAL) 0 % (0-2); EOSINOPHILS % (MANUAL) 1 % (0-6); LYMPHOCYTES % (MANUAL) 4 % (13-45); MONOCYTES % (MANUAL) 1 % (3-13); SEGMENTED NEUTROPHILS % (MAN) 94 % (42-78); TOTAL CELLS COUNTED 100
[2020-05-01 06:24] LABS: ANISOCYTOSIS 1+; PLATELET COMMENT ADEQUATE
[2020-05-01 06:25] LABS: BURR CELLS SLIGHT; OVALOCYTES SLIGHT; PLATELET CLUMPS PRESENT; POLYCHROMASIA SLIGHT
[2020-05-01 06:26] LABS: POIKILOCYTOSIS SLIGHT
[2020-05-01] MEDS: APIXABAN 2.5 MG TABLET PO SCH ×2 (09:25→21:25)
[2020-05-01] MEDS: PANTOPRAZOLE SODIUM 40 MG VIAL IV SCH (09:25)
[2020-05-01] MEDS: LIOTHYRONINE SODIUM 25 MCG TABLET PO SCH (09:26)
[2020-05-01] MEDS: NORMAL SALINE 1000 ML 1,000 ML IV PRN ×2 (09:29→20:16)
[2020-05-01] MEDS: LORAZEPAM INJ 2 MG/1 ML VIAL IV PRN (09:29)
[2020-05-01] MEDS: IMIPENEM/CILASTATIN SODIUM 500 MG in NORMAL SALINE 100 ML IV SCH ×2 (10:00→22:58)
--- NOTE | 2020-05-01 10:18 | EKG REPORT ---
SEVERITY:- ABNORMAL ECG - SINUS RHYTHM ABNRM R PROG, CONSIDER ASMI OR LEAD PLACEMENT ABNORMAL T, CONSIDER ISCHEMIA, DIFFUSE LEADS BORDERLINE PROLONGED QT INTERVAL : Confirmed by: Fran Concepcion MD 01-May-2020 10:17:04
--- NOTE | 2020-05-01 14:20 | Progress Note ---
Provider Note Provider Note: CARDIOLOGY PROGRESS NOTE by Dr. Cydney Dickens on 05/01/2020. SUBJECTIVE: The patient is intubated and sedated. There is no recurrence of atrial fibrillation. There is no bradycardia or ventricular arrhythmias seen. The patient's blood pressure is stable and the patient is on dopamine at 2.5 mcg/kg/min and also Luis-Synephrine which has been dialed down to 70 mcg/min. The patient's troponin is trending down. The patient is renal function is improved and her GFR is come up to 47 mL. She is making more urine at present. PHYSICAL EXAMINATION: The patient is a frail build. She is intubated. Selected Entries 05/01/20 05/01/20 05/01/20 12:00 13:47 13:48 Core 98.6 F 98.6 F Temperature Pulse Rate Heart Rate ( 92 Monitors) Respiratory 15 Rate Blood Pressure 121/80 Blood Pressure 93 Mean O2 Sat by Pulse 100 Oximetry Oxygen Delivery Mechanical Method ( Ventilator includes room air) Fraction of Inspired Oxygen (FIO2) 05/01/20 05/01/20 14:00 14:08 Core 98.6 F Temperature Pulse Rate 91 Heart Rate ( 62 Monitors) Respiratory 15 15 Rate Blood Pressure 103/63 Blood Pressure 76 Mean O2 Sat by Pulse 95 100 Oximetry Oxygen Delivery Mechanical Method ( Ventilator includes room air) Fraction of 35 Inspired Oxygen (FIO2) HEENT is negative. Neck is supple. There is no JVD. Carotids are equal there is no bruit. Skin: There is no skin rashes. Skin is cool to touch. There is no petechia or ecchymosis. LUNGS: Few scattered rhonchi, there is some diminished breath sounds in the right base. There is a few bibasilar rales of CHF. There is no rhonchi rales or wheezing. HEART: S1-S2 is heard. S1 is of normal intensity. There is no S3 gallop. There is no S4 gallop. There is systolic murmur in the left sternal border and the apex . There is no rub. ABDOMEN: Soft. There is no hepatosplenomegaly. Bowel sounds well heard. EXTREMITIES: Femorals are diminished. There is no femoral bruits. Leg pulses are well felt. There is no pedal edema. There is no DVT or cellulitis. TERMINOLOGIST and psychiatric not examined due to patient being intubated and sedated. The patient's 24-hour intake has been 2481 mL. Output is 895 mL. Labs- All tests 24 hr 04/30/20 05/01/20 05/01/20 23:07 01:33 05:28 WBC RBC Hgb Hct MCV MCH MCHC RDW Plt Count Lymph % (Auto) [place] % (Auto) Eos % (Auto) Baso % (Auto) Absolute Neuts (auto) Absolute Lymphs (auto) Absolute Monos (auto) Absolute Eos (auto) Absolute Basos (auto) Total Counted Seg Neutrophils % Seg Neuts % (Manual) Lymphocytes % (Manual) Monocytes % (Manual) Eosinophils % (Manual) Basophils % (Manual) Abs Neuts (Manual) Abs Lymphs (Manual) Abs Monocytes (Manual) Absolute Eos (Manual) Abs Basophils (Manual) Clumped Platelets Platelet Comment Polychromasia Poikilocytosis Anisocytosis Ovalocytes [place] Cells Sodium 140.1 Potassium 3.5 L Chloride 115 H Carbon Dioxide 17 L Anion Gap 8 BUN 11 Creatinine 1.14 Est GFR ( Amer) 57 L Est GFR (MDRD) Non-Af 47 L Glucose 116 H POC Glucose 126 H 113 H Calcium 8.4 Phosphorus Magnesium 2.3 Troponin I Time Trough Drawn Vancomycin Trough 05/01/20 05/01/20 05/01/20 05:29 05:29 05:29 WBC 21.7 H RBC 3.82 Hgb 11.0 L Hct 33.2 L MCV 87 MCH 28.9 MCHC 33.2 RDW 17.7 H Plt Count 412 Lymph % (Auto) Not Reportable [place] % (Auto) Not Reportable Eos % (Auto) Not Reportable Baso % (Auto) Not Reportable Absolute Neuts (auto) Not Reportable Absolute Lymphs (auto) Not Reportable Absolute Monos (auto) Not Reportable Absolute Eos (auto) Not Reportable Absolute Basos (auto) Not Reportable Total Counted 100 Seg Neutrophils % Not Reportable Seg Neuts % (Manual) 94 H Lymphocytes % (Manual) 4 L Monocytes % (Manual) 1 L Eosinophils % (Manual) 1 Basophils % (Manual) 0 Abs Neuts (Manual) 20.4 H Abs Lymphs (Manual) 0.9 Abs Monocytes (Manual) 0.2 Absolute Eos (Manual) 0.2 Abs Basophils (Manual) 0.0 Clumped Platelets PRESENT Platelet Comment ADEQUATE Polychromasia SLIGHT Poikilocytosis SLIGHT Anisocytosis 1+ Ovalocytes SLIGHT [place] Cells SLIGHT Sodium Potassium Chloride Carbon Dioxide Anion Gap BUN Creatinine Est GFR ( Amer) Est GFR (MDRD) Non-Af Glucose POC Glucose Calcium Phosphorus 2.2 L Magnesium 2.2 Troponin I Time Trough Drawn 0529 Vancomycin Trough 15.9 05/01/20 05/01/20 05/01/20 09:08 11:23 17:11 WBC RBC Hgb Hct MCV MCH MCHC RDW Plt Count Lymph % (Auto) [place] % (Auto) Eos % (Auto) Baso % (Auto) Absolute Neuts (auto) Absolute Lymphs (auto) Absolute Monos (auto) Absolute Eos (auto) Absolute Basos (auto) Total Counted Seg Neutrophils % Seg Neuts % (Manual) Lymphocytes % (Manual) Monocytes % (Manual) Eosinophils % (Manual) Basophils % (Manual) Abs Neuts (Manual) Abs Lymphs (Manual) Abs Monocytes (Manual) Absolute Eos (Manual) Abs Basophils (Manual) Clumped Platelets Platelet Comment Polychromasia Poikilocytosis Anisocytosis Ovalocytes [place] Cells Sodium Potassium Chloride Carbon Dioxide Anion Gap BUN Creatinine Est GFR ( Amer) Est GFR (MDRD) Non-Af Glucose POC Glucose 132 H 103 Calcium Phosphorus Magnesium Troponin I 0.306 Time Trough Drawn Vancomycin Trough EKG:SINUS RHYTHM [AMI4] . ABNRM R PROG, CONSIDER ASMI OR LEAD PLACEMENT [T3WI] . ABNORMAL T, CONSIDER ISCHEMIA, DIFFUSE LEADS [LQTB] . BORDERLINE PROLONGED QT INTERVAL Abdomen/Pelvis CT 04/27/20 00:00 IMPRESSION: 1. Limited examination secondary to motion artifact. 2. Cholelithiasis. 3. Poor visualization of the GI tract especially in the mid and lower abdomen. No obvious bowel obstruction. Chest X-Ray 04/27/20 14:52 IMPRESSION: No acute cardiopulmonary process. Head CT 04/27/20 15:26 IMPRESSION: No acute intracranial abnormality. EVIDENCE OF ACUTE STROKE: NO. Chest X-Ray 04/29/20 00:00 IMPRESSION: Extensive bilateral airspace disease right greater than left. This is new from 04/27/2020. Most likely pulmonary edema. Chest X-Ray 04/29/20 10:58 IMPRESSION: Interval placement of endotracheal tube and NG tube as described. Both are in satisfactory position. No other interval change. Chest X-Ray 04/29/20 14:07 IMPRESSION: Support lines and tubes have been placed as discussed. Increasing opacification in the right lung base. Overall pulmonary edema pattern appears improved. Chest X-Ray 04/30/20 00:00 IMPRESSION: 1. Somewhat improved pulmonary exam. 2. Endotracheal tube tip broaches the right mainstem bronchus. Recommend retracting 3 to 4 cm. Otherwise stable lines and tubes. IMPRESSION/RECOMMENDATION: 1. Respiratory arrest: This is due to a combination of severe metabolic acidosis and encephalopathy. Continue ventilator support. 2. Severe metabolic acidosis: This is most likely secondary to combination of untoward effects of psychiatric medication, encephalopathy, and sepsis. Continue antibiotics. Note ID consult and the recommendations for antibiotics have been noted. Patient on a bicarb drip 3. Paroxysmal atrial fibrillation yesterday needing emergency DC cardioversion due to hypotension and atrial fibrillation with rapid ventricular response. No recurrence. Amiodarone drip discontinued due to bradycardia. Since LP is not being planned would recommend starting the patient back on Eliquis at 2.5 mg p.o. twice daily. We will increase the Eliquis dose as the patient's renal function improves. 4. Shock: This is secondary to a combination of septic [viral meningitis and UTI] and cardiogenic etiology. Continue inotrope support and wean off if possible. 5. Severe encephalopathy secondary to most likely viral meningitis and acidosis, and sepsis. 6. Severe pulmonary hypertension: This is most likely elevated pulmonary arterial pressures due to severe acidosis. Right ventricle systolic pressure is at least 61 mmHg with a RA mean of at least 20 [IVC is dilated and does not vary with respiration, and hence the right atrial mean pressure is at least greater than 20.] 7. Takotsubo cardiomyopathy: This is most likely event. Patient with a picture by echo of Takotsubo cardiomyopathy. This should improve if this is indeed the case in the matter of days. Continue supportive treatment. 8. Elevated troponin secondary combination of hypertension, and cardiomyopathy. This is a type II supply demand mismatch no evidence of non-STEMI. Hence we will treat the underlying cause, and not treat this as a non-ST ovation NE. 10. Bipolar disorder: Most likely has untoward effects from her psych medication. Doubt that this is neuroleptic syndrome, due to lack of hyperpyrexia, although there is some evidence of tardive dyskinesia. 11. Acute renal failure with oliguria:: Avoid nephrotoxic drugs. GFR is improved and the urine output is much improved. 12. Hypokalemia: Continue replacement. Medications reviewed. Inotropes adjusted. Medical regimen management plan discussed with regulatory law specialist. Medical decision making is of high complexity. Discussed the patient's condition with the patient's sister. Will follow.
--- NOTE | 2020-05-01 15:13 | PDOC CRITICAL CARE PROG REPORT ---
General Date:: 05/01/20 ICU Day:: 3 Ventilator Day:: 3 Hospital Day:: 4 Resuscitation Status: Full Code Events in the past 12 to 24 Hours:: 04/30/2020: Patient was admitted to the intensive care unit yesterday status post cardiac arrest intubated. Please see ICU admission note for details regarding yesterday's events. Overnight, she had a decrease in her blood pressure and heart rate. The amiodarone drip was discontinued and patient was placed on dopamine drip along with her standing Luis-Synephrine. Her blood pr essure has since improved and she is being weaned off of Luis-Synephrine. 05/01/2020: No acute events overnight. Blood pressure has been improving slightly and she is being weaned off of Luis-Synephrine. Propofol also being weaned. Patient is not yet responsive. Review of systems relevant to events:: Neuro: Patient has been sedated on propofol. Less rigid than on previous exam. Pulmonary: Patient breathing comfortably on PRVC. Tidal volume 400, respiratory rate 15, PEEP 5, FiO2 40%. I am very hopeful that she will be weaned quickly once more responsive and off of sedation. Continue current vent settings. We will wean as tolerated as her neurologic status improves. Chest x-ray does show some improvement this morning however there are bilateral infiltrates seen. Sputum culture is pending. Patient remains on vancomycin and imipenem. Cardiovascular: As above, patient was hypotensive and bradycardic overnight. Amiodarone was discontinued and she was started on dopamine drip. She also remains on Luis-Synephrine. We are decreasing the Luis-Synephrine as tolerated to maintain a mean pressure of 70 mmHg. Indwelling catheters: Right IJ TLC placed on 04/29/2020. Heme: H/H is 10.4/32. No evidence of bleeding. Platelets are elevated at 412 which is mildly improved from yesterday. Continue Eliquis. Renal: BUN/CR mildly improved this morning. We will reduce normal saline to 100 mL an hour. Gastrointestinal: Tube feeds started this morning. Patient remains on GI prophylaxis with Protonix. : Aparicio catheter in place. Possible UTI prior to placement. Patient remains on vancomycin and imipenem. ID: As above, patient is on Vanco and imipenem. She was changed to imipenem for better penetration of her blood-brain barrier in the event that her neurologic symptoms are related to a bacterial meningitis. Barriers to discharge from ICU: Patient remains on multiple inotropic and chronotropic agents. She also remains with rigidity and neurologic symptoms. Reason for ICU Addmission:: Status post cardiac arrest, respiratory failure - Medications: Medications reviewed and adjusted accordingly: Yes Physical Exam Vital Signs: Temp Pulse Resp BP Pulse Ox 98.4 F 64 15 98/62 L 100 05/01/20 12:00 05/01/20 12:00 05/01/20 12:00 05/01/20 12:00 05/01/20 12:00 Intake & Output 04/30/20 05/01/20 05/02/20 06:59 06:59 06:59 Intake Total 3936 2481 951 Output Total 177 895 515 Balance 3759 1586 436 Weight 61.7 kg 66.3 kg Weight/Height Weight 66.3 kg Height 5 ft 1 in General appearance: PRESENT: no acute distress Head exam: PRESENT: atraumatic, normocephalic Eye exam: PRESENT: EOMI, PERRLA Ear exam: PRESENT: normal external ear exam Mouth exam: PRESENT: neck supple Neck exam: PRESENT: full ROM. ABSENT: JVD, lymphadenopathy Respiratory exam: PRESENT: clear to auscultation manuela. ABSENT: rhonchi, wheezes Cardiovascular exam: PRESENT: RRR Pulses: PRESENT: normal carotid pulses, normal radial pulses, +2 pedal pulses bilateral GI/Abdominal exam: PRESENT: normal bowel sounds, soft Extremities exam: PRESENT: full ROM, other - Intermittent rigidity which has improved since yesterday.. ABSENT: joint swelling, pedal edema Musculoskeletal exam: PRESENT: normal inspection Neurological exam: PRESENT: altered Skin exam: PRESENT: intact Tubes/Lines: PRESENT: Endotracheal Tube, Central Line Laboratory/Radiographs Laboratory Results: 05/01/20 05:29 05/01/20 01:33 04/30/20 05/01/20 05/01/20 14:22 01:33 05:29 WBC RBC Hgb Hct MCV MCH MCHC RDW Plt Count Seg Neutrophils % Sodium 140.9 140.1 Potassium 3.1 L 3.5 L Chloride 114 H 115 H Carbon Dioxide 18 L 17 L Anion Gap 9 8 BUN 13 11 Creatinine 1.56 H 1.14 Est GFR ( Amer) 40 L 57 L Glucose 133 H 116 H Calcium 8.6 8.4 Phosphorus 2.2 L Magnesium 1.7 2.3 2.2 05/01/20 05:29 WBC 21.7 H RBC 3.82 Hgb 11.0 L Hct 33.2 L MCV 87 MCH 28.9 MCHC 33.2 RDW 17.7 H Plt Count 412 Seg Neutrophils % Not Reportable Sodium Potassium Chloride Carbon Dioxide Anion Gap BUN Creatinine Est GFR ( Amer) Glucose Calcium Phosphorus Magnesium 04/27/20 04/27/20 04/30/20 15:01 15:01 03:55 Creatine Kinase 155 H Troponin I < 0.012 1.560 04/30/20 05/01/20 09:35 09:08 Creatine Kinase Troponin I 0.806 0.306 Impressions: Abdomen/Pelvis CT 04/27/20 00:00 IMPRESSION: 1. Limited examination secondary to motion artifact. 2. Cholelithiasis. 3. Poor visualization of the GI tract especially in the mid and lower abdomen. No obvious bowel obstruction. Head CT 04/27/20 15:26 IMPRESSION: No acute intracranial abnormality. EVIDENCE OF ACUTE STROKE: NO. Chest X-Ray 04/30/20 00:00 IMPRESSION: 1. Somewhat improved pulmonary exam. 2. Endotracheal tube tip broaches the right mainstem bronchus. Recommend retracting 3 to 4 cm. Otherwise stable lines and tubes. All labs, radiographs, diagnostic studies and EKGs were personally reviewed: Yes In addition, reports of radiographic and diagnostic studies were read: Yes Assessment and Plan - Diagnosis (1) Acute metabolic encephalopathy Is this a current diagnosis for this admission?: Yes Plan: Etiologies may include the following: Viral meningitis: Continue patient on acyclovir. Bacterial meningitis: Antibiotics changed to imipenem for neurologic coverage. Risk of lumbar puncture currently outweighs benefits and will be held at this time as week continue with empiric treatment. Neuroleptic malignant syndrome: Patient unable to tolerate dantrolene due to a drop in blood pressure. She continues on propofol and risperidone was discontinued. (2) Urinary tract infection Qualifiers: Urinary tract infection type: acute cystitis Hematuria presence: with hematuria Qualified Code(s): N30.01 - Acute cystitis with hematuria Is this a current diagnosis for this admission?: Yes Plan: Patient on vancomycin and imipenem. We will follow WBC and fever curve closely. (3) Sepsis Qualifiers: Sepsis type: sepsis due to unspecified organism Sepsis acute organ dysfunction status: with acute organ dysfunction Severe sepsis acute organ dysfunction type: acute respiratory failure Acute respiratory failure type: with hypercapnia Severe sepsis shock status: with septic shock Qualified Code(s): A41.9 - Sepsis, unspecified organism; R65.21 - Severe sepsis with septic shock; J96.02 - Acute respiratory failure with hypercapnia Is this a current diagnosis for this admission?: Yes Plan: Continue current antibiotics. Continue fluid resuscitation Wean off of Luis-Synephrine and dopamine as tolerated. Critical Time Critical Time (minutes): 6 Level of Care: ICU Anticipated discharge: Acute Rehab Anticipated DC Timeframe: within 72 hours -: 1. The care of a critical patient is a dynamic process. This note is a repres entative synopsis but static in nature. The timeframe for treatments given in order is not necessarily the actual time these treatments may have been done. 2. This patient requires critical care secondary to ongoing requirements for therapy not offered or safe outside the critical care environment. Transfer to a lower level of care will result in altered life or limb morbidity and mortality. 3. Multidisciplinary rounds completed. 4. ABCDE bundle addressed.
[2020-05-01 22:04] LABS: VANCOMYCIN,TROUGH 9.6 ug/mL (5.0-20.0)
[2020-05-01] MEDS ORDERED: VANCOMYCIN HCL INJ 1000 MG VIAL ONE (22:56)
[2020-05-01] MEDS: VANCOMYCIN HCL 750 MG in DEXTROSE 5%-WATER 250 ML IV SCH (22:59)
--- NOTE | 2020-05-02 01:40 | Operative Report ---
Bedside Procedure - History of Present Illness Indication for Procedure: Altered mental status Date: 04/29/20 - See procedural details. Provider: OMAYRA GRAHAM - Lumbar Puncture Lumbar puncture Time completed: 01:00 Consent obtained: Yes Lumbar puncture pre-procedure: Sterile PPE donned, Betadine prep applied, Chloraprep applied, Sterile drapes applied Patient position: Lying Anesthetic type: 1% Lidocaine mL's of anesthetic: 3 Amount/type of drainage: Clear CSF Notes: 05/02/20 01:38 Opening pressure 38cm
[2020-05-02 02:02] LABS: GLUCOSE,CSF 72 mg/dL (40-70); PROTEIN,CSF 43 mg/dL (12-60)
[2020-05-02] MEDS: ACYCLOVIR SODIUM 500 MG in NORMAL SALINE 100 ML IV SCH ×3 (02:02→17:46)
[2020-05-02 02:13] LABS: CSF TUBE NUMBER 3
[2020-05-02 02:14] LABS: APPEARANCE TUBE 1 CLEAR; APPEARANCE TUBE 2 CLEAR; APPEARANCE TUBE 3 CLEAR; APPEARANCE TUBE 4 CLOUDY; COLOR TUBE 1 COLORLESS; COLOR TUBE 2 COLORLESS; COLOR TUBE 3 COLORLESS; COLOR TUBE 4 PINK
[2020-05-02 02:15] LABS: RED BLOOD CELL,CSF 140 /uL (0-10); WHITE BLOOD CELL,CSF 3 /uL (0-5)
[2020-05-02 02:16] LABS: CSF TUBE NUMBER 4
[2020-05-02 02:23] LABS: COLOR TUBE 1 COLORLESS; COLOR TUBE 2 COLORLESS; COLOR TUBE 3 COLORLESS; COLOR TUBE 4 PINK; RED BLOOD CELL,CSF 578 /uL (0-10); WHITE BLOOD CELL,CSF 5 /uL (0-5)
[2020-05-02 02:24] LABS: APPEARANCE TUBE 1 CLEAR; APPEARANCE TUBE 2 CLEAR; APPEARANCE TUBE 3 CLEAR; APPEARANCE TUBE 4 CLOUDY
[2020-05-02 03:45] LABS: ABSOLUTE EOSINOPHILS # (AUTO) 0.6 10^3/uL (0.0-0.6); ABSOLUTE LYMPHOCYTES (AUTO) 1.2 10^3/uL (0.5-4.7); ABSOLUTE MONOCYTES (AUTO) 0.5 10^3/uL (0.1-1.4); ABSOLUTE NEUT (AUTO) 13.3 10^3/uL (1.7-8.2); BASOPHILS % (AUTO) 0.3 % (0-2); EOSINOPHILS % (AUTO) 3.7 % (0-6); HEMATOCRIT 31.5 % (36.0-47.0); HEMOGLOBIN 10.4 g/dL (12.0-15.5); LYMPHOCYTES % (AUTO) 7.5 % (13-45); MEAN CORPUSCULAR HEMOGLOBIN 29.5 pg (27.0-33.4); MEAN CORPUSCULAR HGB CONC 33.2 g/dL (32.0-36.0); MEAN CORPUSCULAR VOLUME 89 fl (80-97); MONOCYTES % (AUTO) 3.5 % (3-13); PLATELET COUNT 359 10^3/uL (150-450); RED BLOOD COUNT 3.54 10^6/uL (3.72-5.28); RED CELL DISTRIBUTION WIDTH 17.9 % (11.5-14.0); TOTAL CELLS COUNTED % (AUTO) 100 %; WHITE BLOOD COUNT 15.6 10^3/uL (4.0-10.5)
[2020-05-02 03:49] LABS: INTERNATIONAL RATION (INR) 1.66; PROTHROMBIN TIME 19.7 SEC (11.4-15.4)
[2020-05-02 04:08] LABS: ANION GAP 5 (5-19); BLOOD UREA NITROGEN 8 mg/dL (7-20); CARBON DIOXIDE 18 mmol/L (22-30); CHLORIDE 118 mmol/L (98-107); GLUCOSE 115 mg/dL (75-110); POTASSIUM 3.4 mmol/L (3.6-5.0); TRIGLYCERIDES 165 mg/dL (<150)
[2020-05-02] MEDS: PROPOFOL 1,000 MG/100 ML INFUS..BTL IV PRN ×2 (04:34→16:37)
[2020-05-02] MEDS: INSULIN LISPRO 100 UNIT/ML 3 ML VIAL SUBCUT SCH ×3 (05:24→17:23)
[2020-05-02] MEDS: LEVOTHYROXINE SODIUM 0.025 MG TABLET PO SCH (05:24)
[2020-05-02] MEDS: LIOTHYRONINE SODIUM 25 MCG TABLET PO SCH (10:31)
[2020-05-02] MEDS: APIXABAN 2.5 MG TABLET PO SCH ×2 (10:31→21:55)
[2020-05-02] MEDS: PANTOPRAZOLE SODIUM 40 MG VIAL IV SCH (10:31)
[2020-05-02] MEDS: IMIPENEM/CILASTATIN SODIUM 500 MG in NORMAL SALINE 100 ML IV SCH ×2 (11:35→23:57)
--- NOTE | 2020-05-02 14:13 | RADIOLOGY REPORT (SQ) ---
EXAM DESCRIPTION: VENOUS UNILATERAL UPPER IMAGES COMPLETED DATE/TIME: 05/02/2020 1:28 pm REASON FOR STUDY: Left arm edema and redness COMPARISON: None. TECHNIQUE: Dynamic and static guerra scale and color images acquired of the left arm venous system. Se lected spectral images acquired with additional compression and augmentation maneuvers. The contralat eral subclavian vein and internal jugular vein were also imaged. Images stored on PACS. LIMITATIONS: None. FINDINGS: INTERNAL JUGULAR VEIN: Normal phasicity, compression, augmentation. No visualized echogeni c material on guerra scale. No defects on color images. Comparison opposite side normal. SUBCLAVIAN VEIN: Normal compression, augmentation. No visualized echogenic material on guerra scale. No defects on color images. AXILLARY VEIN: Occlusive thrombus is seen within the axillary vein. BRACHIAL VEIN: Occlusive thrombus is seen within the brachial veins. BASILIC VEIN: Normal compression, augmentation. No visualized echogenic material on guerra scale. No de fects on color images. CEPHALIC VEIN: Occlusive thrombus is seen within the cephalic vein. OTHER: No other significant finding. CONTRALATERAL SUBCLAVIAN VEIN AND INTERNAL JUGULAR VEIN: Not imaged. IMPRESSION: Acute occlusive thrombus is seen within the axillary, brachial, and cephalic veins. TECHNICAL DOCUMENTATION: JOB ID: [id number] [employer]- All Rights Reserved Reading location - IP/workstation name: [email or web address]
--- NOTE | 2020-05-02 15:04 | Progress Note ---
Provider Note Provider Note: CARDIOLOGY PROGRESS NOTE by Dr. Cydney Dickens on 05/02/2020 SUBJECTIVE: The patient continues to be intubated and sedated. Her GFR is greater than 60 now and her urine output is picked up. She had a lumbar puncture done. Await studies. There is no recurrence of atrial fibrillation. There is no arrhythmias seen on the monitor. Due to her left upper extremity swelling the patient had a study which showed thrombus in the left axillary brachial and cephalic veins. The patient is on Eliquis. In view of the recent lumbar puncture will increase the Eliquis to 5 mg p.o. twice daily from tomorrow. The patient is off the Luis-Synephrine drip. She is only on small dose of dopamine at 2.5 mcg/kg/min. Physical EXAMINATION: The patient is a frail build. She is intubated and sedated. Selected Entries 05/02/20 05/02/20 05/02/20 10:47 11:37 11:44 Temperature 97.3 F Temperature Axillary Source Heart Rate ( 81 Monitors) Respiratory 15 Rate Positive End 5 Expiratory Pressure O2 Sat by Pulse 100 Oximetry Fraction of 30 Inspired Oxygen (FIO2) 05/02/20 12:00 Temperature Temperature Source Heart Rate ( Monitors) Respiratory Rate Positive End 5 Expiratory Pressure O2 Sat by Pulse Oximetry Fraction of 30 Inspired Oxygen (FIO2) HEENT is negative. Neck is supple. There is no JVD. Carotids are equal there is no bruit. Skin: There is no skin rashes. Skin is cool to touch. There is no petechia or ecchymosis. LUNGS: Few scattered rhonchi, there is some diminished breath sounds in the right base. There are no bibasilar rales of CHF. There is no rhonchi rales or wheezing. HEART: S1-S2 is heard. S1 is of normal intensity. There is no S3 gallop. There is no S4 gallop. There is systolic murmur in the left sternal border and the apex . There is no rub. ABDOMEN: Soft. There is no hepatosplenomegaly. Bowel sounds well heard. EXTREMITIES: Femorals are diminished. There is no femoral bruits. Leg pulses are well felt. There is no pedal edema. There is some mild swelling and redness in the left upper extremity. Upper extremity pulses are well felt. Capillary refill is normal. There is no cyanosis or clubbing there is no DVT or cellulitis. COSMETICIAN and psychiatric not examined due to patient being intubated and sedated. The patient's 24-hour intake has been 2137 mL. Output is 1890 mL. Labs- All tests 24 hr 04/29/20 05/01/20 05/01/20 08:24 17:11 21:30 WBC RBC Hgb Hct MCV MCH MCHC RDW Plt Count Lymph % (Auto) Garrard % (Auto) Eos % (Auto) Baso % (Auto) Absolute Neuts (auto) Absolute Lymphs (auto) Absolute Monos (auto) Absolute Eos (auto) Absolute Basos (auto) Seg Neutrophils % PT INR Sodium Potassium Chloride Carbon Dioxide Anion Gap BUN Creatinine Est GFR ( Amer) Est GFR (MDRD) Non-Af Glucose POC Glucose 103 Calcium Triglycerides Fluid Tube Number CSF Volume CSF WBC CSF RBC CSF Color (1) CSF Appearance (1) CSF Color (2) CSF Appearance (2) CSF Color (3) CSF Appearance (3) CSF Color (4) CSF Appearance (4) CSF Glucose CSF Total Protein Time Trough Drawn 2130 Vancomycin Trough 9.6 HSV I DNA PCR Negative HSV II DNA PCR Negative 05/01/20 05/02/20 05/02/20 22:57 01:05 01:05 WBC RBC Hgb Hct MCV MCH MCHC RDW Plt Count Lymph % (Auto) Garrard % (Auto) Eos % (Auto) Baso % (Auto) Absolute Neuts (auto) Absolute Lymphs (auto) Absolute Monos (auto) Absolute Eos (auto) Absolute Basos (auto) Seg Neutrophils % PT INR Sodium Potassium Chloride Carbon Dioxide Anion Gap BUN Creatinine Est GFR ( Amer) Est GFR (MDRD) Non-Af Glucose POC Glucose 103 Calcium Triglycerides Fluid Tube Number 3 CSF Volume 5.0 CSF WBC 3 CSF RBC 140 CSF Color (1) COLORLESS CSF Appearance (1) CLEAR CSF Color (2) COLORLESS CSF Appearance (2) CLEAR CSF Color (3) COLORLESS CSF Appearance (3) CLEAR CSF Color (4) PINK CSF Appearance (4) CLOUDY CSF Glucose 72 H CSF Total Protein 43 Time Trough Drawn Vancomycin Trough HSV I DNA PCR HSV II DNA PCR 05/02/20 05/02/20 05/02/20 01:05 03:30 03:30 WBC 15.6 H RBC 3.54 L Hgb 10.4 L Hct 31.5 L MCV 89 MCH 29.5 MCHC 33.2 RDW 17.9 H Plt Count 359 Lymph % (Auto) 7.5 L Garrard % (Auto) 3.5 Eos % (Auto) 3.7 Baso % (Auto) 0.3 Absolute Neuts (auto) 13.3 H Absolute Lymphs (auto) 1.2 Absolute Monos (auto) 0.5 Absolute Eos (auto) 0.6 Absolute Basos (auto) 0.0 Seg Neutrophils % 85.0 H PT INR Sodium 140.9 Potassium 3.4 L Chloride 118 H Carbon Dioxide 18 L Anion Gap 5 BUN 8 Creatinine 0.70 Est GFR ( Amer) > 60 Est GFR (MDRD) Non-Af > 60 Glucose 115 H POC Glucose Calcium 9.0 Triglycerides 165 H Fluid Tube Number 4 CSF Volume 5.0 CSF WBC 5 CSF RBC 578 CSF Color (1) COLORLESS CSF Appearance (1) CLEAR CSF Color (2) COLORLESS CSF Appearance (2) CLEAR CSF Color (3) COLORLESS CSF Appearance (3) CLEAR CSF Color (4) PINK CSF Appearance (4) CLOUDY CSF Glucose CSF Total Protein Time Trough Drawn Vancomycin Trough HSV I DNA PCR HSV II DNA PCR 05/02/20 05/02/20 03:30 12:27 WBC RBC Hgb Hct MCV MCH MCHC RDW Plt Count Lymph % (Auto) Garrard % (Auto) Eos % (Auto) Baso % (Auto) Absolute Neuts (auto) Absolute Lymphs (auto) Absolute Monos (auto) Absolute Eos (auto) Absolute Basos (auto) Seg Neutrophils % PT 19.7 H INR 1.66 Sodium Potassium Chloride Carbon Dioxide Anion Gap BUN Creatinine Est GFR ( Amer) Est GFR (MDRD) Non-Af Glucose POC Glucose 85 Calcium Triglycerides Fluid Tube Number CSF Volume CSF WBC CSF RBC CSF Color (1) CSF Appearance (1) CSF Color (2) CSF Appearance (2) CSF Color (3) CSF Appearance (3) CSF Color (4) CSF Appearance (4) CSF Glucose CSF Total Protein Time Trough Drawn Vancomycin Trough HSV I DNA PCR HSV II DNA PCR Abdomen/Pelvis CT 04/27/20 00:00 IMPRESSION: 1. Limited examination secondary to motion artifact. 2. Cholelithiasis. 3. Poor visualization of the GI tract especially in the mid and lower abdomen. No obvious bowel obstruction. Chest X-Ray 04/27/20 14:52 IMPRESSION: No acute cardiopulmonary process. Head CT 04/27/20 15:26 IMPRESSION: No acute intracranial abnormality. EVIDENCE OF ACUTE STROKE: NO. Chest X-Ray 04/29/20 00:00 IMPRESSION: Extensive bilateral airspace disease right greater than left. This is new from 04/27/2020. Most likely pulmonary edema. Chest X-Ray 04/29/20 10:58 IMPRESSION: Interval placement of endotracheal tube and NG tube as described. Both are in satisfactory position. No other interval change. Chest X-Ray 04/29/20 14:07 IMPRESSION: Support lines and tubes have been placed as discussed. Increasing opacification in the right lung base. Overall pulmonary edema pattern appears improved. Chest X-Ray 04/30/20 00:00 IMPRESSION: 1. Somewhat improved pulmonary exam. 2. Endotracheal tube tip broaches the right mainstem bronchus. Recommend retracting 3 to 4 cm. Otherwise stable lines and tubes. Venous Doppler Study 05/02/20 00:00 IMPRESSION: Acute occlusive thrombus is seen within the axillary, brachial, and cephalic veins. IMPRESSION/RECOMMENDATION: 1. Respiratory arrest: This is due to a combination of severe metabolic acidosis and encephalopathy. Continue ventilator support. 2. Severe metabolic acidosis: This is most likely secondary to combination of untoward effects of psychiatric medication, encephalopathy, and sepsis. Continue antibiotics. Note ID consult and the recommendations for antibiotics have been noted. Patient on a bicarb drip 3. Paroxysmal atrial fibrillation yesterday needing emergency DC cardioversion due to hypotension and atrial fibrillation with rapid ventricular response. No recurrence. Amiodarone drip discontinued due to bradycardia. Since LP is not being planned would recommend starting the patient back on Eliquis at 2.5 mg p.o. twice daily. We will increase the Eliquis dose as the patient's renal function improves. 4. Shock: This is secondary to a combination of septic [viral meningitis and UTI] and cardiogenic etiology. Continue inotrope support and wean off if possible. 5. Severe encephalopathy secondary to most likely viral meningitis and acidosis, and sepsis. 6. Severe pulmonary hypertension: This is most likely elevated pulmonary arterial pressures due to severe acidosis. Right ventricle systolic pressure is at least 61 mmHg with a RA mean of at least 20 [IVC is dilated and does not vary with respiration, and hence the right atrial mean pressure is at least greater than 20.] 7. Takotsubo cardiomyopathy: This is most likely event. Patient with a picture by echo of Takotsubo cardiomyopathy. This should improve if this is indeed the case in the matter of days. Continue supportive treatment. Will wait a few more days prior to redoing an echo on the patient 8. Elevated troponin secondary combination of hypotension, and cardiomyopathy. This is a type II supply demand mismatch no evidence of non-STEMI. Hence we will treat the underlying cause, and not treat this as a non-ST ovation CO. 10. Bipolar disorder: Most likely has untoward effects from her psych medication. Doubt that this is neuroleptic syndrome, due to lack of hyperpyrexia, although there is some evidence of tardive dyskinesia. 11. Acute renal failure with oliguria:: Avoid nephrotoxic drugs. GFR is improved and is now greater than 60 mL/min, and the urine output is much improved. 12. Hypokalemia: Continue replacement. 13. Left axillary brachial and cephalic vein thrombosis: Patient is on Eliquis. Later would increase Eliquis to 5 mg p.o. twice daily. 14. S/p lumbar puncture: Await CSF studies. Medications reviewed. Inotropes adjusted. 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 Medical decision making is of high complexity. Discussed the patient's condition with the patient's sister. Will follow.
[2020-05-02] MEDS: NORMAL SALINE 1000 ML 1,000 ML IV PRN (15:28)
--- NOTE | 2020-05-02 20:27 | PDOC CRITICAL CARE PROG REPORT ---
General Date:: 05/02/20 ICU Day:: 4 Ventilator Day:: 4 Hospital Day:: 5 Resuscitation Status: Full Code Events in the past 12 to 24 Hours:: 04/30/2020: Patient was admitted to the intensive care unit yesterday status post cardiac arrest intubated. Please see ICU admission note for details regarding yesterday's events. Overnight, she had a decrease in her blood pressure and heart rate. The amiodarone drip was discontinued and patient was placed on dopamine drip along with her standing Luis-Synephrine. Her blood pr essure has since improved and she is being weaned off of Luis-Synephrine. 05/01/2020: No acute events overnight. Blood pressure has been improving slightly and she is being weaned off of Luis-Synephrine. Propofol also being weaned. Patient is not yet responsive. 05/02/2020: Lumbar puncture performed overnight. Results pending. Left upper arm swelling and redness. Ultrasound positive for DVT. Review of systems relevant to events:: Neuro: Patient has been sedated on propofol. Less rigid today. Pulmonary: Patient breathing comfortably on PRVC. Tidal volume 400, respiratory rate 15, PEEP 5, FiO2 40%. I am very hopeful that she will be weaned quickly once more responsive and off of sedation. Continue current vent settings. We will wean as tolerated as her neurologic status improves. Chest x-ray does show some improvement this morning however there are bilateral infiltrates seen. Sputum culture is pending. Patient remains on vancomycin and imipenem. Cardiovascular: Blood pressure much better controlled today. Weaned off of all vasoactive medications. Indwelling catheters: Right IJ TLC placed on 04/29/2020. Heme: H/H is stable. No evidence of bleeding. Continue Eliquis. Renal: BUN/CR trending down again this morning. Continue IV fluids. Continue to follow. Gastrointestinal: Continue tube feeds. Patient remains on GI prophylaxis with Protonix. : Aparicio catheter in place. Possible UTI prior to placement. Patient remains on vancomycin and imipenem. ID: As above, patient is on Vanco and imipenem. She was changed to imipenem for better penetration of her blood-brain barrier in the event that her neurologic symptoms are related to a bacterial meningitis. Barriers to discharge from ICU: Patient still remains with some rigidity. Overall, WBC is improving and electrolytes are improving. We will reach out to ID in the morning to discuss other options as well as psychiatry for medication adjustment and side effects to her medication history. If no resolution in her neuro status, perhaps a transfer to a facility with neurologic consult may be warranted. Reason for ICU Addmission:: Status post cardiac arrest, respiratory failure - Medications: Medications reviewed and adjusted accordingly: Yes Physical Exam Vital Signs: Temp Pulse Resp BP Pulse Ox 98 F 121 H 21 H 122/75 98 05/02/20 19:32 05/02/20 18:00 05/02/20 18:00 05/02/20 18:00 05/02/20 18:00 Intake & Output 05/01/20 05/02/20 05/03/20 06:59 06:59 06:59 Intake Total 2481 2137 1101 Output Total 895 1890 1075 Balance 1586 247 26 Weight 66.3 kg 65.2 kg 65.2 kg Weight/Height Weight 65.2 kg Height 5 ft 1 in General appearance: PRESENT: no acute distress, well-developed Head exam: PRESENT: atraumatic, normocephalic Eye exam: PRESENT: EOMI, PERRLA Ear exam: PRESENT: normal external ear exam Mouth exam: PRESENT: moist Neck exam: PRESENT: full ROM. ABSENT: JVD, lymphadenopathy Respiratory exam: PRESENT: decreased breath sounds. ABSENT: rhonchi, unlabored, wheezes Cardiovascular exam: PRESENT: RRR, +S1, +S2 Pulses: PRESENT: normal carotid pulses, normal radial pulses, +2 pedal pulses bilateral Vascular exam: PRESENT: normal capillary refill GI/Abdominal exam: PRESENT: normal bowel sounds, soft Extremities exam: PRESENT: +2 edema, other - Left upper extremity edema and tenderness. Musculoskeletal exam: PRESENT: normal inspection Neurological exam: PRESENT: altered, CN II-XII grossly intact Skin exam: PRESENT: normal color. ABSENT: skin tears Tubes/Lines: PRESENT: Endotracheal Tube, Central Line Laboratory/Radiographs Laboratory Results: 05/02/20 03:30 05/02/20 03:30 05/02/20 05/02/20 05/02/20 01:05 01:05 01:05 WBC RBC Hgb Hct MCV MCH MCHC RDW Plt Count Seg Neutrophils % Sodium Potassium Chloride Carbon Dioxide Anion Gap BUN Creatinine Est GFR ( Amer) Glucose Calcium Triglycerides Fluid Tube Number 3 4 CSF Volume 5.0 5.0 CSF WBC 3 5 CSF RBC 140 578 CSF Color (1) COLORLESS COLORLESS CSF Appearance (1) CLEAR CLEAR CSF Color (2) COLORLESS COLORLESS CSF Appearance (2) CLEAR CLEAR CSF Color (3) COLORLESS COLORLESS CSF Appearance (3) CLEAR CLEAR CSF Color (4) PINK PINK CSF Appearance (4) CLOUDY CLOUDY CSF Glucose 72 H CSF Total Protein 43 05/02/20 05/02/20 03:30 03:30 WBC 15.6 H RBC 3.54 L Hgb 10.4 L Hct 31.5 L MCV 89 MCH 29.5 MCHC 33.2 RDW 17.9 H Plt Count 359 Seg Neutrophils % 85.0 H Sodium 140.9 Potassium 3.4 L Chloride 118 H Carbon Dioxide 18 L Anion Gap 5 BUN 8 Creatinine 0.70 Est GFR ( Amer) > 60 Glucose 115 H Calcium 9.0 Triglycerides 165 H Fluid Tube Number CSF Volume CSF WBC CSF RBC CSF Color (1) CSF Appearance (1) CSF Color (2) CSF Appearance (2) CSF Color (3) CSF Appearance (3) CSF Color (4) CSF Appearance (4) CSF Glucose CSF Total Protein 04/27/20 14:50 Blood Blood Culture - Final NO GROWTH IN 5 DAYS 04/27/20 15:01 Blood Blood Culture - Final NO GROWTH IN 5 DAYS 04/27/20 04/27/20 04/30/20 15:01 15:01 03:55 Creatine Kinase 155 H Troponin I < 0.012 1.560 04/30/20 05/01/20 09:35 09:08 Creatine Kinase Troponin I 0.806 0.306 Impressions: Abdomen/Pelvis CT 04/27/20 00:00 IMPRESSION: 1. Limited examination secondary to motion artifact. 2. Cholelithiasis. 3. Poor visualization of the GI tract especially in the mid and lower abdomen. No obvious bowel obstruction. Head CT 04/27/20 15:26 IMPRESSION: No acute intracranial abnormality. EVIDENCE OF ACUTE STROKE: NO. Chest X-Ray 04/30/20 00:00 IMPRESSION: 1. Somewhat improved pulmonary exam. 2. Endotracheal tube tip broaches the right mainstem bronchus. Recommend retr acting 3 to 4 cm. Otherwise stable lines and tubes. Venous Doppler Study 05/02/20 00:00 IMPRESSION: Acute occlusive thrombus is seen within the axillary, brachial, and cephalic veins. All labs, radiographs, diagnostic studies and EKGs were personally reviewed: Yes In addition, reports of radiographic and diagnostic studies were read: Yes Assessment and Plan - Diagnosis (1) Acute metabolic encephalopathy Is this a current diagnosis for this admission?: Yes Plan: Etiologies may include the following: Viral meningitis: Continue patient on acyclovir. Bacterial meningitis: Antibiotics changed to imipenem for neurologic coverage. Neuroleptic malignant syndrome: Patient unable to tolerate dantrolene due to a drop in blood pressure. She continues on propofol. Risperidone was discontinued. (2) Urinary tract infection Qualifiers: Urinary tract infection type: acute cystitis Hematuria presence: with hematuria Qualified Code(s): N30.01 - Acute cystitis with hematuria Is this a current diagnosis for this admission?: Yes Plan: Patient on vancomycin and imipenem. WBC seems to be improving. (3) Sepsis Qualifiers: Sepsis type: sepsis due to unspecified organism Sepsis acute organ d ysfunction status: with acute organ dysfunction Severe sepsis acute organ dysfunction type: acute respiratory failure Acute respiratory failure type: with hypercapnia Severe sepsis shock status: with septic shock Qualified Code(s): A41.9 - Sepsis, unspecified organism; R65.21 - Severe sepsis with septic shock; J96.02 - Acute respiratory failure with hypercapnia Is this a current diagnosis for this admission?: Yes Plan: Continue current antibiotics. Continue fluid resuscitation Weaned off of Luis-Synephrine. Blood pressure is now stable. WBC seems to be improving. Critical Time Critical Time (minutes): 55 Level of Care: ICU Anticipated discharge: Home with Homehealth, Acute Rehab Anticipated DC Timeframe: within 72 hours -: 1. The care of a critical patient is a dynamic process. This note is a architectural representative synopsis but static in nature. The timeframe for treatments given in order is not necessarily the actual time these treatments may have been done. 2. This patient requires critical care secondary to ongoing requirements for therapy not offered or safe outside the critical care environment. Transfer to a lower level of care will result in altered life or limb morbidity and mortality. 3. Multidisciplinary rounds completed. 4. ABCDE bundle addressed.
[2020-05-02] MEDS: VANCOMYCIN HCL 1,000 MG in DEXTROSE 5%-WATER 250 ML IV SCH (21:57)
[2020-05-03] MEDS: INSULIN LISPRO 100 UNIT/ML 3 ML VIAL SUBCUT SCH ×5 (00:45→23:57)
[2020-05-03] MEDS: ACYCLOVIR SODIUM 500 MG in NORMAL SALINE 100 ML IV SCH ×3 (01:04→18:04)
[2020-05-03 03:49] LABS: ABSOLUTE BASOPHILS # (AUTO) 0.1 10^3/uL (0.0-0.2); ABSOLUTE EOSINOPHILS # (AUTO) 0.6 10^3/uL (0.0-0.6); ABSOLUTE LYMPHOCYTES (AUTO) 1.1 10^3/uL (0.5-4.7); ABSOLUTE MONOCYTES (AUTO) 0.8 10^3/uL (0.1-1.4); ABSOLUTE NEUT (AUTO) 9.9 10^3/uL (1.7-8.2); BASOPHILS % (AUTO) 0.5 % (0-2); EOSINOPHILS % (AUTO) 4.7 % (0-6); HEMATOCRIT 31.7 % (36.0-47.0); HEMOGLOBIN 10.2 g/dL (12.0-15.5); LYMPHOCYTES % (AUTO) 9.1 % (13-45); MEAN CORPUSCULAR HEMOGLOBIN 28.6 pg (27.0-33.4); MEAN CORPUSCULAR HGB CONC 32.3 g/dL (32.0-36.0); MEAN CORPUSCULAR VOLUME 89 fl (80-97); MONOCYTES % (AUTO) 6.2 % (3-13); PLATELET COUNT 322 10^3/uL (150-450); RED BLOOD COUNT 3.58 10^6/uL (3.72-5.28); RED CELL DISTRIBUTION WIDTH 17.4 % (11.5-14.0); SEGMENTED NEUTROPHILS % (AUTO) 79.5 % (42-78); TOTAL CELLS COUNTED % (AUTO) 100 %; WHITE BLOOD COUNT 12.5 10^3/uL (4.0-10.5)
[2020-05-03 03:52] LABS: INTERNATIONAL RATION (INR) 1.43; PROTHROMBIN TIME 17.6 SEC (11.4-15.4)
[2020-05-03 03:57] LABS: ANION GAP 5 (5-19); BLOOD UREA NITROGEN 6 mg/dL (7-20); CALCIUM 9.1 mg/dL (8.4-10.2); CARBON DIOXIDE 20 mmol/L (22-30); CHLORIDE 120 mmol/L (98-107); GLUCOSE 117 mg/dL (75-110)
[2020-05-03 04:01] LABS: POTASSIUM 2.9 mmol/L (3.6-5.0)
[2020-05-03] MEDS ORDERED: POTASSI CL 20 MEQ/50 ML RIDER 40 MEQ/100 ML RTUPB IV ONE (04:37)
[2020-05-03] MEDS: LEVOTHYROXINE SODIUM 0.025 MG TABLET PO SCH (06:13)
[2020-05-03] MEDS: POTASSI CL 20 MEQ/50 ML RIDER 20 MEQ/50 ML RTUPB IV SCH ×2 (06:14→07:48)
[2020-05-03] MEDS: PROPOFOL 1,000 MG/100 ML INFUS..BTL IV PRN ×2 (06:26→18:10)
[2020-05-03] MEDS: NORMAL SALINE 1000 ML 1,000 ML IV PRN ×2 (06:26→23:58)
[2020-05-03] MEDS: PANTOPRAZOLE SODIUM 40 MG VIAL IV SCH (10:34)
[2020-05-03] MEDS: LIOTHYRONINE SODIUM 25 MCG TABLET PO SCH (10:34)
[2020-05-03] MEDS: APIXABAN 2.5 MG TABLET PO SCH (10:34)
--- NOTE | 2020-05-03 12:19 | PDOC CRITICAL CARE PROG REPORT ---
General Date:: 05/03/20 ICU Day:: 4 Ventilator Day:: 4 Hospital Day:: 6 Resuscitation Status: Full Code Events in the past 12 to 24 Hours:: 04/30/2020: Patient was admitted to the intensive care unit yesterday status post cardiac arrest intubated. Please see ICU admission note for details regarding yesterday's events. Overnight, she had a decrease in her blood pressure and heart rate. The amiodarone drip was discontinued and patient was placed on dopamine drip along with her standing Luis-Synephrine. Her blood pr essure has since improved and she is being weaned off of Luis-Synephrine. 05/01/2020: No acute events overnight. Blood pressure has been improving slightly and she is being weaned off of Luis-Synephrine. Propofol also being weaned. Patient is not yet responsive. 05/02/2020: Lumbar puncture performed overnight. Results pending. Left upper arm swelling and redness. Ultrasound positive for DVT. 05/03: Has a L gaze preference. EEG to R/O non-convulsive seizures. Beginning to awaken some. DVT in Axillary vein. Review of systems relevant to events:: Neurological. Pulmonary Reason for ICU Addmission:: Status post cardiac arrest, respiratory failure - Medications: Medications reviewed and adjusted accordingly: Yes Vasopressors:: None Sedation:: Diprivan. Physical Exam Vital Signs: Temp Pulse Resp BP Pulse Ox 99.3 F 103 H 15 126/78 H 100 05/03/20 08:00 05/03/20 10:00 05/03/20 10:13 05/03/20 10:13 05/03/20 11:19 Intake & Output 05/02/20 05/03/20 05/04/20 06:59 06:59 06:59 Intake Total 2137 2630 73 Output Total 1890 1875 470 Balance 247 755 -397 Weight 65.2 kg 66.8 kg Weight/Height Weight 66.8 kg Height 5 ft 1 in General appearance: PRESENT: no acute distress Head exam: PRESENT: atraumatic, normocephalic Eye exam: PRESENT: PERRLA, other - She has a Leftward and downward gaze preference Ear exam: PRESENT: normal external ear exam Mouth exam: PRESENT: moist, tongue midline Respiratory exam: PRESENT: clear to auscultation manuela. ABSENT: rales, rhonchi, wheezes Cardiovascular exam: PRESENT: RRR, tachycardia. ABSENT: diastolic murmur, rubs, systolic murmur GI/Abdominal exam: PRESENT: normal bowel sounds, soft. ABSENT: distended, guarding, mass, organolmegaly, rebound, tenderness Rectal exam: PRESENT: deferred Gentrourinary exam: PRESENT: indwelling catheter Extremities exam: PRESENT: full ROM. ABSENT: calf tenderness, clubbing, pedal edema Musculoskeletal exam: PRESENT: normal inspection Neurological exam: PRESENT: other - L and downward gaze. Moves all extremities. L arm less than R. Skin exam: PRESENT: dry, intact, warm. ABSENT: cyanosis, rash Tubes/Lines: PRESENT: Endotracheal Tube, Nasogastic Tube Laboratory/Radiographs Laboratory Results: 05/03/20 03:30 05/03/20 03:30 05/03/20 05/03/20 03:30 03:30 WBC 12.5 H RBC 3.58 L Hgb 10.2 L Hct 31.7 L MCV 89 MCH 28.6 MCHC 32.3 RDW 17.4 H Plt Count 322 Seg Neutrophils % 79.5 H Sodium 145.2 H Potassium 2.9 L* Chloride 120 H Carbon Dioxide 20 L Anion Gap 5 BUN 6 L Creatinine 0.62 Est GFR ( Amer) > 60 Glucose 117 H Calcium 9.1 04/30/20 13:38 Tracheal Aspirate Gram Stain - Final 04/30/20 13:38 Tracheal Aspirate Sputum Culture - Final C.albicans/C.dubliniensis Normal Kiersten Absent 04/27/20 14:50 Blood Blood Culture - Final NO GROWTH IN 5 DAYS 04/27/20 15:01 Blood Blood Culture - Final NO GROWTH IN 5 DAYS 04/27/20 04/27/20 04/30/20 15:01 15:01 03:55 Creatine Kinase 155 H Troponin I < 0.012 1.560 04/30/20 05/01/20 09:35 09:08 Creatine Kinase Troponin I 0.806 0.306 Impressions: Abdomen/Pelvis CT 04/27/20 00:00 IMPRESSION: 1. Limited examination secondary to motion artifact. 2. Cholelithiasis. 3. Poor visualization of the GI tract especially in the mid and lower abdomen. No obvious bowel obstruction. Head CT 04/27/20 15:26 IMPRESSION: No acute intracranial abnormality. EVIDENCE OF ACUTE STROKE: NO. Chest X-Ray 04/30/20 00:00 IMPRESSION: 1. Somewhat improved pulmonary exam. 2. Endotracheal tube tip broaches the right mainstem bronchus. Recommend retracting 3 to 4 cm. Otherwise stable lines and tubes. Venous Doppler Study 05/02/20 00:00 IMPRESSION: Acute occlusive thrombus is seen within the axillary, brachial, and cephalic veins. All labs, radiographs, diagnostic studies and EKGs were personally reviewed: Yes In addition, reports of radiographic and diagnostic studies were read: Yes Assessment and Plan - Diagnosis (1) Altered mental status Qualifiers: Altered mental status type: unspecified Qualified Code(s): R41.82 - Altered mental status, unspecified Is this a current diagnosis for this admission?: Yes Plan: She is sedated with diprivan weaning to assess neuro status. My guess is there will still be some given her gaze preference. (2) Hypokalemia Is this a current diagnosis for this admission?: Yes Plan: Both PO and IV ordered for level of 2.9. (3) Leukocytosis Is this a current diagnosis for this admission?: Yes Plan: Resolved. (4) Bipolar disorder Is this a current diagnosis for this admission?: Yes Plan: This does not at present appear to be NMS. (5) Normocytic anemia Is this a current diagnosis for this admission?: Yes Plan: Resolved. Plan Summary: Check EEG. Wean diprivan. Hope to extubate soon. Critical Time Critical Time (minutes): 35 Level of Care: ICU Anticipated discharge: SNF Anticipated DC Timeframe: Other -: 1. The care of a critical patient is a dynamic process. This note is a client representative synopsis but static in nature. The timeframe for treatments given in order is not necessarily the actual time these treatments may have been done. 2. This patient requires critical care secondary to ongoing requirements for therapy not offered or safe outside the critical care environment. Transfer to a lower level of care will result in altered life or limb morbidity and mortality. 3. Multidisciplinary rounds completed. 4. ABCDE bundle addressed.
[2020-05-03] MEDS: IMIPENEM/CILASTATIN SODIUM 500 MG in NORMAL SALINE 100 ML IV SCH ×2 (13:06→23:44)
[2020-05-03] MEDS: LORAZEPAM INJ 2 MG/1 ML VIAL IV PRN (13:27)
[2020-05-03] MEDS: APIXABAN 5 MG TABLET PO SCH ×2 (13:27→21:12)
--- NOTE | 2020-05-03 20:49 | Progress Note ---
Provider Note Provider Note: CARDIOLOGY PROGRESS NOTE by Dr. Cydney Dickens on 05/03/2020. SUBJECTIVE: The patient earlier this morning had dystonic contraction. This did not persist. The patient remains in sinus rhythm and there is no recurrence of atrial fibrillation. The patient's blood pressure is stable off inotropes. Her CSF is negative for any meningitis. The patient's CT scan of the head is negative. The left axillary swelling is about the same. The patient is on Eliquis. PHYSICAL EXAMINATION. The patient is a frail build. She is intubated and sedated. Selected Entries 05/03/20 05/03/20 05/03/20 10:00 11:19 12:43 Temperature 99.3 F Core 98.8 F Temperature Pulse Rate 103 H Heart Rate ( 97 Monitors) Respiratory 13 11 L Rate Blood Pressure 119/65 Blood Pressure 137/83 H [Left Upper Arm ] Blood Pressure 83 Mean Blood Pressure 101 Mean [Left Upper Arm] O2 Sat by Pulse 100 Oximetry Oxygen Delivery Mechanical Method ( Ventilator includes room air) Fraction of 21 21 Inspired Oxygen (FIO2) 05/03/20 05/03/20 12:57 12:58 Temperature Core Temperature Pulse Rate Heart Rate ( 110 Monitors) Respiratory 18 Rate Blood Pressure 124/71 Blood Pressure [Left Upper Arm ] Blood Pressure 88 Mean Blood Pressure Mean [Left Upper Arm] O2 Sat by Pulse 100 Oximetry Oxygen Delivery Method ( includes room air) Fraction of Inspired Oxygen (FIO2) HEENT is negative. Neck is supple. There is no JVD. Carotids are equal there is no bruit. Skin: There is no skin rashes. Skin is cool to touch. There is no petechia or ecchymosis. LUNGS: Few scattered rhonchi, there is some diminished breath sounds in the right base. There are no bibasilar rales of CHF. There is no rhonchi rales or wheezing. HEART: S1-S2 is heard. S1 is of normal intensity. There is no S3 gallop. There is no S4 gallop. There is systolic murmur in the left sternal border and the apex . There is no rub. ABDOMEN: Soft. There is no hepatosplenomegaly. Bowel sounds well heard. EXTREMITIES: Femorals are diminished. There is no femoral bruits. Leg pulses are well felt. There is no pedal edema. There is some mild swelling and redness in the left upper extremity. Upper extremity pulses are well felt. Capillary refill is normal. There is no cyanosis or clubbing there is no DVT or cellulitis. 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 The patient's 24-hour intake has been 2630 mL. Output is 1875 mL. Labs- All tests 24 hr 05/03/20 05/03/20 05/03/20 00:42 03:30 03:30 WBC 12.5 H RBC 3.58 L Hgb 10.2 L Hct 31.7 L MCV 89 MCH 28.6 MCHC 32.3 RDW 17.4 H Plt Count 322 Lymph % (Auto) 9.1 L [place] % (Auto) 6.2 Eos % (Auto) 4.7 Baso % (Auto) 0.5 Absolute Neuts (auto) 9.9 H Absolute Lymphs (auto) 1.1 Absolute Monos (auto) 0.8 Absolute Eos (auto) 0.6 Absolute Basos (auto) 0.1 Seg Neutrophils % 79.5 H PT 17.6 H INR 1.43 Sodium Potassium Chloride Carbon Dioxide Anion Gap BUN Creatinine Est GFR ( Amer) Est GFR (MDRD) Non-Af Glucose POC Glucose 101 Calcium 05/03/20 05/03/20 05/03/20 03:30 06:04 12:08 WBC RBC Hgb Hct MCV MCH MCHC RDW Plt Count Lymph % (Auto) [place] % (Auto) Eos % (Auto) Baso % (Auto) Absolute Neuts (auto) Absolute Lymphs (auto) Absolute Monos (auto) Absolute Eos (auto) Absolute Basos (auto) Seg Neutrophils % PT INR Sodium 145.2 H Potassium 2.9 L* Chloride 120 H Carbon Dioxide 20 L Anion Gap 5 BUN 6 L Creatinine 0.62 Est GFR ( Amer) > 60 Est GFR (MDRD) Non-Af > 60 Glucose 117 H POC Glucose 101 117 H Calcium 9.1 05/03/20 17:12 WBC RBC Hgb Hct MCV MCH MCHC RDW Plt Count Lymph % (Auto) [place] % (Auto) Eos % (Auto) Baso % (Auto) Absolute Neuts (auto) Absolute Lymphs (auto) Absolute Monos (auto) Absolute Eos (auto) Absolute Basos (auto) Seg Neutrophils % PT INR Sodium Potassium Chloride Carbon Dioxide Anion Gap BUN Creatinine Est GFR ( Amer) Est GFR (MDRD) Non-Af Glucose POC Glucose 112 H Calcium Abdomen/Pelvis CT 04/27/20 00:00 IMPRESSION: 1. Limited examination secondary to motion artifact. 2. Cholelithiasis. 3. Poor visualization of the GI tract especially in the mid and lower abdomen. No obvious bowel obstruction. Chest X-Ray 04/27/20 14:52 IMPRESSION: No acute cardiopulmonary process. Head CT 04/27/20 15:26 IMPRESSION: No acute intracranial abnormality. EVIDENCE OF ACUTE STROKE: NO. Chest X-Ray 04/29/20 00:00 IMPRESSION: Extensive bilateral airspace disease right greater than left. This is new from 04/27/2020. Most likely pulmonary edema. Chest X-Ray 04/29/20 10:58 IMPRESSION: Interval placement of endotracheal tube and NG tube as described. Both are in satisfactory position. No other interval change. Chest X-Ray 04/29/20 14:07 IMPRESSION: Support lines and tubes have been placed as discussed. Increasing opacification in the right lung base. Overall pulmonary edema pattern appears improved. Chest X-Ray 04/30/20 00:00 IMPRESSION: 1. Somewhat improved pulmonary exam. 2. Endotracheal tube tip broaches the right mainstem bronchus. Recommend retracting 3 to 4 cm. Otherwise stable lines and tubes. Venous Doppler Study 05/02/20 00:00 IMPRESSION: Acute occlusive thrombus is seen within the axillary, brachial, and cephalic veins. IMPRESSION/RECOMMENDATION: 1. Respiratory arrest: This is due to a combination of severe metabolic acidosis and encephalopathy. Continue ventilator support. 2. Severe metabolic acidosis: This is most likely secondary to combination of untoward effects of psychiatric medication, encephalopathy, and sepsis. Continue antibiotics. Acidosis has resolved. 3. Paroxysmal atrial fibrillation yesterday needing emergency DC cardioversion due to hypotension and atrial fibrillation with rapid ventricular response. No recurrence. Amiodarone drip discontinued due to bradycardia. Patient at present with no recurrence. She is also on Eliquis 5 mg p.o. twice daily. Later will start the patient on a beta-truong. 4. Shock: This has resolved. The patient is off all pressors. 5. Severe encephalopathy: Etiology seems to be obscure.. 6. Severe pulmonary hypertension: This is most likely elevated pulmonary arterial pressures due to severe acidosis. Right ventricle systolic pressure is at least 61 mmHg with a RA mean of at least 20 [IVC is dilated and does not vary with respiration, and hence the right atrial mean pressure is at least greater than 20.] 7. Takotsubo cardiomyopathy: This is most likely event. Patient with a picture by echo of Takotsubo cardiomyopathy. This should improve if this is indeed the case in the matter of days. Continue supportive treatment. Will check echo and Monday. 8. Elevated troponin secondary combination of hypotension, and cardiomyopathy. This is a type II supply demand mismatch no evidence of non-STEMI. Hence we will treat the underlying cause, and not treat this as a non-ST ovation MS. 10. Bipolar disorder: Most likely has untoward effects from her psych medication. Doubt that this is neuroleptic syndrome, due to lack of hyperpyrexia, although there is some evidence of tardive dyskinesia. 11. Acute renal failure with oliguria:: Avoid nephrotoxic drugs. GFR is improved and is now greater than 60 mL/min, and the urine output is much improved. 12. Hypokalemia: Continue replacement. 13. Left axillary brachial and cephalic vein thrombosis: Patient is on Eliquis 5 mg p.o. twice daily. 14. S/p lumbar puncture: CSF analysis is negative for meningitis. Medications reviewed. Inotropes adjusted. Medical regimen management plan discussed with clay stain mixer. Medical decision making is of high complexity. Discussed the patient's condition with the patient's sister. Will follow.
[2020-05-03] MEDS: VANCOMYCIN HCL 1,000 MG in DEXTROSE 5%-WATER 250 ML IV SCH (21:11)
[2020-05-04] MEDS: ACYCLOVIR SODIUM 500 MG in NORMAL SALINE 100 ML IV SCH ×3 (01:15→18:56)
[2020-05-04] MEDS: INSULIN LISPRO 100 UNIT/ML 3 ML VIAL SUBCUT SCH ×4 (05:54→23:00)
[2020-05-04] MEDS: PROPOFOL 1,000 MG/100 ML INFUS..BTL IV PRN (05:54)
[2020-05-04] MEDS: LEVOTHYROXINE SODIUM 0.025 MG TABLET PO SCH (05:54)
[2020-05-04] MEDS: NORMAL SALINE 1000 ML 1,000 ML IV PRN (08:25)
[2020-05-04 08:58] LABS: BLOOD UREA NITROGEN 6 mg/dL (7-20); GLUCOSE 126 mg/dL (75-110); POTASSIUM 3.1 mmol/L (3.6-5.0)
[2020-05-04 09:03] LABS: CARBON DIOXIDE 20 mmol/L (22-30); CHLORIDE 121 mmol/L (98-107)
[2020-05-04 09:09] LABS: ANION GAP 5 (5-19)
[2020-05-04] MEDS: PANTOPRAZOLE SODIUM 40 MG VIAL IV SCH (10:49)
[2020-05-04] MEDS: METOPROLOL TARTRATE 25 MG TABLET PO SCH ×2 (10:49→21:18)
[2020-05-04] MEDS: APIXABAN 5 MG TABLET PO SCH ×2 (11:04→21:18)
[2020-05-04] MEDS: LIOTHYRONINE SODIUM 25 MCG TABLET PO SCH (11:04)
[2020-05-04] MEDS ORDERED: NORMAL SALINE 1000 ML 1,000 ML IV PRN (11:19)
[2020-05-04] MEDS: IMIPENEM/CILASTATIN SODIUM 500 MG in NORMAL SALINE 100 ML IV SCH ×2 (12:00→22:58)
--- NOTE | 2020-05-04 13:33 | NEURO WORKBENCH EEG REPORT ---
EEG Report Patient: Kandy Huizar ID: [id number] Referring Doctor: Reji Welch DOS: 05/04/2020 Medications: eliquis, insulin, synthroid, cytomel, protnix, vancomcin, imipenem/cilastatin History This is a 69 year old female with a history of hypothyroidism, seizures since age 4 (TBI), mitral valve prolapse, atrial fibrillation, pneumonia, bipolar disorder, alcohol use, skin cancer who was admitted with acute encephalopathy, intubated, temperature 37.3, off sedation since 0700h 05/04/2020. This EEG was requested for questionable non-convulsive seizures. EEG Interpretation This EEG was recorded with the patient intubated and unknown state. The EEG is characterized by a disorganized background without a posterior dominant rhythm noted. The remainder of the background was characterized by a combination of theta and alpha frequencies. There were periods of intermittent generalized periodic discharges noted during the study with a somewhat triphasic morphology. Photic stimulation resulted in a moderate driving response. There were some sharply contoured waveforms but no definite epileptiform abnormalities. There were no seizures. The EKG showed a regular rhythm. EEG Classification * Periodic discharges, generalized, intermittent * Generalized background slowing EEG Impression This EEG is abnormal. It is consistent with nonspecific diffuse cerebral dysfunction. There were no seizures noted. INTERPRETING NEUROLOGIST: Leslie Anderson MD, [facility] Board Certified in Neurology, with special qualification in Child Neurology, and in Clinical Neurophysiology [facility]
--- NOTE | 2020-05-04 15:00 | PDOC CRITICAL CARE PROG REPORT ---
General Date:: 05/04/20 ICU Day:: 5 Ventilator Day:: 5 Hospital Day:: 7 Resuscitation Status: Full Code Events in the past 12 to 24 Hours:: 04/30/2020: Patient was admitted to the intensive care unit yesterday status post cardiac arrest intubated. Please see ICU admission note for details regarding yesterday's events. Overnight, she had a decrease in her blood pressure and heart rate. The amiodarone drip was discontinued and patient was placed on dopamine drip along with her standing Luis-Synephrine. Her blood pr essure has since improved and she is being weaned off of Luis-Synephrine. 05/01/2020: No acute events overnight. Blood pressure has been improving slightly and she is being weaned off of Luis-Synephrine. Propofol also being weaned. Patient is not yet responsive. 05/02/2020: Lumbar puncture performed overnight. Results pending. Left upper arm swelling and redness. Ultrasound positive for DVT. 05/03: Has a L gaze preference. EEG to R/O non-convulsive seizures. Beginning to awaken some. DVT in Axillary vein. 05/04: More awake. On room air on vent hope to extubate soon. Review of systems relevant to events:: Neurological. Reason for ICU Addmission:: Status post cardiac arrest, respiratory failure - Medications: Medications reviewed and adjusted accordingly: Yes Vasopressors:: None Sedation:: None Physical Exam Vital Signs: Temp Pulse Resp BP Pulse Ox 99.0 F 84 19 122/110 H 98 05/04/20 12:00 05/04/20 12:00 05/04/20 13:48 05/04/20 13:48 05/04/20 13:48 Intake & Output 05/03/20 05/04/20 05/05/20 06:59 06:59 06:59 Intake Total 2630 1404 1101 Output Total 1877 7725 475 Balance 755 -291 626 Weight 66.8 kg 66.1 kg 66.1 kg Weight/Height Weight 66.1 kg Height 5 ft 1 in General appearance: PRESENT: no acute distress Head exam: PRESENT: atraumatic, normocephalic Eye exam: PRESENT: conjunctiva pink, EOMI, PERRLA. ABSENT: scleral icterus Ear exam: PRESENT: normal external ear exam Mouth exam: PRESENT: moist, tongue midline Respiratory exam: PRESENT: clear to auscultation manuela. ABSENT: rales, rhonchi, wheezes Cardiovascular exam: PRESENT: RRR. ABSENT: diastolic murmur, rubs, systolic murmur GI/Abdominal exam: PRESENT: normal bowel sounds, soft. ABSENT: distended, guarding, mass, organolmegaly, rebound, tenderness Rectal exam: PRESENT: deferred Extremities exam: PRESENT: full ROM, other - L arm still swollen to fingers. Bluish discoloration.. ABSENT: calf tenderness, clubbing, pedal edema Musculoskeletal exam: PRESENT: normal inspection Neurological exam: PRESENT: awake, CN II-XII grossly intact, other - Focuses but does not respond appropriately. Skin exam: PRESENT: dry, intact, warm. ABSENT: cyanosis, rash Tubes/Lines: PRESENT: Endotracheal Tube, Central Line, Nasogastic Tube Laboratory/Radiographs Laboratory Results: 05/03/20 03:30 05/04/20 08:16 05/04/20 08:16 Sodium 146.0 H Potassium 3.1 L Chloride 121 H Carbon Dioxide 20 L Anion Gap 5 BUN 6 L Creatinine 0.58 Est GFR ( Amer) > 60 Glucose 126 H Calcium 9.0 04/30/20 13:38 Tracheal Aspirate Gram Stain - Final 04/30/20 13:38 Tracheal Aspirate Sputum Culture - Final C.albicans/C.dubliniensis Normal Kiersten Absent 04/27/20 04/27/20 04/30/20 15:01 15:01 03:55 Creatine Kinase 155 H Troponin I < 0.012 1.560 04/30/20 05/01/20 09:35 09:08 Creatine Kinase Troponin I 0.806 0.306 Impressions: Abdomen/Pelvis CT 04/27/20 00:00 IMPRESSION: 1. Limited examination secondary to motion artifact. 2. Cholelithiasis. 3. Poor visualization of the GI tract especially in the mid and lower abdomen. No obvious bowel obstruction. Head CT 04/27/20 15:26 IMPRESSION: No acute intracranial abnormality. EVIDENCE OF ACUTE STROKE: NO. Chest X-Ray 04/30/20 00:00 IMPRESSION: 1. Somewhat improved pulmonary exam. 2. Endotracheal tube tip broaches the right mainstem bronchus. Recommend retracting 3 to 4 cm. Otherwise stable lines and tubes. Venous Doppler Study 05/02/20 00:00 IMPRESSION: Acute occlusive thrombus is seen within the axillary, brachial, and cephalic veins. All labs, radiographs, diagnostic studies and EKGs were personally reviewed: Yes In addition, reports of radiographic and diagnostic studies were read: Yes Assessment and Plan - Diagnosis (1) Altered mental status Qualifiers: Altered mental status type: unspecified Qualified Code(s): R41.82 - Altered mental status, unspecified Is this a current diagnosis for this admission?: Yes Plan: She likely has a reaction to multiple medications, perhaps gabapetin withdrawal syndrome with multiple dosage changes and a several week history of AMS with medication changes. Doubt encephalitis with negative LP. Continue acyclovir and she will need an MRI after. (2) Hypokalemia Is this a current diagnosis for this admission?: Yes Plan: PO potassium ordered. Recheck in AM. (3) Leukocytosis Is this a current diagnosis for this admission?: Yes Plan: Resolved (4) Bipolar disorder Is this a current diagnosis for this admission?: Yes Plan: Will restart psych medications with coordination with psychiatry. (5) Normocytic anemia Is this a current diagnosis for this admission?: Yes Plan: Resolved Plan Summary: When she awakens more plan to extubate. Critical Time Critical Time (minutes): 35 Level of Care: ICU Anticipated discharge: SNF Anticipated DC Timeframe: Other -: 1. The care of a critical patient is a dynamic process. This note is a customer development representative synopsis but static in nature. The timeframe for treatments given in order is not necessarily the actual time these treatments may have been done. 2. This patient requires critical care secondary to ongoing requirements for therapy not offered or safe outside the critical care environment. Transfer to a lower level of care will result in altered life or limb morbidity and mo rtality. 3. Multidisciplinary rounds completed. 4. ABCDE bundle addressed.
[2020-05-04] MEDS ORDERED: POTASSIUM CHLORIDE 20 MEQ PACKET NG ONE (16:30)
[2020-05-04] MEDS: POTASSIUM CHLORIDE 20 MEQ PACKET NG SCH ×2 (18:57→21:18)
[2020-05-04] MEDS: VANCOMYCIN HCL 1,000 MG in DEXTROSE 5%-WATER 250 ML IV SCH (21:17)
[2020-05-04 21:54] LABS: VANCOMYCIN,TROUGH 9.1 ug/mL (5.0-20.0)
--- NOTE | 2020-05-04 23:16 | Progress Note ---
Provider Note Provider Note: CARDIOLOGY PROGRESS NOTE by Dr. Cydney Dickens on 05/04/2020. SUBJECTIVE: The patient has had no further dystonic contraction. There is no seizure activity noted. This did not persist. The patient remains in sinus rhythm and there is no recurrence of atrial fibrillation. The patient's blood pressure is stable off inotropes. Her CSF is negative for any meningitis. The patient's CT scan of the head is negative. The left axillary swelling is about the same. The patient is on Eliquis. There is no ventricular arrhythmias seen on the monitor. Of note the EEG is consistent with abnormal EKG due to cerebral dysfunction, but not consistent with seizure disorder. PHYSICAL EXAMINATION. The patient is a frail build. She is intubated and sedated. Selected Entries 05/04/20 05/04/20 05/04/20 12:00 12:47 13:00 Core Temperature Heart Rate ( 87 Monitors) Respiratory 15 Rate Blood Pressure 122/95 H O2 Sat by Pulse Oximetry Fraction of 21 Inspired Oxygen (FIO2) 05/04/20 13:47 Core 99.3 F Temperature Heart Rate ( Monitors) Respiratory Rate Blood Pressure O2 Sat by Pulse 97 Oximetry Fraction of Inspired Oxygen (FIO2) HEENT is negative. Neck is supple. There is no JVD. Carotids are equal there is no bruit. Skin: There is no skin rashes. Skin is cool to touch. There is no petechia or ecchymosis. LUNGS: Few scattered rhonchi, there is some diminished breath sounds in the right base. There are no bibasilar rales of CHF. There is no rhonchi rales or wheezing. HEART: S1-S2 is heard. S1 is of normal intensity. There is no S3 gallop. There is no S4 gallop. There is systolic murmur in the left sternal border and the apex . There is no rub. ABDOMEN: Soft. There is no hepatosplenomegaly. Bowel sounds well heard. EXTREMITIES: Femorals are diminished. There is no femoral bruits. Leg pulses are well felt. There is no pedal edema. There is some mild swelling and redness in the left upper extremity. Upper extremity pulses are well felt. Capillary refill is normal. There is no cyanosis or clubbing there is no DVT or cellulitis. 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 Labs- All tests 24 hr 05/03/20 05/04/20 05/04/20 23:48 05:31 08:16 Sodium 146.0 H Potassium 3.1 L Chloride 121 H Carbon Dioxide 20 L Anion Gap 5 BUN 6 L Creatinine 0.58 Est GFR ( Amer) > 60 Est GFR (MDRD) Non-Af > 60 Glucose 126 H POC Glucose 130 H 114 H Calcium 9.0 Time Trough Drawn Vancomycin Trough 05/04/20 05/04/20 05/04/20 12:47 18:20 21:15 Sodium Potassium Chloride Carbon Dioxide Anion Gap BUN Creatinine Est GFR ( Amer) Est GFR (MDRD) Non-Af Glucose POC Glucose 134 H 130 H Calcium Time Trough Drawn 2115 Vancomycin Trough 9.1 05/04/20 22:57 Sodium Potassium Chloride Carbon Dioxide Anion Gap BUN Creatinine Est GFR ( Amer) Est GFR (MDRD) Non-Af Glucose POC Glucose 140 H Calcium Time Trough Drawn Vancomycin Trough Abdomen/Pelvis CT 04/27/20 00:00 IMPRESSION: 1. Limited examination secondary to motion artifact. 2. Cholelithiasis. 3. Poor visualization of the GI tract especially in the mid and lower abdomen. No obvious bowel obstruction. Chest X-Ray 04/27/20 14:52 IMPRESSION: No acute cardiopulmonary process. Head CT 04/27/20 15:26 IMPRESSION: No acute intracranial abnormality. EVIDENCE OF ACUTE STROKE: NO. Chest X-Ray 04/29/20 00:00 IMPRESSION: Extensive bilateral airspace disease right greater than left. This is new from 04/27/2020. Most likely pulmonary edema. Chest X-Ray 04/29/20 10:58 IMPRESSION: Interval placement of endotracheal tube and NG tube as described. Both are in satisfactory position. No other interval change. Chest X-Ray 04/29/20 14:07 IMPRESSION: Support lines and tubes have been placed as discussed. Increasing opacification in the right lung base. Overall pulmonary edema pattern appears improved. Chest X-Ray 04/30/20 00:00 IMPRESSION: 1. Somewhat improved pulmonary exam. 2. Endotracheal tube tip broaches the right mainstem bronchus. Recommend retracting 3 to 4 cm. Otherwise stable lines and tubes. Venous Doppler Study 05/02/20 00:00 IMPRESSION: Acute occlusive thrombus is seen within the axillary, brachial, and cephalic veins. IMPRESSION/RECOMMENDATION: 1. Respiratory arrest: This is due to a combination of severe metabolic acidosis and encephalopathy. Continue ventilator support. 2. Severe metabolic acidosis: This is most likely secondary to combination of untoward effects of psychiatric medication, encephalopathy, and sepsis. Continu e antibiotics. Acidosis has resolved. 3. Paroxysmal atrial fibrillation yesterday needing emergency DC cardioversion due to hypotension and atrial fibrillation with rapid ventricular response. No recurrence. Amiodarone drip discontinued due to bradycardia. Patient at present with no recurrence. She is also on Eliquis 5 mg p.o. twice daily. Later will start the patient on a beta-truong. 4. Shock: This has resolved. The patient is off all pressors. 5. Severe encephalopathy: Etiology seems to be obscure.. 6. Severe pulmonary hypertension: This is most likely elevated pulmonary a rterial pressures due to severe acidosis. Right ventricle systolic pressure is at least 61 mmHg with a RA mean of at least 20 [IVC is dilated and does not vary with respiration, and hence the right atrial mean pressure is at least greater than 20.] 7. Takotsubo cardiomyopathy: This is most likely event. Patient with a picture by echo of Takotsubo cardiomyopathy. This should improve if this is indeed the case in the matter of days. Continue supportive treatment. Will check echo and Monday. 8. Elevated troponin secondary combination of hypotension, and cardiomyopathy. This is a type II supply demand mismatch no evidence of non-STEMI. Hence we will treat the underlying cause, and not treat this as a non-ST ovation [place]. Echo echocardiogram tomorrow. 10. Bipolar disorder: Most likely has untoward effects from her psych medication. Doubt that this is neuroleptic syndrome, due to lack of hyperpyrexia, although there is some evidence of tardive dyskinesia. 11. Acute renal failure with oliguria:: Avoid nephrotoxic drugs. GFR is improved and is now greater than 60 mL/min, and the urine output is much improved. 12. Hypokalemia: Continue replacement. 13. Left axillary brachial and cephalic vein thrombosis: Patient is on Eliquis 5 mg p.o. twice daily. 14. S/p lumbar puncture: CSF analysis is negative for meningitis. Medications reviewed. Inotropes adjusted. Medical regimen management plan discussed with ply cutter. Medical decision making is of high complexity. Discussed the patient's condition with the patient's sister. Will follow.
[2020-05-05 00:52] LABS: ANION GAP 6 (5-19); BLOOD UREA NITROGEN 6 mg/dL (7-20); CALCIUM 8.9 mg/dL (8.4-10.2); CARBON DIOXIDE 19 mmol/L (22-30); CHLORIDE 123 mmol/L (98-107); GLUCOSE 156 mg/dL (75-110)
[2020-05-05 00:57] LABS: POTASSIUM 4.1 mmol/L (3.6-5.0)
[2020-05-05] MEDS: ACYCLOVIR SODIUM 500 MG in NORMAL SALINE 100 ML IV SCH ×3 (01:35→18:35)
[2020-05-05 04:56] LABS: ANION GAP 7 (5-19); BLOOD UREA NITROGEN 7 mg/dL (7-20); CALCIUM 9.6 mg/dL (8.4-10.2); CARBON DIOXIDE 19 mmol/L (22-30); CHLORIDE 127 mmol/L (98-107); GLUCOSE 156 mg/dL (75-110); TRIGLYCERIDES 119 mg/dL (<150)
[2020-05-05] MEDS: LEVOTHYROXINE SODIUM 0.025 MG TABLET PO SCH (05:01)
[2020-05-05] MEDS ORDERED: LORAZEPAM INJ 2 MG/1 ML VIAL IV ONE (05:56)
[2020-05-05] MEDS: INSULIN LISPRO 100 UNIT/ML 3 ML VIAL SUBCUT SCH ×4 (06:14→23:18)
[2020-05-05] MEDS: METOPROLOL TARTRATE 25 MG TABLET PO SCH ×2 (10:44→21:00)
[2020-05-05] MEDS: APIXABAN 5 MG TABLET PO SCH ×2 (10:44→21:01)
[2020-05-05] MEDS: POTASSIUM CHLORIDE 20 MEQ PACKET NG SCH ×2 (10:48→21:00)
[2020-05-05] MEDS: PANTOPRAZOLE SODIUM 40 MG VIAL IV SCH (10:49)
[2020-05-05] MEDS: IMIPENEM/CILASTATIN SODIUM 500 MG in NORMAL SALINE 100 ML IV SCH (12:00)
[2020-05-05] MEDS: LIOTHYRONINE SODIUM 25 MCG TABLET PO SCH (13:12)
[2020-05-05] MEDS ORDERED: 1/2 NORMAL SALINE 1,000 ML IV PRN (16:53)
--- NOTE | 2020-05-05 16:53 | PDOC CRITICAL CARE PROG REPORT ---
General Date:: 05/05/20 ICU Day:: 6 Ventilator Day:: 6 Hospital Day:: 9 Resuscitation Status: Full Code Events in the past 12 to 24 Hours:: 04/30/2020: Patient was admitted to the intensive care unit yesterday status post cardiac arrest intubated. Please see ICU admission note for details regarding yesterday's events. Overnight, she had a decrease in her blood pressure and heart rate. The amiodarone drip was discontinued and patient was placed on dopamine drip along with her standing Luis-Synephrine. Her blood pr essure has since improved and she is being weaned off of Luis-Synephrine. 05/01/2020: No acute events overnight. Blood pressure has been improving slightly and she is being weaned off of Luis-Synephrine. Propofol also being weaned. Patient is not yet responsive. 05/02/2020: Lumbar puncture performed overnight. Results pending. Left upper arm swelling and redness. Ultrasound positive for DVT. 05/03: Has a L gaze preference. EEG to R/O non-convulsive seizures. Beginning to awaken some. DVT in Axillary vein. 05/04: More awake. On room air on vent hope to extubate soon. 05/05. Not any more awake. Too sleepy to extubate Review of systems relevant to events:: Neurological. Reason for ICU Addmission:: Status post cardiac arrest, respiratory failure - Medications: Medications reviewed and adjusted accordingly: Yes Vasopressors:: None Sedation:: None Physical Exam Vital Signs: Temp Pulse Resp BP Pulse Ox 99.3 F 106 H 21 H 145/106 H 98 05/05/20 10:00 05/04/20 20:56 05/05/20 14:04 05/05/20 14:04 05/05/20 16:24 Intake & Output 05/04/20 05/05/20 05/06/20 06:59 06:59 06:59 Intake Total 1404 2451 200 Output Total 1695 1275 255 Balance -291 1176 -55 Weight 66.1 kg 69 kg 69 kg Weight/Height Weight 69 kg Height 5 ft 1 in General appearance: PRESENT: no acute distress Head exam: PRESENT: atraumatic, normocephalic Eye exam: PRESENT: conjunctiva pink, EOMI, PERRLA. ABSENT: scleral icterus Ear exam: PRESENT: normal external ear exam Mouth exam: PRESENT: moist, tongue midline Respiratory exam: PRESENT: clear to auscultation manuela. ABSENT: rales, rhonchi, wheezes Cardiovascular exam: PRESENT: RRR, tachycardia. ABSENT: diastolic murmur, rubs, systolic murmur GI/Abdominal exam: PRESENT: normal bowel sounds, soft. ABSENT: distended, guarding, mass, organolmegaly, rebound, tenderness Rectal exam: PRESENT: deferred Gentrourinary exam: PRESENT: indwelling catheter Extremities exam: PRESENT: full ROM. ABSENT: calf tenderness, clubbing, pedal edema Musculoskeletal exam: PRESENT: normal inspection Neurological exam: PRESENT: CN II-XII grossly intact, other - Looks forward, does not track or be purposeful. Tubes/Lines: PRESENT: Endotracheal Tube, Nasogastic Tube Laboratory/Radiographs Laboratory Results: 05/03/20 03:30 05/05/20 03:35 05/04/20 05/05/20 23:00 03:35 Sodium 147.7 H 152.9 H Potassium 4.1 D 4.0 Chloride 123 H 127 H Carbon Dioxide 19 L 19 L Anion Gap 6 7 BUN 6 L 7 Creatinine 0.54 0.57 Est GFR ( Amer) > 60 > 60 Glucose 156 H 156 H Calcium 8.9 9.6 Triglycerides 119 05/02/20 01:05 Cerebral Spinal Fluid - Csf Gram Stain - Final 05/02/20 01:05 Cerebral Spinal Fluid - Csf CSF Culture - Final NO GROWTH 3 DAYS 04/27/20 04/27/20 04/30/20 15:01 15:01 03:55 Creatine Kinase 155 H Troponin I < 0.012 1.560 04/30/20 05/01/20 09:35 09:08 Creatine Kinase Troponin I 0.806 0.306 Impressions: Abdomen/Pelvis CT 04/27/20 00:00 IMPRESSION: 1. Limited examination secondary to motion artifact. 2. Cholelithiasis. 3. Poor visualization of the GI tract especially in the mid and lower abdomen. No obvious bowel obstruction. Head CT 04/27/20 15:26 IMPRESSION: No acute intracranial abnormality. EVIDENCE OF ACUTE STROKE: NO. Chest X-Ray 04/30/20 00:00 IMPRESSION: 1. Somewhat improved pulmonary exam. 2. Endotracheal tube tip broaches the right mainstem bronchus. Recommend retracting 3 to 4 cm. Otherwise stable lines and tubes. Venous Doppler Study 05/02/20 00:00 IMPRESSION: Acute occlusive thrombus is seen within the axillary, brachial, and cephalic veins. All labs, radiographs, diagnostic studies and EKGs were personally reviewed: Yes In addition, reports of radiographic and diagnostic studies were read: Yes Assessment and Plan - Diagnosis (1) Altered mental status Qualifiers: Altered mental status type: unspecified Qualified Code(s): R41.82 - Altered mental status, unspecified Is this a current diagnosis for this admission?: Yes Plan: Still likely multifactorial and she may need a few days to come out of this. (2) Hypokalemia Is this a current diagnosis for this admission?: Yes Plan: Resolved. (3) Leukocytosis Is this a current diagnosis for this admission?: Yes Plan: Resolved. (4) Bipolar disorder Is this a current diagnosis for this admission?: Yes Plan: Will need psychiatry input when awake. (5) Normocytic anemia Is this a current diagnosis for this admission?: Yes Plan: Resolved Plan Summary: Keep treatment as is pending awakening Critical Time Critical Time (minutes): 35 Level of Care: ICU Anticipated discharge: SNF Anticipated DC Timeframe: Other -: 1. The care of a critical patient is a dynamic process. This note is a premium service representative synopsis but static in nature. The timeframe for treatments given in order is not necessarily the actual time these treatments may have been done. 2. This patient requires critical care secondary to ongoing requirements for therapy not offered or safe outside the critical care environment. Transfer to a lower level of care will result in altered life or limb morbidity and mortality. 3. Multidisciplinary rounds completed. 4. ABCDE bundle addressed.
[2020-05-05] MEDS ORDERED: METOPROLOL TARTRATE PF/INJ 5 MG/5 ML SDV IV ONE ×2 (18:19→18:21)
[2020-05-05] MEDS ORDERED: ENALAPRILAT DIHYDRATE INJ/PF 1.25 MG/1 ML SDV IV ONE (18:21)
[2020-05-05] MEDS ORDERED: ENALAPRILAT DIHYDRATE INJ/PF 2.5 MG/2 ML SDV IV ONE (18:27)
[2020-05-05] MEDS ORDERED: FUROSEMIDE INJ/PF 20 MG/2 ML SDV IV ONE (22:30)
--- NOTE | 2020-05-05 23:29 | Progress Note ---
Provider Note Provider Note: CARDIOLOGY PROGRESS NOTE by Dr. Cydney Dickens on 05/05/2020. SUBJECTIVE: The patient has had no further dystonic contraction. There is no seizure activity noted. This did not persist. The patient remains in sinus rhythm and there is no recurrence of atrial fibrillation. The patient's blood pressure is stable off inotropes. Her CSF is negative for any meningitis. The patient's CT scan of the head is negative. The left axillary swelling is about the same. The patient is on Eliquis. There is no ventricular arrhythmias seen on the monitor. Of note the EEG is consistent with abnormal EKG due to cerebral dysfunction, but not consistent with seizure disorder. The patient is echocardiogram shows a little better contraction of the mid LV segments but still the apical segments of the LV shows severe to the hypokinesis to akinesis. Ejection fraction is slightly improved at probably 30% to 35%. No good interrogation of the tricuspid valve and hence unable to get a right ventricle systolic pressure. At present when I saw the patient her heart rate was fast and her blood pressure was also elevated. Patient was given 5 mg of Lopressor intravenously and also with Vasotec 1.25 mg IV push. Will later increase the patient's beta-truong and add the patient's CAMILLE inhibitor. PHYSICAL EXAMINATION: The patient is a frail build. She is intubated and sedated. Selected Entries 05/05/20 05/05/20 05/05/20 16:24 17:00 17:03 Core 99.5 F 99.5 F Temperature Heart Rate ( 108 110 Monitors) Respiratory 22 H Rate Positive End 5 Expiratory Pressure Blood Pressure 155/112 H Blood Pressure 126 Mean O2 Sat by Pulse 98 Oximetry Fraction of 21 Inspired Oxygen (FIO2) HEENT is negative. Neck is supple. There is no JVD. Carotids are equal there is no bruit. Skin: There is no skin rashes. Skin is cool to touch. There is no petechia or ecchymosis. LUNGS: Few scattered rhonchi, there is some diminished breath sounds in the right base. There are no bibasilar rales of CHF. There is no rhonchi rales or wheezing. HEART: S1-S2 is heard. S1 is of normal intensity. There is no S3 gallop. There is no S4 gallop. There is systolic murmur in the left sternal border and the apex . There is no rub. ABDOMEN: Soft. There is no hepatosplenomegaly. Bowel sounds well heard. EXTREMITIES: Femorals are diminished. There is no femoral bruits. Leg pulses are well felt. There is no pedal edema. There is some mild swelling and redness in the left upper extremity. Upper extremity pulses are well felt. Capillary refill is normal. There is no cyanosis or clubbing there is no DVT or cellulitis. 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 Labs- All tests 24 hr 05/04/20 05/05/20 05/05/20 23:00 03:35 04:16 Sodium 147.7 H 152.9 H Potassium 4.1 D 4.0 Chloride 123 H 127 H Carbon Dioxide 19 L 19 L Anion Gap 6 7 BUN 6 L 7 Creatinine 0.54 0.57 Est GFR ( Amer) > 60 > 60 Est GFR (MDRD) Non-Af > 60 > 60 Glucose 156 H 156 H POC Glucose 141 H Calcium 8.9 9.6 Triglycerides 119 05/05/20 05/05/20 05/05/20 12:13 17:28 22:46 Sodium Potassium Chloride Carbon Dioxide Anion Gap BUN Creatinine Est GFR ( Amer) Est GFR (MDRD) Non-Af Glucose POC Glucose 131 H 143 H 149 H Calcium Triglycerides Abdomen/Pelvis CT 04/27/20 00:00 IMPRESSION: 1. Limited examination secondary to motion artifact. 2. Cholelithiasis. 3. Poor visualization of the GI tract especially in the mid and lower abdomen. No obvious bowel obstruction. Chest X-Ray 04/27/20 14:52 IMPRESSION: No acute cardiopulmonary process. Head CT 04/27/20 15:26 IMPRESSION: No acute intracranial abnormality. EVIDENCE OF ACUTE STROKE: NO. Chest X-Ray 04/29/20 00:00 IMPRESSION: Extensive bilateral airspace disease right greater than left. This is new from 04/27/2020. Most likely pulmonary edema. Chest X-Ray 04/29/20 10:58 IMPRESSION: Interval placement of endotracheal tube and NG tube as described. Both are in satisfactory position. No other interval change. Chest X-Ray 04/29/20 14:07 IMPRESSION: Support lines and tubes have been placed as discussed. Increasing opacification in the right lung base. Overall pulmonary edema pattern appears improved. Chest X-Ray 04/30/20 00:00 IMPRESSION: 1. Somewhat improved pulmonary exam. 2. Endotracheal tube tip broaches the right mainstem bronchus. Recommend retracting 3 to 4 cm. Otherwise stable lines and tubes. Venous Doppler Study 05/02/20 00:00 IMPRESSION: Acute occlusive thrombus is seen within the axillary, brachial, and cephalic veins. IMPRESSION/RECOMMENDATION: 1. Respiratory arrest: This is due to a combination of severe metabolic acidosis and encephalopathy. Continue ventilator support. 2. Severe metabolic acidosis: This is most likely secondary to combination of untoward effects of psychiatric medication, encephalopathy, and sepsis. Continue antibiotics. Acidosis has resolved. 3. Paroxysmal atrial fibrillation yesterday needing emergency DC cardioversion due to hypotension and atrial fibrillation with rapid ventricular response. No recurrence. Amiodarone drip discontinued due to bradycardia. Patient at present with no recurrence. She is also on Eliquis 5 mg p.o. twice daily. Later will start the patient on a beta-truong. 4. Shock: This has resolved. The patient is off all pressors. 5. Severe encephalopathy: Etiology seems to be obscure.. 6. Severe pulmonary hypertension: This is most likely elevated pulmonary arterial pressures due to severe acidosis. Right ventricle systolic pressure is at least 61 mmHg with a RA mean of at least 20 [IVC is dilated and does not vary with respiration, and hence the right atrial mean pressure is at least greater than 20.] 7. Takotsubo cardiomyopathy: This is most likely event. Patient with a picture by echo of Takotsubo cardiomyopathy. This should improve if this is indeed the case in the matter of days. Continue supportive treatment. Will check echo and Monday. 8. Elevated troponin secondary combination of hypotension, and cardiomyopathy. This is a type II supply demand mismatch no evidence of non-STEMI. Hence we will treat the underlying cause, and not treat this as a non-ST ovation NC. Echo echocardiogram tomorrow. 10. Bipolar disorder: Most likely has untoward effects from her psych medication. Doubt that this is neuroleptic syndrome, due to lack of hyperpyrexia, although there is some evidence of tardive dyskinesia. 11. Acute renal failure with oliguria:: Avoid nephrotoxic drugs. GFR is improved and is now greater than 60 mL/min, and the urine output is much impr yoseph. 12. Hypokalemia: Continue replacement. 13. Left axillary brachial and cephalic vein thrombosis: Patient is on Eliquis 5 mg p.o. twice daily. 14. S/p lumbar puncture: CSF analysis is negative for meningitis. Medications reviewed. Inotropes adjusted. Medical regimen management plan discussed with thread spooler. Medical decision making is of high complexity. Will follow.
[2020-05-06] MEDS ORDERED: LABETALOL HCL INJ 20 MG/4 ML DISP.SYRIN IV ONE (01:45)
[2020-05-06] MEDS: ACYCLOVIR SODIUM 500 MG in NORMAL SALINE 100 ML IV SCH (01:51)
[2020-05-06 03:12] LABS: ABSOLUTE BASOPHILS # (AUTO) 0.1 10^3/uL (0.0-0.2); ABSOLUTE EOSINOPHILS # (AUTO) 0.2 10^3/uL (0.0-0.6); ABSOLUTE MONOCYTES (AUTO) 0.9 10^3/uL (0.1-1.4); ABSOLUTE NEUT (AUTO) 9.7 10^3/uL (1.7-8.2); BASOPHILS % (AUTO) 0.6 % (0-2); EOSINOPHILS % (AUTO) 1.6 % (0-6); HEMATOCRIT 27.1 % (36.0-47.0); LYMPHOCYTES % (AUTO) 8.8 % (13-45); MEAN CORPUSCULAR HEMOGLOBIN 30.4 pg (27.0-33.4); MEAN CORPUSCULAR HGB CONC 33.2 g/dL (32.0-36.0); MEAN CORPUSCULAR VOLUME 91 fl (80-97); MONOCYTES % (AUTO) 7.6 % (3-13); PLATELET COUNT 332 10^3/uL (150-450); RED BLOOD COUNT 2.96 10^6/uL (3.72-5.28); RED CELL DISTRIBUTION WIDTH 17.5 % (11.5-14.0); SEGMENTED NEUTROPHILS % (AUTO) 81.4 % (42-78); TOTAL CELLS COUNTED % (AUTO) 100 %; WHITE BLOOD COUNT 11.9 10^3/uL (4.0-10.5)
[2020-05-06 03:28] LABS: BLOOD UREA NITROGEN 10 mg/dL (7-20); CALCIUM 9.2 mg/dL (8.4-10.2); GLUCOSE 157 mg/dL (75-110); POTASSIUM 4.4 mmol/L (3.6-5.0)
[2020-05-06 03:38] LABS: CARBON DIOXIDE 22 mmol/L (22-30); CHLORIDE 122 mmol/L (98-107)
[2020-05-06 03:47] LABS: ANION GAP 3 (5-19)
--- NOTE | 2020-05-06 05:04 | RADIOLOGY REPORT (SQ) ---
CHEST X-RAY 1 VIEW on 05/06/2020 at 3:51 AM CLINICAL INDICATION: Intubated, hypoxia COMPARISON: 04/30/2020 FINDINGS: ET tube tip is in the mid to lower thoracic trachea. NG tube extends into the stomach and below the level of this film. Right IJ catheter tip is in the SVC. Heart is within normal limits for size. There are trace bilateral pleural effusions. There has been slight improvement in bilateral interstitial and airspace opacities consistent with slight improved edema and/or pneumonia, differential diagnosis would include viral infections. IMPRESSION: Slight improvement in bilateral edema and/or pneumonia.
[2020-05-06] MEDS: LEVOTHYROXINE SODIUM 0.025 MG TABLET PO SCH (05:36)
[2020-05-06] MEDS: INSULIN LISPRO 100 UNIT/ML 3 ML VIAL SUBCUT SCH ×3 (05:36→19:56)
[2020-05-06 07:00] LABS: ABSOLUTE BASOPHILS # (AUTO) 0.1 10^3/uL (0.0-0.2); ABSOLUTE EOSINOPHILS # (AUTO) 0.2 10^3/uL (0.0-0.6); ABSOLUTE LYMPHOCYTES (AUTO) 0.9 10^3/uL (0.5-4.7); ABSOLUTE MONOCYTES (AUTO) 0.6 10^3/uL (0.1-1.4); ABSOLUTE NEUT (AUTO) 9.4 10^3/uL (1.7-8.2); BASOPHILS % (AUTO) 0.5 % (0-2); EOSINOPHILS % (AUTO) 1.8 % (0-6); HEMOGLOBIN 8.9 g/dL (12.0-15.5); LYMPHOCYTES % (AUTO) 8.3 % (13-45); MEAN CORPUSCULAR HEMOGLOBIN 30.2 pg (27.0-33.4); MEAN CORPUSCULAR VOLUME 92 fl (80-97); MONOCYTES % (AUTO) 5.6 % (3-13); PLATELET COUNT 334 10^3/uL (150-450); RED BLOOD COUNT 2.95 10^6/uL (3.72-5.28); RED CELL DISTRIBUTION WIDTH 17.5 % (11.5-14.0); SEGMENTED NEUTROPHILS % (AUTO) 83.8 % (42-78); TOTAL CELLS COUNTED % (AUTO) 100 %; WHITE BLOOD COUNT 11.2 10^3/uL (4.0-10.5)
[2020-05-06 07:19] LABS: BLOOD UREA NITROGEN 10 mg/dL (7-20); CALCIUM 9.3 mg/dL (8.4-10.2); GLUCOSE 166 mg/dL (75-110); POTASSIUM 4.3 mmol/L (3.6-5.0)
[2020-05-06 07:24] LABS: CARBON DIOXIDE 23 mmol/L (22-30); CHLORIDE 122 mmol/L (98-107)
[2020-05-06 07:39] LABS: ANION GAP 2 (5-19)
[2020-05-06] MEDS: LIOTHYRONINE SODIUM 25 MCG TABLET PO SCH (10:00)
--- NOTE | 2020-05-06 10:45 | PDOC CRITICAL CARE PROG REPORT ---
General Date:: 05/06/20 ICU Day:: 7 Hospital Day:: 9 Resuscitation Status: Full Code Events in the past 12 to 24 Hours:: 04/30/2020: Patient was admitted to the intensive care unit yesterday status post cardiac arrest intubated. Please see ICU admission note for details regarding yesterday's events. Overnight, she had a decrease in her blood pressure and heart rate. The amiodarone drip was discontinued and patient was placed on dopamine drip along with her standing Luis-Synephrine. Her blood pressure has since improved and she is being weaned off of Luis-Synephrine. 05/01/2020: No acute events overnight. Blood pressure has been improving slightly and she is being weaned off of Luis-Synephrine. Propofol also being weaned. Patient is not yet responsive. 05/02/2020: Lumbar puncture performed overnight. Results pending. Left upper a rm swelling and redness. Ultrasound positive for DVT. 05/03: Has a L gaze preference. EEG to R/O non-convulsive seizures. Beginning to awaken some. DVT in Axillary vein. 05/04: More awake. On room air on vent hope to extubate soon. 05/05. Not any more awake. Too sleepy to extubate 05/06: A bit more awake. Occassionally follows commands. Will try extubation. Review of systems relevant to events:: Neurological. Reason for ICU Addmission:: Status post cardiac arrest, respiratory failure - Medications: Medications reviewed and adjusted accordingly: Yes Vasopressors:: None Sedation:: None Physical Exam Vital Signs: Temp Pulse Resp BP Pulse Ox 99.7 F 96 18 159/90 H 96 05/05/20 21:51 05/05/20 20:14 05/06/20 05:19 05/06/20 05:19 05/06/20 09:12 Intake & Output 05/05/20 05/06/20 05/07/20 06:59 06:59 06:59 Intake Total 2451 300 Output Total 1275 1730 Balance 1176 -1430 Weight 69 kg 69.5 kg Weight/Height Weight 69.5 kg Height 5 ft 1 in General appearance: PRESENT: no acute distress Head exam: PRESENT: atraumatic, normocephalic Eye exam: PRESENT: conjunctiva pink, EOMI, PERRLA. ABSENT: scleral icterus Ear exam: PRESENT: normal external ear exam Mouth exam: PRESENT: moist, tongue midline Respiratory exam: PRESENT: clear to auscultation manuela. ABSENT: rales, rhonchi, w heezes Cardiovascular exam: PRESENT: RRR. ABSENT: diastolic murmur, rubs, systolic murmur GI/Abdominal exam: PRESENT: normal bowel sounds, soft. ABSENT: distended, guarding, mass, organolmegaly, rebound, tenderness Rectal exam: PRESENT: deferred Gentrourinary exam: PRESENT: indwelling catheter Extremities exam: PRESENT: full ROM. ABSENT: calf tenderness, clubbing, pedal edema Musculoskeletal exam: PRESENT: normal inspection Neurological exam: PRESENT: alert, altered, CN II-XII grossly intact Skin exam: PRESENT: dry, intact, warm. ABSENT: cyanosis, rash Tubes/Lines: PRESENT: Nasogastic Tube, Other - Trach Laboratory/Radiographs Laboratory Results: 05/06/20 06:31 05/06/20 06:31 05/06/20 05/06/20 05/06/20 03:02 03:02 06:31 WBC 11.9 H 11.2 H RBC 2.96 L 2.95 L Hgb 9.0 L 8.9 L Hct 27.1 L 27.0 L MCV 91 92 MCH 30.4 30.2 MCHC 33.2 33.0 RDW 17.5 H 17.5 H Plt Count 332 334 Seg Neutrophils % 81.4 H 83.8 H Sodium 146.8 H Potassium 4.4 Chloride 122 H Carbon Dioxide 22 Anion Gap 3 L BUN 10 Creatinine 0.55 Est GFR ( Amer) > 60 Glucose 157 H Calcium 9.2 05/06/20 06:31 WBC RBC Hgb Hct MCV MCH MCHC RDW Plt Count Seg Neutrophils % Sodium 147.2 H Potassium 4.3 Chloride 122 H Carbon Dioxide 23 Anion Gap 2 L BUN 10 Creatinine 0.61 Est GFR ( Amer) > 60 Glucose 166 H Calcium 9.3 05/02/20 01:05 Cerebral Spinal Fluid - Csf Gram Stain - Final 05/02/20 01:05 Cerebral Spinal Fluid - Csf CSF Culture - Final NO GROWTH 3 DAYS 04/27/20 04/27/20 04/30/20 15:01 15:01 03:55 Creatine Kinase 155 H Troponin I < 0.012 1.560 04/30/20 05/01/20 09:35 09:08 Creatine Kinase Troponin I 0.806 0.306 Impressions: Abdomen/Pelvis CT 04/27/20 00:00 IMPRESSION: 1. Limited examination secondary to motion artifact. 2. Cholelithiasis. 3. Poor visualization of the GI tract especially in the mid and lower abdomen. No obvious bowel obstruction. Head CT 04/27/20 15:26 IMPRESSION: No acute intracranial abnormality. EVIDENCE OF ACUTE STROKE: NO. Venous Doppler Study 05/02/20 00:00 IMPRESSION: Acute occlusive thrombus is seen within the axillary, brachial, and cephalic veins. Chest X-Ray 05/06/20 00:00 IMPRESSION: Slight improvement in bilateral edema and/or pneumonia. All labs, radiographs, diagnostic studies and EKGs were personally reviewed: Yes In addition, reports of radiographic and diagnostic studies were read: Yes Assessment and Plan - Diagnosis (1) Altered mental status Qualifiers: Altered mental status type: unspecified Qualified Code(s): R41.82 - Altered mental status, unspecified Is this a current diagnosis for this admission?: Yes Plan: Seems to be at times following commands. (2) Leukocytosis Is this a current diagnosis for this admission?: Yes Plan: WBC only 11K. Resolved (3) Bipolar disorder Is this a current diagnosis for this admission?: Yes Plan: Restart psych meds when ready and more awake. (4) Normocytic anemia Is this a current diagnosis for this admission?: Yes Plan Summary: Chnage OG to NG for feedings and hope to extubate. Critical Time Critical Time (minutes): 40 Level of Care: ICU Anticipated discharge: SNF Anticipated DC Timeframe: Other -: 1. The care of a critical patient is a dynamic process. This note is a repres entative synopsis but static in nature. The timeframe for treatments given in order is not necessarily the actual time these treatments may have been done. 2. This patient requires critical care secondary to ongoing requirements for therapy not offered or safe outside the critical care environment. Transfer to a lower level of care will result in altered life or limb morbidity and mortality. 3. Multidisciplinary rounds completed. 4. ABCDE bundle addressed.
[2020-05-06] MEDS: POTASSIUM CHLORIDE 20 MEQ PACKET NG SCH (10:47)
[2020-05-06] MEDS: METOPROLOL TARTRATE 25 MG TABLET PO SCH ×2 (10:47→21:18)
[2020-05-06] MEDS: LOSARTAN POTASSIUM 25 MG TABLET NG SCH ×2 (10:47→21:19)
[2020-05-06] MEDS: APIXABAN 5 MG TABLET PO SCH ×2 (10:49→21:18)
[2020-05-06] MEDS: 1/2 NORMAL SALINE 1,000 ML IV PRN (13:37)
[2020-05-06] MEDS: IPRATROPIUM/ALBUTEROL 0.5-2.5 MG/3 ML AMPUL NEB PRN (15:21)
[2020-05-06] MEDS: RACEPINEPHRINE HCL 2.25% NEB 0.5 ML AMPUL NEB SCH ×2 (15:23→16:20)
[2020-05-06] MEDS ORDERED: RACEPINEPHRINE HCL 2.25% NEB 0.5 ML AMPUL NEB PRN (18:21)
--- NOTE | 2020-05-06 20:04 | Progress Note ---
Provider Note Provider Note: CARDIOLOGY PROGRESS NOTE by Dr. Cydney Dickens on 05/06/2020. SUBJECTIVE: The patient is off sedation and is awake. But still does not respond appropriately. There is no recurrence of atrial fibrillation. Her blood pressure is uncontrolled. The patient's repeat echo shows some increased contractility of the mid LV segments and also the apical LV segments. He is a EF is come up to over 35%. This is suggestive of Takotsubo cardiomyopathy anticipate improvement in the patient's LV function as the days progress. At present the patient's blood pressure is uncontrolled. PHYSICAL EXAMINATION: The patient is a frail build is sedated and intubated. Selected Entries 05/06/20 05/06/20 05/06/20 05:43 08:00 08:48 Core Temperature Heart Rate ( Monitors) Respiratory Rate Blood Pressure Blood Pressure Mean O2 Sat by Pulse 95 Oximetry Oxygen Delivery Mechanical Method ( Ventilator includes room air) Fraction of 21 Inspired Oxygen (FIO2) 05/06/20 13:19 Core 99.5 F Temperature Heart Rate ( 87 Monitors) Respiratory 25 H Rate Blood Pressure 152/101 H Blood Pressure 118 Mean O2 Sat by Pulse 96 Oximetry Oxygen Delivery Method ( includes room air) Fraction of Inspired Oxygen (FIO2) HEENT is negative. Neck is supple. There is no JVD. Carotids are equal there is no bruit. Skin: There is no skin rashes. Skin is cool to touch. There is no petechia or ecchymosis. LUNGS: Few scattered rhonchi, there is some diminished breath sounds in the right base. There are no bibasilar rales of CHF. There is no rhonchi rales or wheezing. HEART: S1-S2 is heard. S1 is of normal intensity. There is no S3 gallop. There is no S4 gallop. There is systolic murmur in the left sternal border and the apex . There is no rub. ABDOMEN: Soft. There is no hepatosplenomegaly. Bowel sounds well heard. EXTREMITIES: Femorals are diminished. There is no femoral bruits. Leg pulses are well felt. There is no pedal edema. There is some mild swelling and redness in the left upper extremity. Upper extremity pulses are well felt. Capillary refill is normal. There is no cyanosis or clubbing there is no DVT or cellulitis. LEASING ASSISTANT and psychiatric not examined due to patient being intubated and sedated. Labs- All tests 24 hr 05/06/20 05/06/20 05/06/20 03:02 03:02 04:38 WBC 11.9 H RBC 2.96 L Hgb 9.0 L Hct 27.1 L MCV 91 MCH 30.4 MCHC 33.2 RDW 17.5 H Plt Count 332 Lymph % (Auto) 8.8 L [place] % (Auto) 7.6 Eos % (Auto) 1.6 Baso % (Auto) 0.6 Absolute Neuts (auto) 9.7 H Absolute Lymphs (auto) 1.0 Absolute Monos (auto) 0.9 Absolute Eos (auto) 0.2 Absolute Basos (auto) 0.1 Seg Neutrophils % 81.4 H Sodium 146.8 H Potassium 4.4 Chloride 122 H Carbon Dioxide 22 Anion Gap 3 L BUN 10 Creatinine 0.55 Est GFR ( Amer) > 60 Est GFR (MDRD) Non-Af > 60 Glucose 157 H POC Glucose 155 H Calcium 9.2 05/06/20 05/06/20 05/06/20 06:31 06:31 12:59 WBC 11.2 H RBC 2.95 L Hgb 8.9 L Hct 27.0 L MCV 92 MCH 30.2 MCHC 33.0 RDW 17.5 H Plt Count 334 Lymph % (Auto) 8.3 L [place] % (Auto) 5.6 Eos % (Auto) 1.8 Baso % (Auto) 0.5 Absolute Neuts (auto) 9.4 H Absolute Lymphs (auto) 0.9 Absolute Monos (auto) 0.6 Absolute Eos (auto) 0.2 Absolute Basos (auto) 0.1 Seg Neutrophils % 83.8 H Sodium 147.2 H Potassium 4.3 Chloride 122 H Carbon Dioxide 23 Anion Gap 2 L BUN 10 Creatinine 0.61 Est GFR ( Amer) > 60 Est GFR (MDRD) Non-Af > 60 Glucose 166 H POC Glucose 136 H Calcium 9.3 05/06/20 05/06/20 17:44 23:17 WBC RBC Hgb Hct MCV MCH MCHC RDW Plt Count Lymph % (Auto) [place] % (Auto) Eos % (Auto) Baso % (Auto) Absolute Neuts (auto) Absolute Lymphs (auto) Absolute Monos (auto) Absolute Eos (auto) Absolute Basos (auto) Seg Neutrophils % Sodium Potassium Chloride Carbon Dioxide Anion Gap BUN Creatinine Est GFR ( Amer) Est GFR (MDRD) Non-Af Glucose POC Glucose 123 H 132 H Calcium Abdomen/Pelvis CT 04/27/20 00:00 IMPRESSION: 1. Limited examination secondary to motion artifact. 2. Cholelithiasis. 3. Poor visualization of the GI tract especially in the mid and lower abdomen. No obvious bowel obstruction. Chest X-Ray 04/27/20 14:52 IMPRESSION: No acute cardiopulmonary process. Head CT 04/27/20 15:26 IMPRESSION: No acute intracranial abnormality. EVIDENCE OF ACUTE STROKE: NO. Chest X-Ray 04/29/20 00:00 IMPRESSION: Extensive bilateral airspace disease right greater than left. This is new from 04/27/2020. Most likely pulmonary edema. Chest X-Ray 04/29/20 10:58 IMPRESSION: Interval placement of endotracheal tube and NG tube as described. Both are in satisfactory position. No other interval change. Chest X-Ray 04/29/20 14:07 IMPRESSION: Support lines and tubes have been placed as discussed. Increasing opacification in the right lung base. Overall pulmonary edema pattern appears improved. Chest X-Ray 04/30/20 00:00 IMPRESSION: 1. Somewhat improved pulmonary exam. 2. Endotracheal tube tip broaches the right mainstem bronchus. Recommend retracting 3 to 4 cm. Otherwise stable lines and tubes. Venous Doppler Study 05/02/20 00:00 IMPRESSION: Acute occlusive thrombus is seen within the axillary, brachial, and cephalic veins. Chest X-Ray 05/06/20 00:00 IMPRESSION: Slight improvement in bilateral edema and/or pneumonia. The patient's repeat echocardiogram: Shows that the LV still dilated. There is better contractility of the mid LV's segments and the apical LV segments with ejection fraction improved to 35%. There is still significant pulmonary hypertension. We will recheck an echo in about 10 days to 2 weeks. IMPRESSION/RECOMMENDATION: 1. Respiratory arrest: This is due to a combination of severe metabolic acidosis and encephalopathy. Continue ventilator support. 2. Severe metabolic acidosis: This is most likely secondary to combination of untoward effects of psychiatric medication, encephalopathy, and sepsis. Continue antibiotics. Acidosis has resolved. 3. Paroxysmal atrial fibrillation yesterday needing emergency DC cardioversion due to hypotension and atrial fibrillation with rapid ventricular response. No recurrence. Amiodarone drip discontinued due to bradycardia. Patient at present with no recurrence. She is also on Eliquis 5 mg p.o. twice daily. Later will start the patient on a beta-truong. 4. Shock: This has resolved. The patient is off all pressors. The patient is very hypertensive and blood pressure is at present and controlled. We will increase antihypertensive. 5. Severe encephalopathy: Etiology seems to be obscure.. This is seems to be improving the patient is awake off all sedation. She still does not respond appropriately. 6. Severe pulmonary hypertension: This is most likely elevated pulmonary arterial pressures due to severe acidosis. Right ventricle systolic pressure is at least 61 mmHg with a RA mean of at least 20 [IVC is dilated and does not vary with respiration, and hence the right atrial mean pressure is at least greater than 20.] 7. Takotsubo cardiomyopathy: This is most likely event. Patient with a picture by echo of Takotsubo cardiomyopathy. This should improve if this is indeed the case in the matter of days. Continue supportive treatment. There is some improvement in the segments of the LV in terms of contractility supporting Takotsubo cardiomyopathy although the ejection fraction is still about 35%. 8. Elevated troponin secondary combination of hypotension, and cardiomyopathy. This is a type II supply demand mismatch no evidence of non-STEMI. Hence we will treat the underlying cause, and not treat this as a non-ST ovation [place]. Echo echocardiogram tomorrow. 10. Bipolar disorder: Most likely has untoward effects from her psych medication. Doubt that this is neuroleptic syndrome, due to lack of hyperpyrexia, although there is some evidence of tardive dyskinesia. 11. Acute renal failure with oliguria:: Avoid nephrotoxic drugs. GFR is improved and is now greater than 60 mL/min, and the urine output is much improved. 12. Hypokalemia: Continue replacement. 13. Left axillary brachial and cephalic vein thrombosis: Patient is on Eliquis 5 mg p.o. twice daily. 14. Hypertension: Patient's blood pressure uncontrolled. Will increase antihypertensives. Medications reviewed. Inotropes adjusted. Discussed with computing tutor. Medical regimen management plan discussed with computing tutor. Discussed also with the patient's sister on the phone. Medical decision making is of high complexity. Will follow.
[2020-05-07] MEDS: INSULIN LISPRO 100 UNIT/ML 3 ML VIAL SUBCUT SCH ×4 (00:14→17:53)
[2020-05-07 06:03] LABS: BLOOD UREA NITROGEN 13 mg/dL (7-20); CALCIUM 9.7 mg/dL (8.4-10.2); CARBON DIOXIDE 24 mmol/L (22-30); CHLORIDE 121 mmol/L (98-107); GLUCOSE 134 mg/dL (75-110); POTASSIUM 4.7 mmol/L (3.6-5.0)
[2020-05-07 06:12] LABS: ANION GAP 4 (5-19)
[2020-05-07] MEDS: LEVOTHYROXINE SODIUM 0.025 MG TABLET PO SCH (06:28)
[2020-05-07] MEDS: 1/2 NORMAL SALINE 1,000 ML IV PRN (08:43)
[2020-05-07] MEDS: METOPROLOL TARTRATE 25 MG TABLET PO SCH ×3 (09:19→22:34)
[2020-05-07] MEDS: APIXABAN 5 MG TABLET PO SCH ×2 (09:19→22:34)
[2020-05-07] MEDS: LIOTHYRONINE SODIUM 25 MCG TABLET PO SCH (09:19)
[2020-05-07] MEDS: LOSARTAN POTASSIUM 25 MG TABLET NG SCH ×2 (09:20→22:34)
[2020-05-07] MEDS ORDERED: HYDRALAZINE HCL 50 MG TABLET PO PRN (09:43)
[2020-05-07] MEDS ORDERED: FUROSEMIDE INJ/PF 20 MG/2 ML SDV IV ONE (13:08)
[2020-05-07] MEDS ORDERED: NICARDIPINE HCL RTU, ISO-OS 20 MG/200 ML RTUINJ IV ONE (13:15)
[2020-05-07] MEDS: NICARDIPINE HCL RTU, ISO-OS 20 MG/200 ML RTUINJ IV PRN ×2 (13:21→17:06)
[2020-05-07] MEDS ORDERED: FUROSEMIDE INJ/PF 40 MG/4 ML SDV IV ONE (13:30)
--- NOTE | 2020-05-07 22:15 | Progress Note ---
Provider Note Provider Note: CARDIOLOGY PROGRESS NOTE by Dr. Cydney Dickens on 05/07/2020. SUBJECTIVE: The patient has been extubated and is on BiPAP. She appears to be slightly short of breath. Her blood pressure is very uncontrolled. She is nonverbal. But she moves all 4 extremities. There is no recurrence of atrial fibrillation. There is no ventricle arrhythmia seen on the monitor. The patient also appears to be slightly volume overloaded. The patient's IV fluids has been stopped. Lasix 40 mg IV push given x1. Physical EXAMINATION: The patient is a frail build. She is mildly short of breath. Selected Entries 05/07/20 05/07/20 13:11 13:30 Core 99.5 F Temperature Heart Rate ( 93 Monitors) Respiratory 29 H Rate Blood Pressure 137/119 H Blood Pressure 125 Mean O2 Sat by Pulse 91 L Oximetry Fraction of 28 Inspired Oxygen (FIO2) BIPAP HEENT is negative. Neck is supple. There is no JVD. Carotids are equal there is no bruit. Skin: There is no skin rashes. Skin is cool to touch. There is no petechia or ecchymosis. LUNGS: Few scattered rhonchi, there is some diminished breath sounds in the right base. There are no bibasilar rales of CHF. There is no rhonchi rales or wheezing. HEART: S1-S2 is heard. S1 is of normal intensity. There is no S3 gallop. There is no S4 gallop. There is systolic murmur in the left sternal border and the apex . There is no rub. ABDOMEN: Soft. There is no hepatosplenomegaly. Bowel sounds well heard. EXTREMITIES: Femorals are diminished. There is no femoral bruits. Leg pulses are well felt. There is no pedal edema. There is some mild swelling and redness in the left upper extremity. Upper extremity pulses are well felt. Capillary refill is normal. There is no cyanosis or clubbing there is no DVT or cellulitis. MARKETING COMMUNICATION MANAGER: The patient is conscious awake but nonverbal. She moves all 4 extremities. PSYCHIATRIC: Not examined. Labs- All tests 24 hr 05/06/20 05/07/20 05/07/20 23:17 05:03 06:34 Sodium 148.7 H Potassium 4.7 Chloride 121 H Carbon Dioxide 24 Anion Gap 4 L BUN 13 Creatinine 0.60 Est GFR ( Amer) > 60 Est GFR (MDRD) Non-Af > 60 Glucose 134 H POC Glucose 132 H 132 H Calcium 9.7 05/07/20 05/07/20 11:36 17:45 Sodium Potassium Chloride Carbon Dioxide Anion Gap BUN Creatinine Est GFR ( Amer) Est GFR (MDRD) Non-Af Glucose POC Glucose 166 H 170 H Calcium Abdomen/Pelvis CT 04/27/20 00:00 IMPRESSION: 1. Limited examination secondary to motion artifact. 2. Cholelithiasis. 3. Poor visualization of the GI tract especially in the mid and lower abdomen. No obvious bowel obstruction. Chest X-Ray 04/27/20 14:52 IMPRESSION: No acute cardiopulmonary process. Head CT 04/27/20 15:26 IMPRESSION: No acute intracranial abnormality. EVIDENCE OF ACUTE STROKE: NO. Chest X-Ray 04/29/20 00:00 IMPRESSION: Extensive bilateral airspace disease right greater than left. This is new from 04/27/2020. Most likely pulmonary edema. Chest X-Ray 04/29/20 10:58 IMPRESSION: Interval placement of endotracheal tube and NG tube as described. Both are in satisfactory position. No other interval change. Chest X-Ray 04/29/20 14:07 IMPRESSION: Support lines and tubes have been placed as discussed. Increasing opacification in the right lung base. Overall pulmonary edema pattern appears improved. Chest X-Ray 04/30/20 00:00 IMPRESSION: 1. Somewhat improved pulmonary exam. 2. Endotracheal tube tip broaches the right mainstem bronchus. Recommend retracting 3 to 4 cm. Otherwise stable lines and tubes. Venous Doppler Study 05/02/20 00:00 IMPRESSION: Acute occlusive thrombus is seen within the axillary, brachial, and cephalic veins. Chest X-Ray 05/06/20 00:00 IMPRESSION: Slight improvement in bilateral edema and/or pneumonia. IMPRESSION/RECOMMENDATION: 1. Respiratory arrest: This is due to a combination of severe metabolic acidosis and encephalopathy. The patient is off the ventilator. She is on BiPAP. 2. Severe metabolic acidosis: This is most likely secondary to combination of untoward effects of psychiatric medication, encephalopathy, and sepsis. Continue antibiotics. Acidosis has resolved. 3. Paroxysmal atrial fibrillation yesterday needing emergency DC cardioversion due to hypotension and atrial fibrillation with rapid ventricular response. No recurrence. Amiodarone drip discontinued due to bradycardia. Patient at present with no recurrence. She is also on Eliquis 5 mg p.o. twice daily. Later will start the patient on a beta-truong. 4. Shock: This has resolved. The patient is off all pressors. The patient is very hypertensive and blood pressure is at present and controlled. We will increase antihypertensive. 5. Severe encephalopathy: Etiology seems to be obscure.. This is seems to be improving the patient is awake off all sedation. She still does not respond appropriately. 6. Severe pulmonary hypertension: This is most likely elevated pulmonary arterial pressures due to severe acidosis. Right ventricle systolic pressure is at least 61 mmHg with a RA mean of at least 20 [IVC is dilated and does not vary with respiration, and hence the right atrial mean pressure is at least greater than 20.] 7. Takotsubo cardiomyopathy: This is most likely event. Patient with a picture by echo of Takotsubo cardiomyopathy. This should improve if this is indeed the case in the matter of days. Continue supportive treatment. There is some improvement in the segments of the LV in terms of contractility supporting Takotsubo cardiomyopathy although the ejection fraction is still about 35%. The patient appears to be volume overloaded. We will give the patient Lasix. 8. Elevated troponin secondary combination of hypotension, and cardiomyopathy. This is a type II supply demand mismatch no evidence of non-STEMI. Hence we will treat the underlying cause, and not treat this as a non-ST ovation [place]. Echo echocardiogram tomorrow. 10. Bipolar disorder: Most likely has untoward effects from her psych medication. Doubt that this is neuroleptic syndrome, due to lack of hyperpyrexia, although there is some evidence of tardive dyskinesia. 11. Acute renal failure with oliguria:: Avoid nephrotoxic drugs. GFR is improved and is now greater than 60 mL/min, and the urine output is much improved. 12. Hypokalemia: Continue replacement. 13. Left axillary brachial and cephalic vein thrombosis: Patient is on Eliquis 5 mg p.o. twice daily. 14. Hypertension: Patient's blood pressure uncontrolled. Will increase antihypertensives. We will start the patient on Cardene drip. Medications reviewed. Inotropes adjusted. Discussed with type soldering machine tender. Medical regimen management plan discussed with type soldering machine tender. Discussed also with the patient's siste. Medical decision making is of high complexity. Will follow.
[2020-05-08] MEDS: INSULIN LISPRO 100 UNIT/ML 3 ML VIAL SUBCUT SCH ×4 (01:27→18:19)
[2020-05-08] MEDS: 1/2 NORMAL SALINE 1,000 ML IV PRN (04:11)
[2020-05-08] MEDS: LEVOTHYROXINE SODIUM 0.025 MG TABLET PO SCH (05:38)
--- NOTE | 2020-05-08 08:58 | PDOC CRITICAL CARE PROG REPORT ---
General Date:: 05/08/20 ICU Day:: 9 Hospital Day:: 11 Resuscitation Status: Full Code Events in the past 12 to 24 Hours:: 04/30/2020: Patient was admitted to the intensive care unit yesterday status post cardiac arrest intubated. Please see ICU admission note for details regarding yesterday's events. Overnight, she had a decrease in her blood pressure and heart rate. The amiodarone drip was discontinued and patient was placed on dopamine drip along with her standing Luis-Synephrine. Her blood pressure has since improved and she is being weaned off of Luis-Synephrine. 05/01/2020: No acute events overnight. Blood pressure has been improving slightly and she is being weaned off of Luis-Synephrine. Propofol also being weaned. Patient is not yet responsive. 05/02/2020: Lumbar puncture performed overnight. Results pending. Left upper arm swelling and redness. Ultrasound positive for DVT. 05/03: Has a L gaze preference. EEG to R/O non-convulsive seizures. Beginning to awaken some. DVT in Axillary vein. 05/04: More awake. On room air on vent hope to extubate soon. 05/05. Not any more awake. Too sleepy to extubate 05/06: A bit more awake. Occassionally follows commands. Will try extubation. 05/07: Still extubated. Needs bipap. Seems more awake today. 05/08/20: At times will follow commands, simple. Review of systems relevant to events:: Neurological. Reason for ICU Addmission:: Status post cardiac arrest, respiratory failure - Medications: Medications reviewed and adjusted accordingly: Yes Vasopressors:: None Sedation:: None. Physical Exam Vital Signs: Temp Pulse Resp BP Pulse Ox 99.0 F 82 14 136/81 H 99 05/08/20 06:00 05/08/20 06:00 05/08/20 06:07 05/08/20 06:07 05/08/20 06:07 Intake & Output 05/07/20 05/08/20 05/09/20 06:59 06:59 06:59 Intake Total 240 1284 Output Total 919 9635 Balance -377 -9553 Weight 71.3 kg 64.8 kg Weight/Height Weight 64.8 kg Height 5 ft 1 in General appearance: PRESENT: no acute distress, thin Head exam: PRESENT: atraumatic, normocephalic Eye exam: PRESENT: conjunctiva pink, EOMI, PERRLA. ABSENT: scleral icterus Ear exam: PRESENT: normal external ear exam Mouth exam: PRESENT: moist, tongue midline Neck exam: ABSENT: carotid bruit, JVD, lymphadenopathy, thyromegaly Respiratory exam: PRESENT: clear to auscultation manuela. ABSENT: rales, rhonchi, wheezes Cardiovascular exam: PRESENT: RRR. ABSENT: diastolic murmur, rubs, systolic murmur GI/Abdominal exam: PRESENT: normal bowel sounds, soft. ABSENT: distended, guarding, mass, organolmegaly, rebound, tenderness Rectal exam: PRESENT: deferred Gentrourinary exam: PRESENT: indwelling catheter Extremities exam: PRESENT: full ROM. ABSENT: calf tenderness, clubbing, pedal edema Musculoskeletal exam: PRESENT: normal inspection Neurological exam: PRESENT: alert, altered, awake, CN II-XII grossly intact, other - Tracks. Occasionally will Tubes/Lines: PRESENT: Nasogastic Tube, Other - Bipap Laboratory/Radiographs Laboratory Results: 05/06/20 06:31 05/07/20 05:03 04/27/20 04/27/20 04/30/20 15:01 15:01 03:55 Creatine Kinase 155 H Troponin I < 0.012 1.560 04/30/20 05/01/20 09:35 09:08 Creatine Kinase Troponin I 0.806 0.306 Impressions: Abdomen/Pelvis CT 04/27/20 00:00 IMPRESSION: 1. Limited examination secondary to motion artifact. 2. Cholelithiasis. 3. Poor visualization of the GI tract especially in the mid and lower abdomen. No obvious bowel obstruction. Head CT 04/27/20 15:26 IMPRESSION: No acute intracranial abnormality. EVIDENCE OF ACUTE STROKE: NO. Venous Doppler Study 05/02/20 00:00 IMPRESSION: Acute occlusive thrombus is seen within the axillary, brachial, and cephalic veins. Chest X-Ray 05/06/20 00:00 IMPRESSION: Slight improvement in bilateral edema and/or pneumonia. All labs, radiographs, diagnostic studies and EKGs were personally reviewed: Yes In addition, reports of radiographic and diagnostic studies were read: Yes Assessment and Plan - Diagnosis (1) Altered mental status Qualifiers: Altered mental status type: unspecified Qualified Code(s): R41.82 - Altered mental status, unspecified Is this a current diagnosis for this admission?: Yes Plan: She is slowly waking up. No psychiatric medications. (2) Bipolar disorder Is this a current diagnosis for this admission?: Yes Plan: Add medications as she awakens (3) Normocytic anemia Is this a current diagnosis for this admission?: Yes Plan: Resolved Plan Summary: Try off bipap today. Critical Time Critical Time (minutes): 35 Level of Care: ICU Anticipated discharge: SNF Anticipated DC Timeframe: Other -: 1. The care of a critical patient is a dynamic process. This note is a digital sales representative synopsis but static in nature. The timeframe for treatments given in order is not necessarily the actual time these treatments may have been done. 2. This patient requires critical care secondary to ongoing requirements for therapy not offered or safe outside the critical care environment. Transfer to a lower level of care will result in altered life or limb morbidity and mortality. 3. Multidisciplinary rounds completed. 4. ABCDE bundle addressed.
--- NOTE | 2020-05-08 08:59 | PDOC CRITICAL CARE PROG REPORT ---
General Date:: 05/07/20 ICU Day:: 8 Hospital Day:: 10 Resuscitation Status: Full Code Events in the past 12 to 24 Hours:: 04/30/2020: Patient was admitted to the intensive care unit yesterday status post cardiac arrest intubated. Please see ICU admission note for details regarding yesterday's events. Overnight, she had a decrease in her blood pressure and heart rate. The amiodarone drip was discontinued and patient was placed on dopamine drip along with her standing Luis-Synephrine. Her blood pressure has since improved and she is being weaned off of Luis-Synephrine. 05/01/2020: No acute events overnight. Blood pressure has been improving slightly and she is being weaned off of Luis-Synephrine. Propofol also being weaned. Patient is not yet responsive. 05/02/2020: Lumbar puncture performed overnight. Results pending. Left upper arm swelling and redness. Ultrasound positive for DVT. 05/03: Has a L gaze preference. EEG to R/O non-convulsive seizures. Beginning to awaken some. DVT in Axillary vein. 05/04: More awake. On room air on vent hope to extubate soon. 05/05. Not any more awake. Too sleepy to extubate 05/06: A bit more awake. Occassionally follows commands. Will try extubation. 05/07: Still extubated. Needs bipap. Seems more awake today. Review of systems relevant to events:: Neurological. Reason for ICU Addmission:: Status post cardiac arrest, respiratory failure - Medications: Medications reviewed and adjusted accordingly: Yes Vasopressors:: None Sedation:: None Physical Exam Vital Signs: Temp Pulse Resp BP Pulse Ox 98.8 F 89 18 145/97 H 100 05/07/20 05:15 05/06/20 22:00 05/07/20 06:00 05/07/20 05:29 05/07/20 06:00 Intake & Output 05/06/20 05/07/20 05/08/20 06:59 06:59 06:59 Intake Total 300 240 Output Total 1730 910 Balance -1430 -670 Weight 69.5 kg 71.3 kg Weight/Height Weight 71.3 kg Height 5 ft 1 in General appearance: PRESENT: no acute distress Head exam: PRESENT: atraumatic, normocephalic Eye exam: PRESENT: conjunctiva pink, EOMI, PERRLA. ABSENT: scleral icterus Ear exam: PRESENT: normal external ear exam Mouth exam: PRESENT: moist, tongue midline Respiratory exam: PRESENT: clear to auscultation manuela. ABSENT: rales, rhonchi, wheezes Cardiovascular exam: PRESENT: RRR. ABSENT: diastolic murmur, rubs, systolic murmur GI/Abdominal exam: PRESENT: normal bowel sounds, soft. ABSENT: distended, guarding, mass, organolmegaly, rebound, tenderness Rectal exam: PRESENT: deferred Gentrourinary exam: PRESENT: indwelling catheter Extremities exam: PRESENT: full ROM. ABSENT: calf tenderness, clubbing, pedal edema Musculoskeletal exam: PRESENT: normal inspection Neurological exam: PRESENT: other - Sedated. Skin exam: PRESENT: dry, intact, warm. ABSENT: cyanosis, rash Tubes/Lines: PRESENT: Endotracheal Tube, Nasogastic Tube Laboratory/Radiographs Laboratory Results: 05/06/20 06:31 05/07/20 05:03 05/07/20 05:03 Sodium 148.7 H Potassium 4.7 Chloride 121 H Carbon Dioxide 24 Anion Gap 4 L BUN 13 Creatinine 0.60 Est GFR ( Amer) > 60 Glucose 134 H Calcium 9.7 04/27/20 04/27/20 04/30/20 15:01 15:01 03:55 Creatine Kinase 155 H Troponin I < 0.012 1.560 04/30/20 05/01/20 09:35 09:08 Creatine Kinase Troponin I 0.806 0.306 Impressions: Abdomen/Pelvis CT 04/27/20 00:00 IMPRESSION: 1. Limited examination secondary to motion artifact. 2. Cholelithiasis. 3. Poor visualization of the GI tract especially in the mid and lower abdomen. No obvious bowel obstruction. Head CT 04/27/20 15:26 IMPRESSION: No acute intracranial abnormality. EVIDENCE OF ACUTE STROKE: NO. Venous Doppler Study 05/02/20 00:00 IMPRESSION: Acute occlusive thrombus is seen within the axillary, brachial, and cephalic veins. Chest X-Ray 05/06/20 00:00 IMPRESSION: Slight improvement in bilateral edema and/or pneumonia. All labs, radiographs, diagnostic studies and EKGs were personally reviewed: Yes In addition, reports of radiographic and diagnostic studies were read: Yes Assessment and Plan - Diagnosis (1) Altered mental status Qualifiers: Altered mental status type: unspecified Qualified Code(s): R41.82 - Altered mental status, unspecified Is this a current diagnosis for this admission?: Yes Plan: Overall the patient has had an altered mental status throughout his stay. He requires sedation to avoid violence when intubated. With worsening mental activity, worsening renal function and pressor requirement, I wonder if he is in need of milrinone. Will ask for cardiology consult. (2) Leukocytosis Is this a current diagnosis for this admission?: Yes Plan: Resolved with a level of 11.2K. (3) Bipolar disorder Is this a current diagnosis for this admission?: Yes Plan: Difficult to get a sense of mental status with sedation and cardiac status. (4) Normocytic anemia Is this a current diagnosis for this admission?: Yes Plan: Levels at 8.9/ 27. No need to transfuse. Critical Time Critical Time (minutes): 35 Level of Care: ICU Anticipated discharge: SNF Anticipated DC Timeframe: Other -: 1. The care of a critical patient is a dynamic process. This note is a health and safety representative synopsis but static in nature. The timeframe for treatments given in order is not necessarily the actual time these treatments may have been done. 2. This patient requires critical care secondary to ongoing requirements for therapy not offered or safe outside the critical care environment. Transfer to a lower level of care will result in altered life or limb morbidity and mortality. 3. Multidisciplinary rounds completed. 4. ABCDE bundle addressed.
[2020-05-08] MEDS: ACYCLOVIR SODIUM 500 MG in NORMAL SALINE 100 ML IV SCH ×2 (10:38→22:24)
[2020-05-08] MEDS: LIOTHYRONINE SODIUM 25 MCG TABLET PO SCH (10:39)
[2020-05-08] MEDS: APIXABAN 5 MG TABLET PO SCH ×2 (10:39→22:22)
[2020-05-08] MEDS: LOSARTAN POTASSIUM 25 MG TABLET NG SCH ×2 (10:39→22:23)
[2020-05-08] MEDS: PANTOPRAZOLE SODIUM 40 MG VIAL IV SCH (10:39)
[2020-05-08] MEDS: METOPROLOL TARTRATE 25 MG TABLET PO SCH ×2 (10:39→22:23)
--- NOTE | 2020-05-08 17:06 | PDOC PROGRESS REPORT ---
Subjective Date:: 05/08/20 Reason For Visit: ACUTE ENCEPHALOPATHY, POSSIBLE ENCEPHALITIS, UTI Physical Exam Vital Signs: Temp Pulse Resp BP Pulse Ox 98.6 F 58 L 17 156/101 H 100 05/08/20 12:00 05/08/20 12:00 05/08/20 14:07 05/08/20 14:07 05/08/20 14:07 Intake & Output 05/07/20 05/08/20 05/09/20 06:59 06:59 06:59 Intake Total 240 1284 Output Total 910 4925 55 Balance -670 -3641 -55 Weight 71.3 kg 64.8 kg Results Laboratory Results: 05/06/20 06:31 05/07/20 05:03 04/27/20 04/27/20 04/30/20 15:01 15:01 03:55 Creatine Kinase 155 H Troponin I < 0.012 1.560 04/30/20 05/01/20 09:35 09:08 Creatine Kinase Troponin I 0.806 0.306 Impressions: Abdomen/Pelvis CT 04/27/20 00:00 IMPRESSION: 1. Limited examination secondary to motion artifact. 2. Cholelithiasis. 3. Poor visualization of the GI tract especially in the mid and lower abdomen. No obvious bowel obstruction. Head CT 04/27/20 15:26 IMPRESSION: No acute intracranial abnormality. EVIDENCE OF ACUTE STROKE: NO. Venous Doppler Study 05/02/20 00:00 IMPRESSION: Acute occlusive thrombus is seen within the axillary, brachial, and cephalic veins. Chest X-Ray 05/06/20 00:00 IMPRESSION: Slight improvement in bilateral edema and/or pneumonia. Assessment and Plan - Diagnosis (1) Acute metabolic encephalopathy Is this a current diagnosis for this admission?: Yes (3) Pulmonary hypertension Is this a current diagnosis for this admission?: Yes (4) Hypothyroidism Qualifiers: Hypothyroidism type: unspecified Qualified Code(s): E03.9 - Hypothyroidism, unspecified Is this a current diagnosis for this admission?: Yes (5) Bipolar disorder Is this a current diagnosis for this admission?: Yes (6) Hypernatremia Is this a current diagnosis for this admission?: Yes (7) Normocytic anemia Is this a current diagnosis for this admission?: Yes (8) Transaminitis Is this a current diagnosis for this admission?: Yes (9) Paroxysmal atrial fibrillation Is this a current diagnosis for this admission?: Yes (10) Hypoxia Is this a current diagnosis for this admission?: Yes - Plan Summary Summary: Patient downgraded from ICU to IMCU today. Received signout from sales review clerk. Patient was admitted for altered mental status which had been worsening pro gressively over a few weeks. Upon admission, patient was febrile, nonverbal, fully awake but highly restless and agitated and tremulous. Initially treated with antibiotics broad-spectrum. There was concern for encephalitis which was later ruled out by LP. There was concern that patient's gabapentin doses and changes may have played a role there. Patient was also treated for urinary tract infection with antibiotics. Patient went into cardiac arrest and was resuscitated after receiving 3 rounds of epi and a round of bicarb. From my discussion with the sales review clerk, the exact cause of her cardiac arrest has not been derived. In the ICU, she was treated for severe metabolic acidosis, paro xysmal atrial fibrillation, pulmonary hypertension. Also noted to have Takotsubo cardiomyopathy. She did have renal failure but has improved. Patient was extubated 2 days ago. Mental status still seems about the same as her initial presentation as she is still nonverbal and blankly stares. She however does not seem to be restless and agitated anymore and she is no longer tremulous. Not really moving her left arm. Possibly had a stroke or hypoxic encephalopathy. Exact cause of her initial mental decline is still unknown. She follows with neurologist Dr. Adams. Hypernatremic and on half-normal saline. On 5l nc. Will check labs. Check MRI brain. Adjust levothyroxine to weight-based dosing. - Time Anticipated Discharge Disposition: Service Liaison Representative Care Facility Anticipated Discharge Timeframe: unknown
--- NOTE | 2020-05-08 20:55 | Progress Note ---
Provider Note Provider Note: CARDIOLOGY PROGRESS NOTE by Dr. Cydney Dickens on 05/08/2020. SUBJECTIVE: The patient is more awake and more responsive, but not fully oriented x3. She seems to recognize his sister and also there is a clinical recommendation when she sees me. She is moves all 4 extremities. No further information obtained since she is still nonverbal. The patient is being transferred out of ICU. PHYSICAL EXAMINATION: The patient is a frail build but in no acute distress. Selected Entries 05/08/20 12:00 Temperature 98.6 F Temperature Core Source Core 98.6 F Temperature Pulse Rate 58 L Heart Rate ( 63 Monitors) Respiratory 11 L Rate Blood Pressure 115/68 [Left Upper Arm ] Blood Pressure 83 Mean [Left Upper Arm] Blood Pressure Supine Position [Left Upper Arm] O2 Sat by Pulse 100 Oximetry Nasal cannula at 4 L/min. HEENT is negative. Neck is supple. There is no JVD. Carotids are equal there is no bruit. Skin: There is no skin rashes. Skin is cool to touch. There is no petechia or ecchymosis. LUNGS: Few scattered rhonchi, there is some dimini shed breath sounds in the right base. There are no bibasilar rales of CHF. There is no rhonchi rales or wheezing. HEART: S1-S2 is heard. S1 is of normal intensity. There is no S3 gallop. There is no S4 gallop. There is systolic murmur in the left sternal border and the apex . There is no rub. ABDOMEN: Soft. There is no hepatosplenomegaly. Bowel sounds well heard. EXTREMITIES: Femorals are diminished. There is no femoral bruits. Leg pulses are well felt. There is no pedal edema. There is some mild swelling and redness in the left upper extremity. Upper extremity pulses are well felt. Capillary refill is normal. There is no cyanosis or clubbing there is no DVT or cellulitis. FARM TRUCK DRIVER: The patient is conscious awake but nonverbal. She moves all 4 extremities. PSYCHIATRIC: Not examined. Labs- All tests 24 hr 05/08/20 05/08/20 05/08/20 00:10 05:27 06:11 POC Glucose 119 H 129 H 107 05/08/20 05/08/20 11:17 17:44 POC Glucose 123 H 131 H Abdomen/Pelvis CT 04/27/20 00:00 IMPRESSION: 1. Limited examination secondary to motion artifact. 2. Cholelithiasis. 3. Poor visualization of the GI tract especially in the mid and lower abdomen. No obvious bowel obstruction. Chest X-Ray 04/27/20 14:52 IMPRESSION: No acute cardiopulmonary process. Head CT 04/27/20 15:26 IMPRESSION: No acute intracranial abnormality. EVIDENCE OF ACUTE STROKE: NO. Chest X-Ray 04/29/20 00:00 IMPRESSION: Extensive bilateral airspace disease right greater than left. This is new from 04/27/2020. Most likely pulmonary edema. Chest X-Ray 04/29/20 10:58 IMPRESSION: Interval placement of endotracheal tube and NG tube as described. Both are in satisfactory position. No other interval change. Chest X-Ray 04/29/20 14:07 IMPRESSION: Support lines and tubes have been placed as discussed. Increasing opacification in the right lung base. Overall pulmonary edema pattern appears improved. Chest X-Ray 04/30/20 00:00 IMPRESSION: 1. Somewhat improved pulmonary exam. 2. Endotracheal tube tip broaches the right mainstem bronchus. Recommend retracting 3 to 4 cm. Otherwise stable lines and tubes. Venous Doppler Study 05/02/20 00:00 IMPRESSION: Acute occlusive thrombus is seen within the axillary, brachial, and cephalic veins. Chest X-Ray 05/06/20 00:00 IMPRESSION: Slight improvement in bilateral edema and/or pneumonia. IMPRESSION/RECOMMENDATION: 1. Respiratory arrest: This is due to a combination of severe metabolic acidosis and encephalopathy. The patient is off the ventilator. She is on BiPAP. 2. Severe metabolic acidosis: This is most likely secondary to combination of untoward effects of psychiatric medication, encephalopathy, and sepsis. Continue antibiotics. Acidosis has resolved. 3. Paroxysmal atrial fibrillation yesterday needing emergency DC cardioversion due to hypotension and atrial fibrillation with rapid ventricular response. No recurrence. Amiodarone drip discontinued due to bradycardia. Patient at present with no recurrence. She is also on Eliquis 5 mg p.o. twice daily. Later will start the patient on a beta-truong. 4. Shock: This has resolved. The patient is off all pressors. The patient is very hypertensive and blood pressure is at present and controlled. We will increase antihypertensive. 5. Severe encephalopathy: Etiology seems to be obscure.. This is seems to be improving the patient is awake off all sedation. She still does not respond appropriately. 6. Severe pulmonary hypertension: This is most likely elevated pulmonary arterial pressures due to severe acidosis. Right ventricle systolic pressure is at least 61 mmHg with a RA mean of at least 20 [IVC is dilated and does not vary with respiration, and hence the right atrial mean pressure is at least greater than 20.] 7. Takotsubo cardiomyopathy: This is most likely event. Patient with a picture by echo of Takotsubo cardiomyopathy. This should improve if this is indeed the case in the matter of days. Continue supportive treatment. There is some improvement in the segments of the LV in terms of contractility supporting Takotsubo cardiomyopathy although the ejection fraction is still about 35%. The patient appears to be volume overloaded. We will give the patient Lasix. 8. Elevated troponin secondary combination of hypotension, and cardiomyopathy. This is a type II supply demand mismatch no evidence of non-STEMI. Hence we will treat the underlying cause, and not treat this as a non-ST ovation [place]. Echo echocardiogram tomorrow. 10. Bipolar disorder: Most likely has untoward effects from her psych medication. Doubt that this is neuroleptic syndrome, due to lack of hyperpyrexia, although there is some evidence of tardive dyskinesia. 11. Acute renal failure with oliguria:: Avoid nephrotoxic drugs. GFR is improved and is now greater than 60 mL/min, and the urine output is much improved. 12. Hypokalemia: Continue replacement. 13. Left axillary brachial and cephalic vein thrombosis: Patient is on Eliquis 5 mg p.o. twice daily. 14. Hypertension: Patient's blood pressure uncontrolled. Will increase antihypertensives. We will start the patient on Cardene drip. Medications reviewed. Inotropes adjusted. Discussed with maintenance repairman. Medical regimen management plan discussed with maintenance repairman. Discussed also with the patient's siste. Medical decision making is of high complexity. Will follow.
[2020-05-08 23:25] LABS: ALBUMIN 2.5 g/dL (3.5-5.0); ALKALINE PHOSPHATASE 121 U/L (38-126); ASPARTATE AMINO TRANSFERASE 34 U/L (14-36); BILIRUBIN,DIRECT 0.3 mg/dL (0.0-0.4); BILIRUBIN,TOTAL 0.3 mg/dL (0.2-1.3); BLOOD UREA NITROGEN 18 mg/dL (7-20); CALCIUM 9.5 mg/dL (8.4-10.2); GLUCOSE 122 mg/dL (75-110); POTASSIUM 4.1 mmol/L (3.6-5.0); TOTAL PROTEIN 5.6 g/dL (6.3-8.2)
[2020-05-08 23:31] LABS: CARBON DIOXIDE 32 mmol/L (22-30); CHLORIDE 116 mmol/L (98-107)
[2020-05-08 23:36] LABS: ANION GAP 1 (5-19)
[2020-05-09] MEDS: INSULIN LISPRO 100 UNIT/ML 3 ML VIAL SUBCUT SCH ×4 (01:32→19:05)
[2020-05-09] MEDS: 1/2 NORMAL SALINE 1,000 ML IV PRN (03:04)
[2020-05-09] MEDS ORDERED: ACYCLOVIR SODIUM INJ/PF 500 MG/10 ML SDV IV ONE (03:44)
[2020-05-09] MEDS: ACYCLOVIR SODIUM 500 MG in NORMAL SALINE 100 ML IV SCH ×3 (04:10→21:26)
[2020-05-09 05:16] LABS: ABSOLUTE BASOPHILS # (AUTO) 0.1 10^3/uL (0.0-0.2); ABSOLUTE EOSINOPHILS # (AUTO) 0.2 10^3/uL (0.0-0.6); ABSOLUTE LYMPHOCYTES (AUTO) 1.1 10^3/uL (0.5-4.7); ABSOLUTE MONOCYTES (AUTO) 0.9 10^3/uL (0.1-1.4); ABSOLUTE NEUT (AUTO) 8.1 10^3/uL (1.7-8.2); BASOPHILS % (AUTO) 0.9 % (0-2); EOSINOPHILS % (AUTO) 2.2 % (0-6); HEMATOCRIT 27.9 % (36.0-47.0); HEMOGLOBIN 9.2 g/dL (12.0-15.5); LYMPHOCYTES % (AUTO) 10.2 % (13-45); MEAN CORPUSCULAR HEMOGLOBIN 30.6 pg (27.0-33.4); MEAN CORPUSCULAR HGB CONC 32.9 g/dL (32.0-36.0); MEAN CORPUSCULAR VOLUME 93 fl (80-97); PLATELET COUNT 275 10^3/uL (150-450); RED BLOOD COUNT 3.01 10^6/uL (3.72-5.28); RED CELL DISTRIBUTION WIDTH 17.7 % (11.5-14.0); SEGMENTED NEUTROPHILS % (AUTO) 77.7 % (42-78); TOTAL CELLS COUNTED % (AUTO) 100 %; WHITE BLOOD COUNT 10.4 10^3/uL (4.0-10.5)
[2020-05-09 05:58] LABS: ALBUMIN 2.2 g/dL (3.5-5.0); ALKALINE PHOSPHATASE 121 U/L (38-126); ANION GAP 5 (5-19); ASPARTATE AMINO TRANSFERASE 34 U/L (14-36); BILIRUBIN,DIRECT 0.2 mg/dL (0.0-0.4); BILIRUBIN,TOTAL 0.3 mg/dL (0.2-1.3); BLOOD UREA NITROGEN 18 mg/dL (7-20); CALCIUM 9.2 mg/dL (8.4-10.2); CARBON DIOXIDE 28 mmol/L (22-30); CHLORIDE 117 mmol/L (98-107); GLUCOSE 137 mg/dL (75-110)
--- NOTE | 2020-05-09 08:42 | RADIOLOGY REPORT (SQ) ---
EXAM DESCRIPTION: CHEST SINGLE VIEW IMAGES COMPLETED DATE/TIME: 05/09/2020 7:48 am REASON FOR STUDY: NG tube placement COMPARISON: 05/06/2020 NUMBER OF VIEWS: One view. TECHNIQUE: Single frontal radiographic image of the chest acquired. LIMITATIONS: Overlying support apparatus. FINDINGS: LUNGS AND PLEURA: Increasing veiling opacity in both lungs, more so on the right. No pneu mothorax. MEDIASTINUM AND HEART: Stable heart size and mediastinal structures. SUPPORT DEVICES: Appropriate location without change. BONY STRUCTURES: No acute findings. HARDWARE: None. OTHER: No other significant finding. IMPRESSION: Increasing pleural effusions. No pneumothorax. Reading location - IP/workstation name: [email or web address]
[2020-05-09] MEDS ORDERED: DEXTROSE 5%-WATER 1000 ML 1,000 ML IV PRN ×2 (08:55→18:17)
[2020-05-09] MEDS: IPRATROPIUM/ALBUTEROL 0.5-2.5 MG/3 ML AMPUL NEB PRN (10:13)
[2020-05-09] MEDS: PANTOPRAZOLE SODIUM 40 MG VIAL IV SCH (11:13)
--- NOTE | 2020-05-09 12:50 | RADIOLOGY REPORT (SQ) ---
EXAM DESCRIPTION: CHEST SINGLE VIEW IMAGES COMPLETED DATE/TIME: 05/09/2020 12:13 pm REASON FOR STUDY: NG Tube placement COMPARISON: Earlier the same day. NUMBER OF VIEWS: One view. TECHNIQUE: Single frontal radiographic image of the chest acquired. LIMITATIONS: None. FINDINGS: LUNGS AND PLEURA: Stable appearance. MEDIASTINUM AND HEART: Stable heart size and mediastinal structures. SUPPORT DEVICES: Interval placement of nasogastric tube extends into the left lower quadrant beyond t he field of view. BONY STRUCTURES: No acute findings. HARDWARE: None. OTHER: No other significant finding. IMPRESSION: Nasogastric tube in the stomach. Reading location - IP/workstation name: [email or web address]
[2020-05-09] MEDS: METOPROLOL TARTRATE 25 MG TABLET PO SCH ×2 (14:40→21:30)
[2020-05-09] MEDS: LOSARTAN POTASSIUM 25 MG TABLET NG SCH ×2 (14:40→21:29)
[2020-05-09] MEDS: LEVOTHYROXINE SODIUM 0.1 MG TABLET PO SCH (14:40)
[2020-05-09] MEDS: APIXABAN 5 MG TABLET PO SCH (14:40)
[2020-05-09] MEDS: LIOTHYRONINE SODIUM 25 MCG TABLET PO SCH (14:47)
[2020-05-09] MEDS ORDERED: LACTAID PO SCH (17:00)
[2020-05-09 17:52] LABS: BLOOD UREA NITROGEN 16 mg/dL (7-20); CALCIUM 9.1 mg/dL (8.4-10.2); GLUCOSE 107 mg/dL (75-110); POTASSIUM 4.2 mmol/L (3.6-5.0)
[2020-05-09 17:58] LABS: CARBON DIOXIDE 33 mmol/L (22-30); CHLORIDE 116 mmol/L (98-107)
[2020-05-09 18:00] LABS: ANION GAP 1 (5-19)
--- NOTE | 2020-05-09 18:37 | PDOC PROGRESS REPORT ---
Subjective Date:: 05/09/20 Subjective:: Not obtainable. Still not verbal though fully awake. Reason For Visit: ACUTE ENCEPHALOPATHY, POSSIBLE ENCEPHALITIS, UTI Physical Exam Vital Signs: Temp Pulse Resp BP Pulse Ox 98.2 F 80 14 134/62 H 98 05/09/20 15:04 05/09/20 15:04 05/09/20 15:04 05/09/20 15:04 05/09/20 15:04 Intake & Output 05/08/20 05/09/20 05/10/20 06:59 06:59 06:59 Intake Total 1284 1522 Output Total 4925 1255 400 Balance -3641 267 -400 Weight 64.8 kg 64.8 kg 64.8 kg General appearance: PRESENT: no acute distress, cooperative Head exam: PRESENT: normocephalic Neck exam: ABSENT: JVD Respiratory exam: PRESENT: crackles - Right lung, decreased breath sounds - Right lung base, rhonchi - Mild, symmetrical, unlabored. ABSENT: tachypnea, wheezes Cardiovascular exam: PRESENT: RRR, +S1, +S2. ABSENT: tachycardia GI/Abdominal exam: PRESENT: soft. ABSENT: rebound, rigid, tenderness Neurological exam: PRESENT: alert, awake, motor sensory deficit - Left side, aphasic Psychiatric exam: ABSENT: agitated, anxious Focused psych exam: ABSENT: pressured speech Skin exam: ABSENT: jaundice Results Laboratory Results: 05/09/20 05:00 05/09/20 17:05 05/08/20 05/09/20 05/09/20 22:49 05:00 05:00 WBC 10.4 RBC 3.01 L Hgb 9.2 L Hct 27.9 L MCV 93 MCH 30.6 MCHC 32.9 RDW 17.7 H Plt Count 275 Seg Neutrophils % 77.7 Sodium 149.1 H 150.1 H Potassium 4.1 4.0 Chloride 116 H 117 H Carbon Dioxide 32 H 28 Anion Gap 1 L 5 BUN 18 18 Creatinine 0.66 0.60 Est GFR ( Amer) > 60 > 60 Glucose 122 H 137 H Calcium 9.5 9.2 Phosphorus 4.0 Magnesium 2.3 Total Bilirubin 0.3 0.3 AST 34 34 Alkaline Phosphatase 121 121 Total Protein 5.6 L 5.0 L Albumin 2.5 L 2.2 L 05/09/20 17:05 WBC RBC Hgb Hct MCV MCH MCHC RDW Plt Count Seg Neutrophils % Sodium 149.7 H Potassium 4.2 Chloride 116 H Carbon Dioxide 33 H Anion Gap 1 L BUN 16 Creatinine 0.60 Est GFR ( Amer) > 60 Glucose 107 Calcium 9.1 Phosphorus Magnesium Total Bilirubin AST Alkaline Phosphatase Total Protein Albumin 04/27/20 04/27/20 04/30/20 15:01 15:01 03:55 Creatine Kinase 155 H Troponin I < 0.012 1.560 04/30/20 05/01/20 09:35 09:08 Creatine Kinase Troponin I 0.806 0.306 Impressions: Abdomen/Pelvis CT 04/27/20 00:00 IMPRESSION: 1. Limited examination secondary to motion artifact. 2. Cholelithiasis. 3. Poor visualization of the GI tract especially in the mid and lower abdomen. No obvious bowel obstruction. Head CT 04/27/20 15:26 IMPRESSION: No acute intracranial abnormality. EVIDENCE OF ACUTE STROKE: NO. Venous Doppler Study 05/02/20 00:00 IMPRESSION: Acute occlusive thrombus is seen within the axillary, brachial, and cephalic veins. Chest X-Ray 05/09/20 06:36 IMPRESSION: Increasing pleural effusions. No pneumothorax. Assessment and Plan - Diagnosis (1) Acute metabolic encephalopathy Is this a current diagnosis for this admission?: Yes (2) Pleural effusion, right Is this a current diagnosis for this admission?: Yes (4) Pulmonary hypertension Is this a current diagnosis for this admission?: Yes (5) Hypothyroidism Qualifiers: Hypothyroidism type: unspecified Qualified Code(s): E03.9 - Hypothyroidism, unspecified Is this a current diagnosis for this admission?: Yes (6) Bipolar disorder Is this a current diagnosis for this admission?: Yes (7) Hypernatremia Is this a current diagnosis for this admission?: Yes (8) Normocytic anemia Is this a current diagnosis for this admission?: Yes (9) Transaminitis Is this a current diagnosis for this admission?: Yes (10) Paroxysmal atrial fibrillation Is this a current diagnosis for this admission?: Yes (11) Hypoxia Is this a current diagnosis for this admission?: Yes - Plan Summary Summary: Patient downgraded from ICU to IMCU today. Received signout from overlock sleeve setter. Patient was admitted for altered mental status which had been worsening progressively over a few weeks. Upon admission, patient was febrile, nonverbal, fully awake but highly restless and agitated and tremulous. Initially treated with antibiotics broad-spectrum. There was concern for encephalitis which was later ruled out by LP. There was concern that patient's gabapentin doses and changes may have played a role there. Patient was also treated for urinary tract infection with antibiotics. Patient went into cardiac arrest and was resuscitated after receiving 3 rounds of epi and a round of bicarb. From my discussion with the overlock sleeve setter, the exact cause of her cardiac arrest has not been derived. In the ICU, she was treated for severe metabolic acidosis, paroxysmal atrial fibrillation, pulmonary hypertension. Also noted to have Takotsubo cardiomyopathy. She did have renal failure but has improved. Patient was extubated 2 days ago. Mental status still seems about the same as her initial presentation as she is still nonverbal and blankly stares. She however does not seem to be restless and agitated anymore and she is no longer tremulous. Not really moving her left arm. Possibly had a stroke or hypoxic encephalopathy. Exact cause of her initial mental decline is still unknown. She follows with neurologist Dr. Adams. Hypernatremic and on half-normal saline. On 5l nc. Will check labs, CXR in Am. Check MRI brain. Adjust levothyroxine to weight- based dosing. 05/09/2020 Checks x-ray this morning shows right pleural effusion which is likely responsible for hypoxia. She still on nasal cannula Though she has right pleural effusion, she is intravascularly depleted with contraction alkalosis and hyperchloremic hypernatremia. She is planned for thoracentesis. Radiology will be available tomorrow to perform the thoracentesis. Unfortunately the D5W ordered was not started this morning and hence repeat labs still showing no change in sodium. Start D5W at 65 cc/h to replace free water deficit and cover insensible losses. Monitor labs. We will switch to only tube flushes once Na improves. MRI Brain pending Discussed plan with sister today. Start Lactase while on tube feeds Contnue synthroid and cardiac meds - Time Time Spent with patient: 25-34 minutes Anticipated Discharge Disposition: Home, Self Care Anticipated Discharge Timeframe: within 72 hours
--- NOTE | 2020-05-09 18:45 | ADVANCED CARE ---
- Diagnosis (1) Acute metabolic encephalopathy Diagnosis Current: Yes (2) Pleural effusion, right Diagnosis Current: Yes (3) Cardiac arrest Diagnosis Current: Yes (4) Pulmonary hypertension Diagnosis Current: Yes (11) Hypoxia Diagnosis Current: Yes Resuscitation Status: Do Not Resuscitate Discussion: Discussed at length with patient's Sister Jazmine. She has informed me and informed Dr. Vasquez as well that she would like patient to be DNR/DNI. I also discussed plan to do a thoracentesis. I discussed the procedure at length with her and the possible risks including bowel perforation/pneumothorax, hemothorax, bleeding amongst others. She understands the risks of the procedure and is willing to go ahead with it. I did discuss at length that for the purposes of the procedure and the risk that a potential complication of pneumothorax could lead to respiratory decompensation. She discussed with her family and informs me that for the procedure ONLY, she would want her to be a OK for Intubation but no CPR. Time Spent: 20mins
--- NOTE | 2020-05-09 20:00 | RADIOLOGY REPORT (SQ) ---
EXAM DESCRIPTION: MRI HEAD COMBO IMAGES COMPLETED DATE/TIME: 05/09/2020 7:49 pm REASON FOR STUDY: nonverbal, aphasic, Encephalopathy, weak left COMPARISON: CT 04/27/2020. MRI 06/03/2018. TECHNIQUE: Multiplanar imaging includes noncontrasted T1, T2, FLAIR, diffusion with ADC map and post gadolinium contrast T1 sequences. Images stored on PACS. CONTRAST TYPE AND DOSE: 10 mL Prohance. RENAL FUNCTION: Not indicated. ACR Type II contrast agent associated with few, if any, unconfounded cases of NSF LIMITATIONS: Most sequences are considerably limited by motion, which is up to marked. FINDINGS: ANATOMY: No anomalies. Normal vascular flow voids. Pituitary fossa normal. CSF SPACES: Grossly age-appropriate. No extra-axial hemorrhage or mass detected. CEREBRUM: Generally intact without suggestion of hemorrhage or mass or shift or abnormal enhancement allowing for limiting motion. POSTERIOR FOSSA: No signal alteration. No hemorrhage. No edema, masses, or mass effect. Internal sami tory canals, cerebellopontine angles, mastoids normal. No enhancing lesions. No abnormal enhancement post contrast. DIFFUSION IMAGING: Negative for acute or subacute infarction. ORBITS: No masses. Globes normal. PARANASAL SINUSES: Mild mucosal thickening left anterior ethmoid and left maxillary. No fluid levels . OTHER: No other significant finding. IMPRESSION: 1. Limited study. 2. No acute or suspicious intracranial abnormality detected. No recent CVA. No gross enhancing lesi ons. EVIDENCE OF ACUTE STROKE: NO. TECHNICAL DOCUMENTATION: JOB ID: [id number] 2010 [employer]- All Rights Reserved Reading location - IP/workstation name: [email or web address]
--- NOTE | 2020-05-09 21:24 | Progress Note ---
Provider Note Provider Note: CARDIOLOGY PROGRESS NOTE by Dr. Cydney Dickens on 05/08/2020. SUBJECTIVE: The patient is more awake and more responsive, but her responses been purposeless. She is not fully oriented x3. She seems to recognize his sister and also there is a clinical recommendation when she sees me. She is moves all 4 extremities. No further information obtained since she is still nonverbal. There is a sister has made her a DNR. PHYSICAL EXAMINATION: The patient is a frail build. Appears to be in no acute d istress. Selected Entries 05/09/20 10:00 Temperature 97.9 F Temperature Axillary Source Heart Rate ( 95 Monitors) Respiratory 12 Rate Blood Pressure 123/72 [Left Upper Arm ] Blood Pressure 89 Mean [Left Upper Arm] O2 Sat by Pulse 99 Oximetry Oxygen Delivery Nasal Cannula Method ( includes room air) Oxygen Flow 3 Rate HEENT is negative. Neck is supple. There is no JVD. Carotids are equal there is no bruit. Skin: There is no skin rashes. Skin is cool to touch. There is no petechia or ecchymosis. LUNGS: Few scattered rhonchi, there is some diminished breath sounds in the right base. There are no bibasilar rales of CHF. There is no rhonchi rales or wheezing. HEART: S1-S2 is heard. S1 is of normal intensity. There is no S3 gallop. There is no S4 gallop. There is systolic murmur in the left sternal border and the apex . There is no rub. ABDOMEN: Soft. There is no hepatosplenomegaly. Bowel sounds well heard. EXTREMITIES: Femorals are diminished. There is no femoral bruits. Leg pulses are well felt. There is no pedal edema. There is some mild swelling and redness in the left upper extremity. Upper extremity pulses are well felt. Capillary refill is normal. There is no cyanosis or clubbing there is no DVT or cellulitis. NAPPING MACHINE OPERATOR: The patient is conscious awake but nonverbal. She moves all 4 extremities. PSYCHIATRIC: Not examined. Labs- All tests 24 hr 05/08/20 05/09/20 05/09/20 22:49 05:00 05:00 WBC 10.4 RBC 3.01 L Hgb 9.2 L Hct 27.9 L MCV 93 MCH 30.6 MCHC 32.9 RDW 17.7 H Plt Count 275 Lymph % (Auto) 10.2 L [place] % (Auto) 9.0 Eos % (Auto) 2.2 Baso % (Auto) 0.9 Absolute Neuts (auto) 8.1 Absolute Lymphs (auto) 1.1 Absolute Monos (auto) 0.9 Absolute Eos (auto) 0.2 Absolute Basos (auto) 0.1 Seg Neutrophils % 77.7 Sodium 149.1 H 150.1 H Potassium 4.1 4.0 Chloride 116 H 117 H Carbon Dioxide 32 H 28 Anion Gap 1 L 5 BUN 18 18 Creatinine 0.66 0.60 Est GFR ( Amer) > 60 > 60 Est GFR (MDRD) Non-Af > 60 > 60 Glucose 122 H 137 H Calcium 9.5 9.2 Phosphorus 4.0 Magnesium 2.3 Total Bilirubin 0.3 0.3 Direct Bilirubin 0.3 0.2 Neonat Total Bilirubin Not Reportable Not Reportable Neonat Direct Bilirubin Not Reportable Not Reportable Neonat Indirect Bili Not Reportable Not Reportable AST 34 34 ALT 37 H 36 H Alkaline Phosphatase 121 121 Lactate Dehydrogenase Total Protein 5.6 L 5.0 L Albumin 2.5 L 2.2 L 05/09/20 05/09/20 17:05 17:05 WBC RBC Hgb Hct MCV MCH MCHC RDW Plt Count Lymph % (Auto) [place] % (Auto) Eos % (Auto) Baso % (Auto) Absolute Neuts (auto) Absolute Lymphs (auto) Absolute Monos (auto) Absolute Eos (auto) Absolute Basos (auto) Seg Neutrophils % Sodium 149.7 H Potassium 4.2 Chloride 116 H Carbon Dioxide 33 H Anion Gap 1 L BUN 16 Creatinine 0.60 Est GFR ( Amer) > 60 Est GFR (MDRD) Non-Af > 60 Glucose 107 Calcium 9.1 Phosphorus Magnesium Total Bilirubin Direct Bilirubin Neonat Total Bilirubin Neonat Direct Bilirubin Neonat Indirect Bili AST ALT Alkaline Phosphatase Lactate Dehydrogenase 214 Total Protein Albumin Abdomen/Pelvis CT 04/27/20 00:00 IMPRESSION: 1. Limited examination secondary to motion artifact. 2. Cholelithiasis. 3. Poor visualization of the GI tract especially in the mid and lower abdomen. No obvious bowel obstruction. Chest X-Ray 04/27/20 14:52 IMPRESSION: No acute cardiopulmonary process. Head CT 04/27/20 15:26 IMPRESSION: No acute intracranial abnormality. EVIDENCE OF ACUTE STROKE: NO. Chest X-Ray 04/29/20 00:00 IMPRESSION: Extensive bilateral airspace disease right greater than left. This is new from 04/27/2020. Most likely pulmonary edema. Chest X-Ray 04/29/20 10:58 IMPRESSION: Interval placement of endotracheal tube and NG tube as described. Both are in satisfactory position. No other interval change. Chest X-Ray 04/29/20 14:07 IMPRESSION: Support lines and tubes have been placed as discussed. Increasing opacification in the right lung base. Overall pulmonary edema pattern appears improved. Chest X-Ray 04/30/20 00:00 IMPRESSION: 1. Somewhat improved pulmonary exam. 2. Endotracheal tube tip broaches the right mainstem bronchus. Recommend retracting 3 to 4 cm. Otherwise stable lines and tubes. Venous Doppler Study 05/02/20 00:00 IMPRESSION: Acute occlusive thrombus is seen within the axillary, brachial, and cephalic veins. Chest X-Ray 05/06/20 00:00 IMPRESSION: Slight improvement in bilateral edema and/or pneumonia. Chest X-Ray 05/09/20 00:00 IMPRESSION: Nasogastric tube in the stomach. Head MRI 05/09/20 00:00 IMPRESSION: 1. Limited study. 2. No acute or suspicious intracranial abnormality detected. No recent CVA. No gross enhancing lesions. EVIDENCE OF ACUTE STROKE: NO. Chest X-Ray 05/09/20 06:36 IMPRESSION: Increasing pleural effusions. No pneumothorax. IMPRESSION/RECOMMENDATION: 1. Respiratory arrest: This is due to a combination of severe metabolic acidosis and encephalopathy. The patient is off the ventilator. She is on BiPAP. 2. Severe metabolic acidosis: This is most likely secondary to combination of untoward effects of psychiatric medication, encephalopathy, and sepsis. Continue antibiotics. Acidosis has resolved. 3. Paroxysmal atrial fibrillation yesterday needing emergency DC cardioversion due to hypotension and atrial fibrillation with rapid ventricular response. No recurrence. Amiodarone drip discontinued due to bradycardia. Patient at present with no recurrence. She is also on Eliquis 5 mg p.o. twice daily. Later will start the patient on a beta-truong. 4. Shock: This has resolved. The patient is off all pressors. The patient is very hypertensive and blood pressure is at present and controlled. We will increase antihypertensive. 5. Severe encephalopathy: Etiology seems to be obscure.. This is seems to be improving the patient is awake off all sedation. She still does not respond appropriately. 6. Severe pulmonary hypertension: This is most likely elevated pulmonary arterial pressures due to severe acidosis. Right ventricle systolic pressure is at least 61 mmHg with a RA mean of at least 20 [IVC is dilated and does not vary with respiration, and hence the right atrial mean pressure is at least greater than 20.] 7. Takotsubo cardiomyopathy: This is most likely event. Patient with a picture by echo of Takotsubo cardiomyopathy. This should improve if this is indeed the case in the matter of days. Continue supportive treatment. There is some improvement in the segments of the LV in terms of contractility supporting Takotsubo cardiomyopathy although the ejection fraction is still about 35%. The patient appears to be volume overloaded. 8. Elevated troponin secondary combination of hypotension, and cardiomyopathy. This is a type II supply demand mismatch no evidence of non-STEMI. Hence we will treat the underlying cause, and not treat this as a non-ST ovation RI. Echo echocardiogram tomorrow. 10. Bipolar disorder: Most likely has untoward effects from her psych medication. Doubt that this is neuroleptic syndrome, due to lack of hyperpyrexia, although there is some evidence of tardive dyskinesia. 11. Acute renal failure: The patient is renal function is now normal. Her u rine output is also good. 12. Hyper natremia.: The patient is being started on dextrose. 13. Left axillary brachial and cephalic vein thrombosis: Patient is on Eliquis 5 mg p.o. twice daily. 14. Hypertension: Patient's blood pressure uncontrolled. Will increase antihypertensives. We will start the patient on Cardene drip. 15. There is bilateral pleural effusions. We will start the patient on Lasix. Medications reviewed. Inotropes adjusted. Discussed with attending provider on the case. Medications added medical regimen management plan discussed with strategic partnership manager. Discussed also with the patient's siste. Sister is the patient's healthcare surrogate decision maker. She as per the patient's wishes has made the patient DNR. Prior medical decision making is of high complexity. Will follow.
[2020-05-09] MEDS: LACTAID PO SCH (21:26)
[2020-05-09] MEDS: FUROSEMIDE INJ/PF 20 MG/2 ML SDV IV SCH (22:46)
[2020-05-10] MEDS: INSULIN LISPRO 100 UNIT/ML 3 ML VIAL SUBCUT SCH ×4 (01:53→17:47)
[2020-05-10] MEDS: ACYCLOVIR SODIUM 500 MG in NORMAL SALINE 100 ML IV SCH ×3 (01:54→17:23)
[2020-05-10 06:19] LABS: INTERNATIONAL RATION (INR) 1.37; PROTHROMBIN TIME 17.1 SEC (11.4-15.4)
[2020-05-10] MEDS: LEVOTHYROXINE SODIUM 0.1 MG TABLET PO SCH (06:19)
[2020-05-10 06:20] LABS: PARTIAL THROMBOPLASTIN TIME 40.1 SEC (23.5-35.8)
[2020-05-10] MEDS: LOSARTAN POTASSIUM 25 MG TABLET NG SCH ×2 (09:25→21:51)
[2020-05-10] MEDS: PANTOPRAZOLE SODIUM 40 MG VIAL IV SCH (09:25)
[2020-05-10] MEDS: LACTAID PO SCH ×3 (09:25→17:23)
[2020-05-10] MEDS: METOPROLOL TARTRATE 25 MG TABLET PO SCH ×2 (09:25→21:51)
[2020-05-10] MEDS: FUROSEMIDE INJ/PF 20 MG/2 ML SDV IV SCH ×2 (09:25→21:52)
[2020-05-10] MEDS: LIOTHYRONINE SODIUM 25 MCG TABLET PO SCH (09:50)
[2020-05-10 10:43] LABS: ABSOLUTE BASOPHILS # (AUTO) 0.1 10^3/uL (0.0-0.2); ABSOLUTE EOSINOPHILS # (AUTO) 0.2 10^3/uL (0.0-0.6); ABSOLUTE LYMPHOCYTES (AUTO) 0.9 10^3/uL (0.5-4.7); ABSOLUTE MONOCYTES (AUTO) 0.8 10^3/uL (0.1-1.4); ABSOLUTE NEUT (AUTO) 10.8 10^3/uL (1.7-8.2); BASOPHILS % (AUTO) 0.6 % (0-2); EOSINOPHILS % (AUTO) 1.2 % (0-6); HEMATOCRIT 27.4 % (36.0-47.0); MEAN CORPUSCULAR HEMOGLOBIN 30.4 pg (27.0-33.4); MEAN CORPUSCULAR HGB CONC 32.8 g/dL (32.0-36.0); MEAN CORPUSCULAR VOLUME 93 fl (80-97); MONOCYTES % (AUTO) 6.5 % (3-13); PLATELET COUNT 239 10^3/uL (150-450); RED BLOOD COUNT 2.96 10^6/uL (3.72-5.28); RED CELL DISTRIBUTION WIDTH 18.4 % (11.5-14.0); SEGMENTED NEUTROPHILS % (AUTO) 84.7 % (42-78); TOTAL CELLS COUNTED % (AUTO) 100 %; WHITE BLOOD COUNT 12.8 10^3/uL (4.0-10.5)
[2020-05-10 10:49] LABS: BLOOD UREA NITROGEN 15 mg/dL (7-20); CALCIUM 8.9 mg/dL (8.4-10.2); CARBON DIOXIDE 34 mmol/L (22-30); GLUCOSE 161 mg/dL (75-110); POTASSIUM 3.5 mmol/L (3.6-5.0)
[2020-05-10 10:54] LABS: CHLORIDE 111 mmol/L (98-107)
[2020-05-10 10:55] LABS: ANION GAP 4 (5-19)
--- NOTE | 2020-05-10 12:48 | RADIOLOGY REPORT (SQ) ---
EXAM DESCRIPTION: U/S THORACENTESIS WITH IMAGING IMAGES COMPLETED DATE/TIME: 05/10/2020 12:35 pm REASON FOR STUDY: hypoxia, right pleural effusion COMPARISON: None. LIMITATIONS: None. PROCEDURE: Procedure, risks, benefit, and alternative explained to patient who then gave written con sent. The posterior right chest wall was marked using ultrasound guidance. A time-out was called fo r correct marking verification. Chest prepped and draped using sterile technique. Local anesthesia a chieved using 6 ml of 1% lidocaine injection. A 6fr Safe-T- Centesis set was introduced into the rig ht pleural space. Fluid was aspirated. The catheter was removed and the entry site was covered with sterile bandage. No immediate complications noted. Images acquired during the procedure were stored on PACS. FINDINGS: ENTRY SITE: posterior right chest. FLUID VOLUME: 1000 cc FLUID ANALYSIS: Straw-colored OTHER: Fluid sent to the lab for testing. IMPRESSION: SUCCESSFUL THORACENTESIS USING ULTRASOUND GUIDANCE. COMMENT: Patient medication list reviewed: Yes- Quality ID# [id number]:Eligible professional attests to doc umenting in the medical record they obtained, updated, or reviewed the patient's current medications. TECHNICAL DOCUMENTATION: JOB ID: [id number] 2010 [employer]- All Rights Reserved Reading location - IP/workstation name: [email or web address]
[2020-05-10 13:13] LABS: FLUID APPEARANCE CLEAR; FLUID COLOR LIGHT YELLOW; FLUID SOURCE LUNG; FLUID TYPE PLEURAL; FLUID VISCOSITY LIQUID
--- NOTE | 2020-05-10 13:16 | RADIOLOGY REPORT (SQ) ---
EXAM DESCRIPTION: CHEST SINGLE VIEW IMAGES COMPLETED DATE/TIME: 05/10/2020 12:37 pm REASON FOR STUDY: post thoracentesis COMPARISON: Previous day. NUMBER OF VIEWS: One view. TECHNIQUE: Single frontal radiographic image of the chest acquired. LIMITATIONS: None. FINDINGS: LUNGS AND PLEURA: Improved aeration in the right lung. Residual effusions, left greater t ewing right. MEDIASTINUM AND HEART: Stable heart size and mediastinal structures. SUPPORT DEVICES: Appropriate location without change. BONY STRUCTURES: No acute findings. HARDWARE: None. OTHER: No other significant finding. IMPRESSION: Improved aeration right lung. Reading location - IP/workstation name: [email or web address]
--- NOTE | 2020-05-10 14:23 | RADIOLOGY REPORT (SQ) ---
EXAM DESCRIPTION: CHEST SINGLE VIEW IMAGES COMPLETED DATE/TIME: 05/10/2020 2:10 pm REASON FOR STUDY: 2 hr post thoracentesis COMPARISON: Earlier the same day. NUMBER OF VIEWS: One view. TECHNIQUE: Single frontal radiographic image of the chest acquired. LIMITATIONS: None. FINDINGS: LUNGS AND PLEURA: Pleural effusions, left greater than right. No pneumothorax. MEDIASTINUM AND HEART: Stable heart size and mediastinal structures. SUPPORT DEVICES: Appropriate location without change. BONY STRUCTURES: No acute findings. HARDWARE: None. OTHER: No other significant finding. IMPRESSION: No pneumothorax. Reading location - IP/workstation name: [email or web address]
[2020-05-10] MEDS: DEXTROSE 5%-WATER 1000 ML 1,000 ML IV PRN (19:00)
--- NOTE | 2020-05-10 19:07 | PDOC PROGRESS REPORT ---
Subjective Reason For Visit: ACUTE ENCEPHALOPATHY, POSSIBLE ENCEPHALITIS, UTI Physical Exam Vital Signs: Temp Pulse Resp BP Pulse Ox 97.9 F 69 13 134/66 H 98 05/10/20 15:50 05/10/20 15:50 05/10/20 15:50 05/10/20 15:50 05/10/20 15:50 Intake & Output 05/09/20 05/10/20 05/11/20 06:59 06:59 06:59 Intake Total 1522 599 814 Output Total 6657 9105 2655 Balance 686 -5613 -3444 Weight 64.8 kg 65.6 kg General appearance: PRESENT: no acute distress, cooperative Neck exam: ABSENT: JVD Respiratory exam: PRESENT: decreased breath sounds - Right lung base, unlabored. ABSENT: tachypnea, wheezes Cardiovascular exam: PRESENT: RRR, +S1, +S2. ABSENT: tachycardia GI/Abdominal exam: PRESENT: soft. ABSENT: rebound, rigid, tenderness Extremities exam: PRESENT: pedal edema, other - Edema noted in her hands as well Neurological exam: PRESENT: alert, awake, aphasic, other - Does not follow commands Psychiatric exam: ABSENT: agitated, anxious Focused psych exam: ABSENT: pressured speech Skin exam: ABSENT: jaundice Results Laboratory Results: 05/10/20 09:20 05/10/20 09:20 05/09/20 05/10/20 05/10/20 11:55 09:20 09:20 WBC 12.8 H RBC 2.96 L Hgb 9.0 L Hct 27.4 L MCV 93 MCH 30.4 MCHC 32.8 RDW 18.4 H Plt Count 239 Seg Neutrophils % 84.7 H Sodium 149.0 H Potassium 3.5 L Chloride 111 H Carbon Dioxide 34 H Anion Gap 4 L BUN 15 Creatinine 0.56 Est GFR ( Amer) > 60 Glucose 161 H Calcium 8.9 Fluid Type PLEURAL Fluid Source LUNG Fluid Color LIGHT YELLOW Fluid Appearance CLEAR Fluid Viscosity LIQUID Fluid WBC 26 Fluid RBC 18 04/27/20 04/27/20 04/30/20 15:01 15:01 03:55 Creatine Kinase 155 H Troponin I < 0.012 1.560 04/30/20 05/01/20 09:35 09:08 Creatine Kinase Troponin I 0.806 0.306 Impressions: Abdomen/Pelvis CT 04/27/20 00:00 IMPRESSION: 1. Limited examination secondary to motion artifact. 2. Cholelithiasis. 3. Poor visualization of the GI tract especially in the mid and lower abdomen. No obvious bowel obstruction. Head CT 04/27/20 15:26 IMPRESSION: No acute intracranial abnormality. EVIDENCE OF ACUTE STROKE: NO. Venous Doppler Study 05/02/20 00:00 IMPRESSION: Acute occlusive thrombus is seen within the axillary, brachial, and cephalic veins. Head MRI 05/09/20 00:00 IMPRESSION: 1. Limited study. 2. No acute or suspicious intracranial abnormality detected. No recent CVA. No gross enhancing lesions. EVIDENCE OF ACUTE STROKE: NO. Thoracentesis Ultrasound 05/10/20 10:00 IMPRESSION: SUCCESSFUL THORACENTESIS USING ULTRASOUND GUIDANCE. Chest X-Ray 05/10/20 14:00 IMPRESSION: No pneumothorax. Assessment and Plan - Diagnosis (1) Acute metabolic encephalopathy Is this a current diagnosis for this admission?: Yes (2) Pleural effusion, right Is this a current diagnosis for this admission?: Yes (4) Pulmonary hypertension Is this a current diagnosis for this admission?: Yes (5) Hypothyroidism Qualifiers: Hypothyroidism type: unspecified Qualified Code(s): E03.9 - Hypothyroidism, unspecified Is this a current diagnosis for this admission?: Yes (6) Bipolar disorder Is this a current diagnosis for this admission?: Yes (7) Hypernatremia Is this a current diagnosis for this admission?: Yes (8) Normocytic anemia Is this a current diagnosis for this admission?: Yes (9) Transaminitis Is this a current diagnosis for this admission?: Yes (10) Paroxysmal atrial fibrillation Is this a current diagnosis for this admission?: Yes (11) Hypoxia Is this a current diagnosis for this admission?: Yes - Plan Summary Summary: Patient downgraded from ICU to IMCU today. Received signout from product safety specialist. Patient was admitted for altered mental status which had been worsening progressively over a few weeks. Upon admission, patient was febrile, nonverbal, fully awake but highly restless and agitated and tremulous. Initially treated with antibiotics broad-spectrum. There was concern for encephalitis which was later ruled out by LP. There was concern that patient's gabapentin doses and changes may have played a role there. Patient was also treated for urinary tract infection with antibiotics. Patient went into cardiac arrest and was resuscitated after receiving 3 rounds of epi and a round of bicarb. From my discussion with the product safety specialist, the exact cause of her cardiac arrest has not been derived. In the ICU, she was treated for severe metabolic acidosis, paroxysmal atrial fibrillation, pulmonary hypertension. Also noted to have Takotsubo cardiomyopathy. She did have renal failure but has improved. Patient was extubated 2 days ago. Mental status still seems about the same as her initial presentation as she is still nonverbal and blankly stares. She however does not seem to be restless and agitated anymore and she is no longer tremulous. Not really moving her left arm. Possibly had a stroke or hypoxic encephalopathy. Exact cause of her initial mental decline is still unknown. She follows with neurologist Dr. Adams. Hypernatremic and on half-normal saline. On 5l nc. Will check labs, CXR in Am. Check MRI brain. Adjust levothyroxine to weight-based dosing. 05/09/2020 Checks x-ray this morning shows right pleural effusion which is likely responsible for hypoxia. She still on nasal cannula Though she has right pleural effusion, she is intravascularly depleted with contraction alkalosis and hyperchloremic hypernatremia. She is planned for thoracentesis. Radiology will be available tomorrow to perform the thoracentesis. Unfortunately the D5W ordered was not started this morning and hence repeat labs still showing no change in sodium. Start D5W at 65 cc/h to replace free water deficit and cover insensible losses. Monitor labs. We will switch to only tube flushes once Na improves. MRI Brain pending Discussed plan with sister today. Start Lactase while on tube feeds Contnue synthroid and cardiac meds 05/10/2020 Patient's breathing was a little bit more labored this morning so we went ahead with thoracentesis. 1000 cc of clear fluid was aspirated during the thoracentesis. Subsequent chest x-ray shows improved aeration of the lungs but no pneumothorax. Regarding her hyponatremia, I have increased her D5W rate to 85 cc/h and also increased her tube flushes to 100 cc every 4 hours. Repeat BMP at 8 PM. Goal correction of 8-10 M EQ/24h Not having much diarrhea on tube feed. Continue lactase Cardiology following as well. Recommendations appreciated MRI of the brain was limited due to motion artifact so may not have been adequat e does not show anything acute which is unlikely given her presentation. Will reconsider if to do MRI at another time. Discussed plan with patient's Sister Jazmine today. - Time Time Spent with patient: 15-24 minutes Anticipated Discharge Disposition: Long Term Facility Anticipated Discharge Timeframe: within 72 hours
--- NOTE | 2020-05-10 21:07 | Progress Note ---
Provider Note Provider Note: CARDIOLOGY PROGRESS NOTE by Dr. Cydney Dickens on 05/10/2020. SUBJECTIVE: The patient is more awake and more responsive, but her responses been purposeless. She is not fully oriented x3. She seems to recognize his sister and also there is a clinical recommendation when she sees me. She is moves all 4 extremities. No further information obtained since she is still nonverbal. There is a sister has made her a DNR. Patient had a right-sided thoracentesis. Results of pleural fluid are awaited. The patient also had an MRI which is limited in quality but showed no acute process. PHYSICAL EXAMINATION: The patient is a frail build. Appears to be in no acute distress. Selected Entries 05/10/20 11:14 Temperature 98.1 F Temperature Axillary Source Pulse Rate 72 Respiratory 16 Rate Blood Pressure 126/59 H Blood Pressure 81 Mean BP Location Left Arm BP Position Supine O2 Sat by Pulse 99 Oximetry Oxygen Flow 2.00 Rate Oxygen Delivery Nasal Cannula Method HEENT is negative. Neck is supple. There is no JVD. Carotids are equal there is no bruit. Skin: There is no skin rashes. Skin is cool to touch. There is no petechia or ecchymosis. LUNGS: Few scattered rhonchi, there is some diminished breath sounds in the right base. There are no bibasilar rales of CHF. There is no rhonchi rales or wheezing. HEART: S1-S2 is heard. S1 is of normal intensity. There is no S3 gallop. There is no S4 gallop. There is systolic murmur in the left sternal border and the apex . There is no rub. ABDOMEN: Soft. There is no hepatosplenomegaly. Bowel sounds well heard. EXTREMITIES: Femorals are diminished. There is no femoral bruits. Leg pulses are well felt. There is no pedal edema. There is some mild swelling and redness in the left upper extremity. Upper extremity pulses are well felt. Capillary refill is normal. There is no cyanosis or clubbing there is no DVT or cellulitis. 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 She moves all 4 extremities. PSYCHIATRIC: Not examined. Labs- All tests 24 hr 05/09/20 05/10/20 05/10/20 11:55 04:40 09:20 WBC 12.8 H RBC 2.96 L Hgb 9.0 L Hct 27.4 L MCV 93 MCH 30.4 MCHC 32.8 RDW 18.4 H Plt Count 239 Lymph % (Auto) 7.0 L Edgar % (Auto) 6.5 Eos % (Auto) 1.2 Baso % (Auto) 0.6 Absolute Neuts (auto) 10.8 H Absolute Lymphs (auto) 0.9 Absolute Monos (auto) 0.8 Absolute Eos (auto) 0.2 Absolute Basos (auto) 0.1 Seg Neutrophils % 84.7 H PT 17.1 H INR 1.37 APTT 40.1 H Sodium Potassium Chloride Carbon Dioxide Anion Gap BUN Creatinine Est GFR ( Amer) Est GFR (MDRD) Non-Af Glucose Calcium Fluid Type PLEURAL Fluid Source LUNG Fluid Color LIGHT YELLOW Fluid Appearance CLEAR Fluid Viscosity LIQUID Fluid WBC 26 Fluid RBC 18 Fluid Seg Neutrophils 69 Fluid Lymphocytes 26 Fluid Monocytes 3 Fluid Basophils 2 AFB Smear 05/10/20 05/10/20 09:20 11:55 WBC RBC Hgb Hct MCV MCH MCHC RDW Plt Count Lymph % (Auto) Edgar % (Auto) Eos % (Auto) Baso % (Auto) Absolute Neuts (auto) Absolute Lymphs (auto) Absolute Monos (auto) Absolute Eos (auto) Absolute Basos (auto) Seg Neutrophils % PT INR APTT Sodium 149.0 H Potassium 3.5 L Chloride 111 H Carbon Dioxide 34 H Anion Gap 4 L BUN 15 Creatinine 0.56 Est GFR ( Amer) > 60 Est GFR (MDRD) Non-Af > 60 Glucose 161 H Calcium 8.9 Fluid Type Fluid Source Fluid Color Fluid Appearance Fluid Viscosity Fluid WBC Fluid RBC Fluid Seg Neutrophils Fluid Lymphocytes Fluid Monocytes Fluid Basophils AFB Smear NO ACID FAST BACILLI Abdomen/Pelvis CT 04/27/20 00:00 IMPRESSION: 1. Limited examination secondary to motion artifact. 2. Cholelithiasis. 3. Poor visualization of the GI tract especially in the mid and lower abdomen. No obvious bowel obstruction. Chest X-Ray 04/27/20 14:52 IMPRESSION: No acute cardiopulmonary process. Head CT 04/27/20 15:26 IMPRESSION: No acute intracranial abnormality. EVIDENCE OF ACUTE STROKE: NO. Chest X-Ray 04/29/20 00:00 IMPRESSION: Extensive bilateral airspace disease right greater than left. This is new from 04/27/2020. Most likely pulmonary edema. Chest X-Ray 04/29/20 10:58 IMPRESSION: Interval placement of endotracheal tube and NG tube as described. Both are in satisfactory position. No other interval change. Chest X-Ray 04/29/20 14:07 IMPRESSION: Support lines and tubes have been placed as discussed. Increasing opacification in the right lung base. Overall pulmonary edema pattern appears improved. Chest X-Ray 04/30/20 00:00 IMPRESSION: 1. Somewhat improved pulmonary exam. 2. Endotracheal tube tip broaches the right mainstem bronchus. Recommend retracting 3 to 4 cm. Otherwise stable lines and tubes. Venous Doppler Study 05/02/20 00:00 IMPRESSION: Acute occlusive thrombus is seen within the axillary, brachial, and cephalic veins. Chest X-Ray 05/06/20 00:00 IMPRESSION: Slight improvement in bilateral edema and/or pneumonia. Chest X-Ray 05/09/20 00:00 IMPRESSION: Nasogastric tube in the stomach. Head MRI 05/09/20 00:00 IMPRESSION: 1. Limited study. 2. No acute or suspicious intracranial abnormality detected. No recent CVA. No gross enhancing lesions. EVIDENCE OF ACUTE STROKE: NO. Chest X-Ray 05/09/20 06:36 IMPRESSION: Increasing pleural effusions. No pneumothorax. Chest X-Ray 05/10/20 00:00 IMPRESSION: Improved aeration right lung. Thoracentesis Ultrasound 05/10/20 10:00 IMPRESSION: SUCCESSFUL THORACENTESIS USING ULTRASOUND GUIDANCE. Chest X-Ray 05/10/20 14:00 IMPRESSION: No pneumothorax. IMPRESSION/RECOMMENDATION: 1. Respiratory arrest: This is due to a combination of severe metabolic aci dosis and encephalopathy. The patient is off the ventilator. She is on BiPAP. 2. Severe metabolic acidosis: This is most likely secondary to combination of untoward effects of psychiatric medication, encephalopathy, and sepsis. Continue antibiotics. Acidosis has resolved. 3. Paroxysmal atrial fibrillation yesterday needing emergency DC cardioversion due to hypotension and atrial fibrillation with rapid ventricular response. No recurrence. Amiodarone drip discontinued due to bradycardia. Patient at present with no recurrence. She is also on Eliquis 5 mg p.o. twice daily. Later will start the patient on a beta-truong. 4. Shock: This has resolved. The patient is off all pressors. The patient is very hypertensive and blood pressure is at present and controlled. We will increase antihypertensive. 5. Severe encephalopathy: Etiology seems to be obscure.. This is seems to be improving the patient is awake off all sedation. She still does not respond appropriately. 6. Severe pulmonary hypertension: This is most likely elevated pulmonary arterial pressures due to severe acidosis. Right ventricle systolic pressure is at least 61 mmHg with a RA mean of at least 20 [IVC is dilated and does not vary with respiration, and hence the right atrial mean pressure is at least greater than 20.] 7. Takotsubo cardiomyopathy: This is most likely event. Patient with a picture by echo of Takotsubo cardiomyopathy. This should improve if this is indeed the case in the matter of days. Continue supportive treatment. There is some improvement in the segments of the LV in terms of contractility supporting Takotsubo cardiomyopathy although the ejection fraction is still about 35%. The patient appears to be volume overloaded. 8. Elevated troponin secondary combination of hypotension, and cardiomyopathy. This is a type II supply demand mismatch no evidence of non-STEMI. Hence we will treat the underlying cause, and not treat this as a non-ST ovation UT. Echo echocardiogram tomorrow. 10. Bipolar disorder: Most likely has untoward effects from her psych medication. Doubt that this is neuroleptic syndrome, due to lack of hyperpyrexia, although there is some evidence of tardive dyskinesia. 11. Acute renal failure: The patient is renal function is now normal. Her urine output is also good. 12. Hyper natremia.: The patient is being started on dextrose. 13. Left axillary brachial and cephalic vein thrombosis: Patient is on Eliquis 5 mg p.o. twice daily. 14. Hypertension: Patient's blood pressure uncontrolled. Will increase antihypertensives. We will start the patient on Cardene drip. 15. There is bilateral pleural effusions. We will start the patient on Lasix. Medications reviewed. Inotropes adjusted. Discussed with attending provider on the case. Medications added medical regimen management plan discussed with archery equipment repairer. Discussed also with the patient's siste. Sister is the patient's healthcare surrogate decision maker. She as per the patient's wishes has made the patient DNR. Prior medical decision making is of high complexity. Will follow.
[2020-05-10 21:28] LABS: ANION GAP 2 (5-19); BLOOD UREA NITROGEN 14 mg/dL (7-20); CALCIUM 8.6 mg/dL (8.4-10.2); CARBON DIOXIDE 37 mmol/L (22-30); CHLORIDE 108 mmol/L (98-107); GLUCOSE 133 mg/dL (75-110); POTASSIUM 3.4 mmol/L (3.6-5.0)
--- NOTE | 2020-05-10 21:41 | XCELERA REPORT ---
[address] [address] Transthoracic Echocardiogram Report Name: JAYSON CARY Age: 69 yrs Gender: Female : 1950 Patient Status: Inpatient Patient Location: ICU^611^A Study Date: 05/05/2020 08:39 AM Height: 61 in Weight: 145 lb BSA: 1.6 m2 Procedure: A two-dimensional transthoracic echocardiogram with color flow and Doppler was performed in limited views only. Study Quality: Fair. Reason For Study: Takutsubo Cardiomyopathy History: Takutsubo Cardiomyopathy / Pulmonary Hypertension. Ordering Physician: CYDNEY GILL Performed By: Amber Chacon Interpretation Summary There is normal left ventricular wall thickness. The left ventricle is mildly dilated. The basal segments of the left ventricle contract normal. There is improvement in the contractility of the rest of the LV segments. The mid LV segments show moderate hypokinesis, which is an improvement. There is severe hypokinesis to akinesis of the LV apical segments.. Overall ejection fraction is improved to 35% overall. There is no tricuspid stenosis. There is a moderate amount of tricuspid regurgitation There is servere pulmonary hypertension by echo RVSP is 74 mm of Hg , with RA mean of 10. MMode/2D Measurements & Calculations RVDd: 2.6 cm LVIDd: 4.9 cm FS: 12.4 % LA dimension: 3.5 cm IVSd: 0.79 cm LVIDs: 4.3 cm EDV(Teich): LVPWd: 0.79 cm 111.5 ml ESV(Teich): 81.7 ml EF(Teich): 26.8 % LVLd ap4: 6.2 cm SV(MOD-sp4): EDV(MOD-sp4): 13.0 ml 62.0 ml LVLs ap4: 6.0 cm ESV(MOD-sp4): 49.0 ml EF(MOD-sp4): 21.0 % Doppler Measurements & Calculations TR max janeth: 399.3 cm/sec TR max P.8 mmHg Left Ventricle There is normal left ventricular wall thickness. The left ventricle is mildly dilated. The basal segments of the left ventricle contract normal. There is improvement in the contractility of the rest of the LV segments. The mid LV segments show moderate hypokinesis, which is an improvement. There is severe hypokinesis to akinesis of the LV apical segments.. Overall ejection fraction is improved to 35% overall. Tricuspid Valve There is no tricuspid stenosis. There is a moderate amount of tricuspid regurgitation. There is servere pulmonary hypertension by echo. RVSP is 74 mm of Hg , with RA mean of 10. : CYDNEY GILL, Cydney
[2020-05-11] MEDS: INSULIN LISPRO 100 UNIT/ML 3 ML VIAL SUBCUT SCH ×4 (00:33→17:35)
[2020-05-11] MEDS: ACYCLOVIR SODIUM 500 MG in NORMAL SALINE 100 ML IV SCH (01:50)
[2020-05-11] MEDS: DEXTROSE 5%-WATER 1000 ML 1,000 ML IV PRN (02:32)
[2020-05-11] MEDS: LEVOTHYROXINE SODIUM 0.1 MG TABLET PO SCH (05:36)
[2020-05-11 06:07] LABS: ABSOLUTE EOSINOPHILS # (AUTO) 0.3 10^3/uL (0.0-0.6); ABSOLUTE LYMPHOCYTES (AUTO) 1.1 10^3/uL (0.5-4.7); ABSOLUTE MONOCYTES (AUTO) 0.8 10^3/uL (0.1-1.4); ABSOLUTE NEUT (AUTO) 10.6 10^3/uL (1.7-8.2); BASOPHILS % (AUTO) 0.4 % (0-2); EOSINOPHILS % (AUTO) 2.6 % (0-6); HEMATOCRIT 26.1 % (36.0-47.0); HEMOGLOBIN 8.6 g/dL (12.0-15.5); LYMPHOCYTES % (AUTO) 8.6 % (13-45); MEAN CORPUSCULAR HEMOGLOBIN 30.5 pg (27.0-33.4); MEAN CORPUSCULAR HGB CONC 32.9 g/dL (32.0-36.0); MEAN CORPUSCULAR VOLUME 93 fl (80-97); MONOCYTES % (AUTO) 5.9 % (3-13); PLATELET COUNT 216 10^3/uL (150-450); RED BLOOD COUNT 2.81 10^6/uL (3.72-5.28); SEGMENTED NEUTROPHILS % (AUTO) 82.5 % (42-78); TOTAL CELLS COUNTED % (AUTO) 100 %; WHITE BLOOD COUNT 12.9 10^3/uL (4.0-10.5)
[2020-05-11 06:34] LABS: ALBUMIN 2.2 g/dL (3.5-5.0); ALKALINE PHOSPHATASE 129 U/L (38-126); ASPARTATE AMINO TRANSFERASE 29 U/L (14-36); BILIRUBIN,DIRECT 0.3 mg/dL (0.0-0.4); BILIRUBIN,TOTAL 0.4 mg/dL (0.2-1.3); BLOOD UREA NITROGEN 14 mg/dL (7-20); CALCIUM 8.8 mg/dL (8.4-10.2); CARBON DIOXIDE 37 mmol/L (22-30); CHLORIDE 106 mmol/L (98-107); GLUCOSE 132 mg/dL (75-110); POTASSIUM 3.3 mmol/L (3.6-5.0); TOTAL PROTEIN 4.8 g/dL (6.3-8.2)
[2020-05-11 06:37] LABS: ANION GAP 2 (5-19)
[2020-05-11] MEDS: LACTAID PO SCH ×3 (10:37→17:32)
[2020-05-11] MEDS: PANTOPRAZOLE SODIUM 40 MG VIAL IV SCH (10:38)
[2020-05-11] MEDS: LOSARTAN POTASSIUM 25 MG TABLET NG SCH ×2 (10:38→21:22)
[2020-05-11] MEDS: FUROSEMIDE INJ/PF 20 MG/2 ML SDV IV SCH ×2 (10:38→21:22)
[2020-05-11] MEDS: POTASSIUM CHLORIDE 20 MEQ PACKET PO SCH ×2 (10:38→21:22)
[2020-05-11] MEDS: METOPROLOL TARTRATE 100 MG TABLET PO SCH ×2 (10:39→21:21)
[2020-05-11 10:46] LABS: VANCOMYCIN,TROUGH < 5.0 ug/mL (5.0-20.0)
[2020-05-11] MEDS: LIOTHYRONINE SODIUM 25 MCG TABLET PO SCH (12:51)
[2020-05-11] MEDS: ACYCLOVIR 200 MG/5 ML SUSP 60 ML NG SCH ×2 (12:52→17:32)
[2020-05-11] MEDS ORDERED: NYSTATIN CREAM 15 GM TP PRN (16:33)
--- NOTE | 2020-05-11 18:02 | PDOC PROGRESS REPORT ---
Subjective Date:: 05/11/20 Reason For Visit: ACUTE ENCEPHALOPATHY, POSSIBLE ENCEPHALITIS, UTI Physical Exam Vital Signs: Temp Pulse Resp BP Pulse Ox 98.3 F 82 19 154/55 H 90 L 05/11/20 14:54 05/11/20 14:54 05/11/20 14:54 05/11/20 14:54 05/11/20 14:54 Intake & Output 05/10/20 05/11/20 05/12/20 06:59 06:59 06:59 Intake Total 599 2208 Output Total 4026 4070 1850 Balance -3426 -1867 -1850 Weight 65.6 kg 65.6 kg General appearance: PRESENT: no acute distress, cooperative Eye exam: ABSENT: PERRLA - L>R Respiratory exam: PRESENT: crackles - mild right lung, symmetrical, unlabored. ABSENT: tachypnea, wheezes Cardiovascular exam: PRESENT: RRR, +S1, +S2. ABSENT: tachycardia GI/Abdominal exam: PRESENT: soft. ABSENT: rebound, rigid, tenderness Extremities exam: PRESENT: other - swollen left arm and 1+ edema in both legs Neurological exam: PRESENT: alert, awake - tracks people with eyes, motor sensory deficit - left arm is flaccid moves both legs spontaneously, aphasic - receptive and expressive aphasia. nonverbal Psychiatric exam: ABSENT: agitated, anxious Results Laboratory Results: 05/11/20 05:30 05/11/20 05:30 05/10/20 05/11/20 05/11/20 20:49 05:30 05:30 WBC 12.9 H RBC 2.81 L Hgb 8.6 L Hct 26.1 L MCV 93 MCH 30.5 MCHC 32.9 RDW 18.0 H Plt Count 216 Seg Neutrophils % 82.5 H Sodium 146.7 H 144.7 Potassium 3.4 L 3.3 L Chloride 108 H 106 Carbon Dioxide 37 H 37 H Anion Gap 2 L 2 L BUN 14 14 Creatinine 0.57 0.55 Est GFR ( Amer) > 60 > 60 Glucose 133 H 132 H Calcium 8.6 8.8 Total Bilirubin 0.4 AST 29 Alkaline Phosphatase 129 H Total Protein 4.8 L Albumin 2.2 L 04/27/20 04/27/20 04/30/20 15:01 15:01 03:55 Creatine Kinase 155 H Troponin I < 0.012 1.560 04/30/20 05/01/20 09:35 09:08 Creatine Kinase Troponin I 0.806 0.306 Impressions: Abdomen/Pelvis CT 04/27/20 00:00 IMPRESSION: 1. Limited examination secondary to motion artifact. 2. Cholelithiasis. 3. Poor visualization of the GI tract especially in the mid and lower abdomen. No obvious bowel obstruction. Head CT 04/27/20 15:26 IMPRESSION: No acute intracranial abnormality. EVIDENCE OF ACUTE STROKE: NO. Venous Doppler Study 05/02/20 00:00 IMPRESSION: Acute occlusive thrombus is seen within the axillary, brachial, and cephalic veins. Head MRI 05/09/20 00:00 IMPRESSION: 1. Limited study. 2. No acute or suspicious intracranial abnormality detected. No recent CVA. No gross enhancing lesions. EVIDENCE OF ACUTE STROKE: NO. Thoracentesis Ultrasound 05/10/20 10:00 IMPRESSION: SUCCESSFUL THORACENTESIS USING ULTRASOUND GUIDANCE. Chest X-Ray 05/10/20 14:00 IMPRESSION: No pneumothorax. Assessment and Plan - Diagnosis (1) Acute metabolic encephalopathy Is this a current diagnosis for this admission?: Yes (2) Pleural effusion, right Is this a current diagnosis for this admission?: Yes (4) Pulmonary hypertension Is this a current diagnosis for this admission?: Yes (5) Hypothyroidism Qualifiers: Hypothyroidism type: unspecified Qualified Code(s): E03.9 - Hypothyroidism, unspecified Is this a current diagnosis for this admission?: Yes (6) Bipolar disorder Is this a current diagnosis for this admission?: Yes (7) Hypernatremia Is this a current diagnosis for this admission?: Yes (8) Normocytic anemia Is this a current diagnosis for this admission?: Yes (9) Transaminitis Is this a current diagnosis for this admission?: Yes (10) Paroxysmal atrial fibrillation Is this a current diagnosis for this admission?: Yes (11) Hypoxia Is this a current diagnosis for this admission?: Yes - Plan Summary Summary: Patient downgraded from ICU to IMCU today. Received signout from benzol operator. Patient was admitted for altered mental status which had been worsening progressively over a few weeks. Upon admission, patient was febrile, nonverbal, fully awake but highly restless and agitated and tremulous. Initially treated with antibiotics broad-spectrum. There was concern for encephalitis which was later ruled out by LP. There was concern that patient's gabapentin doses and changes may have played a role there. Patient was also treated for urinary tract infection with antibiotics. Patient went into cardiac arrest and was resuscitated after receiving 3 rounds of epi and a round of bicarb. From my discussion with the benzol operator, the exact cause of her cardiac arrest has not been derived. In the ICU, she was treated for severe metabolic acidosis, paroxysmal atrial fibrillation, pulmonary hypertension. Also noted to have Takotsubo cardiomyopathy. She did have renal failure but has improved. Patient was extubated 2 days ago. Mental status still seems about the same as her initial presentation as she is still nonverbal and blankly stares. She however does not seem to be restless and agitated anymore and she is no longer tremu lous. Not really moving her left arm. Possibly had a stroke or hypoxic encephalopathy. Exact cause of her initial mental decline is still unknown. She follows with neurologist Dr. Adams. Hypernatremic and on half-normal saline. On 5l nc. Will check labs, CXR in Am. Check MRI brain. Adjust levothyroxine to weight- based dosing. 05/09/2020 Checks x-ray this morning shows right pleural effusion which is likely responsible for hypoxia. She still on nasal cannula Though she has right pleural effusion, she is intravascularly depleted with contraction alkalosis and hyperchloremic hypernatremia. She is planned for thoracentesis. Radiology will be available tomorrow to perform the thoracentesis. Unfortunately the D5W ordered was not started this morning and hence repeat labs still showing no change in sodium. Start D5W at 65 cc/h to replace free water deficit and cover insensible losses. Monitor labs. We will switch to only tube flushes once Na improves. MRI Brain pending Discussed plan with sister today. Start Lactase while on tube feeds Contnue synthroid and cardiac meds 05/10/2020 Patient's breathing was a little bit more labored this morning so we went ahead with thoracentesis. 1000 cc of clear fluid was aspirated during the thoracentesis. Subsequent chest x-ray shows improved aeration of the lungs but no pneumothorax. Regarding her hyponatremia, I have increased her D5W rate to 85 cc/h and also increased her tube flushes to 100 cc every 4 hours. Repeat BMP at 8 PM. Goal correction of 8-10 M EQ/24h Not having much diarrhea on tube feed. Continue lactase Cardiology following as well. Recommendations appreciated MRI of the brain was limited due to motion artifact so may not have been adequate does not show anything acute which is unlikely given her presentation. Will reconsider if to do MRI at another time. Discussed plan with patient's Sister Jazmine today. 05/11/2020 Worked with PT today and required max assist even to sit up. Mental status is still the same and she remains nonverbal and unable to follow commands during my assessment. Seems to have full blown expressive aphasia and significant amount of receptive aphasia. Left arm remains flaccid. It is pretty impressive to me that MRI of the brain did not even clam picker as much as a stroke. Only showed significant cerebral atrophy out of proportion with her age. This decline would be too rapid for Dementia I did a remote consultation with Neurology at [facility] with Adán Villar who also reviewed images himself and recommends getting another MRI with CTA of head/neck. This will be ordered Hypernatremia resolved. D/c D5W. Tube flushes increased to 230cc q4h On lasix due to swelling Patient's sister Jazmine expresses that patient would not wish to be on artifical nutrition if this situation was likely to be permanent and would not want to be preserved in such condition on PEG tube feed. Leaning towards hospice. Will get the imaging recommended to get some definitive answers. - Time Time Spent with patient: 25-34 minutes Anticipated Discharge Disposition: Home with Hospice Anticipated Discharge Timeframe: within 48 hours
[2020-05-11] MEDS ORDERED: ACETAMINOPHEN SOLN 325 MG/10.15 ML UDCUP NG PRN (19:01)
--- NOTE | 2020-05-11 19:18 | Progress Note ---
Provider Note Provider Note: CARDIOLOGY PROGRESS NOTE by Dr. Cydney Dickens on 05/11/2020. SUBJECTIVE: The patient is more awake and more responsive, but her responses been purposeless. She is not fully oriented x3. She seems to recognize his sister and also there is a clinical recommendation when she sees me. She is moves all 4 extremities. No further information obtained since she is still nonverbal. There is a sister has made her a DNR. Patient had a right-sided thoracentesis. Results of pleural fluid are awaited. The patient also had an MRI which is limited in quality but showed no acute process. PHYSICAL EXAMINATION: The patient is a frail build. Appears to be in no acute distress. Selected Entries 05/11/20 07:41 Temperature 98.3 F Temperature Axillary Source Pulse Rate 87 Respiratory 15 Rate Blood Pressure 148/72 H Blood Pressure 97 Mean BP Location Right Arm BP Position Supine O2 Sat by Pulse 99 Oximetry Oxygen Flow 2.00 Rate Oxygen Delivery Nasal Cannula Method HEENT is negative. Neck is supple. There is no JVD. Carotids are equal there is no bruit. Skin: There is no skin rashes. Skin is cool to touch. There is no petechia or ecchymosis. LUNGS: Few scattered rhonchi, there is some diminished breath sounds in the right base. There are no bibasilar rales of CHF. There is no rhonchi rales or wheezing. HEART: S1-S2 is heard. S1 is of normal intensity. There is no S3 gallop. There is no S4 gallop. There is sy stolic murmur in the left sternal border and the apex . There is no rub. ABDOMEN: Soft. There is no hepatosplenomegaly. Bowel sounds well heard. EXTREMITIES: Femorals are diminished. There is no femoral bruits. Leg pulses are well felt. There is no pedal edema. There is some mild swelling and redness in the left upper extremity. Upper extremity pulses are well felt. Capillary refill is normal. There is no cyanosis or clubbing there is no DVT or cellulitis. 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 She moves all 4 extremities. PSYCHIATRIC: Not examined. Abdomen/Pelvis CT 04/27/20 00:00 IMPRESSION: 1. Limited examination secondary to motion artifact. 2. Cholelithiasis. 3. Poor visualization of the GI tract especially in the mid and lower abdomen. No obvious bowel obstruction. Chest X-Ray 04/27/20 14:52 IMPRESSION: No acute cardiopulmonary process. Head CT 04/27/20 15:26 IMPRESSION: No acute intracranial abnormality. EVIDENCE OF ACUTE STROKE: NO. Chest X-Ray 04/29/20 00:00 IMPRESSION: Extensive bilateral airspace disease right greater than left. This is new from 04/27/2020. Most likely pulmonary edema. Chest X-Ray 04/29/20 10:58 IMPRESSION: Interval placement of endotracheal tube and NG tube as described. Both are in satisfactory position. No other interval change. Chest X-Ray 04/29/20 14:07 IMPRESSION: Support lines and tubes have been placed as discussed. Increasing opacification in the right lung base. Overall pulmonary edema pattern appears improved. Chest X-Ray 04/30/20 00:00 IMPRESSION: 1. Somewhat improved pulmonary exam. 2. Endotracheal tube tip broaches the right mainstem bronchus. Recommend retracting 3 to 4 cm. Otherwise stable lines and tubes. Venous Doppler Study 05/02/20 00:00 IMPRESSION: Acute occlusive thrombus is seen within the axillary, brachial, and cephalic veins. Chest X-Ray 05/06/20 00:00 IMPRESSION: Slight improvement in bilateral edema and/or pneumonia. Chest X-Ray 05/09/20 00:00 IMPRESSION: Nasogastric tube in the stomach. Head MRI 05/09/20 00:00 IMPRESSION: 1. Limited study. 2. No acute or suspicious intracranial abnormality detected. No recent CVA. No gross enhancing lesions. EVIDENCE OF ACUTE STROKE: NO. Chest X-Ray 05/09/20 06:36 IMPRESSION: Increasing pleural effusions. No pneumothorax. Chest X-Ray 05/10/20 00:00 IMPRESSION: Improved aeration right lung. Thoracentesis Ultrasound 05/10/20 10:00 IMPRESSION: SUCCESSFUL THORACENTESIS USING ULTRASOUND GUIDANCE. Chest X-Ray 05/10/20 14:00 IMPRESSION: No pneumothorax. IMPRESSION/RECOMMENDATION: 1. Respiratory arrest: This is due to a combination of severe metabolic acidosis and encephalopathy. The patient is off the ventilator. She is on BiPAP. 2. Severe metabolic acidosis: This is most likely secondary to combination of untoward effects of psychiatric medication, encephalopathy, and sepsis. Continue antibiotics. Acidosis has resolved. 3. Paroxysmal atrial fibrillation yesterday needing emergency DC cardioversion due to hypotension and atrial fibrillation with rapid ventricular response. No recurrence. Amiodarone drip discontinued due to bradycardia. Patient at present with no recurrence. She is also on Eliquis 5 mg p.o. twice daily. Later will start the patient on a beta-truong. 4. Shock: This has resolved. The patient is off all pressors. The patient is very hypertensive and blood pressure is at present and controlled. We will increase antihypertensive. 5. Severe encephalopathy: Etiology seems to be obscure.. This is seems to be improving the patient is awake off all sedation. She still does not respond appropriately. 6. Severe pulmonary hypertension: This is most likely elevated pulmonary arterial pressures due to severe acidosis. Right ventricle systolic pressure is at least 61 mmHg with a RA mean of at least 20 [IVC is dilated and does not vary with respiration, and hence the right atrial mean pressure is at least greater than 20.] 7. Takotsubo cardiomyopathy: This is most likely event. Patient with a picture by echo of Takotsubo cardiomyopathy. This should improve if this is indeed the case in the matter of days. Continue supportive treatment. There is some improvement in the segments of the LV in terms of contractility supporting Takotsubo cardiomyopathy although the ejection fraction is still about 35%. The patient appears to be volume overloaded. 8. Elevated troponin secondary combination of hypotension, and cardiomyopathy. This is a type II supply demand mismatch no evidence of non-STEMI. Hence we will treat the underlying cause, and not treat this as a non-ST ovation NM. Echo echocardiogram tomorrow. 10. Bipolar disorder: Most likely has untoward effects from her psych medication. Doubt that this is neuroleptic syndrome, due to lack of hyperpyrexia, although there is some evidence of tardive dyskinesia. 11. Acute renal failure: The patient is renal function is now normal. Her urine output is also good. 12. Hyper natremia.: The patient is being started on dextrose. 13. Left axillary brachial and cephalic vein thrombosis: Patient is on Eliquis 5 mg p.o. twice daily. 14. Hypertension: Patient's blood pressure uncontrolled. Will increase antihypertensives. We will start the patient on Cardene drip. 15. There is bilateral pleural effusions. We will start the patient on Lasix. Medications reviewed. Inotropes adjusted. Discussed with attending provider on the case. Medications added medical regimen management plan discussed with i ntensivist. Discussed also with the patient's siste. Sister is the patient's healthcare surrogate decision maker. She as per the patient's wishes has made the patient DNR. Prior medical decision making is of high complexity. Will follow.
[2020-05-11 20:06] LABS: C DIFFICILE GDH POSITIVE (NEGATIVE)
[2020-05-11] MEDS: APIXABAN 5 MG TABLET PO SCH (21:21)
[2020-05-11] MEDS: VANCOMYCIN HCL INJ 500 MG VIAL NG SCH (21:23)
[2020-05-11] MEDS: LORAZEPAM INJ 2 MG/1 ML VIAL IV PRN (21:23)
--- NOTE | 2020-05-11 23:46 | RADIOLOGY REPORT (SQ) ---
EXAM DESCRIPTION: MR BRAIN WITHOUT THEN WITH IV CONTRAST COMPLETED DATE/TME: 05/11/2020 23:06 CLINICAL HISTORY: 69 years, Female, Aphasic,left arm weak, Not commucative EXAM DESCRIPTION: MRI HEAD COMBO CLINICAL HISTORY: Aphasic,left arm weak, Not commucative COMPARISON: None TECHNIQUE: Multiplanar multisequence imaging of the brain including the intravenous administration of contrast. FINDINGS: There is no evidence of acute ischemia. Patient motion significantly limits detail. There is moderate paranasal sinus mucosal thickening. There is no evidence of acute mass, mass effect, midline shift or hemorrhage. No focal abnormal extra-axial fluid collection is seen. The ventricles, basal cisterns and extra-axial fluid spaces are normal in size and configuration. Brain parenchymal signal is normal. No focal pathologic enhancement. IMPRESSION: No acute intracranial abnormalities.
[2020-05-12] MEDS: INSULIN LISPRO 100 UNIT/ML 3 ML VIAL SUBCUT SCH ×4 (00:50→17:52)
[2020-05-12] MEDS: VANCOMYCIN HCL INJ 500 MG VIAL NG SCH ×4 (02:54→21:57)
[2020-05-12] MEDS ORDERED: LEVOTHYROXINE SODIUM 0.1 MG TABLET ONE (07:02)
[2020-05-12 07:09] LABS: ABSOLUTE BASOPHILS # (AUTO) 0.1 10^3/uL (0.0-0.2); ABSOLUTE EOSINOPHILS # (AUTO) 0.4 10^3/uL (0.0-0.6); ABSOLUTE LYMPHOCYTES (AUTO) 1.1 10^3/uL (0.5-4.7); ABSOLUTE MONOCYTES (AUTO) 0.8 10^3/uL (0.1-1.4); ABSOLUTE NEUT (AUTO) 9.4 10^3/uL (1.7-8.2); BASOPHILS % (AUTO) 0.7 % (0-2); HEMATOCRIT 27.8 % (36.0-47.0); HEMOGLOBIN 9.3 g/dL (12.0-15.5); LYMPHOCYTES % (AUTO) 9.7 % (13-45); MEAN CORPUSCULAR HEMOGLOBIN 30.7 pg (27.0-33.4); MEAN CORPUSCULAR HGB CONC 33.2 g/dL (32.0-36.0); MEAN CORPUSCULAR VOLUME 92 fl (80-97); MONOCYTES % (AUTO) 6.4 % (3-13); PLATELET COUNT 233 10^3/uL (150-450); RED BLOOD COUNT 3.01 10^6/uL (3.72-5.28); RED CELL DISTRIBUTION WIDTH 17.9 % (11.5-14.0); SEGMENTED NEUTROPHILS % (AUTO) 80.2 % (42-78); TOTAL CELLS COUNTED % (AUTO) 100 %; WHITE BLOOD COUNT 11.7 10^3/uL (4.0-10.5)
[2020-05-12] MEDS: LEVOTHYROXINE SODIUM 0.1 MG TABLET PO SCH (07:11)
[2020-05-12 07:33] LABS: ALBUMIN 2.4 g/dL (3.5-5.0); ALKALINE PHOSPHATASE 162 U/L (38-126); ASPARTATE AMINO TRANSFERASE 35 U/L (14-36); BILIRUBIN,DIRECT 0.3 mg/dL (0.0-0.4); BILIRUBIN,TOTAL 0.5 mg/dL (0.2-1.3); BLOOD UREA NITROGEN 15 mg/dL (7-20); CALCIUM 9.1 mg/dL (8.4-10.2); CARBON DIOXIDE 36 mmol/L (22-30); CHLORIDE 105 mmol/L (98-107); GLUCOSE 133 mg/dL (75-110); POTASSIUM 3.7 mmol/L (3.6-5.0); TOTAL PROTEIN 5.3 g/dL (6.3-8.2)
[2020-05-12 07:45] LABS: ANION GAP 3 (5-19)
[2020-05-12 07:57] LABS: HSV SOURCE BLOOD
[2020-05-12 08:56] LABS: FREE T3 3.82 pg/mL (2.77-5.27); FREE T4 (FREE THYROXINE) 0.91 ng/dL (0.78-2.19)
[2020-05-12] MEDS: PANTOPRAZOLE SODIUM 40 MG VIAL IV SCH (12:16)
[2020-05-12] MEDS: POTASSIUM CHLORIDE 20 MEQ PACKET PO SCH (12:16)
[2020-05-12] MEDS: FUROSEMIDE INJ/PF 20 MG/2 ML SDV IV SCH (12:16)
[2020-05-12] MEDS: METOPROLOL TARTRATE 100 MG TABLET PO SCH ×2 (12:16→21:57)
[2020-05-12] MEDS: APIXABAN 5 MG TABLET PO SCH ×2 (12:17→21:55)
[2020-05-12] MEDS: LOSARTAN POTASSIUM 25 MG TABLET NG SCH ×2 (12:17→21:56)
[2020-05-12] MEDS: LACTAID PO SCH ×3 (12:21→17:36)
[2020-05-12] MEDS: LIOTHYRONINE SODIUM 25 MCG TABLET PO SCH (12:27)
[2020-05-12] MEDS: ACYCLOVIR 200 MG/5 ML SUSP 60 ML NG SCH ×2 (12:28→17:39)
[2020-05-12] MEDS: LORAZEPAM INJ 2 MG/1 ML VIAL IV PRN (14:22)
[2020-05-12 15:01] LABS: ALBUMIN BODY FLUID 0.5 g/dL (Not Estab.); TOTAL PROTEIN BODY FLUID 1.1 g/dL (.)
--- NOTE | 2020-05-12 15:15 | RADIOLOGY REPORT (SQ) ---
EXAM DESCRIPTION: CTA HEAD IMAGES COMPLETED DATE/TIME: 05/12/2020 3:01 pm REASON FOR STUDY: Aphasic,left arm weak, Not commucative COMPARISON: None. TECHNIQUE: Post IV contrast scanning, thin section axial imaging through the brain to evaluate the a rterial structures. Source and MIP images are saved and reviewed on PACS. Advanced 3D imaging as volume-rendering, MIPs, SSD performed? yes All CT scanners at this facility use dose modulation, iterative reconstruction, and/or weight based d osing when appropriate to reduce radiation dose to as low as reasonably achievable (ALARA). [facility]: Dose Right [facility]: CareDose [facility]: Dose Right [facility]: Teradose 4D [facility]: [employer] CONTRAST TYPE AND DOSE: contrast/concentration: Isovue 350.00 mmol/ml; Total Contrast Delivered: 74. 0 ml; Total Saline Delivered: 60.0 ml RENAL FUNCTION: BUN 14 creatinine 0.55. LIMITATIONS: None. FINDINGS: [place]: The anterior, middle, posterior cerebral arteries are all patent. No ev idence of aneurysm or focal stenosis. POSTERIOR CIRCULATION: The distal vertebral arteries are patent as is the basilar artery. No aneurysm . BRAIN: No gross enhancing lesions as visualized. BONES: Intact as visualized. SINUSES: No fluid or mucosal thickening. OTHER: No other significant finding. IMPRESSION: NO CTA EVIDENCE OF STENOSIS OR ANEURYSM OF THE [place]. TECHNICAL DOCUMENTATION: JOB ID: [id number] Quality ID # [id number]: Final reports with documentation of one or more dose reduction techniques (e.g., Au tomated exposure control, adjustment of the mA and/or kV according to patient size, use of iterative reconstruction technique) 2010 [employer]- All Rights Reserved Reading location - IP/workstation name: [email or web address]
--- NOTE | 2020-05-12 15:18 | RADIOLOGY REPORT (SQ) ---
EXAM DESCRIPTION: CTA NECK IMAGES COMPLETED DATE/TIME: 05/12/2020 3:01 pm REASON FOR STUDY: Aphasic,left arm weak, Not commucative COMPARISON: None. TECHNIQUE: Axial dynamic scanning technique with dynamic contrast enhancement through the extra-connie scratcher nial carotid and vertebral arteries. Multiplanar reconstruction. 3-D MIPS and Volume-rendered imag es acquired at the workstation and saved to PACS. Images are reviewed in soft tissue, bone, lung w indows. All CT scanners at this facility use dose modulation, iterative reconstruction, and/or weight based d osing when appropriate to reduce radiation dose to as low as reasonably achievable (ALARA). [facility]: Dose Right [facility]: CareDose [facility]: Dose Right [facility]: Teradose 4D [facility]: [employer] CONTRAST TYPE AND DOSE: 74 mL Omnipaque 350- low osmolar. RENAL FUNCTION: BUN 14 creatinine 0.55. LIMITATIONS: None. FINDINGS: AORTIC ARCH: Normal three-vessel origin. Bilateral subclavian arteries are patent. No d issection. RIGHT CAROTIDS: Patent common, internal and external carotid arteries without suggestion of significa nt stenosis or irregular plaque. No dissection. RIGHT VERTEBRAL: Patent. No dissection. LEFT CAROTIDS: Patent common, internal and external carotid arteries without suggestion of significan t stenosis or irregular plaque. No dissection. LEFT VERTEBRAL: Patent. No dissection. OTHER: Large bilateral pleural effusions. OTHER: 3-D reconstructions confirm findings. IMPRESSION: 1. NORMAL CTA OF THE EXTRA-CRANIAL CAROTID AND VERTEBRAL ARTERIES. 2. LARGE BILATERAL PLEURAL EFFUSIONS. COMMENT: Quality ID #[id number]: Measurements of distal internal carotid diameter were used as the denomina tor for stenosis measurement. TECHNICAL DOCUMENTATION: JOB ID: [id number] Quality ID # [id number]: Final reports with documentation of one or more dose reduction techniques (e.g., Au tomated exposure control, adjustment of the mA and/or kV according to patient size, use of iterative reconstruction technique) 2010 [employer]- All Rights Reserved Reading location - IP/workstation name: [email or web address]
--- NOTE | 2020-05-12 16:47 | NEURO WORKBENCH EEG REPORT ---
EEG Report Patient: Kandy Moore ID: [id number] Referring Doctor: uBrt Median Onwe DOS: 05/12/2019 Medications: zovirax, eliquis, furosemide, porcine, lactaid, synthroid, cytomel, cozaar, lopressor, protonix, vancocin History This is a 69 year old right handed female with a history of hypothyroidism, seizures since TBI age 4, mitral valve prolapse, atrial fibrillation, bipolar disorder, hypertension, pneumonia, arthritis, depression, alcohol use, anemia, skin cancer, fibromyalgia, genital herpes, agitation, prior EEG 05/04/2020 showed intermittent generalized periodic discharges and generalized background slowing. This EEG was requested for progressive cognitive decline in 3 months. EEG Interpretation This EEG was recorded in the mostly sleep state with frequent arousals. The awake EEG is characterized by a disorganized background without a noted posterior dominant rhythm. The remainder of the background was characterized by a combination of theta with some alpha and delta frequencies. Drowsiness was not well-characterized. Vertex waves and sleep spindles were seen in the midline head regions. There were frequent arousals from stage 2 sleep and subsequent reversal back into stage 2 sleep. There were small sharp spikes noted in the temporal regions during sleep (SSS, aka BETS, benign epileptiform transients of sleep). There were brief runs of sharply contoured waveforms in the central regions that are most consistent with vertex waves. Photic stimulation resulted in no significant changes. There were rare sharply contoured waveforms but no definitive epileptiform abnormalities. The EKG showed a regular rhythm but interpretation was impaired due to artifact. EEG Classification * Generalized background slowing EEG Impression This EEG is abnormal. It is consistent with diffuse cerebral dysfunction. The recording was mostly during sleep. Compared to the prior recording dated 05/04/2020 it has changed with no periodic discharges noted but was primarily recorded during sleep. A sleep study may be considered. INTERPRETING NEUROLOGIST: Leslie Anedrson MD, FRCPC Board Certified in Neurology, with special qualification in Child Neurology, and in Clinical Neurophysiology [facility]
--- NOTE | 2020-05-12 17:29 | PDOC PROGRESS REPORT ---
Subjective Date:: 05/12/20 Subjective:: Patient actually stated "Yes" today with myself and her sister Jazmine in the room . Otherwise did not utter any words during our encounter. I was told by Jazmine that her brother noted her uttering some words last night as well. Reason For Visit: ACUTE ENCEPHALOPATHY, POSSIBLE ENCEPHALITIS, UTI Physical Exam Vital Signs: Temp Pulse Resp BP Pulse Ox 97.8 F 65 20 167/81 H 89 L 05/12/20 12:09 05/12/20 14:00 05/12/20 12:09 05/12/20 12:09 05/12/20 12:09 Intake & Output 05/11/20 05/12/20 05/13/20 06:59 06:59 06:59 Intake Total 2208 1355 247 Output Total 4072 0151 650 Balance -7957 -5325 -403 Weight 65.6 kg 59.1 kg General appearance: PRESENT: no acute distress, cooperative Head exam: PRESENT: normocephalic Respiratory exam: PRESENT: decreased breath sounds - bailar, symmetrical, unlabored. ABSENT: accessory muscle use, retraction, tachypnea Cardiovascular exam: PRESENT: RRR, +S1, +S2. ABSENT: tachycardia GI/Abdominal exam: PRESENT: soft. ABSENT: rebound, rigid, tenderness Extremities exam: PRESENT: pedal edema - bilateral LE and LUE Neurological exam: PRESENT: alert, awake, motor sensory deficit - left arm flaccid, aphasic - does not follow command either but tracks with eyes Results Laboratory Results: 05/12/20 06:43 05/12/20 06:43 05/09/20 05/12/20 05/12/20 11:55 06:43 06:43 WBC 11.7 H RBC 3.01 L Hgb 9.3 L Hct 27.8 L MCV 92 MCH 30.7 MCHC 33.2 RDW 17.9 H Plt Count 233 Seg Neutrophils % 80.2 H Sodium 144.3 Potassium 3.7 Chloride 105 Carbon Dioxide 36 H Anion Gap 3 L BUN 15 Creatinine 0.59 Est GFR ( Amer) > 60 Glucose 133 H Calcium 9.1 Total Bilirubin 0.5 AST 35 Alkaline Phosphatase 162 H Total Protein 5.3 L Albumin 2.4 L Free T4 Free T3 pg/mL Fluid Glucose 160 Fluid Total Protein 1.1 Fluid Albumin 0.5 Fluid LDH 67 05/12/20 06:43 WBC RBC Hgb Hct MCV MCH MCHC RDW Plt Count Seg Neutrophils % Sodium Potassium Chloride Carbon Dioxide Anion Gap BUN Creatinine Est GFR ( Amer) Glucose Calcium Total Bilirubin AST Alkaline Phosphatase Total Protein Albumin Free T4 0.91 Free T3 pg/mL 3.82 Fluid Glucose Fluid Total Protein Fluid Albumin Fluid LDH 04/27/20 04/27/20 04/30/20 15:01 15:01 03:55 Creatine Kinase 155 H Troponin I < 0.012 1.560 04/30/20 05/01/20 09:35 09:08 Creatine Kinase Troponin I 0.806 0.306 Impressions: Abdomen/Pelvis CT 04/27/20 00:00 IMPRESSION: 1. Limited examination secondary to motion artifact. 2. Cholelithiasis. 3. Poor visualization of the GI tract especially in the mid and lower abdomen. No obvious bowel obstruction. Head CT 04/27/20 15:26 IMPRESSION: No acute intracranial abnormality. EVIDENCE OF ACUTE STROKE: NO. Venous Doppler Study 05/02/20 00:00 IMPRESSION: Acute occlusive thrombus is seen within the axillary, brachial, and cephalic veins. Thoracentesis Ultrasound 05/10/20 10:00 IMPRESSION: SUCCESSFUL THORACENTESIS USING ULTRASOUND GUIDANCE. Chest X-Ray 05/10/20 14:00 IMPRESSION: No pneumothorax. Head MRI 05/11/20 00:00 IMPRESSION: No acute intracranial abnormalities. Head CTA 05/12/20 00:00 IMPRESSION: NO CTA EVIDENCE OF STENOSIS OR ANEURYSM OF [place]. Neck CTA 05/12/20 00:00 IMPRESSION: 1. NORMAL CTA OF THE EXTRA-CRANIAL CAROTID AND VERTEBRAL ARTERIES. 2. LARGE BILATERAL PLEURAL EFFUSIONS. Assessment and Plan - Diagnosis (1) Acute metabolic encephalopathy Is this a current diagnosis for this admission?: Yes (2) Takotsubo cardiomyopathy Is this a current diagnosis for this admission?: Yes (3) Pleural effusion, right Is this a current diagnosis for this admission?: Yes (4) Severe pulmonary hypertension Is this a current diagnosis for this admission?: Yes (5) Hypothyroidism Qualifiers: Hypothyroidism type: unspecified Qualified Code(s): E03.9 - Hypothyroidism, unspecified Is this a current diagnosis for this admission?: Yes (6) Bipolar disorder Is this a current diagnosis for this admission?: Yes (7) Transaminitis Is this a current diagnosis for this admission?: Yes (8) C. difficile diarrhea Is this a current diagnosis for this admission?: Yes (9) Hypoxia Is this a current diagnosis for this admission?: Yes (10) Paroxysmal atrial fibrillation Is this a current diagnosis for this admission?: Yes (11) Normocytic anemia Is this a current diagnosis for this admission?: Yes (12) Cardiac arrest Is this a current diagnosis for this admission?: Yes - Plan Summary Summary: Patient downgraded from ICU to IMCU today. Received signout from radiation protection specialist. Patient was admitted for altered mental status which had been worsening progressively over a few weeks. Upon admission, patient was febrile, nonverbal, fully awake but highly restless and agitated and tremulous. Initially treated with antibiotics broad-spectrum. There was concern for encephalitis which was later ruled out by LP. There was concern that patient's gabapentin doses and changes may have played a role there. Patient was also treated for urinary tract infection with antibiotics. Patient went into cardiac arrest and was resu scitated after receiving 3 rounds of epi and a round of bicarb. From my discussion with the radiation protection specialist, the exact cause of her cardiac arrest has not been derived. In the ICU, she was treated for severe metabolic acidosis, paroxysmal atrial fibrillation, pulmonary hypertension. Also noted to have Takotsubo cardiomyopathy. She did have renal failure but has improved. Patient was extubated 2 days ago. Mental status still seems about the same as her initial presentation as she is still nonverbal and blankly stares. She however does not seem to be restless and agitated anymore and she is no longer tremulous. Not really moving her left arm. Possibly had a stroke or hypoxic encephalopathy. Exact cause of her initial mental decline is still unknown. She follows with neurologist Dr. Adams. Hypernatremic and on half-normal saline. On 5l nc. Will check labs, CXR in Am. Check MRI brain. Adjust levothyroxine to weight- based dosing. 05/09/2020 Checks x-ray this morning shows right pleural effusion which is likely responsible for hypoxia. She still on nasal cannula Though she has right pleural effusion, she is intravascularly depleted with contraction alkalosis and hyperchloremic hypernatremia. She is planned for thoracentesis. Radiology will be available tomorrow to perform the thoracentesis. Unfortunately the D5W ordered was not started this morning and hence repeat labs still showing no change in sodium. Start D5W at 65 cc/h to replace free water deficit and cover insensible losses. Monitor labs. We will switch to only tube flushes once Na improves. MRI Brain pending Discussed plan with sister today. Start Lactase while on tube feeds Contnue synthroid and cardiac meds 05/10/2020 Patient's breathing was a little bit more labored this morning so we went ahead with thoracentesis. 1000 cc of clear fluid was aspirated during the thoracentesis. Subsequent chest x-ray shows improved aeration of the lungs but no pneumothorax. Regarding her hyponatremia, I have increased her D5W rate to 85 cc/h and also increased her tube flushes to 100 cc every 4 hours. Repeat BMP at 8 PM. Goal correction of 8-10 M EQ/24h Not having much diarrhea on tube feed. Continue lactase Cardiology following as well. Recommendations appreciated MRI of the brain was limited due to motion artifact so may not have been adequate does not show anything acute which is unlikely given her presentation. Will reconsider if to do MRI at another time. Discussed plan with patient's Sister Jazmine today. 05/11/2020 Worked with PT today and required max assist even to sit up. Mental status is still the same and she remains nonverbal and unable to follow commands during my assessment. Seems to have full blown expressive aphasia and significant amount of receptive aphasia. Left arm remains flaccid. 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 Only showed significant cerebral atrophy out of proportion with her age. This decline would be too rapid for Dementia I did a remote consultation with Neurology at [facility] with Adán Villar who also reviewed images himself and recommends getting another MRI with CTA of head/neck. This will be ordered Hypernatremia resolved. D/c D5W. Tube flushes increased to 230cc q4h On lasix due to swelling Patient's sister Jazmine expresses that patient would not wish to be on artifical nutrition if this situation was likely to be permanent and would not want to be preserved in such condition on PEG tube feed. Leaning towards hospice. Will get the imaging recommended to get some definitive answers. 05/12 Repeat MRI still shows nothing signifcant enough to explain patient's mental state. CTA H/N unremarkable Her pleural effusion is starting to reaccumulate and now appears quite large bilaterally. EF is 35% on 05/05 from 25% Cardiolongy on board. Has been net negative for past few days on Lasix IV 20mg bid. I will give a dose of 40mg this evening decrease free water flushes to 1L/24h Pleural fluid analysis consistent with transudative fluid Free T3 and T4 are normal now. C/w supplements Continue tube feeds Consult Psych regarding Bipolar d/o. [place] held since admission. ? if lithium played a role in her presentation but [place] level was drawn a few days into admission. Notable Jazmine informs me that she has been on [place] for over a decade and most recent level in april was therapeutic. Now positive with C diff and started on Vancomycin Hb is stable Max assist with PT 05/13 Today, patient is on room air. She is diuresing well on the Lasix. Dr. Vasquez following. Lower extremity edema has also resolved. Her left arm swelling is improving remarkably. Breath sounds still decreased in the lung bases likely from the pleural effusions. I did a phone consultation with Dr. Kota Contreras at [facility] neurology and we extensively discussed patient's entire case and reviewed all images together. He notes that they are abnormalities including a small stroke on patient's left parietal region as well as an unusual hyperintensity on the T2 flair image in her right occipital region. He does not believe the small stroke is the cause of her presentation but thinks that the hyperintensity in the right occipital may be somewhat related. Doubts lithium toxicity. However he does not know what could have caused this but states that if she was going to improve, she would have likely started showing remarkable improvement in her mental state by now. Recommends getting repeat MRI in 5 days to see if any changes which may give more clarity to the etiology. States that we have already done all the work-up that he would have done so there will be no yield in transferring patient over. I discussed these with patient's sister Jazmine who states that she and her brother would like to start looking into hospice sites. She will like to think over whether or not she wants to wait for the repeat MRI as recommended in 5 days before deciding on hospice. She is keen to get hospice going especially being that whatever etiology may be very much irreversible and patient does not want any PEG or to live this way. I encouraged her to take all the time she needs as it is a difficult decision. She will like for the director of social services to start looking into hospice sites so we have something available when she decides. In the meantime, requests something to help patient sleep. She has tolerated seroquel in the past. - Time Time Spent with patient: 15-24 minutes Anticipated Discharge Disposition: Home with Home Health Anticipated Discharge Timeframe: unknown
[2020-05-12] MEDS ORDERED: FUROSEMIDE INJ/PF 40 MG/4 ML SDV IV ONE (18:00)
--- NOTE | 2020-05-12 18:41 | Progress Note ---
Provider Note Provider Note: CARDIOLOGY PROGRESS NOTE by Dr. Cydney Dickens on 05/12/2020. SUBJECTIVE: The patient's condition is status quo. She is awake but does not respond to verbal stimuli. Her actions do not have any purpose. She does not seem to recognize me.. She is moves all 4 extremities. No further information obtained since she is still nonverbal. There is a sister has made her a DNR. Patient had a right-sided thoracentesis. Results of pleural fluid are awaited. The patient also had an MRI which is limited in quality but showed no acute process. Her neck CTA and head CTA shows no abnormalities of the vasculature there. Results of the pleural fluid shows that this is transudate. It seems to be reaccumulation of fluid. Sleep study is consistent with diffuse cerebral dysfunction. PHYSICAL EXAMINATION: The patient is a frail build. Appears to be in no acute distress. Selected Entries 05/12/20 05/12/20 05/12/20 12:09 13:43 16:30 Temperature 97.8 F 98.2 F Temperature Oral Source Pulse Rate 101 H Respiratory 20 24 H Rate Blood Pressure 167/81 H 106/89 H Blood Pressure 109 94 Mean BP Location Left Arm BP Position Supine O2 Sat by Pulse 89 L 92 Oximetry Oxygen Flow 2.00 Rate Oxygen Delivery Room Air Method 05/12/20 17:04 Temperature Temperature Source Pulse Rate Respiratory Rate Blood Pressure Blood Pressure Mean BP Location BP Position O2 Sat by Pulse Oximetry Oxygen Flow 2.00 Rate Oxygen Delivery Method HEENT is negative. Neck is supple. There is no JVD. Carotids are equal there is no bruit. Skin: There is no skin rashes. Skin is cool to touch. There is no petechia or ecchymosis. LUNGS: Few scattered rhonchi, there is dullness and absent breath sounds in both the bases.. There are no bibasilar rales of CHF. There is no rhonchi rales or wheezing. HEART: S1-S2 is heard. S1 is of normal intensity. There is no S3 gallop. There is no S4 gallop. There is systolic murmur in the left sternal border and the apex . There is no rub. ABDOMEN: Soft. There is no hepatosplenomegaly. Bowel sounds well heard. EXTREMITIES: Femorals are diminished. There is no femoral bruits. Leg pulses are well felt. There is no pedal edema. There is some mild swelling and redness in the left upper extremity. Upper extremity pulses are well felt. Capillary refill is normal. There is no cyanosis or clubbing there is no DVT or cellulitis. SINGLE END SEWER: The patient is conscious awake but nonverbal. She moves all 4 extremities. PSYCHIATRIC: Not examined. Labs- All tests 24 hr 04/29/20 05/09/20 05/11/20 08:24 11:55 17:33 WBC RBC Hgb Hct MCV MCH MCHC RDW Plt Count Lymph % (Auto) [place] % (Auto) Eos % (Auto) Baso % (Auto) Absolute Neuts (auto) Absolute Lymphs (auto) Absolute Monos (auto) Absolute Eos (auto) Absolute Basos (auto) Seg Neutrophils % Sodium Potassium Chloride Carbon Dioxide Anion Gap BUN Creatinine Est GFR ( Amer) Est GFR (MDRD) Non-Af Glucose POC Glucose 136 H Calcium Total Bilirubin Direct Bilirubin Neonat Total Bilirubin Neonat Direct Bilirubin Neonat Indirect Bili AST ALT Alkaline Phosphatase Total Protein Albumin Free T4 Free T3 pg/mL Fluid Glucose 160 Fluid Total Protein 1.1 Fluid Albumin 0.5 Fluid LDH 67 Stl C. Difficile GDH Ag Stl C.difficile Tox A&B Herpes Simplex Source BLOOD 05/11/20 05/12/20 05/12/20 18:40 00:37 06:19 WBC RBC Hgb Hct MCV MCH MCHC RDW Plt Count Lymph % (Auto) [place] % (Auto) Eos % (Auto) Baso % (Auto) Absolute Neuts (auto) Absolute Lymphs (auto) Absolute Monos (auto) Absolute Eos (auto) Absolute Basos (auto) Seg Neutrophils % Sodium Potassium Chloride Carbon Dioxide Anion Gap BUN Creatinine Est GFR ( Amer) Est GFR (MDRD) Non-Af Glucose POC Glucose 99 128 H Calcium Total Bilirubin Direct Bilirubin Neonat Total Bilirubin Neonat Direct Bilirubin Neonat Indirect Bili AST ALT Alkaline Phosphatase Total Protein Albumin Free T4 Free T3 pg/mL Fluid Glucose Fluid Total Protein Fluid Albumin Fluid LDH Stl C. Difficile GDH Ag POSITIVE Stl C.difficile Tox A&B POSITIVE Herpes Simplex Source 05/12/20 05/12/20 05/12/20 06:43 06:43 06:43 WBC 11.7 H RBC 3.01 L Hgb 9.3 L Hct 27.8 L MCV 92 MCH 30.7 MCHC 33.2 RDW 17.9 H Plt Count 233 Lymph % (Auto) 9.7 L [place] % (Auto) 6.4 Eos % (Auto) 3.0 Baso % (Auto) 0.7 Absolute Neuts (auto) 9.4 H Absolute Lymphs (auto) 1.1 Absolute Monos (auto) 0.8 Absolute Eos (auto) 0.4 Absolute Basos (auto) 0.1 Seg Neutrophils % 80.2 H Sodium 144.3 Potassium 3.7 Chloride 105 Carbon Dioxide 36 H Anion Gap 3 L BUN 15 Creatinine 0.59 Est GFR ( Amer) > 60 Est GFR (MDRD) Non-Af > 60 Glucose 133 H POC Glucose Calcium 9.1 Total Bilirubin 0.5 Direct Bilirubin 0.3 Neonat Total Bilirubin Not Reportable Neonat Direct Bilirubin Not Reportable Neonat Indirect Bili Not Reportable AST 35 ALT 29 Alkaline Phosphatase 162 H Total Protein 5.3 L Albumin 2.4 L Free T4 0.91 Free T3 pg/mL 3.82 Fluid Glucose Fluid Total Protein Fluid Albumin Fluid LDH Stl C. Difficile GDH Ag Stl C.difficile Tox A&B Herpes Simplex Source 05/12/20 05/12/20 12:25 17:41 WBC RBC Hgb Hct MCV MCH MCHC RDW Plt Count Lymph % (Auto) [place] % (Auto) Eos % (Auto) Baso % (Auto) Absolute Neuts (auto) Absolute Lymphs (auto) Absolute Monos (auto) Absolute Eos (auto) Absolute Basos (auto) Seg Neutrophils % Sodium Potassium Chloride Carbon Dioxide Anion Gap BUN Creatinine Est GFR ( Amer) Est GFR (MDRD) Non-Af Glucose POC Glucose 108 104 Calcium Total Bilirubin Direct Bilirubin Neonat Total Bilirubin Neonat Direct Bilirubin Neonat Indirect Bili AST ALT Alkaline Phosphatase Total Protein Albumin Free T4 Free T3 pg/mL Fluid Glucose Fluid Total Protein Fluid Albumin Fluid LDH Stl C. Difficile GDH Ag Stl C.difficile Tox A&B Herpes Simplex Source Abdomen/Pelvis CT 04/27/20 00:00 IMPRESSION: 1. Limited examination secondary to motion artifact. 2. Cholelithiasis. 3. Poor visualization of the GI tract especially in the mid and lower abdomen. No obvious bowel obstruction. Chest X-Ray 04/27/20 14:52 IMPRESSION: No acute cardiopulmonary process. Head CT 12/21/20 15:26 IMPRESSION: No acute intracranial abnormality. EVIDENCE OF ACUTE STROKE: NO. Chest X-Ray 04/29/20 00:00 IMPRESSION: Extensive bilateral airspace disease right greater than left. This is new from 04/27/2020. Most likely pulmonary edema. Chest X-Ray 04/29/20 10:58 IMPRESSION: Interval placement of endotracheal tube and NG tube as described. Both are in satisfactory position. No other interval change. Chest X-Ray 04/29/20 14:07 IMPRESSION: Support lines and tubes have been placed as discussed. Increasing opacification in the right lung base. Overall pulmonary edema pattern appears improved. Chest X-Ray 04/30/20 00:00 IMPRESSION: 1. Somewhat improved pulmonary exam. 2. Endotracheal tube tip broaches the right mainstem bronchus. Recommend retracting 3 to 4 cm. Otherwise stable lines and tubes. Venous Doppler Study 05/02/20 00:00 IMPRESSION: Acute occlusive thrombus is seen within the axillary, brachial, and cephalic veins. Chest X-Ray 05/06/20 00:00 IMPRESSION: Slight improvement in bilateral edema and/or pneumonia. Chest X-Ray 05/09/20 00:00 IMPRESSION: Nasogastric tube in the stomach. Head MRI 05/09/20 00:00 IMPRESSION: 1. Limited study. 2. No acute or suspicious intracranial abnormality detected. No recent CVA. No gross enhancing lesions. EVIDENCE OF ACUTE STROKE: NO. Chest X-Ray 05/09/20 06:36 IMPRESSION: Increasing pleural effusions. No pneumothorax. Chest X-Ray 05/10/20 00:00 IMPRESSION: Improved aeration right lung. Thoracentesis Ultrasound 05/10/20 10:00 IMPRESSION: SUCCESSFUL THORACENTESIS USING ULTRASOUND GUIDANCE. Chest X-Ray 05/10/20 14:00 IMPRESSION: No pneumothorax. Head MRI 05/11/20 00:00 IMPRESSION: No acute intracranial abnormalities. Head CTA 05/12/20 00:00 IMPRESSION: NO CTA EVIDENCE OF STENOSIS OR ANEURYSM OF [place]. Neck CTA 05/12/20 00:00 IMPRESSION: 1. NORMAL CTA OF THE EXTRA-CRANIAL CAROTID AND VERTEBRAL ARTERIES. 2. LARGE BILATERAL PLEURAL EFFUSIONS. IMPRESSION/RECOMMENDATION: 1. Respiratory arrest: This is due to a combination of severe metabolic acidosis and encephalopathy. The patient is off the ventilator. She is on BiPAP. 2. Severe metabolic acidosis: This is most likely secondary to combination of untoward effects of psychiatric medication, encephalopathy, and sepsis. Continue antibiotics. Acidosis has resolved. 3. Paroxysmal atrial fibrillation yesterday needing emergency DC cardioversion due to hypotension and atrial fibrillation with rapid ventricular response. No recurrence. Amiodarone drip discontinued due to bradycardia. Patient at present with no recurrence. She is also on Eliquis 5 mg p.o. twice daily. Later will start the patient on a beta-truong. 4. Shock: This has resolved. The patient is off all pressors. The patient is very hypertensive and blood pressure is at present and controlled. We will increase antihypertensive. 5. Severe encephalopathy: Etiology seems to be obscure.. This is seems to be improving the patient is awake off all sedation. She still does not respond appropriately. 6. Severe pulmonary hypertension: This is most likely elevated pulmonary arterial pressures due to severe acidosis. Right ventricle systolic pressure is at least 61 mmHg with a RA mean of at least 20 [IVC is dilated and does not vary with respiration, and hence the right atrial mean pressure is at least greater than 20.] 7. Takotsubo cardiomyopathy: This is most likely event. Patient with a picture by echo of Takotsubo cardiomyopathy. This should improve if this is indeed the case in the matter of days. Continue supportive treatment. There is some improvement in the segments of the LV in terms of contractility supporting Takotsubo cardiomyopathy although the ejection fraction is still about 35%. The patient appears to be volume overloaded. 8. Elevated troponin secondary combination of hypotension, and cardiomyopathy. This is a type II supply demand mismatch no evidence of non-STEMI. Hence we will treat the underlying cause, and not treat this as a non-ST ovation CT. Echo echocardiogram tomorrow. 10. Bipolar disorder: Most likely has untoward effects from her psych medication. Doubt that this is neuroleptic syndrome, due to lack of hyperpyrexia, although there is some evidence of tardive dyskinesia. 11. Acute renal failure: The patient is renal function is now normal. Her urine output is also good. 12. Hyper natremia.: The patient is being started on dextrose. 13. Left axillary brachial and cephalic vein thrombosis: Patient is on Eliquis 5 mg p.o. twice daily. 14. Hypertension: Patient's blood pressure uncontrolled. Will increase antihypertensives. We will start the patient on Cardene drip. 15. There is bilateral pleural effusions. We will start the patient on Lasix. Medications reviewed. Discussed with atte medical regimen and management plan nding provider on the case. Medical decision making is of moderate complexity. Will follow.
[2020-05-13] MEDS: INSULIN LISPRO 100 UNIT/ML 3 ML VIAL SUBCUT SCH ×4 (00:35→17:53)
[2020-05-13] MEDS: VANCOMYCIN HCL INJ 500 MG VIAL NG SCH ×4 (04:00→20:47)
[2020-05-13] MEDS: LEVOTHYROXINE SODIUM 0.1 MG TABLET PO SCH (05:23)
[2020-05-13 08:53] LABS: ALBUMIN 2.7 g/dL (3.5-5.0); ALKALINE PHOSPHATASE 177 U/L (38-126); ANION GAP 7 (5-19); ASPARTATE AMINO TRANSFERASE 29 U/L (14-36); BILIRUBIN,DIRECT 0.3 mg/dL (0.0-0.4); BILIRUBIN,TOTAL 0.6 mg/dL (0.2-1.3); BLOOD UREA NITROGEN 15 mg/dL (7-20); CARBON DIOXIDE 32 mmol/L (22-30); CHLORIDE 107 mmol/L (98-107); GLUCOSE 112 mg/dL (75-110); POTASSIUM 3.5 mmol/L (3.6-5.0); TOTAL PROTEIN 5.7 g/dL (6.3-8.2)
[2020-05-13] MEDS: METOPROLOL TARTRATE 100 MG TABLET PO SCH ×2 (09:56→22:39)
[2020-05-13] MEDS: LOSARTAN POTASSIUM 25 MG TABLET NG SCH ×2 (09:56→22:38)
[2020-05-13] MEDS: LACTAID PO SCH ×3 (09:56→17:01)
[2020-05-13] MEDS: PANTOPRAZOLE SODIUM 40 MG VIAL IV SCH (09:56)
[2020-05-13] MEDS: FUROSEMIDE INJ/PF 20 MG/2 ML SDV IV SCH ×2 (09:57→17:01)
[2020-05-13] MEDS: APIXABAN 5 MG TABLET PO SCH ×2 (09:57→22:39)
[2020-05-13] MEDS: ACYCLOVIR 200 MG/5 ML SUSP 60 ML NG SCH ×2 (09:57→17:01)
[2020-05-13] MEDS: POTASSIUM CHLORIDE 20 MEQ PACKET NG SCH ×2 (09:57→17:01)
[2020-05-13] MEDS: LIOTHYRONINE SODIUM 25 MCG TABLET PO SCH (10:00)
[2020-05-13] MEDS ORDERED: QUETIAPINE FUMARATE 25 MG TABLET PO PRN (17:00)
--- NOTE | 2020-05-13 17:52 | PDOC CONSULTATION ---
Consultation-Blank Consultation: Behavioral Health Consult: Bipolar medications. Could [place] be causing mentation? Chart review conducted at 1300 and ongoing. Tried calling emergency contact for collateral at 1612. Patient is a 69 year old female who presented to the emergency department on 04/27/2020 via EMS and accompanied by her brother and sent over by Primary Care Provider Dr. Mondragon for having urinary tract infection the past week, being prescribed Macrobid, and it getting worse, as well as her Oxygen stats dropping. She was subsequently admitted to hospitalist services same day at 2336 for acute metabolic encephalopathy, severe sepsis, normocytic anemia, lactic acidosis, Bipolar Disorder, Urinary Tract Infection, acute kidney injury, rash, hypothyroidism, transaminitis, and paroxysmal atrial fibrillation. It was noted her brother said patient's Bipolar Disorder had been stabilized for over 30 years. Admitting Hospitalist noted psychiatric home medications as Geodon, [place], and Trilpetal. They were to continue Geodon and [place] and noted putting Seroquel on hold. The brother had told emergency department staff patient stopped eating and drinking. Medical documentation noted issues reportedly began 02/26/2020 around the time her Neurologist Dr. Adams increased her Gabapentin from 300MG three times a day to 600MG three times a day. Symptoms included: tired, difficulty ambulating, ataxia, slurred speech, and multiple falls. The Gabapentin was stopped, in addition to her prescribed Tizandine and Trazodone. Then on 03/16/2020 the Gabapentin was resumed at 600MG three times a day where she continued to have motor issues, slurred speech, and dizziness so it was stopped again. Then on 03/25/2020 the Gabapentin was resumed at 300MG twice a day. Chart review indicated initially patient was to be restarted on [place] and Geodon, but does not look like she received many, if any doses. Her [place] level was 0.4 L when checked which would indicate not enough to even be therapeutic. She was also prescribed Risperdal 1MG twice a day which did not seem to be utilized very long. She was started on one thyroid medication 04/28/2020 and then another was added 05/10/2020. Her thyroid levels were in range initially, however labs should be done again to ensure she hasn't gone from hypo to hyper. Her Head CT dated 04/27/2020 completed secondary to fall and altered mental status noted mild diffuse age appropriate cerebral and cerebellar volume loss which is language that suggest neurodegenerative processes which is chronic in nature versus acute and important since patient presented with urinary tract infection and has history of Bipolar. All of these are risk factors, but also it helps when it comes to offering up medication recommendations. Progress note from 1840 yesterday (05/12/2020) noted patient does not respond to verbal stimuli, her actions have no purpose, she did not seem to recognize the provider, and she did move all 4 extremities. It was noted sister did DNR as POA. Also sleep studies were noted to be consistent with diffuse cerebral dysfunction. Attempted to call patient's emergency contact/likely brother Justin Moore ([phone]) at [phone]. No answer and voice mail box not set up. Tried patient's home number ([phone]), no answer, recording said wireless customer not available try again later. Clinical Presentation: Cognitive Impairment Initial Urinary Tract Infection that even with Macrobid for a week persisted and worsened Concerns for first the amount of Gabapentin increased, then abrupt stopping of it and other medications, then adding it back a couple other times at different doses Concerns for Neurodegenerative Processes History of Bipolar that had been managed for the past 30 years per brother Medication recommendations made by the psychiatric medication provider Dr. Jensen HEARN, includes: Request another Thyroid Level (getting two medications one started 04/28/2020 and one started 05/09/2020) Discontinue Seroquel 50MG at night as needed for insomnia Treating Physicians are asked to consider avoiding the use of antipsychotic medications (Haldol, Geodon, Zyprexa, Thorazine), benzodiazepines (Ativan, Valium, Xanax, Klonopin), many sleep aids (Ambien, Lunesta, Trazodone, Seroque l), prolonged use of steroids (Prednisone), and narcotic pain medications as these have been known to cause and/or exacerbate mental health symptoms such as psychosis (paranoia, hallucinations, delusions), aggression, agitation, impaired cognition, personality changes in individuals with neurodegenerative issues (such as Dementia, Alzheimer's, Traumatic Brain Injury, Strokes). If there is a pre-existing mental health disorder the risk is increased. Impression/Plan: Presentation does not seem to be related to psychiatric issues since patient had been off psychiatric medications and her [place] Level was 0.4 L which is not even therapeutic range. Her Head CT has language that means atrophy which is chronic in nature and significant in that it certain types of medications (antipsychotics: Risperdal/Geodon, sleep aids: Seroquel, both especially at higher doses) negatively impact presentation. Also the changes beginning around time of increased Gabapentin doses with multiple attempts at starting and stopping it (at various doses) were likely related to that medication. Then patient was dealing with a urinary tract infection. Consulted with Dr. Stephenson regarding the management and care of patient.
[2020-05-13] MEDS ORDERED: ACETAMINOPHEN SOLN 325 MG/10.15 ML UDCUP NG PRN (17:56)
--- NOTE | 2020-05-13 18:29 | PDOC PROGRESS REPORT ---
Subjective Date:: 05/13/20 Subjective:: Not obtainable Reason For Visit: ACUTE ENCEPHALOPATHY, POSSIBLE ENCEPHALITIS, UTI Physical Exam Vital Signs: Temp Pulse Resp BP Pulse Ox 98.3 F 78 24 H 115/61 97 05/13/20 16:04 05/13/20 16:04 05/13/20 16:04 05/13/20 16:04 05/13/20 16:04 Intake & Output 05/12/20 05/13/20 05/14/20 06:59 06:59 06:59 Intake Total 1355 1315 Output Total 4100 3900 Balance -1835 -7585 Weight 59.1 kg 63.4 kg General appearance: PRESENT: no acute distress Head exam: PRESENT: normocephalic Eye exam: ABSENT: PERRLA - L>R Neck exam: ABSENT: JVD Respiratory exam: PRESENT: decreased breath sounds - bases, symmetrical, unlabored. ABSENT: tachypnea, wheezes Cardiovascular exam: PRESENT: RRR, +S1, +S2. ABSENT: tachycardia GI/Abdominal exam: PRESENT: soft. ABSENT: rebound, rigid, tenderness Neurological exam: PRESENT: alert, awake, motor sensory deficit - Left arm does not move, aphasic. ABSENT: oriented to person, oriented to place, oriented to time, oriented to situation Psychiatric exam: PRESENT: agitated - periodically wakes up from sleep and gets tremulous Results Laboratory Results: 05/12/20 06:43 05/13/20 07:55 05/13/20 07:55 Sodium 145.8 H Potassium 3.5 L Chloride 107 Carbon Dioxide 32 H Anion Gap 7 BUN 15 Creatinine 0.67 Est GFR ( Amer) > 60 Glucose 112 H Calcium 9.0 Magnesium 2.3 Total Bilirubin 0.6 AST 29 Alkaline Phosphatase 177 H Total Protein 5.7 L Albumin 2.7 L 05/09/20 11:55 Pleural Fluid - Right Pleural Effusion AFB Smear Concentration - Final 05/09/20 11:55 Pleural Fluid - Right Pleural Effusion Acid Fast Bacilli Smear - Final 05/09/20 11:55 Pleural Fluid - Right Pleural Effusion Gram Stain - Final 04/27/20 04/27/20 04/30/20 15:01 15:01 03:55 Creatine Kinase 155 H Troponin I < 0.012 1.560 04/30/20 05/01/20 09:35 09:08 Creatine Kinase Troponin I 0.806 0.306 Impressions: Abdomen/Pelvis CT 04/27/20 00:00 IMPRESSION: 1. Limited examination secondary to motion artifact. 2. Cholelithiasis. 3. Poor visualization of the GI tract especially in the mid and lower abdomen. No obvious bowel obstruction. Head CT 04/27/20 15:26 IMPRESSION: No acute intracranial abnormality. EVIDENCE OF ACUTE STROKE: NO. Venous Doppler Study 05/02/20 00:00 IMPRESSION: Acute occlusive thrombus is seen within the axillary, brachial, and cephalic veins. Thoracentesis Ultrasound 05/10/20 10:00 IMPRESSION: SUCCESSFUL THORACENTESIS USING ULTRASOUND GUIDANCE. Chest X-Ray 05/10/20 14:00 IMPRESSION: No pneumothorax. Head MRI 05/11/20 00:00 IMPRESSION: No acute intracranial abnormalities. Head CTA 05/12/20 00:00 IMPRESSION: NO CTA EVIDENCE OF STENOSIS OR ANEURYSM OF THE [place]. Neck CTA 05/12/20 00:00 IMPRESSION: 1. NORMAL CTA OF THE EXTRA-CRANIAL CAROTID AND VERTEBRAL ARTERIES. 2. LARGE BILATERAL PLEURAL EFFUSIONS. Assessment and Plan - Diagnosis (1) Acute metabolic encephalopathy Is this a current diagnosis for this admission?: Yes (2) Pleural effusion, right Is this a current diagnosis for this admission?: Yes (3) Cardiac arrest Is this a current diagnosis for this admission?: Yes (4) Pulmonary hypertension Is this a current diagnosis for this admission?: Yes (5) Hypothyroidism Qualifiers: Hypothyroidism type: unspecified Qualified Code(s): E03.9 - Hypothyroidism, unspecified Is this a current diagnosis for this admission?: Yes (6) Bipolar disorder Is this a current diagnosis for this admission?: Yes (7) Hypernatremia Is this a current diagnosis for this admission?: Yes (8) Normocytic anemia Is this a current diagnosis for this admission?: Yes (9) Transaminitis Is this a current diagnosis for this admission?: Yes (10) Paroxysmal atrial fibrillation Is this a current diagnosis for this admission?: Yes (11) Hypoxia Is this a current diagnosis for this admission?: Yes - Plan Summary Summary: Patient downgraded from ICU to IMCU today. Received signout from chilling hood operator. Patient was admitted for altered mental status which had been worsening progressively over a few weeks. Upon admission, patient was febrile, nonverbal, fully awake but highly restless and agitated and tremulous. Initially treated with antibiotics broad-spectrum. There was concern for encephalitis which was later ruled out by LP. There was concern that patient's gabapentin doses and changes may have played a role there. Patient was also treated for urinary tract infection with antibiotics. Patient went into cardiac arrest and was resuscitated after receiving 3 rounds of epi and a round of bicarb. From my discussion with the chilling hood operator, the exact cause of her cardiac arrest has not been derived. In the ICU, she was treated for severe metabolic acidosis, paroxysmal atrial fibrillation, pulmonary hypertension. Also noted to have Takotsubo cardiomyopathy. She did have renal failure but has improved. Patient was extubated 2 days ago. Mental status still seems about the same as her initial presentation as she is still nonverbal and blankly stares. She however does not seem to be restless and agitated anymore and she is no longer tremulous. Not really moving her left arm. Possibly had a stroke or hypoxic encephalopathy. Exact cause of her initial mental decline is still unknown. She follows with neurologist Dr. Adams. Hypernatremic and on half-normal saline. On 5l nc. Will check labs, CXR in Am. Check MRI brain. Adjust levothyroxine to weight-ba sed dosing. 05/09/2020 Checks x-ray this morning shows right pleural effusion which is likely respons ible for hypoxia. She still on nasal cannula Though she has right pleural effusion, she is intravascularly depleted with contraction alkalosis and hyperchloremic hypernatremia. She is planned for thoracentesis. Radiology will be available tomorrow to perform the thoracentesis. Unfortunately the D5W ordered was not started this morning and hence repeat labs still showing no change in sodium. Start D5W at 65 cc/h to replace free water deficit and cover insensible losses. Monitor labs. We will switch to only tube flushes once Na improves. MRI Brain pending Discussed plan with sister today. Start Lactase while on tube feeds Contnue synthroid and cardiac meds 05/10/2020 Patient's breathing was a little bit more labored this morning so we went ahead with thoracentesis. 1000 cc of clear fluid was aspirated during the thoracentesis. Subsequent chest x-ray shows improved aeration of the lungs but no pneumothorax. Regarding her hyponatremia, I have increased her D5W rate to 85 cc/h and also increased her tube flushes to 100 cc every 4 hours. Repeat BMP at 8 PM. Goal correction of 8-10 M EQ/24h Not having much diarrhea on tube feed. Continue lactase Cardiology following as well. Recommendations appreciated MRI of the brain was limited due to motion artifact so may not have been adeq uate does not show anything acute which is unlikely given her presentation. Will reconsider if to do MRI at another time. Discussed plan with patient's Sister Jazmine today. 05/11/2020 Worked with PT today and required max assist even to sit up. Mental status is still the same and she remains nonverbal and unable to follow commands during my assessment. Seems to have full blown expressive aphasia and significant amount of receptive aphasia. Left arm remains flaccid. It is pretty impressive to me that MRI of the brain did not even draft roller picker as much as a stroke. Only showed significant cerebral atrophy out of proportion with her age. This decline would be too rapid for Dementia I did a remote consultation with Neurology at [facility] with Adán Villar who also reviewed images himself and recommends getting another MRI with CTA of head/neck. This will be ordered Hypernatremia resolved. D/c D5W. Tube flushes increased to 230cc q4h On lasix due to swelling Patient's sister Jazmine expresses that patient would not wish to be on artifical nutrition if this situation was likely to be permanent and would not want to be preserved in such condition on PEG tube feed. Leaning towards hospice. Will get the imaging recommended to get some definitive answers. 05/12 Repeat MRI still shows nothing signifcant enough to explain patient's mental state. CTA H/N unremarkable Her pleural effusion is starting to reaccumulate and now appears quite large bilaterally. EF is 35% on 05/05 from 25% Cardiolongy on board. Has been net negative for past few days on Lasix IV 20mg bid. I will give a dose of 40mg this evening decrease free water flushes to 1L/24h Pleural fluid analysis consistent with transudative fluid Free T3 and T4 are normal now. C/w supplements Continue tube feeds Consult Psych regarding Bipolar d/o. Voltaire held since admission. ? if lithium played a role in her presentation but [place] level was drawn a few days into admission. Notable Jazmine informs me that she has been on Voltaire for over a decade and most recent level in april was therapeutic. Now positive with C diff and started on Vancomycin Hb is stable Max assist with PT 1/6 Today, patient is on room air. She is diuresing well on the Lasix. Dr. Vasquez following. Lower extremity edema has also resolved. Her left arm swelling is improving remarkably. Breath sounds still decreased in the lung bases likely from the pleural effusions. I did a phone consultation with Dr. Kota Contreras at [facility] enter neurology and we extensively discussed patient's entire case and reviewed all images together. He notes that they are abnormalities including a small stroke on patient's left parietal region as well as an unusual hyperintensity on the T2 flair image in her right occipital region. He does not believe the small stroke is the cause of her presentation but thinks that the hyperintensity in the right occipital may be somewhat related. Doubts lithium toxicity. However he does not know what could have caused this but states that if she was going to improve, she would have likely started showing remarkable improvement in her mental state by now. Recommends getting repeat MRI in 5 days to see if any changes which may give more clarity to the etiology. States that we have already done all the work-up that he would have done so there will be no yield in transferring patient over. I discussed these with patient's sister Jazmine who states that she and her brother would like to start looking into hospice sites. She will like to think over whether or not she wants to wait for the repeat MRI as recommended in 5 days before deciding on hospice. She is keen to get hospice going especially be ing that whatever etiology may be very much irreversible and patient does not want any PEG or to live this way. I encouraged her to take all the time she needs as it is a difficult decision. She will like for the social services analyst to start looking into hospice sites so we have something available when she decides. In the meantime, requests something to help patient sleep. She has tolerated seroquel in the past. - Time Time Spent with patient: 35 or more minutes Anticipated Discharge Disposition: Hospice Center Anticipated Discharge Timeframe: within 72 hours
--- NOTE | 2020-05-13 20:08 | Progress Note ---
Provider Note Provider Note: CARDIOLOGY PROGRESS NOTE by Dr. Cydney Dickens on 05/13/2020. SUBJECTIVE: The patient's condition is status quo. She is awake but does not respond to verbal stimuli. Her actions do not have any purpose. HerSleep study is consistent with diffuse cerebral dysfunction. She is diuresing well on Lasix. The sister wants to make her hospice care only. Agree with the. I feel at present it is not necessary to repeat an echocardiogram or an MRI as its not going to change the outcome of the patient. Hence we will follow socially will sign off. There is no arrhythmias seen on the monitor. PHYSICAL EXAMINATION: The patient is a frail build. Appears to be in no acute distress. Selected Entries 05/13/20 08:45 Temperature 98.1 F Temperature Axillary Source Pulse Rate 93 Respiratory 24 H Rate Blood Pressure 154/79 H Blood Pressure 104 Mean BP Location Right Arm BP Position Supine O2 Sat by Pulse 97 Oximetry Oxygen Delivery Room Air Method HEENT is negative. Neck is supple. There is no JVD. Carotids are equal there is no bruit. Skin: There is no skin rashes. Skin is cool to touch. There is no petechia or ecchymosis. LUNGS: Few scattered rhonchi, there is dullness and absent breath sounds in both the bases.. There are no bibasilar rales of CHF. There is no rhonchi rales or wheezing. HEART: S1-S2 is heard. S1 is of normal intensity. There is no S3 gallop. There is no S4 gallop. There is systolic murmur in the left sternal border and the apex . There is no rub. ABDOMEN: Soft. There is no hepatosplenomegaly. Bowel sounds well heard. EXTREMITIES: Femorals are diminished. There is no femoral bruits. Leg pulses are well felt. There is no pedal edema. There is some mild swelling and redness in the left upper extremity. Upper extremity pulses are well felt. Capillary refill is normal. There is no cyanosis or clubbing there is no DVT or cellulitis. DETAIL ASSEMBLER: The patient is conscious awake but nonverbal. She moves all 4 extremities. PSYCHIATRIC: Not examined. Labs- All tests 24 hr 05/12/20 05/13/20 05/13/20 23:22 05:11 07:55 Sodium 145.8 H Potassium 3.5 L Chloride 107 Carbon Dioxide 32 H Anion Gap 7 BUN 15 Creatinine 0.67 Est GFR ( Amer) > 60 Est GFR (MDRD) Non-Af > 60 Glucose 112 H POC Glucose 102 109 Calcium 9.0 Magnesium 2.3 Total Bilirubin 0.6 Direct Bilirubin 0.3 Neonat Total Bilirubin Not Reportable Neonat Direct Bilirubin Not Reportable Neonat Indirect Bili Not Reportable AST 29 ALT 27 Alkaline Phosphatase 177 H Total Protein 5.7 L Albumin 2.7 L 05/13/20 05/13/20 11:50 17:38 Sodium Potassium Chloride Carbon Dioxide Anion Gap BUN Creatinine Est GFR ( Amer) Est GFR (MDRD) Non-Af Glucose POC Glucose 137 H 143 H Calcium Magnesium Total Bilirubin Direct Bilirubin Neonat Total Bilirubin Neonat Direct Bilirubin Neonat Indirect Bili AST ALT Alkaline Phosphatase Total Protein Albumin Abdomen/Pelvis CT 04/27/20 00:00 IMPRESSION: 1. Limited examination secondary to motion artifact. 2. Cholelithiasis. 3. Poor visualization of the GI tract especially in the mid and lower abdomen. No obvious bowel obstruction. Chest X-Ray 04/27/20 14:52 IMPRESSION: No acute cardiopulmonary process. Head CT 04/27/20 15:26 IMPRESSION: No acute intracranial abnormality. EVIDENCE OF ACUTE STROKE: NO. Chest X-Ray 04/29/20 00:00 IMPRESSION: Extensive bilateral airspace disease right greater than left. This is new from 04/27/2020. Most likely pulmonary edema. Chest X-Ray 04/29/20 10:58 IMPRESSION: Interval placement of endotracheal tube and NG tube as described. Both are in satisfactory position. No other interval change. Chest X-Ray 04/29/20 14:07 IMPRESSION: Support lines and tubes have been placed as discussed. Increasing opacification in the right lung base. Overall pulmonary edema pattern appears improved. Chest X-Ray 04/30/20 00:00 IMPRESSION: 1. Somewhat improved pulmonary exam. 2. Endotracheal tube tip broaches the right mainstem bronchus. Recommend retracting 3 to 4 cm. Otherwise stable lines and tubes. Venous Doppler Study 05/02/20 00:00 IMPRESSION: Acute occlusive thrombus is seen within the axillary, brachial, and cephalic veins. Chest X-Ray 05/06/20 00:00 IMPRESSION: Slight improvement in bilateral edema and/or pneumonia. Chest X-Ray 05/09/20 00:00 IMPRESSION: Nasogastric tube in the stomach. Head MRI 05/09/20 00:00 IMPRESSION: 1. Limited study. 2. No acute or suspicious intracranial abnormality detected. No recent CVA. No gross enhancing lesions. EVIDENCE OF ACUTE STROKE: NO. Chest X-Ray 05/09/20 06:36 IMPRESSION: Increasing pleural effusions. No pneumothorax. Chest X-Ray 05/10/20 00:00 IMPRESSION: Improved aeration right lung. Thoracentesis Ultrasound 05/10/20 10:00 IMPRESSION: SUCCESSFUL THORACENTESIS USING ULTRASOUND GUIDANCE. Chest X-Ray 05/10/20 14:00 IMPRESSION: No pneumothorax. Head MRI 05/11/20 00:00 IMPRESSION: No acute intracranial abnormalities. Head CTA 05/12/20 00:00 IMPRESSION: NO CTA EVIDENCE OF STENOSIS OR ANEURYSM OF THE [place]. Neck CTA 05/12/20 00:00 IMPRESSION: 1. NORMAL CTA OF THE EXTRA-CRANIAL CAROTID AND VERTEBRAL ARTERIES. 2. LARGE BILATERAL PLEURAL EFFUSIONS. IMPRESSION/RECOMMENDATION: 1. Respiratory arrest: This is due to a combination of severe metabolic ac idosis and encephalopathy. The patient is off the ventilator. She is on BiPAP. 2. Severe metabolic acidosis: This is most likely secondary to combination of untoward effects of psychiatric medication, encephalopathy, and sepsis. Continue antibiotics. Acidosis has resolved. 3. Paroxysmal atrial fibrillation yesterday needing emergency DC cardioversion due to hypotension and atrial fibrillation with rapid ventricular response. No recurrence. Amiodarone drip discontinued due to bradycardia. Patient at present with no recurrence. She is also on Eliquis 5 mg p.o. twice daily. Later will start the patient on a beta-truong. 4. Shock: This has resolved. The patient is off all pressors. The patient is very hypertensive and blood pressure is at present and controlled. We will incr ease antihypertensive. 5. Severe encephalopathy: Etiology seems to be obscure.. This is seems to be improving the patient is awake off all sedation. She still does not respond appropriately. 6. Severe pulmonary hypertension: This is most likely elevated pulmonary arterial pressures due to severe acidosis. Right ventricle systolic pressure is at least 61 mmHg with a RA mean of at least 20 [IVC is dilated and does not vary with respiration, and hence the right atrial mean pressure is at least greater than 20.] 7. Takotsubo cardiomyopathy: This is most likely event. Patient with a picture by echo of Takotsubo cardiomyopathy. This should improve if this is indeed the case in the matter of days. Continue supportive treatment. There is some improvement in the segments of the LV in terms of contractility supporting Takotsubo cardiomyopathy although the ejection fraction is still about 35%. The patient appears to be volume overloaded. 8. Elevated troponin secondary combination of hypotension, and cardiomyopathy. This is a type II supply demand mismatch no evidence of non-STEMI. Hence we will treat the underlying cause, and not treat this as a non-ST ovation DE. Echo echocardiogram tomorrow. 10. Bipolar disorder: Most likely has untoward effects from her psych medication. Doubt that this is neuroleptic syndrome, due to lack of hyperpyrexia, although there is some evidence of tardive dyskinesia. 11. Acute renal failure: The patient is renal function is now normal. Her urine output is also good. 12. Hyper natremia.: The patient is being started on dextrose. 13. Left axillary brachial and cephalic vein thrombosis: Patient is on Eliquis 5 mg p.o. twice daily. 14. Hypertension: Patient's blood pressure uncontrolled. Will increase antihypertensives. We will start the patient on Cardene drip. 15. There is bilateral pleural effusions. We will start the patient on Lasix. Medications reviewed. Discussed with atte medical regimen and management plan nding provider on the case. Medical decision making is of moderate complexity. Discussion with the patient's sister. She is along with her brother desirous of making the patient to hospice care. In view of the lack of improvement would agree. We will sign off and follow the patient socially, Since I have known the patient for a long time in my practice. With this being said hope for a miraculous recovery.
[2020-05-14] MEDS: INSULIN LISPRO 100 UNIT/ML 3 ML VIAL SUBCUT SCH ×3 (00:18→18:14)
[2020-05-14] MEDS: VANCOMYCIN HCL INJ 500 MG VIAL NG SCH ×4 (04:24→20:50)
[2020-05-14] MEDS: LEVOTHYROXINE SODIUM 0.1 MG TABLET PO SCH (06:11)
[2020-05-14] MEDS: PANTOPRAZOLE SODIUM 40 MG VIAL IV SCH (09:40)
[2020-05-14] MEDS: METOPROLOL TARTRATE 100 MG TABLET PO SCH ×2 (09:40→22:24)
[2020-05-14] MEDS: LOSARTAN POTASSIUM 25 MG TABLET NG SCH ×2 (09:40→22:24)
[2020-05-14] MEDS: POTASSIUM CHLORIDE 20 MEQ PACKET NG SCH (09:40)
[2020-05-14] MEDS: LIOTHYRONINE SODIUM 25 MCG TABLET PO SCH (09:40)
[2020-05-14] MEDS: FUROSEMIDE INJ/PF 20 MG/2 ML SDV IV SCH ×2 (09:41→18:13)
[2020-05-14] MEDS: ACYCLOVIR 200 MG/5 ML SUSP 60 ML NG SCH ×2 (09:42→18:37)
[2020-05-14] MEDS: APIXABAN 5 MG TABLET PO SCH ×2 (09:42→22:24)
[2020-05-14] MEDS: LACTAID PO SCH ×3 (09:43→18:36)
[2020-05-14] MEDS: MORPHINE SULFATE 10 MG/ML INJ IV PRN ×2 (13:47→18:13)
--- NOTE | 2020-05-14 16:03 | PDOC PROGRESS REPORT ---
Subjective Date:: 05/14/20 Subjective:: Care assumed today. Notes of previous providers reviewed. This is a case of 69/F history of bipolar disorder, sciatica, lumbar degenerative disease, chronic anticoagulation on Eliquis, shingles, who was brought into the hospital by her brother for evaluation of progressive worsening of mental status. 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 2 months ago, 02/25 patient's issues began. Patient was admitted for altered mental status which had been worsening progressively over a few weeks. Upon admission, patient was febrile, nonverbal, fully awake but highly restless and agitated and tremulous. Initially treated with antibiotics broad-spectrum. There was concern for encephalitis which was later ruled out by LP. There was concern that patient's gabapentin doses and changes may have played a role there. Patient was also treated for urinary tract infection with antibiotics. Patient went into cardiac arrest and was resuscitated after receiving 3 rounds of epi and a round of bicarb. From my discussion with the e mail system administrator, the exact cause of her cardiac arrest has not been derived. In the ICU, she was treated for severe metabolic acidosis, paroxysmal atrial fibrillation, pulmonary hypertension. Also noted to have Takotsubo cardiomyopathy. She did have renal failure but has improved. Patient was extubated 2 days ago. Mental status still seems about the same as her initial presentation as she is still nonverbal and blankly stares. She however does not seem to be restless and agitated anymore and she is no longer tremulous. Not really moving her left arm. Possibly had a stroke or hypoxic encephalopathy. Exact cause of her initial mental decline is still unknown. She follows with neurologist Dr. Adams. Discussion about the patient transitioning to hospice was initiated a few days ago with the patient TENISHAAand sister and she has decided to make the patient hospice on 05/14/20 D13 hospital stay. Patient was seen and examined at bedside. She opens her eyes when her name is called but is non verbal. She would have random jerking movements on her legs and arms. She cannot follow specific commands. Her sister Jazmine was at bedside. She is sad and tearful but understands that her sister is very sick and would probably have permanent neurologic damage the rest of her life. She has agreed to transition the patient to hospice. Discharge planning aware. Reason For Visit: ACUTE ENCEPHALOPATHY, POSSIBLE ENCEPHALITIS, UTI Physical Exam Vital Signs: Temp Pulse Resp BP Pulse Ox 98.3 F 78 19 147/42 H 97 05/14/20 10:50 05/14/20 14:00 05/14/20 08:00 05/14/20 10:50 05/14/20 10:50 Intake & Output 05/13/20 05/14/20 05/15/20 06:59 06:59 06:59 Intake Total 1315 753 Output Total 3900 1885 Balance -9720 -6605 Weight 63.4 kg 64.7 kg General appearance: PRESENT: no acute distress, thin, other Head exam: PRESENT: atraumatic, normocephalic Eye exam: PRESENT: EOMI, PERRLA Mouth exam: PRESENT: moist Neck exam: PRESENT: meningismus Respiratory exam: PRESENT: chest wall tenderness, clear to auscultation manuela, symmetrical, unlabored Cardiovascular exam: PRESENT: RRR, +S1, +S2 GI/Abdominal exam: PRESENT: normal bowel sounds, soft. ABSENT: rebound, t enderness Musculoskeletal exam: PRESENT: other - stiff muscles Neurological exam: PRESENT: awake, aphasic, other - noted with random jerking movements Skin exam: PRESENT: normal color Results Laboratory Results: 05/12/20 06:43 05/13/20 07:55 05/09/20 11:55 Fluid pH 8.0 05/09/20 11:55 Pleural Fluid - Right Pleural Effusion Fungal Smear - Final 05/09/20 11:55 Pleural Fluid - Right Pleural Effusion Fungal Smear - Final 05/09/20 11:55 Pleural Fluid - Right Pleural Effusion Gram Stain - Final 05/09/20 11:55 Pleural Fluid - Right Pleural Effusion Body Fluid Culture - Final NO AEROBIC OR ANAEROBIC ORGANISMS RECOVERED 04/27/20 04/27/20 04/30/20 15:01 15:01 03:55 Creatine Kinase 155 H Troponin I < 0.012 1.560 04/30/20 05/01/20 09:35 09:08 Creatine Kinase Troponin I 0.806 0.306 Impressions: Abdomen/Pelvis CT 04/27/20 00:00 IMPRESSION: 1. Limited examination secondary to motion artifact. 2. Cholelithiasis. 3. Poor visualization of the GI tract especially in the mid and lower abdomen. No obvious bowel obstruction. Head CT 04/27/20 15:26 IMPRESSION: No acute intracranial abnormality. EVIDENCE OF ACUTE STROKE: NO. Venous Doppler Study 05/02/20 00:00 IMPRESSION: Acute occlusive thrombus is seen within the axillary, brachial, and cephalic veins. Thoracentesis Ultrasound 05/10/20 10:00 IMPRESSION: SUCCESSFUL THORACENTESIS USING ULTRASOUND GUIDANCE. Chest X-Ray 05/10/20 14:00 IMPRESSION: No pneumothorax. Head MRI 05/11/20 00:00 IMPRESSION: No acute intracranial abnormalities. Head CTA 05/12/20 00:00 IMPRESSION: NO CTA EVIDENCE OF STENOSIS OR ANEURYSM OF THE [place]. Neck CTA 05/12/20 00:00 IMPRESSION: 1. NORMAL CTA OF THE EXTRA-CRANIAL CAROTID AND VERTEBRAL ARTERIES. 2. LARGE BILATERAL PLEURAL EFFUSIONS. Assessment and Plan - Diagnosis (1) Acute metabolic encephalopathy Is this a current diagnosis for this admission?: Yes (2) Bipolar disorder Is this a current diagnosis for this admission?: Yes (3) Cardiac arrest Is this a current diagnosis for this admission?: Yes (4) Hypernatremia Is this a current diagnosis for this admission?: Yes (5) Hypoxia Is this a current diagnosis for this admission?: Yes (6) Normocytic anemia Is this a current diagnosis for this admission?: Yes (7) Pulmonary hypertension Is this a current diagnosis for this admission?: Yes (8) Transaminitis Is this a current diagnosis for this admission?: Yes (9) Hypothyroidism Qualifiers: Hypothyroidism type: unspecified Qualified Code(s): E03.9 - Hypothyroidism, unspecified Is this a current diagnosis for this admission?: Yes (10) Paroxysmal atrial fibrillation Is this a current diagnosis for this admission?: Yes - Plan Summary Summary: Kandy Moore 69/F who was admitted due to acute metabolic encephalopathy on 04/27/20. Patient developed cardiac arrest and was succesfully revived, she was taken to the ICU 04/29/20. In the ICu she was treated for severe metabolic acidosis, paroxysmal a.fib, pulm HTN. She also developed Takotsubo cardi omyopathy. She did have renal failure but has improved. Patient was extubated 05/06/21. Transferred to floors 05/08/20. Mental status still seems about the same as her initial presentation as she is still nonverbal and blankly stares.Exact cause of her initial mental decline is still unknown despite LP and 2 MRI. She also developed right pleural effusion and underwent thoracentesis twice. Case was d/w with Dr. Kota Contreras at [facility] neurology and we extensively discussed patient's entire case and reviewed all images together. He notes that they are abnormalities including a small stroke on patient's left parietal region as well as an unusual hyperintensity on the T2 flair image in her right occipital region. He does not believe the small stroke is the cause of her presentation but thinks that the hyperintensity in the right occipital may be somewhat related. Doubts lithium toxicity. However he does not know what could have caused this but states that if she was going to improve, she would have likely started showing remarkable improvement in her mental state by now. Recommends getting repeat MRI in 5 days to see if any changes which may give more clarity to the etiology. States that we have already done all the work-up that he would have done so there will be no yield in transferring patient over. Dr. Soto d/w Jazmine, the patients sister and POA who states that she and her brother would like to start looking into hospice sites. She will like to think over whether or not she wants to wait for the repeat MRI as recommended in 5 days before deciding on hospice. She is keen to get hospice going especially being that whatever etiology may be very much irreversible and patient does not want any PEG or to live this way. I encouraged her to take all the time she needs as it is a difficult decision. She will like for the certified social workers in health care to start looking into hospice sites so we have something available when she decides. Patients sister has decided to make the patient hospice. Discharge planning is aware and is making arrangements. - Time Time Spent with patient: 15-24 minutes Medications reviewed and adjusted accordingly: Yes Anticipated Discharge Disposition: Hospice Center Anticipated Discharge Timeframe: within 48 hours
[2020-05-15] MEDS: INSULIN LISPRO 100 UNIT/ML 3 ML VIAL SUBCUT SCH ×3 (00:34→15:22)
[2020-05-15] MEDS: VANCOMYCIN HCL INJ 500 MG VIAL NG SCH ×2 (02:12→15:20)
[2020-05-15] MEDS: MORPHINE SULFATE 10 MG/ML INJ IV PRN ×3 (03:16→17:38)
[2020-05-15] MEDS: LEVOTHYROXINE SODIUM 0.1 MG TABLET PO SCH (06:08)
[2020-05-15] MEDS: LACTAID PO SCH ×3 (10:24→17:34)
[2020-05-15] MEDS: FUROSEMIDE INJ/PF 20 MG/2 ML SDV IV SCH ×2 (10:32→17:35)
--- NOTE | 2020-05-15 14:39 | PDOC TRANSFER SUMMARY ---
General - Admit/Disc Date/PCP Admission Date/Primary Care Provider: 04/27/20 17:47 JACKY JJ PA-C Discharge Date: 05/15/20 - Discharge Diagnosis (1) Acute metabolic encephalopathy Is this a current diagnosis for this admission?: Yes (2) Bipolar disorder Is this a current diagnosis for this admission?: Yes (3) Cardiac arrest Is this a current diagnosis for this admission?: Yes (4) Hypernatremia Is this a current diagnosis for this admission?: Yes (5) Hypoxia Is this a current diagnosis for this admission?: Yes (6) Normocytic anemia Is this a current diagnosis for this admission?: Yes (7) Pulmonary hypertension Is this a current diagnosis for this admission?: Yes (8) Transaminitis Is this a current diagnosis for this admission?: Yes (9) Hypothyroidism Is this a current diagnosis for this admission?: Yes (10) Paroxysmal atrial fibrillation Is this a current diagnosis for this admission?: Yes - Additional Information Resuscitation Status: Do Not Resuscitate Discharge Diet: As Tolerated Discharge Activity: Activity As Tolerated Home Medications: Acyclovir [Acyclovir 400 mg Tablet] 400 mg PO BID 04/27/20 Amlodipine Besylate [Norvasc 2.5 mg Tablet] 2.5 mg PO Q12 04/27/20 Apixaban [Eliquis 5 mg Tablet] 5 mg PO BID 04/27/20 Gabapentin [Neurontin 300 mg Capsule] 300 mg PO Q8 04/27/20 Lidocaine [Lidoderm 5% (700 mg) Transdermal Patch] 1 patch TP DAILY 04/27/20 Liothyronine Sodium [Cytomel 25 Mcg Tablet] 25 mcg PO DAILY 04/27/20 [place] Carbonate [[place] Carbonate ER 450 mg Tablet] 450 mg PO DAILY 04/27/20 Metoprolol Succinate [Toprol Xl 25 mg Tab.sr] 25 mg PO DAILY 04/27/20 History of Present Illness Admission Date/PCP: 04/27/20 17:47 JACKY JJ PA-C History of Present Illness: JAYSON CARY is a 69 year old female, Hospital Course Hospital Course: JAYSON CARY is a 69 year old female with history of bipolar disorder, sciatica, lumbar degenerative disease, chronic anticoagulation on Eliquis, shingles, who was brought into the hospital by her brother for evaluation of progressive worsening of mental status. 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 2 months ago, 02/25 patient's issues began. She had complained of neck pain accompanied with shoulder pain and headaches after pulling her seatbelt. Her neurologist Dr. Adams increased her gabapentin from 300 mg 3 times daily to 600 mg 3 times daily. He also ordered an MRI HHead and neck which they were told was okay. She then began to feel tired with difficulty ambulating, ataxia, slurred speech and had multiple falls. She was dentist told to stop taking her gabapentin. Her tizanidine and trazodone were also discontinued. Her gabapentin was later resumed on 03/16/2020 at 600 mg 3 times daily. Patient continued to experience significant motor issues slurred speech and dizziness. Was later stopped again. Later on he was restarted at a smaller dose of 300 mg twice a day on 03/25. Harvinder nowak has continued to experience cognitive decline. She recently started spiking fever and started on treatment with nitrofurantoin for UTI as outpatient. However her condition has taken a turn for the worse and now she is completely noncommunicative and tremulous. In the ER, head CT was unremarkable, urinalysis positive, patient is febrile and hospitalist service called for admission for UTI with sepsis. Patient developed cardiac arrest and was succesfully revived, she was taken to the ICU 04/29/20. In the ICu she was treated for severe metabolic acidosis, paroxysmal a.fib, pulm HTN. She also developed Takotsubo cardiomyopathy. She did have renal failure but has improved. Patient was extubated 05/06/21. Transferred to floors 05/08/20. Mental status still seems about the same as her initial presentation as she is still nonverbal and blankly stares.Exact cause of her initial mental decline is still unknown despite LP and 2 MRI. She also developed right pleural effusion and underwent thoracentesis twice. Case was d/w with Dr. Kota Contreras at [facility] neurology and we extensively discussed patient's entire case and reviewed all images together. He notes that they are abnormalities including a small stroke on patient's left parietal region as well as an unusual hyperintensity on the T2 flair image in her right occipital region. He does not believe the small stroke is the cause of her presentation but thinks that the hyperintensity in the right occipital may be somewhat related. Doubts lithium toxicity. However he does not know what could have caused this but states that if she was going to improve, she would have likely started showing remarkable improvement in her mental state by now. Recommends getting repeat MRI in 5 days to see if any changes which may give more clarity to the etiology. States that we have already done all the work-up that he would have done so there will be no yield in transferring patient over. Dr. Soto d/w Jazmine, the patients sister and ALAINA who states that she and her brother would like to start looking into hospice sites. She will like to think over whether or not she wants to wait for the repeat MRI as recommended in 5 days before deciding on hospice. She is keen to get hospice going especially being that wha tever etiology may be very much irreversible and patient does not want any PEG or to live this way. I encouraged her to take all the time she needs as it is a difficult decision. She will like for the health and social care teacher to start looking into hospice sites so we have something available when she decides. Patients sister has decided to make the patient hospice. Discharge planning is aware and is making arrangements. Physical Exam Vital Signs: Temp Pulse Resp BP Pulse Ox 98.2 F 81 18 127/47 H 99 05/15/20 07:26 05/15/20 07:26 05/15/20 07:26 05/15/20 07:26 05/15/20 07:26 Intake & Output 05/14/20 05/15/20 05/16/20 06:59 06:59 06:59 Intake Total 753 Output Total 4595 975 Balance -2222 -975 Weight 64.7 kg 62.7 kg General appearance: PRESENT: disheveled, mild distress, thin Head exam: PRESENT: atraumatic, normocephalic Eye exam: PRESENT: EOMI, PERRLA Mouth exam: PRESENT: moist Neck exam: PRESENT: meningismus Respiratory exam: PRESENT: rales, symmetrical, tachypnea Cardiovascular exam: PRESENT: RRR, +S1, +S2 Pulses: PRESENT: +2 pedal pulses bilateral GI/Abdominal exam: PRESENT: normal bowel sounds, rebound. ABSENT: soft Extremities exam: PRESENT: +1 edema Neurological exam: PRESENT: awake. ABSENT: oriented to person, oriented to place, oriented to time, oriented to situation Results Laboratory Results: 05/12/20 06:43 05/13/20 07:55 05/09/20 11:55 Pleural Fluid - Right Pleural Effusion Fungal Smear - Final 05/09/20 11:55 Pleural Fluid - Right Pleural Effusion Fungal Smear - Final 04/27/20 04/27/20 04/30/20 15:01 15:01 03:55 Creatine Kinase 155 H Troponin I < 0.012 1.560 04/30/20 05/01/20 09:35 09:08 Creatine Kinase Troponin I 0.806 0.306 Impressions: Abdomen/Pelvis CT 04/27/20 00:00 IMPRESSION: 1. Limited examination secondary to motion artifact. 2. Cholelithiasis. 3. Poor visualization of the GI tract especially in the mid and lower abdomen. No obvious bowel obstruction. Head CT 04/27/20 15:26 IMPRESSION: No acute intracranial abnormality. EVIDENCE OF ACUTE STROKE: NO. Venous Doppler Study 05/02/20 00:00 IMPRESSION: Acute occlusive thrombus is seen within the axillary, brachial, and cephalic veins. Thoracentesis Ultrasound 05/10/20 10:00 IMPRESSION: SUCCESSFUL THORACENTESIS USING ULTRASOUND GUIDANCE. Chest X-Ray 05/10/20 14:00 IMPRESSION: No pneumothorax. Head MRI 05/11/20 00:00 IMPRESSION: No acute intracranial abnormalities. Head CTA 05/12/20 00:00 IMPRESSION: NO CTA EVIDENCE OF STENOSIS OR ANEURYSM OF [place]. Neck CTA 05/12/20 00:00 IMPRESSION: 1. NORMAL CTA OF THE EXTRA-CRANIAL CAROTID AND VERTEBRAL ARTERIES. 2. LARGE BILATERAL PLEURAL EFFUSIONS. Transfer Plan - Time Spent with Patient Time spent with patient: Less than 30 Minutes Qualifiers PATIENT BEING DISCHARGED WITH ANY OF THE FOLLOWING DIAGNOSIS: No Plan Discharge Plan: transfer to hospice. Time Spent: Less than 30 Minutes
[2020-05-15 14:56] VITALS: BP 109/47
[2020-05-15] MEDS: LIOTHYRONINE SODIUM 25 MCG TABLET PO SCH (15:20)
[2020-05-15] MEDS: LOSARTAN POTASSIUM 25 MG TABLET NG SCH (15:20)
[2020-05-15] MEDS: APIXABAN 5 MG TABLET PO SCH (15:21)
[2020-05-15] MEDS: METOPROLOL TARTRATE 100 MG TABLET PO SCH (15:21)
[2020-05-15] MEDS: ACYCLOVIR 200 MG/5 ML SUSP 60 ML NG SCH ×2 (15:21→17:35)
== END 2020-05-15 18:36 | disposition hospice, inpatient (51) | DRG 870 ==
LOC: ER 14:29 → EH 17:47 → 3S 23:25 → ICU 04-29 10:41 → 5TH 05-08 18:06 → 3W 05-12 15:20
PROVIDERS: ADMIT Anesthesiology; ATTEND Internal Medicine
PROC: 5A1955Z Respiratory Ventilation, Greater than 96 Consecutive Hours (ICD-10-PCS; principal; 2020-04-29)
PROC: 0BH17EZ Insertion of Endotracheal Airway into Trachea, Via Natural or Artificial Opening (ICD-10-PCS; 2020-04-29)
PROC: 5A2204Z Restoration of Cardiac Rhythm, Single (ICD-10-PCS; 2020-04-29)
PROC: 30233N1 Transfusion of Nonautologous Red Blood Cells into Peripheral Vein, Percutaneous Approach (ICD-10-PCS; 2020-04-29)
PROC: 02HV33Z Insertion of Infusion Device into Superior Vena Cava, Percutaneous Approach (ICD-10-PCS; 2020-04-29)
PROC: 009U3ZX Drainage of Spinal Canal, Percutaneous Approach, Diagnostic (ICD-10-PCS; 2020-05-02)
PROC: 0W993ZX Drainage of Right Pleural Cavity, Percutaneous Approach, Diagnostic (ICD-10-PCS; 2020-05-10)
DX: A41.9 Sepsis, unspecified organism (principal); G93.41 Metabolic encephalopathy; J96.01 Acute respiratory failure with hypoxia; R65.21 Severe sepsis with septic shock; I46.9 Cardiac arrest, cause unspecified; I63.9 Cerebral infarction, unspecified; J90 Pleural effusion, not elsewhere classified; N39.0 Urinary tract infection, site not specified; N17.9 Acute kidney failure, unspecified; K92.1 Melena; I51.81 Takotsubo syndrome; E87.2 Acidosis; E87.0 Hyperosmolality and hypernatremia; E87.3 Alkalosis; R47.01 Aphasia; F31.9 Bipolar disorder, unspecified; I48.0 Paroxysmal atrial fibrillation; E03.9 Hypothyroidism, unspecified; M19.90 Unspecified osteoarthritis, unspecified site; D64.9 Anemia, unspecified; R74.01 Elevation of levels of liver transaminase levels; E87.6 Hypokalemia; I27.20 Pulmonary hypertension, unspecified; T42.6X5A Adverse effect of other antiepileptic and sedative-hypnotic drugs, initial encounter; R21 Rash and other nonspecific skin eruption; Z20.822 Contact with and (suspected) exposure to COVID-19; M54.30 Sciatica, unspecified side; Z79.01 Long term (current) use of anticoagulants; Z87.820 Personal history of traumatic brain injury; Z88.2 Allergy status to sulfonamides; Z88.6 Allergy status to analgesic agent; Z88.8 Allergy status to other drugs, medicaments and biological substances; Z91.011 Allergy to milk products; R77.8 Other specified abnormalities of plasma proteins; Z66 Do not resuscitate; E87.8 Other disorders of electrolyte and fluid balance, not elsewhere classified; Z78.1 Physical restraint status
CPT/HCPCS: 0202U; 32555; 36415; 36430; 70450; 70496; 70498; 70553; 71045; 74177; 80048; 80053; 80178; 80202; 80307; 81001; 82042; 82140; 82270; 82550; 82607; 82728; 82746; 82803; 82945; 82962; 83540; 83550; 83605; 83615; 83735; 83986; 84100; 84157; 84439; 84443; 84478; 84481; 84484; 85025; 85045; 85610; 85730; 86850; 86900; 86901; 86920; 87015; 87040; 87070; 87075; 87086; 87088; 87101; 87116; 87186; 87205; 87206; 87324; 87449; 87529; 87804; 88305; 89050; 93005; 93010; 93306; 93308; 93971; 94002; 94003; 94640; 94660; 95819; 96365; 96375; 99285; 99291; 0241U; A9576; C9113; C9803; J0133; J0171; J0282; J0290; J0696; J0743; J1265; J1642; J1815; J1940; J2060; J2250; J2270; J2370; J2704; J3370; J3475; J3480; J3490; J7030; J7050; J7060; P9016